=== PATIENT | female | born 1965 | race Caucasian/White ===

== ENCOUNTER → 2018-01-07 10:58 | Outpatient (CLI) | payer OTHER, SELFPAY ==
--- NOTE | 2018-01-17 09:57 | PM.CARDMON.1 ---
Management Instructor Report Referral & Results Date Patient Seen: 01/07/18 Requesting provider: Jeannie Ta Indication: Arrhythmia Duration of monitoring (days): 3 Diary information: There was 1 patient diary entry associated with sinus rhythm, and 1 patient triggered event also associated with sinus rhythm Data: Minimum heart rate identified was 51 beats per minute at 06:10 on 01/09/2018 Maximum heart rate was 156 beats per minute at 21:59 on 01/07/2018. This was during an 8 beat run of SVT. The maximum sinus heart rate was 122 beats per minute at 10:43 on 01/10/2018 Less than 1% of identified depolarizations were premature either from a supraventricular or ventricular origin Impression: Probably normal monitoring engineer. 1 run of an SVT at 156 beats per minute was identified. This run was only 8 beats. Patient identified events were not associated with any dysrhythmia.
== END ==
PROVIDERS: Family Provider Family Medicine; PCP Family Medicine; Visit Provider Family Medicine
DX: I49.9 Cardiac arrhythmia, unspecified (principal)
CPT/HCPCS: 0296T; 0298T

== ENCOUNTER 2018-01-17 08:25 | Emergency (ER) | payer OTHER, SELFPAY ==
[2018-01-17 08:35] VITALS: BP 126/74; PULSE 79; RESP 20; TEMP 36.4; O2SAT 97; BMI 20.9
--- NOTE | 2018-01-17 08:46 | ED.CHESTPAIN ---
HPI - Chest Pain General Chief Complaint: Chest Pain Stated Complaint: TROUBLE BREATHING Time Seen by Provider: 01/17/18 08:46 Source: patient Mode of arrival: ambulatory Limitations: no limitations History of Present Illness HPI narrative: Patient is a 52-year-old female presenting with chest pain and lightheadedness. She says she has had lightheadedness off and on for sometime. She has been having to multi sleeping for while she says she tries to sleep and then she feels like her heart wakes her up. She now feel extremely lightheaded no nausea no vomiting no weakness. She does have a history of anxiety and takes clonazepam before bed however she has run out and not been taking it. They also been decreasing her and present medication she thought previous was due to that. She has been taking her Sinemet every 3 hr. It is questionable that was prescribed this where she has increased herself. She is taking Related Data Home Medications Medication Instructions Recorded Confirmed ropinirole [Requip] 2 tab PO BID #0 09/06/16 01/17/18 sertraline 12.5 mg PO QDAY #0 10/05/17 12/21/17 carbidopa 25 mg-levodopa 100 mg 1.5 tab PO Q3H tab 12/21/17 01/17/18 tablet ropinirole 4 tab PO BEDTIME 01/17/18 01/17/18 Previous Rx's Medication Instructions Recorded mirtazapine 30 mg PO HS #60 tab 08/21/17 levothyroxine 75 mcg tablet 75 mcg PO QDAY #90 tab 11/22/17 clonazepam 1 mg tablet 1.5 mg PO QDAY #45 tab 01/17/18 Allergies Allergy/AdvReac Type Severity Reaction Status Date / Time No Known Drug Allergies Allergy Verified 01/17/18 08:35 Review of Systems Review of Systems All systems reviewed & are unremarkable except as noted in HPI and below Constitutional Reports as per HPI, Reports fatigue, Denies frequent falls and Reports other (insomnia) Cardiovascular Denies chest pain, Denies irregular heart rhythm, Denies lightheadedness, Denies palpitations and Denies orthopnea Gastrointestinal Gastrointestinal: Denies abdominal pain, Denies change in bowel habits, Denies diarrhea, Denies nausea and Denies vomiting Integumentary/Breasts Denies erythema and Denies rash Neurologic Denies frequent falls and Reports other (Parkinson's) Psychiatric Reports abnormal sleep pattern, Reports anxiety and Reports depression Endocrine Reports fatigue and Denies palpitations PFSH Medical History Anxiety (Chronic 02/22/11) Major depressive disorder without psychotic features (Chronic) Chronic insomnia (Chronic 06/12/14) 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) Parkinson's disease (Chronic 06/21/16) Anxiety (Chronic) Carpal tunnel syndrome (Chronic) Depression (Chronic) Eczema (Chronic) Foot pain (Chronic 2014) GERD (gastroesophageal reflux disease) (Chronic) Hayfever (Chronic) Herpes (Chronic) Hyperlipidemia (Chronic) Hypertension (Chronic) Hypothyroidism (Chronic 2014) Parkinson's disease (Chronic 2009) Scoliosis (Chronic) Substance abuse (Chronic) Abnormal Pap smear of cervix (Resolved) Cervical cancer (Resolved 2007) Chicken pox (Resolved 1969) Colitis (Resolved 2003) Gastric ulcer (Resolved 1983) HPV (human papilloma virus) infection (Resolved) Surgical History Anesthesia (Resolved) Status post vaginal hysterectomy (Resolved 04/05/09) Family History Father Heart disease High cholesterol Parkinson's disease Grandmother Cancer Mother Stroke A-fib Pacemaker Social History Smoking Status: Never smoker Exam Initial Vital Signs Initial Vital Signs: Vital Signs Temperature 97.6 F 01/17/18 08:35 Pulse Rate 79 01/17/18 08:35 Respiratory Rate 20 01/17/18 08:35 Blood Pressure 126/74 H 01/17/18 08:35 Pulse Oximetry 97 01/17/18 08:35 Const General: cooperative, well developed, anxious and No diaphoretic Nutritional Appearance: well nourished Orientation: alert, awake, oriented x3 and not confused [facility] Head: normal to inspection and normocephalic Resp Effort & Inspection: normal respiratory effort, able to speak in complete sentences, no respiratory distress and no use of accessory muscles Auscultation: clear to auscultation bilaterally, no rales, no rhonchi and no wheezes Cardio Rate: regular rate Rhythm: regular rhythm Heart Sounds: no click, no gallops, no murmurs and no rubs Pulses: normal peripheral pulses GI Inspection: non-distended Palpation: soft, no hepatosplenomegaly, No guarding, No pulsatile mass and No tender Auscultation: normal bowel sounds Skin General: no rashes or lesions noted, No jaundice and No petechiae Neuro General: alert, oriented x3, gait normal and no focal motor deficits Speech: speech normal Course Orders Ordered: ED Orders 01/17/18 08:40 Complete Blood Count AUTO DIFF Stat Comprehensive Metabolic Panel Stat D Dimer Stat Lipase Stat Troponin with CK Cardiac Panel Stat 01/17/18 09:00 XR chest 1V Stat 01/17/18 09:56 Urine Microscopic Stat Discontinued Medications Sodium Chloride (Normal Saline 0.9%) 1,000 mls @ 1,000 mls/hr IV CONT ENRIQUE Last Infusion: 01/17/18 10:54 Dose: 0 mls/hr Admin: 01/17/18 09:56 Dose: 1,000 mls/hr Vital Signs - 8 hr 01/17/18 08:35 01/17/18 08:53 01/17/18 09:06 Temperature 97.6 F Pulse Rate 79 74 Respiratory Rate 20 18 21 Blood Pressure 126/74 H Blood Pressure [Right Arm] 118/77 Pulse Oximetry 97 100 100 01/17/18 10:00 01/17/18 10:33 Temperature Pulse Rate 75 75 Respiratory Rate 20 19 Blood Pressure Blood Pressure [Right Arm] 128/80 H 126/79 H Pulse Oximetry 100 100 MDM - Chest Pain Medical Records Data Attestation: I reviewed the patient's medical records. Lab Data Attestation: I reviewed the patient's lab results. Result diagrams: 01/17/18 08:40 01/17/18 08:40 Lab Results 01/17/18 01/17/18 01/17/18 Range/Units 08:40 08:40 08:40 WBC 6.9 (4.5-11.0) X10^3/uL RBC 4.65 (4.0-5.2) X10^6/uL Hgb 13.6 (12.0-16.0) g/dL Hct 39.8 (36-46) % MCV 85.5 (80-100) fL MCH 29.1 (26-34) PG MCHC 34.1 (30-36) % RDW 13.0 (11.6-14.8) % Plt Count 331 (150-400) X10^3/uL Neut % (Auto) 62.7 (50-75) % Lymph % (Auto) 30.1 (25-40) % Greer % (Auto) 5.9 (3-14) % Eos % (Auto) 0.7 L (2-4) % Baso % (Auto) 0.6 (0-2) % Neut # (Auto) 4300 (8225-6125) /uL D-Dimer 262 H (<230) ng/mL Sodium 138 (137-145) mmol/L Potassium 3.5 (3.4-5.1) mmol/L Chloride 104 (98-107) mmol/L Carbon Dioxide 26 (22-32) mmol/L BUN 8 (7-17) mg/dL Creatinine 0.60 (0.52-1.04) mg/dL Estimated GFR > 60.0 (>60) mL/min BUN/Creatinine Ratio 13.3 (6-22) Glucose 90 (70-100) mg/dL Calcium 9.2 (8.4-10.2) mg/dL Total Bilirubin 0.7 (0.2-1.3) mg/dL AST 31 (14-36) IU/L ALT 12 (9-52) IU/L Alkaline Phosphatase 96 (38-126) U/L Total Creatine Kinase 61 (30-135) U/L Troponin I < 0.012 (0.01-0.034) ng/mL Total Protein 6.5 (6.3-8.2) g/dL Albumin 3.4 L (3.5-5.0) g/dL Globulin 3.1 (1.7-4.1) g/dL Albumin/Globulin Ratio 1.1 (1.0-2.8) Lipase 70 (23-300) U/L Urine RBC (0-5/HPF) Urine WBC (0-5/HPF) Ur Squamous Epith Cells Ur Transition Epith Cell (0-5/HPF) Urine Bacteria (None) Ur Culture Indicated? Micro UA Comment 01/17/18 Range/Units 09:56 WBC (4.5-11.0) X10^3/uL RBC (4.0-5.2) X10^6/uL Hgb (12.0-16.0) g/dL Hct (36-46) % MCV (80-100) fL MCH (26-34) PG MCHC (30-36) % RDW (11.6-14.8) % Plt Count (150-400) X10^3/uL Neut % (Auto) (50-75) % Lymph % (Auto) (25-40) % Greer % (Auto) (3-14) % Eos % (Auto) (2-4) % Baso % (Auto) (0-2) % Neut # (Auto) (4331-8768) /uL D-Dimer (<230) ng/mL Sodium (137-145) mmol/L Potassium (3.4-5.1) mmol/L Chloride (98-107) mmol/L Carbon Dioxide (22-32) mmol/L BUN (7-17) mg/dL Creatinine (0.52-1.04) mg/dL Estimated GFR (>60) mL/min BUN/Creatinine Ratio (6-22) Glucose (70-100) mg/dL Calcium (8.4-10.2) mg/dL Total Bilirubin (0.2-1.3) mg/dL AST (14-36) IU/L ALT (9-52) IU/L Alkaline Phosphatase (38-126) U/L Total Creatine Kinase (30-135) U/L Troponin I (0.01-0.034) ng/mL Total Protein (6.3-8.2) g/dL Albumin (3.5-5.0) g/dL Globulin (1.7-4.1) g/dL Albumin/Globulin Ratio (1.0-2.8) Lipase (23-300) U/L Urine RBC 0-1/hpf (0-5/HPF) Urine WBC 5-10/hpf H (0-5/HPF) Ur Squamous Epith Cells 10-30 /hpf H Ur Transition Epith Cell 1-5/hpf (0-5/HPF) Urine Bacteria Moderate (10-30) H (None) Ur Culture Indicated? Cult not indicated Micro UA Comment Not Reportable MDM Narrative Medical decision making narrative: Patient is taking her Sinemet every 3 hr she says it wears off. It is unknown if a physician has prescribed this for her. It sounds as though she started taking it more frequently. Side effects include nausea dizziness headache insomnia anxiety hypotension or orthostatic depression his mood changes. A lot of these she is experiencing. I have strongly recommended that she decrease her dose and take as prescribed t.i.d. or q.i.d. think that it will help with her symptoms. Today I believe her symptoms be medication induced. Discharge Plan Departure Patient Disposition: Home, Self-Care Clinical Impression: Medication reaction, [id number] Discharge Date/Time: 01/17/18 10:57 Interventions: ED Discharge Assessment Last Done: 01/17/18 10:56 Instructions: DI for Anxiety -- Adult, Levodopa and Carbidopa Activity Restrictions/Additional Instructions: *You have been diagnosed with his symptoms today may actually be drug related *What to do: Recommend decreasing carbidopa levodopa, a lot of these side effects you are experiencing *Continue to take medications as directed *Follow up with your primary care provider in 2-3 days, follow up with your neurologist *Return to ER if you should have any new, worsening or concerning symptoms Prescriptions: No Action ropinirole [Requip] 0.25 MG tablet 2 tab PO BID Qty: 0 RF: 0 mirtazapine 15 MG tablet 30 mg PO HS Qty: 60 RF: 5 sertraline 25 MG tablet 12.5 mg PO QDAY Qty: 0 RF: 0 levothyroxine [Synthroid] 75 mcg tablet 75 mcg PO QDAY Qty: 90 RF: 0 carbidopa-levodopa 25-100 mg tablet 1.5 tab PO Q3H RF: 0 clonazepam 1 mg tablet 1.5 mg PO QDAY Qty: 45 RF: 3 ropinirole 0.25 mg Tablet 4 tab PO BEDTIME RF: 0 Referrals: Jeannie Ta DO [Primary Care Provider] -
[2018-01-17 08:53] VITALS: RESP 18; O2SAT 100; O2SAT 99
--- NOTE | 2018-01-17 08:54 | PC.NURSE ---
Patient stated she was still having a hard time breathing and it was scaring her. o2 was at 99%. Nurse asked me to put her on 2L of O2.
--- NOTE | 2018-01-17 09:00 | DI.RAD.S_ITS ---
PROCEDURE: XR CHEST 1V INDICATIONS: 52 year-old female with chest pain. TECHNIQUE: One view of the chest was acquired. COMPARISON: [facility], , CHEST 1 VIEW, 08/10/2017, 18:52. FINDINGS: Surgical changes and devices: None. Lungs and pleura: No pleural effusions or pneumothorax. Lungs are clear. Mediastinum: Mediastinal contours appear normal. Heart size is normal. Bones and chest wall: No suspicious bony lesions. There is mid thoracic spine dextroscoliosis as before. Overlying soft tissues appear unremarkable. IMPRESSION: No acute cardiopulmonary disease. Dictated by: Rufus Chun M.D. on 01/17/2018 at 9:29 Approved by: Rufus Chun M.D. on 01/17/2018 at 9:30
[2018-01-17 09:06] VITALS: BP 118/77; PULSE 74; RESP 21; O2SAT 100
[2018-01-17 09:11] LABS: Add Manual Diff / Slide Review NO; Basophils Percent Auto 0.6 % (0-2); Eosinophils Percent Auto 0.7 % (2-4); Hematocrit 39.8 % (36-46); Hemoglobin 13.6 g/dL (12.0-16.0); Lymphocytes Percent Auto 30.1 % (25-40); Mean Corpuscular HGB Conc 34.1 % (30-36); Mean Corpuscular Hemoglobin 29.1 PG (26-34); Mean Corpuscular Volume 85.5 fL (80-100); Monocytes Percent Auto 5.9 % (3-14); Neutrophils Absolute Auto 4300 /uL (3000-5900); Neutrophils Percent Auto 62.7 % (50-75); Platelet Count 331 X10^3/uL (150-400); Red Blood Cell Count 4.65 X10^6/uL (4.0-5.2); White Blood Cell Count 6.9 X10^3/uL (4.5-11.0)
[2018-01-17 09:15] LABS: D Dimer 262 ng/mL (<230)
--- NOTE | 2018-01-17 09:15 | PC.NURSE ---
Patient asked me to contact her spouse and ask him if he could come sit with her as shes feeling anxious. He was on his way to work but sent Joann to come sit with patient. Patient aware.
[2018-01-17 09:17] LABS: Alanine Aminotransferase 12 IU/L (9-52); Albumin 3.4 g/dL (3.5-5.0); Albumin Globulin Ratio 1.1 (1.0-2.8); Alkaline Phosphatase 96 U/L (38-126); Aspartate Aminotransferase 31 IU/L (14-36); BUN Creatinine Ratio 13.3 (6-22); Bilirubin Total 0.7 mg/dL (0.2-1.3); Blood Urea Nitrogen 8 mg/dL (7-17); Calcium 9.2 mg/dL (8.4-10.2); Carbon Dioxide 26 mmol/L (22-32); Chloride 104 mmol/L (98-107); Creatine Kinase 61 U/L (30-135); Estimated Glomerular Filt Rate > 60.0 mL/min (>60); Globulin 3.1 g/dL (1.7-4.1); Glucose 90 mg/dL (70-100); HEMOLYSIS 19 (0-50); Lipase 70 U/L (23-300); Potassium 3.5 mmol/L (3.4-5.1); Sodium 138 mmol/L (137-145); Total Protein 6.5 g/dL (6.3-8.2)
[2018-01-17 09:30] LABS: Troponin I < 0.012 ng/mL (0.01-0.034)
[2018-01-17] MEDS: SODIUM CHLORIDE 0.9% 1,000 ML 1000 ML IV (09:56)
[2018-01-17 10:00] VITALS: BP 128/80; PULSE 75; RESP 20; O2SAT 100
[2018-01-17 10:12] LABS: RBC Urine 0-1/HPF (0-5/HPF)
[2018-01-17 10:13] LABS: Bacteria Urine Moderate (10-30); Squamous Epithelial Cell Urine 10-30 /HPF; Transitional Epi Cells Urine 1-5/HPF (0-5/HPF); WBC Urine 5-10/HPF (0-5/HPF)
[2018-01-17 10:14] LABS: Culture Indicated Urine Cult Not Indicated
[2018-01-17 10:33] VITALS: BP 126/79; PULSE 75; RESP 19; O2SAT 100
--- NOTE | 2018-01-17 10:54 | PC.NURSE ---
Pt and friend verbalized disappointment that we could not offer more pharmaceutical intervention re: insomnia. Encouraged to f/u w/ PCP and Neurology regarding possible treatments. Discussed non pharmacologic interventions.
== END 2018-01-17 10:57 | disposition home or self-care (01) ==
PROVIDERS: Emergency Provider Emergency Medicine; Family Provider Family Medicine; PCP Family Medicine
DX: R11.0 Nausea (principal); T42.8X5A Adverse effect of antiparkinsonism drugs and other central muscle-tone depressants, initial encounter; R42 Dizziness and giddiness; R51 Headache
CPT/HCPCS: 36591; 71045; 80053; 81003; 81015; 82550; 82553; 83690; 84484; 85025; 85379; 93005; 93041; 96360; 99284; 99285

== ENCOUNTER 2018-02-11 09:00 | Outpatient (RCR) | payer OTHER, SELFPAY ==
--- NOTE | 2018-01-09 07:20 | PT.OIE ---
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) Parkinson's disease (Chronic 06/21/16) Anxiety (Chronic) Carpal tunnel syndrome (Chronic) Depression (Chronic) Eczema (Chronic) Foot pain (Chronic 2014) GERD (gastroesophageal reflux disease) (Chronic) Hayfever (Chronic) Herpes (Chronic) Hyperlipidemia (Chronic) Hypertension (Chronic) Hypothyroidism (Chronic 2014) Parkinson's disease (Chronic 2009) Scoliosis (Chronic) Substance abuse (Chronic) Abnormal Pap smear of cervix (Resolved) Cervical cancer (Resolved 2007) Chicken pox (Resolved 1969) Colitis (Resolved 2003) Gastric ulcer (Resolved 1983) HPV (human papilloma virus) infection (Resolved) Past Surgical History (Last Updated 12/20/17 @ 16:57 by Sharron Bergman) Anesthesia (Resolved) Status post vaginal hysterectomy (Resolved 04/05/09) Provider Visit Care Team Role Provider Type Jeannie Ta DO Family Provider Physician Primary Care Provider Specialty: Family Practice Address: [address] [place] [address], [phone] Email: [email or web address] Abena Nelson MD Attending Provider Non-Staff Specialty: Neurology Address: [address] [place] [address], [phone] Email: Physical Therapy Initial Evaluation PT-OP-A Visit Information Start: 01/08/18 07:27 Freq: Status: Active Protocol: Document 01/08/18 11:00 AMB (Rec: 01/08/18 16:27 AMB [email or web address]) Out-Patient Physical Therapy Visit Information Visit Information Visit Type Initial Evaluation Visit Start Time 11:00 Visit Stop Time 12:00 Total Visit Minutes 60 Visit Number 1 Evaluation Information Evaluation Date 01/08/18 PT-OP-B Current Condition Start: 01/08/18 07:27 Freq: Status: Active Protocol: Document 01/08/18 11:00 AMB (Rec: 01/08/18 16:27 AMB [email or web address]) Current Condition History of Current Condition History of Current Condition The patient has had Parkinson' s about 8 years ago. Since then she has noticed greater difficulty with quick movements, balance, strength in her forearms. Prior Functional Status Baseline Function- ADL's Independent Baseline Function- Mobility Independent Current Functional Impairments (Reported) Functional Limitations- ADL's Increased difficulty with yoga , difficulty with hiking over uneven surfaces. Personal Factors Other Personal Factors That May Effect Pt admits anxiety/depression, Therapy/Recovery hypothyroidism PT-OP-C Subjective Start: 01/08/18 07:27 Freq: Status: Active Protocol: Document 01/08/18 11:00 AMB (Rec: 01/08/18 16:27 AMB [email or web address]) OP-PT Subjective Patient Comments Patient Comments The patient reports right great toe pain at times due to a bone spur. Some numbness and tingling in the right hand due to carpal tunnel syndrome . PT-OP-D Balance Start: 01/08/18 07:27 Freq: Status: Active Protocol: Document 01/08/18 11:00 AMB (Rec: 01/09/18 07:14 AMB [email or web address]) Balance Tests Single Limb Standing Single Limb- Right 25 seconds Single Limb- Left 22 seconds Semi-Tandem Standing Semi-Tandem Standing Balance EC 25 seconds with increased ankle sway Tandem Tandem Standing EC unable, EO 30 seconds PT-OP-E Functional Tests Start: 01/08/18 07:27 Freq: Status: Active Protocol: Document 01/08/18 11:00 AMB (Rec: 01/09/18 07:14 AMB [email or web address]) Functional Tests 6 Minute Walk Test Distance 1618 feet Device Used none Five Times Sit to Stand Test Score 7 seconds PT-OP-G Mobility & Gait Start: 01/08/18 07:27 Freq: Status: Active Protocol: Document 01/08/18 11:00 AMB (Rec: 01/09/18 07:14 AMB [email or web address]) OP Gait Assessment Comments Gait Comments Decreased left UE extension, decreased ankle dorsiflexion in swing phase and push off on the left PT-OP-H Neuro Start: 01/08/18 07:27 Freq: Status: Active Protocol: Document 01/08/18 11:00 AMB (Rec: 01/09/18 07:14 AMB [email or web address]) Coordination Evaluation Upper Extremity Tests Left Pronation/Supination Test Normal Performance Muscle Tone Tone Assessment Left Lower Extremity Muscle Tone Comments No clonus or tremors noted, pt does report motor dyskinesia L>R at the LE. PT-OP-J Posture/Palpation/Skin Start: 01/08/18 07:27 Freq: Status: Active Protocol: Document 01/08/18 11:00 AMB (Rec: 01/09/18 07:14 AMB [email or web address]) Posture Evaluation Comments Posture Comments Mild forward head PT-OP-M Strength Start: 01/08/18 07:27 Freq: Status: Active Protocol: Document 01/08/18 11:00 AMB (Rec: 01/09/18 07:14 AMB [email or web address]) Hand Load Builder/Pinch Strength Hand Dominance Hand Dominance Right Hand Strength Right Load Builder (lbs) 50 Left Load Builder (lbs) 45 Hip Strength Hip Manual Muscle Testing Right Flexion (L2) 4+ Good+ Extension (S1) 4+ Good+ Abduction 4+ Good+ Adduction 4+ Good+ Left Flexion (L2) 4 Good Extension (S1) 4 Good Abduction 4+ Good+ Adduction 4+ Good+ Knee Strength Knee Manual Muscle Testing Right Flexion (S2) 5 Normal Extension (L3) 5 Normal Left Flexion (S2) 5 Normal Extension (L3) 5 Normal Ankle/Foot Strength Ankle and Foot Manual Muscle Testing Left Dorsiflexion (L4) 4+ Good+ Plantarflexion (S1) 4+ Good+ Inversion 4+ Good+ Eversion (S1) 4- Good- Right Dorsiflexion (L4) 4+ Good+ Plantarflexion (S1) 4+ Good+ Inversion 4+ Good+ Eversion (S1) 4+ Good+ PT-OP-T Assessment and Plan Start: 01/08/18 07:27 Freq: Status: Active Protocol: Document 01/08/18 11:00 AMB (Rec: 01/08/18 16:44 AMB [email or web address]) Physical Therapy Assessment Rehab Potential Rehabilitation Potential Good Evaluation Complexity Number of Personal Factors/Comorbidities 1-2 Clinical Presentation at Evaluation Evolving Impairments Impairments Activity Tolerance Balance Coordination Functional Activities Gait Strength Goals 3 Impairment Lift/carry Short Term Goal (STG) The patient will increase her L camera storage clerk strength to 50#. STG Duration 3 weeks Guard Entrance Registrar Goal (LTG) The patient will lift a guillen with her left hand to make dinner without fear of dropping it. LTG Duration 6 weeks 2 Impairment Dynamic balance Short Term Goal (STG) The patient will show improved ankle stability by hiking over uneven terrain for 30 minutes without LOB. STG Duration 3 weeks Guard Entrance Registrar Goal (LTG) The patient will show improved balance by maintaining tandem stance with eyes closed for 10 seconds without LOB. LTG Duration 6 weeks 1 Impairment Gait Short Term Goal (STG) The patient will increase her left arm swing with gait. STG Duration 3 weeks Guard Entrance Registrar Goal (LTG) The patient will increase her 6MWT score to 1,800 feet to show improved gait speed. LTG Duration 6 weeks Physical Therapy Plan Frequency and Duration Frequency of Treatment 4x/Week Duration of Treatment 6 weeks Plan of Care Start Date 01/08/18 Plan of Care End Date 02/19/18 Therapeutic Interventions Therapeutic Interventions Balance Training Coordination Training Gait Training Home Exercise Program Neuromuscular Re-education Self-Care/Home Management Therapeutic Activities Therapeutic Exercises Other Therapeutic Interventions LSVT BI visits for 4 weeks , patient may take a 1 week break in the middle Next Visit Focus/Plan Next Note Type Treatment Note
--- NOTE | 2018-01-09 07:21 | PT.OPPOC ---
Current Diagnoses Parkinson's disease (01/08/18) Provider Visit Care Team Role Provider Type Jeannie Ta DO Family Provider Physician Primary Care Provider Specialty: Family Practice Address: [address] [place] [address], [phone] Email: [email or web address] Abena Nelson MD Attending Provider Non-Staff Specialty: Neurology Address: [address] [place] [address], [phone] Email: Plan Of Care PT-OP-T Assessment and Plan Start: 01/08/18 07:27 Freq: Status: Active Protocol: Document 01/08/18 11:00 AMB (Rec: 01/08/18 16:44 AMB [email or web address]) Physical Therapy Assessment Rehab Potential Rehabilitation Potential Good Evaluation Complexity Number of Personal Factors/Comorbidities 1-2 Clinical Presentation at Evaluation Evolving Impairments Impairments Activity Tolerance Balance Coordination Functional Activities Gait Strength Goals 3 Impairment Lift/carry Short Term Goal (STG) The patient will increase her L title insurance agent strength to 50#. STG Duration 3 weeks Dry Dip Worker Goal (LTG) The patient will lift a guillen with her left hand to make dinner without fear of dropping it. LTG Duration 6 weeks 2 Impairment Dynamic balance Short Term Goal (STG) The patient will show improved ankle stability by hiking over uneven terrain for 30 minutes without LOB. STG Duration 3 weeks Dry Dip Worker Goal (LTG) The patient will show improved balance by maintaining tandem stance with eyes closed for 10 seconds without LOB. LTG Duration 6 weeks 1 Impairment Gait Short Term Goal (STG) The patient will increase her left arm swing with gait. STG Duration 3 weeks Dry Dip Worker Goal (LTG) The patient will increase her 6MWT score to 1,800 feet to show improved gait speed. LTG Duration 6 weeks Physical Therapy Plan Frequency and Duration Frequency of Treatment 4x/Week Duration of Treatment 6 weeks Plan of Care Start Date 01/08/18 Plan of Care End Date 02/19/18 Therapeutic Interventions Therapeutic Interventions Balance Training Coordination Training Gait Training Home Exercise Program Neuromuscular Re-education Self-Care/Home Management Therapeutic Activities Therapeutic Exercises Other Therapeutic Interventions LSVT BI visits for 4 weeks , patient may take a 1 week break in the middle Next Visit Focus/Plan Next Note Type Treatment Note Plan of Care Dates Plan of Care Start Date 01/08/18 Plan of Care End Date 02/19/18 Please Sign and Return: I have reviewed this Plan of Care and certify that the skilled therapy services above are required to meet the patient?s needs. Physician Signature Date Printed Name and Credentials Clinical Instructor Signature Printed Name and Credentials
--- NOTE | 2018-01-09 15:40 | PT.OTN ---
Current Diagnoses Parkinson's disease (01/09/18) Physical Therapy Treatment Note PT-OP-A Visit Information Start: 01/08/18 07:27 Freq: Status: Active Protocol: Document 01/09/18 13:35 AMB (Rec: 01/09/18 13:40 AMB [email or web address]) Out-Patient Physical Therapy Visit Information Visit Information Visit Type Treatment Note Visit Start Time 13:00 Visit Stop Time 14:00 Total Visit Minutes 45 Visit Number 2 Evaluation Information Evaluation Date 01/08/18 PT-OP-B Current Condition Start: 01/08/18 07:27 Freq: Status: Active Protocol: Document 01/08/18 11:00 AMB (Rec: 01/08/18 16:27 AMB [email or web address]) Current Condition History of Current Condition History of Current Condition The patient has had Parkinson' s about 8 years ago. Since then she has noticed greater difficulty with quick movements, balance, strength in her forearms. Prior Functional Status Baseline Function- ADL's Independent Baseline Function- Mobility Independent Current Functional Impairments (Reported) Functional Limitations- ADL's Increased difficulty with yoga , difficulty with hiking over uneven surfaces. Personal Factors Other Personal Factors That May Effect Pt admits anxiety/depression, Therapy/Recovery hypothyroidism PT-OP-C Subjective Start: 01/08/18 07:27 Freq: Status: Active Protocol: Document 01/09/18 13:35 AMB (Rec: 01/09/18 13:40 AMB [id number]) OP-PT Subjective Patient Comments Patient Comments Pt reports she is doing well, doing laundry when she gets home. Did have to concentrate to tilt guillen last night with cooking. PT-OP-D Balance Start: 01/08/18 07:27 Freq: Status: Active Protocol: Document 01/08/18 11:00 AMB (Rec: 01/09/18 07:14 AMB [email or web address]) Balance Tests Single Limb Standing Single Limb- Right 25 seconds Single Limb- Left 22 seconds Semi-Tandem Standing Semi-Tandem Standing Balance EC 25 seconds with increased ankle sway Tandem Tandem Standing EC unable, EO 30 seconds PT-OP-E Functional Tests Start: 01/08/18 07:27 Freq: Status: Active Protocol: Document 01/08/18 11:00 AMB (Rec: 01/09/18 07:14 AMB [email or web address]) Functional Tests 6 Minute Walk Test Distance 1618 feet Device Used none Five Times Sit to Stand Test Score 7 seconds PT-OP-G Mobility & Gait Start: 01/08/18 07:27 Freq: Status: Active Protocol: Document 01/08/18 11:00 AMB (Rec: 01/09/18 07:14 AMB [email or web address]) OP Gait Assessment Comments Gait Comments Decreased left UE extension, decreased ankle dorsiflexion in swing phase and push off on the left PT-OP-H Neuro Start: 01/08/18 07:27 Freq: Status: Active Protocol: Document 01/08/18 11:00 AMB (Rec: 01/09/18 07:14 AMB [email or web address]) Coordination Evaluation Upper Extremity Tests Left Pronation/Supination Test Normal Performance Muscle Tone Tone Assessment Left Lower Extremity Muscle Tone Comments No clonus or tremors noted, pt does report motor dyskinesia L>R at the LE. PT-OP-J Posture/Palpation/Skin Start: 01/08/18 07:27 Freq: Status: Active Protocol: Document 01/08/18 11:00 AMB (Rec: 01/09/18 07:14 AMB [email or web address]) Posture Evaluation Comments Posture Comments Mild forward head PT-OP-M Strength Start: 01/08/18 07:27 Freq: Status: Active Protocol: Document 01/08/18 11:00 AMB (Rec: 01/09/18 07:14 AMB [email or web address]) Hand Proofer Prepress/Pinch Strength Hand Dominance Hand Dominance Right Hand Strength Right Proofer Prepress (lbs) 50 Left Proofer Prepress (lbs) 45 Hip Strength Hip Manual Muscle Testing Right Flexion (L2) 4+ Good+ Extension (S1) 4+ Good+ Abduction 4+ Good+ Adduction 4+ Good+ Left Flexion (L2) 4 Good Extension (S1) 4 Good Abduction 4+ Good+ Adduction 4+ Good+ Knee Strength Knee Manual Muscle Testing Right Flexion (S2) 5 Normal Extension (L3) 5 Normal Left Flexion (S2) 5 Normal Extension (L3) 5 Normal Ankle/Foot Strength Ankle and Foot Manual Muscle Testing Left Dorsiflexion (L4) 4+ Good+ Plantarflexion (S1) 4+ Good+ Inversion 4+ Good+ Eversion (S1) 4- Good- Right Dorsiflexion (L4) 4+ Good+ Plantarflexion (S1) 4+ Good+ Inversion 4+ Good+ Eversion (S1) 4+ Good+ PT-OP-Q Treatments Start: 01/08/18 07:27 Freq: Status: Active Protocol: Document 01/09/18 13:00 AMB (Rec: 01/09/18 15:38 AMB [email or web address]) Therapeutic Exercises Sitting Exercises 4 Sitting Exercise Name sit to stand Comments with and without foam 10ea 3 Sitting Exercise Name wrist radial/ulnar deviation Side bilateral Resistance 2# Reps/Minutes 10 2 Sitting Exercise Name forearm sup/pron Side bilateral Resistance 10 1 Sitting Exercise Name wrist ext Side bilateral Resistance 2# Reps/Minutes 10 Neuro Re-Education Treatment Balance Activities 6 Details blue foam balance Comments with HT, EO 5 Details WBOS trunk rotation reach Reps/Duration 12 4 Details modified tandem stance with weightshift a/p and alternating UE mvmt Reps/Duration 12 3 Details posterior stepping Reps/Duration 20 Comments with forward trunk bend 2 Details lateral stepping Reps/Duration 20 Comments alternating with UE horizontal abd and cervical rotation 1 Details forward stepping Reps/Duration 20 Comments alternating with UE horizontal abd PT-OP-T Assessment and Plan Start: 01/08/18 07:27 Freq: Status: Active Protocol: Document 01/09/18 13:00 AMB (Rec: 01/09/18 15:38 AMB [email or web address]) Physical Therapy Assessment Assessment Summary Assessment The patient fatigues quickly, good ROM. Physical Therapy Plan Next Visit Focus/Plan Next Note Type Treatment Note Next Visit Plan Progress gait training with cognitive distraction
--- NOTE | 2018-01-10 15:44 | PT.OTN ---
Current Diagnoses Parkinson's disease (01/10/18) Physical Therapy Treatment Note PT-OP-A Visit Information Start: 01/08/18 07:27 Freq: Status: Active Protocol: Document 01/10/18 10:30 AMB (Rec: 01/10/18 15:42 AMB [email or web address]) Out-Patient Physical Therapy Visit Information Visit Information Visit Type Treatment Note Visit Start Time 10:30 Visit Stop Time 11:30 Total Visit Minutes 60 Visit Number 3 Evaluation Information Evaluation Date 01/08/18 PT-OP-B Current Condition Start: 01/08/18 07:27 Freq: Status: Active Protocol: Document 01/08/18 11:00 AMB (Rec: 01/08/18 16:27 AMB [email or web address]) Current Condition History of Current Condition History of Current Condition The patient has had Parkinson' s about 8 years ago. Since then she has noticed greater difficulty with quick movements, balance, strength in her forearms. Prior Functional Status Baseline Function- ADL's Independent Baseline Function- Mobility Independent Current Functional Impairments (Reported) Functional Limitations- ADL's Increased difficulty with yoga , difficulty with hiking over uneven surfaces. Personal Factors Other Personal Factors That May Effect Pt admits anxiety/depression, Therapy/Recovery hypothyroidism PT-OP-C Subjective Start: 01/08/18 07:27 Freq: Status: Active Protocol: Document 01/10/18 10:30 AMB (Rec: 01/10/18 15:42 AMB [email or web address]) OP-PT Subjective Patient Comments Patient Comments Pt going on a walk with friends later, she chooses to go on paved trails instead of the [place] land because she is worried she would trip on roots when she is having to dual taks while talking. PT-OP-D Balance Start: 01/08/18 07:27 Freq: Status: Active Protocol: Document 01/08/18 11:00 AMB (Rec: 01/09/18 07:14 AMB [email or web address]) Balance Tests Single Limb Standing Single Limb- Right 25 seconds Single Limb- Left 22 seconds Semi-Tandem Standing Semi-Tandem Standing Balance EC 25 seconds with increased ankle sway Tandem Tandem Standing EC unable, EO 30 seconds PT-OP-E Functional Tests Start: 01/08/18 07:27 Freq: Status: Active Protocol: Document 01/08/18 11:00 AMB (Rec: 01/09/18 07:14 AMB [email or web address]) Functional Tests 6 Minute Walk Test Distance 1618 feet Device Used none Five Times Sit to Stand Test Score 7 seconds PT-OP-G Mobility & Gait Start: 01/08/18 07:27 Freq: Status: Active Protocol: Document 01/08/18 11:00 AMB (Rec: 01/09/18 07:14 AMB [email or web address]) OP Gait Assessment Comments Gait Comments Decreased left UE extension, decreased ankle dorsiflexion in swing phase and push off on the left PT-OP-H Neuro Start: 01/08/18 07:27 Freq: Status: Active Protocol: Document 01/08/18 11:00 AMB (Rec: 01/09/18 07:14 AMB [email or web address]) Coordination Evaluation Upper Extremity Tests Left Pronation/Supination Test Normal Performance Muscle Tone Tone Assessment Left Lower Extremity Muscle Tone Comments No clonus or tremors noted, pt does report motor dyskinesia L>R at the LE. PT-OP-J Posture/Palpation/Skin Start: 01/08/18 07:27 Freq: Status: Active Protocol: Document 01/08/18 11:00 AMB (Rec: 01/09/18 07:14 AMB [email or web address]) Posture Evaluation Comments Posture Comments Mild forward head PT-OP-M Strength Start: 01/08/18 07:27 Freq: Status: Active Protocol: Document 01/08/18 11:00 AMB (Rec: 01/09/18 07:14 AMB [email or web address]) Hand Java Web Application Developer/Pinch Strength Hand Dominance Hand Dominance Right Hand Strength Right Java Web Application Developer (lbs) 50 Left Java Web Application Developer (lbs) 45 Hip Strength Hip Manual Muscle Testing Right Flexion (L2) 4+ Good+ Extension (S1) 4+ Good+ Abduction 4+ Good+ Adduction 4+ Good+ Left Flexion (L2) 4 Good Extension (S1) 4 Good Abduction 4+ Good+ Adduction 4+ Good+ Knee Strength Knee Manual Muscle Testing Right Flexion (S2) 5 Normal Extension (L3) 5 Normal Left Flexion (S2) 5 Normal Extension (L3) 5 Normal Ankle/Foot Strength Ankle and Foot Manual Muscle Testing Left Dorsiflexion (L4) 4+ Good+ Plantarflexion (S1) 4+ Good+ Inversion 4+ Good+ Eversion (S1) 4- Good- Right Dorsiflexion (L4) 4+ Good+ Plantarflexion (S1) 4+ Good+ Inversion 4+ Good+ Eversion (S1) 4+ Good+ PT-OP-Q Treatments Start: 01/08/18 07:27 Freq: Status: Active Protocol: Document 01/10/18 10:30 AMB (Rec: 01/10/18 15:42 AMB [email or web address]) Gym Equipment Shuttle Balance 1 Details RED modified tandem Reps/Duration 10 min Comments head turn Therapeutic Exercises Sitting Exercises 3 Sitting Exercise Name wrist radial/ulnar deviation Side bilateral Resistance 2# Reps/Minutes 10 2 Sitting Exercise Name forearm sup/pron Side bilateral 1 Sitting Exercise Name wrist ext Side bilateral Resistance 2# Reps/Minutes 10 Gait Training Gait Activity 3 Description stairs Device Used 1 railing Level of Assistance SBA Distance/Duration 2 flights 2 Description hurdles Comments counting back from 100 by 3s 1 Description smooth surface Comments alphabet backwards, ball toss Neuro Re-Education Treatment Balance Activities 5 Details WBOS trunk rotation reach Reps/Duration 12 4 Details modified tandem stance with weightshift a/p and alternating UE mvmt Reps/Duration 12 3 Details posterior stepping Reps/Duration 20 Comments with forward trunk bend 2 Details lateral stepping Reps/Duration 20 Comments alternating with UE horizontal abd and cervical rotation 1 Details forward stepping Reps/Duration 20 Comments alternating with UE horizontal abd PT-OP-T Assessment and Plan Start: 01/08/18 07:27 Freq: Status: Active Protocol: Document 01/10/18 10:30 AMB (Rec: 01/10/18 15:42 AMB [email or web address]) Physical Therapy Assessment Goals 3 Impairment Lift/carry Short Term Goal (STG) The patient will increase her L shoe salesperson strength to 50#. STG Duration 3 weeks Detention Goal (LTG) The patient will lift a guillen with her left hand to make dinner without fear of dropping it. LTG Duration 6 weeks 2 Impairment Dynamic balance Short Term Goal (STG) The patient will show improved ankle stability by hiking over uneven terrain for 30 minutes without LOB. STG Duration 3 weeks Detention Goal (LTG) The patient will show improved balance by maintaining tandem stance with eyes closed for 10 seconds without LOB. LTG Duration 6 weeks 1 Impairment Gait Short Term Goal (STG) The patient will increase her left arm swing with gait. STG Duration 3 weeks Bag Repairer Goal (LTG) The patient will increase her 6MWT score to 1,800 feet to show improved gait speed. LTG Duration 6 weeks Assessment Summary Assessment Cognitive distraction does increase veering with gait. Physical Therapy Plan Frequency and Duration Frequency of Treatment 4x/Week Duration of Treatment 6 weeks Plan of Care Start Date 01/08/18 Plan of Care End Date 02/19/18 Next Visit Focus/Plan Next Note Type Treatment Note Next Visit Plan Progress dynamic balance training
--- NOTE | 2018-01-11 12:04 | PT.OTN ---
Current Diagnoses Parkinson's disease (01/11/18) Physical Therapy Treatment Note PT-OP-A Visit Information Start: 01/08/18 07:27 Freq: Status: Active Protocol: Document 01/11/18 11:00 AMB (Rec: 01/11/18 11:00 AMB [id number]) Out-Patient Physical Therapy Visit Information Visit Information Visit Type Treatment Note Visit Start Time 11:00 Visit Stop Time 12:00 Total Visit Minutes 60 Visit Number 4 Evaluation Information Evaluation Date 01/08/18 PT-OP-B Current Condition Start: 01/08/18 07:27 Freq: Status: Active Protocol: Document 01/08/18 11:00 AMB (Rec: 01/08/18 16:27 AMB [email or web address]) Current Condition History of Current Condition History of Current Condition The patient has had Parkinson' s about 8 years ago. Since then she has noticed greater difficulty with quick movements, balance, strength in her forearms. Prior Functional Status Baseline Function- ADL's Independent Baseline Function- Mobility Independent Current Functional Impairments (Reported) Functional Limitations- ADL's Increased difficulty with yoga , difficulty with hiking over uneven surfaces. Personal Factors Other Personal Factors That May Effect Pt admits anxiety/depression, Therapy/Recovery hypothyroidism PT-OP-C Subjective Start: 01/08/18 07:27 Freq: Status: Active Protocol: Document 01/11/18 11:00 AMB (Rec: 01/11/18 11:00 AMB [id number]) OP-PT Subjective Patient Comments Patient Reported Progress Improving PT-OP-D Balance Start: 01/08/18 07:27 Freq: Status: Active Protocol: Document 01/08/18 11:00 AMB (Rec: 01/09/18 07:14 AMB [email or web address]) Balance Tests Single Limb Standing Single Limb- Right 25 seconds Single Limb- Left 22 seconds Semi-Tandem Standing Semi-Tandem Standing Balance EC 25 seconds with increased ankle sway Tandem Tandem Standing EC unable, EO 30 seconds PT-OP-E Functional Tests Start: 01/08/18 07:27 Freq: Status: Active Protocol: Document 01/08/18 11:00 AMB (Rec: 01/09/18 07:14 AMB [email or web address]) Functional Tests 6 Minute Walk Test Distance 1618 feet Device Used none Five Times Sit to Stand Test Score 7 seconds PT-OP-G Mobility & Gait Start: 01/08/18 07:27 Freq: Status: Active Protocol: Document 01/08/18 11:00 AMB (Rec: 01/09/18 07:14 AMB [email or web address]) OP Gait Assessment Comments Gait Comments Decreased left UE extension, decreased ankle dorsiflexion in swing phase and push off on the left PT-OP-H Neuro Start: 01/08/18 07:27 Freq: Status: Active Protocol: Document 01/08/18 11:00 AMB (Rec: 01/09/18 07:14 AMB [email or web address]) Coordination Evaluation Upper Extremity Tests Left Pronation/Supination Test Normal Performance Muscle Tone Tone Assessment Left Lower Extremity Muscle Tone Comments No clonus or tremors noted, pt does report motor dyskinesia L>R at the LE. PT-OP-J Posture/Palpation/Skin Start: 01/08/18 07:27 Freq: Status: Active Protocol: Document 01/08/18 11:00 AMB (Rec: 01/09/18 07:14 AMB [email or web address]) Posture Evaluation Comments Posture Comments Mild forward head PT-OP-M Strength Start: 01/08/18 07:27 Freq: Status: Active Protocol: Document 01/08/18 11:00 AMB (Rec: 01/09/18 07:14 AMB [email or web address]) Hand Interactive Account Manager/Pinch Strength Hand Dominance Hand Dominance Right Hand Strength Right Interactive Account Manager (lbs) 50 Left Interactive Account Manager (lbs) 45 Hip Strength Hip Manual Muscle Testing Right Flexion (L2) 4+ Good+ Extension (S1) 4+ Good+ Abduction 4+ Good+ Adduction 4+ Good+ Left Flexion (L2) 4 Good Extension (S1) 4 Good Abduction 4+ Good+ Adduction 4+ Good+ Knee Strength Knee Manual Muscle Testing Right Flexion (S2) 5 Normal Extension (L3) 5 Normal Left Flexion (S2) 5 Normal Extension (L3) 5 Normal Ankle/Foot Strength Ankle and Foot Manual Muscle Testing Left Dorsiflexion (L4) 4+ Good+ Plantarflexion (S1) 4+ Good+ Inversion 4+ Good+ Eversion (S1) 4- Good- Right Dorsiflexion (L4) 4+ Good+ Plantarflexion (S1) 4+ Good+ Inversion 4+ Good+ Eversion (S1) 4+ Good+ PT-OP-Q Treatments Start: 01/08/18 07:27 Freq: Status: Active Protocol: Document 01/11/18 11:00 AMB (Rec: 01/11/18 11:00 AMB [id number]) Gym Equipment Shuttle Balance 1 Details RED modified tandem Reps/Duration 10 min Comments head turn, EO, EC Therapeutic Exercises Sitting Exercises 5 Sitting Exercise Name shoulder scaption Side bilateral Equipment Used 2# Comments 10 4 Sitting Exercise Name sit to stand Comments with and without foam 10ea 3 Sitting Exercise Name wrist radial/ulnar deviation Side bilateral Resistance 2# Reps/Minutes 10 2 Sitting Exercise Name forearm sup/pron Side bilateral 1 Sitting Exercise Name wrist ext Side bilateral Resistance 2# Reps/Minutes 10 Gait Training Gait Activity 2 Description hurdles with foam Comments counting by 6s, 1 Description smooth surface Comments with 2# weights Neuro Re-Education Treatment Balance Activities 5 Details WBOS trunk rotation reach Reps/Duration 12 4 Details modified tandem stance with weightshift a/p and alternating UE mvmt Reps/Duration 12 3 Details posterior stepping Reps/Duration 20 Comments with forward trunk bend 2 Details lateral stepping Reps/Duration 20 Comments alternating with UE horizontal abd and cervical rotation 1 Details forward stepping Reps/Duration 20 Comments alternating with UE horizontal abd PT-OP-T Assessment and Plan Start: 01/08/18 07:27 Freq: Status: Active Protocol: Document 01/11/18 11:00 AMB (Rec: 01/11/18 11:00 AMB [email or web address]) Physical Therapy Assessment Progress Towards Goals Progress Towards Goals Progressing Toward Goals Assessment Summary Assessment Forearms fatigue quickly, improving with dynamic balance . Physical Therapy Plan Frequency and Duration Frequency of Treatment 4x/Week Duration of Treatment 6 weeks Plan of Care Start Date 01/08/18 Plan of Care End Date 02/19/18 Next Visit Focus/Plan Next Note Type Treatment Note Next Visit Plan Can progress forearm/shoulder strengthening
--- NOTE | 2018-01-14 15:58 | PT.OTN ---
Current Diagnoses Parkinson's disease (01/14/18) Physical Therapy Treatment Note PT-OP-A Visit Information Start: 01/08/18 07:27 Freq: Status: Active Protocol: Document 01/14/18 10:15 AMB (Rec: 01/14/18 15:55 AMB [email or web address]) Out-Patient Physical Therapy Visit Information Visit Information Visit Type Treatment Note Visit Start Time 11:00 Visit Stop Time 12:00 Total Visit Minutes 60 Visit Number 4 Evaluation Information Evaluation Date 01/08/18 PT-OP-B Current Condition Start: 01/08/18 07:27 Freq: Status: Active Protocol: Document 01/08/18 11:00 AMB (Rec: 01/08/18 16:27 AMB [email or web address]) Current Condition History of Current Condition History of Current Condition The patient has had Parkinson' s about 8 years ago. Since then she has noticed greater difficulty with quick movements, balance, strength in her forearms. Prior Functional Status Baseline Function- ADL's Independent Baseline Function- Mobility Independent Current Functional Impairments (Reported) Functional Limitations- ADL's Increased difficulty with yoga , difficulty with hiking over uneven surfaces. Personal Factors Other Personal Factors That May Effect Pt admits anxiety/depression, Therapy/Recovery hypothyroidism PT-OP-C Subjective Start: 01/08/18 07:27 Freq: Status: Active Protocol: Document 01/14/18 10:15 AMB (Rec: 01/14/18 15:55 AMB [email or web address]) OP-PT Subjective Patient Comments Patient Comments The pt did well over the weekend with her exercises, although fatigue at the end of the day continues to be an issue. PT-OP-D Balance Start: 01/08/18 07:27 Freq: Status: Active Protocol: Document 01/08/18 11:00 AMB (Rec: 01/09/18 07:14 AMB [email or web address]) Balance Tests Single Limb Standing Single Limb- Right 25 seconds Single Limb- Left 22 seconds Semi-Tandem Standing Semi-Tandem Standing Balance EC 25 seconds with increased ankle sway Tandem Tandem Standing EC unable, EO 30 seconds PT-OP-E Functional Tests Start: 01/08/18 07:27 Freq: Status: Active Protocol: Document 01/08/18 11:00 AMB (Rec: 01/09/18 07:14 AMB [email or web address]) Functional Tests 6 Minute Walk Test Distance 1618 feet Device Used none Five Times Sit to Stand Test Score 7 seconds PT-OP-G Mobility & Gait Start: 01/08/18 07:27 Freq: Status: Active Protocol: Document 01/08/18 11:00 AMB (Rec: 01/09/18 07:14 AMB [email or web address]) OP Gait Assessment Comments Gait Comments Decreased left UE extension, decreased ankle dorsiflexion in swing phase and push off on the left PT-OP-H Neuro Start: 01/08/18 07:27 Freq: Status: Active Protocol: Document 01/08/18 11:00 AMB (Rec: 01/09/18 07:14 AMB [email or web address]) Coordination Evaluation Upper Extremity Tests Left Pronation/Supination Test Normal Performance Muscle Tone Tone Assessment Left Lower Extremity Muscle Tone Comments No clonus or tremors noted, pt does report motor dyskinesia L>R at the LE. PT-OP-J Posture/Palpation/Skin Start: 01/08/18 07:27 Freq: Status: Active Protocol: Document 01/08/18 11:00 AMB (Rec: 01/09/18 07:14 AMB [email or web address]) Posture Evaluation Comments Posture Comments Mild forward head PT-OP-M Strength Start: 01/08/18 07:27 Freq: Status: Active Protocol: Document 01/08/18 11:00 AMB (Rec: 01/09/18 07:14 AMB [email or web address]) Hand Cavalry Scout/Pinch Strength Hand Dominance Hand Dominance Right Hand Strength Right Cavalry Scout (lbs) 50 Left Cavalry Scout (lbs) 45 Hip Strength Hip Manual Muscle Testing Right Flexion (L2) 4+ Good+ Extension (S1) 4+ Good+ Abduction 4+ Good+ Adduction 4+ Good+ Left Flexion (L2) 4 Good Extension (S1) 4 Good Abduction 4+ Good+ Adduction 4+ Good+ Knee Strength Knee Manual Muscle Testing Right Flexion (S2) 5 Normal Extension (L3) 5 Normal Left Flexion (S2) 5 Normal Extension (L3) 5 Normal Ankle/Foot Strength Ankle and Foot Manual Muscle Testing Left Dorsiflexion (L4) 4+ Good+ Plantarflexion (S1) 4+ Good+ Inversion 4+ Good+ Eversion (S1) 4- Good- Right Dorsiflexion (L4) 4+ Good+ Plantarflexion (S1) 4+ Good+ Inversion 4+ Good+ Eversion (S1) 4+ Good+ PT-OP-Q Treatments Start: 01/08/18 07:27 Freq: Status: Active Protocol: Document 01/14/18 10:15 AMB (Rec: 01/14/18 15:55 AMB [email or web address]) Therapeutic Exercises Sitting Exercises 6 Sitting Exercise Name Body blade Comments shoulder flexion 5 Sitting Exercise Name shoulder scaption Side bilateral Equipment Used 2# Comments 10 4 Sitting Exercise Name sit to stand Comments with and without foam 10ea Gait Training Gait Activity 2 Description hurdles with foam Comments alphabet animals 1 Description smooth surface Comments with 2# weights Neuro Re-Education Treatment Balance Activities 5 Details WBOS trunk rotation reach Reps/Duration 12 4 Details modified tandem stance with weightshift a/p and alternating UE mvmt Reps/Duration 12 3 Details posterior stepping Reps/Duration 20 Comments with forward trunk bend 2 Details lateral stepping Reps/Duration 20 Comments alternating with UE horizontal abd and cervical rotation 1 Details forward stepping Reps/Duration 20 Comments alternating with UE horizontal abd PT-OP-T Assessment and Plan Start: 01/08/18 07:27 Freq: Status: Active Protocol: Document 01/14/18 10:15 AMB (Rec: 01/14/18 15:55 AMB [email or web address]) Physical Therapy Assessment Assessment Summary Assessment Pt continues to struggle with dual tasking. Physical Therapy Plan Frequency and Duration Frequency of Treatment 4x/Week Duration of Treatment 6 weeks Plan of Care Start Date 01/08/18 Plan of Care End Date 02/19/18 Next Visit Focus/Plan Next Note Type Treatment Note Next Visit Plan The patient is doing well , but continues to be challenged by dual tasking.
--- NOTE | 2018-01-15 13:02 | PT.OTN ---
Current Diagnoses Parkinson's disease (01/15/18) Physical Therapy Treatment Note PT-OP-A Visit Information Start: 01/08/18 07:27 Freq: Status: Active Protocol: Document 01/15/18 11:00 AMB (Rec: 01/15/18 11:01 AMB [email or web address]) Out-Patient Physical Therapy Visit Information Visit Information Visit Type Treatment Note Visit Start Time 11:00 Visit Stop Time 12:00 Total Visit Minutes 60 Visit Number 6 Evaluation Information Evaluation Date 01/08/18 PT-OP-B Current Condition Start: 01/08/18 07:27 Freq: Status: Active Protocol: Document 01/08/18 11:00 AMB (Rec: 01/08/18 16:27 AMB [email or web address]) Current Condition History of Current Condition History of Current Condition The patient has had Parkinson' s about 8 years ago. Since then she has noticed greater difficulty with quick movements, balance, strength in her forearms. Prior Functional Status Baseline Function- ADL's Independent Baseline Function- Mobility Independent Current Functional Impairments (Reported) Functional Limitations- ADL's Increased difficulty with yoga , difficulty with hiking over uneven surfaces. Personal Factors Other Personal Factors That May Effect Pt admits anxiety/depression, Therapy/Recovery hypothyroidism PT-OP-C Subjective Start: 01/08/18 07:27 Freq: Status: Active Protocol: Document 01/15/18 11:00 AMB (Rec: 01/15/18 11:11 AMB [id number]) OP-PT Subjective Patient Comments Patient Comments Pt reports difficult sleeping last night. PT-OP-D Balance Start: 01/08/18 07:27 Freq: Status: Active Protocol: Document 01/08/18 11:00 AMB (Rec: 01/09/18 07:14 AMB [email or web address]) Balance Tests Single Limb Standing Single Limb- Right 25 seconds Single Limb- Left 22 seconds Semi-Tandem Standing Semi-Tandem Standing Balance EC 25 seconds with increased ankle sway Tandem Tandem Standing EC unable, EO 30 seconds PT-OP-E Functional Tests Start: 01/08/18 07:27 Freq: Status: Active Protocol: Document 01/08/18 11:00 AMB (Rec: 01/09/18 07:14 AMB [email or web address]) Functional Tests 6 Minute Walk Test Distance 1618 feet Device Used none Five Times Sit to Stand Test Score 7 seconds PT-OP-G Mobility & Gait Start: 01/08/18 07:27 Freq: Status: Active Protocol: Document 01/08/18 11:00 AMB (Rec: 01/09/18 07:14 AMB [email or web address]) OP Gait Assessment Comments Gait Comments Decreased left UE extension, decreased ankle dorsiflexion in swing phase and push off on the left PT-OP-H Neuro Start: 01/08/18 07:27 Freq: Status: Active Protocol: Document 01/08/18 11:00 AMB (Rec: 01/09/18 07:14 AMB [email or web address]) Coordination Evaluation Upper Extremity Tests Left Pronation/Supination Test Normal Performance Muscle Tone Tone Assessment Left Lower Extremity Muscle Tone Comments No clonus or tremors noted, pt does report motor dyskinesia L>R at the LE. PT-OP-J Posture/Palpation/Skin Start: 01/08/18 07:27 Freq: Status: Active Protocol: Document 01/08/18 11:00 AMB (Rec: 01/09/18 07:14 AMB [email or web address]) Posture Evaluation Comments Posture Comments Mild forward head PT-OP-M Strength Start: 01/08/18 07:27 Freq: Status: Active Protocol: Document 01/08/18 11:00 AMB (Rec: 01/09/18 07:14 AMB [email or web address]) Hand Homemaking Rehabilitation Consultant/Pinch Strength Hand Dominance Hand Dominance Right Hand Strength Right Homemaking Rehabilitation Consultant (lbs) 50 Left Homemaking Rehabilitation Consultant (lbs) 45 Hip Strength Hip Manual Muscle Testing Right Flexion (L2) 4+ Good+ Extension (S1) 4+ Good+ Abduction 4+ Good+ Adduction 4+ Good+ Left Flexion (L2) 4 Good Extension (S1) 4 Good Abduction 4+ Good+ Adduction 4+ Good+ Knee Strength Knee Manual Muscle Testing Right Flexion (S2) 5 Normal Extension (L3) 5 Normal Left Flexion (S2) 5 Normal Extension (L3) 5 Normal Ankle/Foot Strength Ankle and Foot Manual Muscle Testing Left Dorsiflexion (L4) 4+ Good+ Plantarflexion (S1) 4+ Good+ Inversion 4+ Good+ Eversion (S1) 4- Good- Right Dorsiflexion (L4) 4+ Good+ Plantarflexion (S1) 4+ Good+ Inversion 4+ Good+ Eversion (S1) 4+ Good+ PT-OP-Q Treatments Start: 01/08/18 07:27 Freq: Status: Active Protocol: Document 01/15/18 11:00 AMB (Rec: 01/15/18 13:01 AMB [email or web address]) Gym Equipment Shuttle Balance 1 Details RED modified tandem Reps/Duration 10 min Comments head turn, EO, EC Therapeutic Exercises Sitting Exercises 7 Sitting Exercise Name wrist extensor stretch Reps/Minutes 30x2 4 Sitting Exercise Name sit to stand Comments with and without foam 10ea Gait Training Gait Activity 1 Description smooth surface Comments with 2# weights Neuro Re-Education Treatment Balance Activities 7 Details bosu ball Comments single leg balance with Ue support close 5 Details WBOS trunk rotation reach Reps/Duration 12 4 Details modified tandem stance with weightshift a/p and alternating UE mvmt Reps/Duration 12 3 Details posterior stepping Reps/Duration 20 Comments with forward trunk bend 2 Details lateral stepping Reps/Duration 20 Comments alternating with UE horizontal abd and cervical rotation 1 Details forward stepping Reps/Duration 20 Comments alternating with UE horizontal abd PT-OP-T Assessment and Plan Start: 01/08/18 07:27 Freq: Status: Active Protocol: Document 01/15/18 11:00 AMB (Rec: 01/15/18 13:01 AMB [email or web address]) Physical Therapy Assessment Goals 3 Impairment Lift/carry Short Term Goal (STG) The patient will increase her L technology project manager strength to 50#. STG Duration 3 weeks Jail Goal (LTG) The patient will lift a guillen with her left hand to make dinner without fear of dropping it. LTG Duration 6 weeks 2 Impairment Dynamic balance Short Term Goal (STG) The patient will show improved ankle stability by hiking over uneven terrain for 30 minutes without LOB. STG Duration 3 weeks Job Training Specialist Goal (LTG) The patient will show improved balance by maintaining tandem stance with eyes closed for 10 seconds without LOB. LTG Duration 6 weeks 1 Impairment Gait Short Term Goal (STG) The patient will increase her left arm swing with gait. STG Duration 3 weeks Job Training Specialist Goal (LTG) The patient will increase her 6MWT score to 1,800 feet to show improved gait speed. LTG Duration 6 weeks Assessment Summary Assessment Pt with better dual tasking today, does have sx of lateral epicondylitis in right elbow Physical Therapy Plan Frequency and Duration Frequency of Treatment 4x/Week Duration of Treatment 6 weeks Plan of Care Start Date 01/08/18 Plan of Care End Date 02/19/18 Next Visit Focus/Plan Next Note Type Treatment Note Next Visit Plan Follow up on UE function
--- NOTE | 2018-01-16 16:26 | PT.OTN ---
Current Diagnoses Parkinson's disease (01/16/18) Physical Therapy Treatment Note PT-OP-A Visit Information Start: 01/08/18 07:27 Freq: Status: Active Protocol: Document 01/16/18 13:00 AMB (Rec: 01/16/18 13:02 AMB [id number]) Out-Patient Physical Therapy Visit Information Visit Information Visit Type Treatment Note Visit Start Time 11:00 Visit Stop Time 12:00 Total Visit Minutes 60 Visit Number 7 Evaluation Information Evaluation Date 01/08/18 PT-OP-B Current Condition Start: 01/08/18 07:27 Freq: Status: Active Protocol: Document 01/08/18 11:00 AMB (Rec: 01/08/18 16:27 AMB [email or web address]) Current Condition History of Current Condition History of Current Condition The patient has had Parkinson' s about 8 years ago. Since then she has noticed greater difficulty with quick movements, balance, strength in her forearms. Prior Functional Status Baseline Function- ADL's Independent Baseline Function- Mobility Independent Current Functional Impairments (Reported) Functional Limitations- ADL's Increased difficulty with yoga , difficulty with hiking over uneven surfaces. Personal Factors Other Personal Factors That May Effect Pt admits anxiety/depression, Therapy/Recovery hypothyroidism PT-OP-C Subjective Start: 01/08/18 07:27 Freq: Status: Active Protocol: Document 01/16/18 13:00 AMB (Rec: 01/16/18 13:02 AMB [email or web address]) OP-PT Subjective Patient Comments Patient Reported Progress Same PT-OP-D Balance Start: 01/08/18 07:27 Freq: Status: Active Protocol: Document 01/08/18 11:00 AMB (Rec: 01/09/18 07:14 AMB [email or web address]) Balance Tests Single Limb Standing Single Limb- Right 25 seconds Single Limb- Left 22 seconds Semi-Tandem Standing Semi-Tandem Standing Balance EC 25 seconds with increased ankle sway Tandem Tandem Standing EC unable, EO 30 seconds PT-OP-E Functional Tests Start: 01/08/18 07:27 Freq: Status: Active Protocol: Document 01/08/18 11:00 AMB (Rec: 01/09/18 07:14 AMB [email or web address]) Functional Tests 6 Minute Walk Test Distance 1618 feet Device Used none Five Times Sit to Stand Test Score 7 seconds PT-OP-G Mobility & Gait Start: 01/08/18 07:27 Freq: Status: Active Protocol: Document 01/08/18 11:00 AMB (Rec: 01/09/18 07:14 AMB [email or web address]) OP Gait Assessment Comments Gait Comments Decreased left UE extension, decreased ankle dorsiflexion in swing phase and push off on the left PT-OP-H Neuro Start: 01/08/18 07:27 Freq: Status: Active Protocol: Document 01/08/18 11:00 AMB (Rec: 01/09/18 07:14 AMB [email or web address]) Coordination Evaluation Upper Extremity Tests Left Pronation/Supination Test Normal Performance Muscle Tone Tone Assessment Left Lower Extremity Muscle Tone Comments No clonus or tremors noted, pt does report motor dyskinesia L>R at the LE. PT-OP-J Posture/Palpation/Skin Start: 01/08/18 07:27 Freq: Status: Active Protocol: Document 01/08/18 11:00 AMB (Rec: 01/09/18 07:14 AMB [email or web address]) Posture Evaluation Comments Posture Comments Mild forward head PT-OP-M Strength Start: 01/08/18 07:27 Freq: Status: Active Protocol: Document 01/08/18 11:00 AMB (Rec: 01/09/18 07:14 AMB [email or web address]) Hand Inspector Poising/Pinch Strength Hand Dominance Hand Dominance Right Hand Strength Right Inspector Poising (lbs) 50 Left Inspector Poising (lbs) 45 Hip Strength Hip Manual Muscle Testing Right Flexion (L2) 4+ Good+ Extension (S1) 4+ Good+ Abduction 4+ Good+ Adduction 4+ Good+ Left Flexion (L2) 4 Good Extension (S1) 4 Good Abduction 4+ Good+ Adduction 4+ Good+ Knee Strength Knee Manual Muscle Testing Right Flexion (S2) 5 Normal Extension (L3) 5 Normal Left Flexion (S2) 5 Normal Extension (L3) 5 Normal Ankle/Foot Strength Ankle and Foot Manual Muscle Testing Left Dorsiflexion (L4) 4+ Good+ Plantarflexion (S1) 4+ Good+ Inversion 4+ Good+ Eversion (S1) 4- Good- Right Dorsiflexion (L4) 4+ Good+ Plantarflexion (S1) 4+ Good+ Inversion 4+ Good+ Eversion (S1) 4+ Good+ PT-OP-Q Treatments Start: 01/08/18 07:27 Freq: Status: Active Protocol: Document 01/16/18 13:00 AMB (Rec: 01/16/18 14:00 AMB [id number]) Gym Equipment Shuttle Balance 1 Details RED modified tandem Reps/Duration 10 min Comments head turn, EO, EC Therapeutic Exercises Sitting Exercises 7 Sitting Exercise Name wrist extensor stretch Reps/Minutes 30x2 4 Sitting Exercise Name sit to stand Comments with and without foam 10ea Gait Training Gait Activity 2 Description hurdles with foam Comments with talking Neuro Re-Education Treatment Balance Activities 7 Details bosu ball Comments double leg balance with Ue support close 5 Details WBOS trunk rotation reach Reps/Duration 12 4 Details modified tandem stance with weightshift a/p and alternating UE mvmt Reps/Duration 12 3 Details posterior stepping Reps/Duration 20 Comments with forward trunk bend 2 Details lateral stepping Reps/Duration 20 Comments alternating with UE horizontal abd and cervical rotation 1 Details forward stepping Reps/Duration 20 Comments alternating with UE horizontal abd PT-OP-T Assessment and Plan Start: 01/08/18 07:27 Freq: Status: Active Protocol: Document 01/16/18 13:00 AMB (Rec: 01/16/18 14:00 AMB [id number]) Physical Therapy Assessment Assessment Summary Assessment Pt with less tolerance of balance exercises today. Overhead activities do increase R elbow pain. Physical Therapy Plan Frequency and Duration Frequency of Treatment 4x/Week Duration of Treatment 6 weeks Plan of Care Start Date 01/08/18 Plan of Care End Date 02/19/18 Next Visit Focus/Plan Next Note Type Treatment Note Next Visit Plan Follow up on overhead reaching activities.
--- NOTE | 2018-01-24 12:44 | PT.OTN ---
Current Diagnoses Parkinson's disease (01/24/18) Physical Therapy Treatment Note PT-OP-A Visit Information Start: 01/08/18 07:27 Freq: Status: Active Protocol: Document 01/24/18 11:00 AMB (Rec: 01/24/18 12:01 AMB [email or web address]) Out-Patient Physical Therapy Visit Information Visit Information Visit Type Treatment Note Visit Start Time 11:00 Visit Stop Time 12:00 Total Visit Minutes 60 Visit Number 8 Evaluation Information Evaluation Date 01/08/18 PT-OP-B Current Condition Start: 01/08/18 07:27 Freq: Status: Active Protocol: Document 01/08/18 11:00 AMB (Rec: 01/08/18 16:27 AMB [email or web address]) Current Condition History of Current Condition History of Current Condition The patient has had Parkinson' s about 8 years ago. Since then she has noticed greater difficulty with quick movements, balance, strength in her forearms. Prior Functional Status Baseline Function- ADL's Independent Baseline Function- Mobility Independent Current Functional Impairments (Reported) Functional Limitations- ADL's Increased difficulty with yoga , difficulty with hiking over uneven surfaces. Personal Factors Other Personal Factors That May Effect Pt admits anxiety/depression, Therapy/Recovery hypothyroidism PT-OP-C Subjective Start: 01/08/18 07:27 Freq: Status: Active Protocol: Document 01/24/18 11:00 AMB (Rec: 01/24/18 12:01 AMB [email or web address]) OP-PT Subjective Patient Comments Patient Comments Pt has not been especially consistent with exercises while on vacation, but is going to get back into the schedule. PT-OP-D Balance Start: 01/08/18 07:27 Freq: Status: Active Protocol: Document 01/08/18 11:00 AMB (Rec: 01/09/18 07:14 AMB [email or web address]) Balance Tests Single Limb Standing Single Limb- Right 25 seconds Single Limb- Left 22 seconds Semi-Tandem Standing Semi-Tandem Standing Balance EC 25 seconds with increased ankle sway Tandem Tandem Standing EC unable, EO 30 seconds PT-OP-E Functional Tests Start: 01/08/18 07:27 Freq: Status: Active Protocol: Document 01/08/18 11:00 AMB (Rec: 01/09/18 07:14 AMB [email or web address]) Functional Tests 6 Minute Walk Test Distance 1618 feet Device Used none Five Times Sit to Stand Test Score 7 seconds PT-OP-G Mobility & Gait Start: 01/08/18 07:27 Freq: Status: Active Protocol: Document 01/08/18 11:00 AMB (Rec: 01/09/18 07:14 AMB [email or web address]) OP Gait Assessment Comments Gait Comments Decreased left UE extension, decreased ankle dorsiflexion in swing phase and push off on the left PT-OP-H Neuro Start: 01/08/18 07:27 Freq: Status: Active Protocol: Document 01/08/18 11:00 AMB (Rec: 01/09/18 07:14 AMB [email or web address]) Coordination Evaluation Upper Extremity Tests Left Pronation/Supination Test Normal Performance Muscle Tone Tone Assessment Left Lower Extremity Muscle Tone Comments No clonus or tremors noted, pt does report motor dyskinesia L>R at the LE. PT-OP-J Posture/Palpation/Skin Start: 01/08/18 07:27 Freq: Status: Active Protocol: Document 01/08/18 11:00 AMB (Rec: 01/09/18 07:14 AMB [email or web address]) Posture Evaluation Comments Posture Comments Mild forward head PT-OP-M Strength Start: 01/08/18 07:27 Freq: Status: Active Protocol: Document 01/08/18 11:00 AMB (Rec: 01/09/18 07:14 AMB [email or web address]) Hand Job Order Clerk/Pinch Strength Hand Dominance Hand Dominance Right Hand Strength Right Job Order Clerk (lbs) 50 Left Job Order Clerk (lbs) 45 Hip Strength Hip Manual Muscle Testing Right Flexion (L2) 4+ Good+ Extension (S1) 4+ Good+ Abduction 4+ Good+ Adduction 4+ Good+ Left Flexion (L2) 4 Good Extension (S1) 4 Good Abduction 4+ Good+ Adduction 4+ Good+ Knee Strength Knee Manual Muscle Testing Right Flexion (S2) 5 Normal Extension (L3) 5 Normal Left Flexion (S2) 5 Normal Extension (L3) 5 Normal Ankle/Foot Strength Ankle and Foot Manual Muscle Testing Left Dorsiflexion (L4) 4+ Good+ Plantarflexion (S1) 4+ Good+ Inversion 4+ Good+ Eversion (S1) 4- Good- Right Dorsiflexion (L4) 4+ Good+ Plantarflexion (S1) 4+ Good+ Inversion 4+ Good+ Eversion (S1) 4+ Good+ PT-OP-Q Treatments Start: 01/08/18 07:27 Freq: Status: Active Protocol: Document 01/24/18 11:00 AMB (Rec: 01/24/18 12:40 AMB [email or web address]) Therapeutic Exercises Supine Exercises 1 Supine Exercise Name scap protraction Equipment Used 5# Reps/Minutes 2x10 Sitting Exercises 4 Sitting Exercise Name sit to stand Comments with and without foam 10ea Standing Exercises 2 Standing Exercise Name rows Resistance #3 t band Reps/Minutes 2x10 1 Standing Exercise Name shoulder extension Resistance #3 t band Reps/Minutes 2x10 Gait Training Gait Activity 1 Description smooth surface and 2 flights of stairs Distance/Duration 10 min Comments with 2# weights Neuro Re-Education Treatment Balance Activities 6 Details single leg stance Comments with dynamic movement 5 Details WBOS trunk rotation reach Reps/Duration 12 4 Details modified tandem stance with weightshift a/p and alternating UE mvmt Reps/Duration 12 3 Details posterior stepping Reps/Duration 20 Comments with forward trunk bend 2 Details lateral stepping Reps/Duration 20 Comments alternating with UE horizontal abd and cervical rotation 1 Details forward stepping Reps/Duration 20 Comments alternating with UE horizontal abd PT-OP-T Assessment and Plan Start: 01/08/18 07:27 Freq: Status: Active Protocol: Document 01/24/18 11:00 AMB (Rec: 01/24/18 12:43 AMB [email or web address]) Physical Therapy Assessment Assessment Summary Assessment Pt more fatigued today and noticing SOB with some activities, able to tolerate all exercises with rest breaks between. Physical Therapy Plan Next Visit Focus/Plan Next Note Type Treatment Note Next Visit Plan Follow up on overhead reaching activities.
--- NOTE | 2018-01-25 13:00 | PT.OTN ---
Current Diagnoses Parkinson's disease (01/25/18) Physical Therapy Treatment Note PT-OP-A Visit Information Start: 01/08/18 07:27 Freq: Status: Active Protocol: Document 01/25/18 11:00 AMB (Rec: 01/25/18 12:59 AMB [email or web address]) Out-Patient Physical Therapy Visit Information Visit Information Visit Type Treatment Note Visit Start Time 11:00 Visit Stop Time 12:00 Visit Number 9 Evaluation Information Evaluation Date 01/08/18 PT-OP-B Current Condition Start: 01/08/18 07:27 Freq: Status: Active Protocol: Document 01/08/18 11:00 AMB (Rec: 01/08/18 16:27 AMB [email or web address]) Current Condition History of Current Condition History of Current Condition The patient has had Parkinson' s about 8 years ago. Since then she has noticed greater difficulty with quick movements, balance, strength in her forearms. Prior Functional Status Baseline Function- ADL's Independent Baseline Function- Mobility Independent Current Functional Impairments (Reported) Functional Limitations- ADL's Increased difficulty with yoga , difficulty with hiking over uneven surfaces. Personal Factors Other Personal Factors That May Effect Pt admits anxiety/depression, Therapy/Recovery hypothyroidism PT-OP-C Subjective Start: 01/08/18 07:27 Freq: Status: Active Protocol: Document 01/25/18 11:00 AMB (Rec: 01/25/18 12:59 AMB [email or web address]) OP-PT Subjective Patient Comments Patient Comments Pt is feeling better today, overall, but right elbow is painful today. PT-OP-D Balance Start: 01/08/18 07:27 Freq: Status: Active Protocol: Document 01/08/18 11:00 AMB (Rec: 01/09/18 07:14 AMB [email or web address]) Balance Tests Single Limb Standing Single Limb- Right 25 seconds Single Limb- Left 22 seconds Semi-Tandem Standing Semi-Tandem Standing Balance EC 25 seconds with increased ankle sway Tandem Tandem Standing EC unable, EO 30 seconds PT-OP-E Functional Tests Start: 01/08/18 07:27 Freq: Status: Active Protocol: Document 01/08/18 11:00 AMB (Rec: 01/09/18 07:14 AMB [email or web address]) Functional Tests 6 Minute Walk Test Distance 1618 feet Device Used none Five Times Sit to Stand Test Score 7 seconds PT-OP-G Mobility & Gait Start: 01/08/18 07:27 Freq: Status: Active Protocol: Document 01/08/18 11:00 AMB (Rec: 01/09/18 07:14 AMB [email or web address]) OP Gait Assessment Comments Gait Comments Decreased left UE extension, decreased ankle dorsiflexion in swing phase and push off on the left PT-OP-H Neuro Start: 01/08/18 07:27 Freq: Status: Active Protocol: Document 01/08/18 11:00 AMB (Rec: 01/09/18 07:14 AMB [email or web address]) Coordination Evaluation Upper Extremity Tests Left Pronation/Supination Test Normal Performance Muscle Tone Tone Assessment Left Lower Extremity Muscle Tone Comments No clonus or tremors noted, pt does report motor dyskinesia L>R at the LE. PT-OP-J Posture/Palpation/Skin Start: 01/08/18 07:27 Freq: Status: Active Protocol: Document 01/08/18 11:00 AMB (Rec: 01/09/18 07:14 AMB [email or web address]) Posture Evaluation Comments Posture Comments Mild forward head PT-OP-M Strength Start: 01/08/18 07:27 Freq: Status: Active Protocol: Document 01/08/18 11:00 AMB (Rec: 01/09/18 07:14 AMB [email or web address]) Hand Hotel Sales Manager/Pinch Strength Hand Dominance Hand Dominance Right Hand Strength Right Hotel Sales Manager (lbs) 50 Left Hotel Sales Manager (lbs) 45 Hip Strength Hip Manual Muscle Testing Right Flexion (L2) 4+ Good+ Extension (S1) 4+ Good+ Abduction 4+ Good+ Adduction 4+ Good+ Left Flexion (L2) 4 Good Extension (S1) 4 Good Abduction 4+ Good+ Adduction 4+ Good+ Knee Strength Knee Manual Muscle Testing Right Flexion (S2) 5 Normal Extension (L3) 5 Normal Left Flexion (S2) 5 Normal Extension (L3) 5 Normal Ankle/Foot Strength Ankle and Foot Manual Muscle Testing Left Dorsiflexion (L4) 4+ Good+ Plantarflexion (S1) 4+ Good+ Inversion 4+ Good+ Eversion (S1) 4- Good- Right Dorsiflexion (L4) 4+ Good+ Plantarflexion (S1) 4+ Good+ Inversion 4+ Good+ Eversion (S1) 4+ Good+ PT-OP-Q Treatments Start: 01/08/18 07:27 Freq: Status: Active Protocol: Document 01/25/18 11:00 AMB (Rec: 01/25/18 12:59 AMB [email or web address]) Gym Equipment Shuttle Balance 1 Details RED modified tandem Reps/Duration 10 min Comments WBOS with rebounder throw and catch Therapeutic Exercises Sitting Exercises 7 Sitting Exercise Name wrist extensor stretch Reps/Minutes 30x2 4 Sitting Exercise Name sit to stand Comments with and without foam 10ea Gait Training Gait Activity 1 Description smooth surface and 2 flights of stairs Distance/Duration 10 min Neuro Re-Education Treatment Balance Activities 8 Details walking on balance pods Comments with cognitive distraction 5 Details WBOS trunk rotation reach Reps/Duration 12 4 Details modified tandem stance with weightshift a/p and alternating UE mvmt Reps/Duration 12 3 Details posterior stepping Reps/Duration 20 Comments with forward trunk bend 2 Details lateral stepping Reps/Duration 20 Comments alternating with UE horizontal abd and cervical rotation 1 Details forward stepping Reps/Duration 20 Comments alternating with UE horizontal abd PT-OP-T Assessment and Plan Start: 01/08/18 07:27 Freq: Status: Active Protocol: Document 01/25/18 11:00 AMB (Rec: 01/25/18 12:59 AMB [email or web address]) Physical Therapy Assessment Goals 3 Impairment Lift/carry Short Term Goal (STG) The patient will increase her L lever operator strength to 50#. STG Duration 3 weeks Medical Staffing Coordinator Goal (LTG) The patient will lift a guillen with her left hand to make dinner without fear of dropping it. LTG Duration 6 weeks 2 Impairment Dynamic balance Short Term Goal (STG) The patient will show improved ankle stability by hiking over uneven terrain for 30 minutes without LOB. STG Duration 3 weeks Medical Staffing Coordinator Goal (LTG) The patient will show improved balance by maintaining tandem stance with eyes closed for 10 seconds without LOB. LTG Duration 6 weeks 1 Impairment Gait Short Term Goal (STG) The patient will increase her left arm swing with gait. STG Duration 3 weeks Assisted Goal (LTG) The patient will increase her 6MWT score to 1,800 feet to show improved gait speed. LTG Duration 6 weeks Assessment Summary Assessment pt continues to flex wrist on the left excessively with gait . Encouraged in stretching ice for elbow pain. Pt did catch toe during gait once. Physical Therapy Plan Frequency and Duration Frequency of Treatment 4x/Week Duration of Treatment 6 weeks Plan of Care Start Date 01/08/18 Plan of Care End Date 02/19/18 Next Visit Focus/Plan Next Note Type Treatment Note Next Visit Plan Follow up on dual tasking with balance, gait.
--- NOTE | 2018-01-28 16:25 | PT.OTN ---
Current Diagnoses Parkinson's disease (01/28/18) Physical Therapy Treatment Note PT-OP-A Visit Information Start: 01/08/18 07:27 Freq: Status: Active Protocol: Document 01/28/18 10:15 AMB (Rec: 01/28/18 10:16 AMB [id number]) Out-Patient Physical Therapy Visit Information Visit Information Visit Type Treatment Note Visit Start Time 10:15 Visit Stop Time 11:15 Visit Number 10 Evaluation Information Evaluation Date 01/08/18 PT-OP-B Current Condition Start: 01/08/18 07:27 Freq: Status: Active Protocol: Document 01/08/18 11:00 AMB (Rec: 01/08/18 16:27 AMB [email or web address]) Current Condition History of Current Condition History of Current Condition The patient has had Parkinson' s about 8 years ago. Since then she has noticed greater difficulty with quick movements, balance, strength in her forearms. Prior Functional Status Baseline Function- ADL's Independent Baseline Function- Mobility Independent Current Functional Impairments (Reported) Functional Limitations- ADL's Increased difficulty with yoga , difficulty with hiking over uneven surfaces. Personal Factors Other Personal Factors That May Effect Pt admits anxiety/depression, Therapy/Recovery hypothyroidism PT-OP-C Subjective Start: 01/08/18 07:27 Freq: Status: Active Protocol: Document 01/28/18 10:15 AMB (Rec: 01/28/18 16:16 AMB [email or web address]) OP-PT Subjective Patient Comments Patient Comments Pt notes elbow pain comes on intermittently. PT-OP-D Balance Start: 01/08/18 07:27 Freq: Status: Active Protocol: Document 01/08/18 11:00 AMB (Rec: 01/09/18 07:14 AMB [email or web address]) Balance Tests Single Limb Standing Single Limb- Right 25 seconds Single Limb- Left 22 seconds Semi-Tandem Standing Semi-Tandem Standing Balance EC 25 seconds with increased ankle sway Tandem Tandem Standing EC unable, EO 30 seconds PT-OP-E Functional Tests Start: 01/08/18 07:27 Freq: Status: Active Protocol: Document 01/08/18 11:00 AMB (Rec: 01/09/18 07:14 AMB [email or web address]) Functional Tests 6 Minute Walk Test Distance 1618 feet Device Used none Five Times Sit to Stand Test Score 7 seconds PT-OP-G Mobility & Gait Start: 01/08/18 07:27 Freq: Status: Active Protocol: Document 01/08/18 11:00 AMB (Rec: 01/09/18 07:14 AMB [email or web address]) OP Gait Assessment Comments Gait Comments Decreased left UE extension, decreased ankle dorsiflexion in swing phase and push off on the left PT-OP-H Neuro Start: 01/08/18 07:27 Freq: Status: Active Protocol: Document 01/08/18 11:00 AMB (Rec: 01/09/18 07:14 AMB [email or web address]) Coordination Evaluation Upper Extremity Tests Left Pronation/Supination Test Normal Performance Muscle Tone Tone Assessment Left Lower Extremity Muscle Tone Comments No clonus or tremors noted, pt does report motor dyskinesia L>R at the LE. PT-OP-J Posture/Palpation/Skin Start: 01/08/18 07:27 Freq: Status: Active Protocol: Document 01/08/18 11:00 AMB (Rec: 01/09/18 07:14 AMB [email or web address]) Posture Evaluation Comments Posture Comments Mild forward head PT-OP-M Strength Start: 01/08/18 07:27 Freq: Status: Active Protocol: Document 01/08/18 11:00 AMB (Rec: 01/09/18 07:14 AMB [email or web address]) Hand Insurance Job Titles/Pinch Strength Hand Dominance Hand Dominance Right Hand Strength Right Insurance Job Titles (lbs) 50 Left Insurance Job Titles (lbs) 45 Hip Strength Hip Manual Muscle Testing Right Flexion (L2) 4+ Good+ Extension (S1) 4+ Good+ Abduction 4+ Good+ Adduction 4+ Good+ Left Flexion (L2) 4 Good Extension (S1) 4 Good Abduction 4+ Good+ Adduction 4+ Good+ Knee Strength Knee Manual Muscle Testing Right Flexion (S2) 5 Normal Extension (L3) 5 Normal Left Flexion (S2) 5 Normal Extension (L3) 5 Normal Ankle/Foot Strength Ankle and Foot Manual Muscle Testing Left Dorsiflexion (L4) 4+ Good+ Plantarflexion (S1) 4+ Good+ Inversion 4+ Good+ Eversion (S1) 4- Good- Right Dorsiflexion (L4) 4+ Good+ Plantarflexion (S1) 4+ Good+ Inversion 4+ Good+ Eversion (S1) 4+ Good+ PT-OP-Q Treatments Start: 01/08/18 07:27 Freq: Status: Active Protocol: Document 01/28/18 10:15 AMB (Rec: 01/28/18 10:16 AMB [email or web address]) Therapeutic Exercises Sitting Exercises 4 Sitting Exercise Name sit to stand Comments with and without foam 10ea Standing Exercises 5 Standing Exercise Name ladder drills Comments forward, backward, diagonal, with and without cognitive distraction 4 Standing Exercise Name calf stretch Reps/Minutes 30x2 3 Standing Exercise Name pec stretch Reps/Minutes 30x2 1 Standing Exercise Name shoulder extension Resistance #3 t band Reps/Minutes 2x10 Gait Training Gait Activity 1 Description smooth surface and 2 flights of stairs Distance/Duration 10 min Neuro Re-Education Treatment Balance Activities 5 Details WBOS trunk rotation reach Reps/Duration 12 4 Details modified tandem stance with weightshift a/p and alternating UE mvmt Reps/Duration 12 3 Details posterior stepping Reps/Duration 20 Comments with forward trunk bend 2 Details lateral stepping Reps/Duration 20 Comments alternating with UE horizontal abd and cervical rotation 1 Details forward stepping Reps/Duration 20 Comments alternating with UE horizontal abd PT-OP-T Assessment and Plan Start: 01/08/18 07:27 Freq: Status: Active Protocol: Document 01/28/18 10:15 AMB (Rec: 01/28/18 11:36 AMB [id number]) Physical Therapy Assessment Assessment Summary Assessment Reduction of adduction when extending shoulder with gait today. Physical Therapy Plan Next Visit Focus/Plan Next Note Type Treatment Note Next Visit Plan Follow up on dual tasking with balance, gait.
--- NOTE | 2018-01-29 15:54 | PT.OTN ---
Current Diagnoses Parkinson's disease (01/29/18) Physical Therapy Treatment Note PT-OP-A Visit Information Start: 01/08/18 07:27 Freq: Status: Active Protocol: Document 01/29/18 11:05 AMB (Rec: 01/29/18 11:07 AMB [id number]) Out-Patient Physical Therapy Visit Information Visit Information Visit Type Treatment Note Visit Start Time 10:15 Visit Stop Time 11:00 Visit Number 11 Evaluation Information Evaluation Date 01/08/18 PT-OP-B Current Condition Start: 01/08/18 07:27 Freq: Status: Active Protocol: Document 01/08/18 11:00 AMB (Rec: 01/08/18 16:27 AMB [email or web address]) Current Condition History of Current Condition History of Current Condition The patient has had Parkinson' s about 8 years ago. Since then she has noticed greater difficulty with quick movements, balance, strength in her forearms. Prior Functional Status Baseline Function- ADL's Independent Baseline Function- Mobility Independent Current Functional Impairments (Reported) Functional Limitations- ADL's Increased difficulty with yoga , difficulty with hiking over uneven surfaces. Personal Factors Other Personal Factors That May Effect Pt admits anxiety/depression, Therapy/Recovery hypothyroidism PT-OP-C Subjective Start: 01/08/18 07:27 Freq: Status: Active Protocol: Document 01/29/18 11:05 AMB (Rec: 01/29/18 11:07 AMB [email or web address]) OP-PT Subjective Patient Comments Patient Comments The patient did well with plyometric exercises yesterday . PT-OP-D Balance Start: 01/08/18 07:27 Freq: Status: Active Protocol: Document 01/08/18 11:00 AMB (Rec: 01/09/18 07:14 AMB [email or web address]) Balance Tests Single Limb Standing Single Limb- Right 25 seconds Single Limb- Left 22 seconds Semi-Tandem Standing Semi-Tandem Standing Balance EC 25 seconds with increased ankle sway Tandem Tandem Standing EC unable, EO 30 seconds PT-OP-E Functional Tests Start: 01/08/18 07:27 Freq: Status: Active Protocol: Document 01/08/18 11:00 AMB (Rec: 01/09/18 07:14 AMB [email or web address]) Functional Tests 6 Minute Walk Test Distance 1618 feet Device Used none Five Times Sit to Stand Test Score 7 seconds PT-OP-G Mobility & Gait Start: 01/08/18 07:27 Freq: Status: Active Protocol: Document 01/08/18 11:00 AMB (Rec: 01/09/18 07:14 AMB [email or web address]) OP Gait Assessment Comments Gait Comments Decreased left UE extension, decreased ankle dorsiflexion in swing phase and push off on the left PT-OP-H Neuro Start: 01/08/18 07:27 Freq: Status: Active Protocol: Document 01/08/18 11:00 AMB (Rec: 01/09/18 07:14 AMB [email or web address]) Coordination Evaluation Upper Extremity Tests Left Pronation/Supination Test Normal Performance Muscle Tone Tone Assessment Left Lower Extremity Muscle Tone Comments No clonus or tremors noted, pt does report motor dyskinesia L>R at the LE. PT-OP-J Posture/Palpation/Skin Start: 01/08/18 07:27 Freq: Status: Active Protocol: Document 01/08/18 11:00 AMB (Rec: 01/09/18 07:14 AMB [email or web address]) Posture Evaluation Comments Posture Comments Mild forward head PT-OP-M Strength Start: 01/08/18 07:27 Freq: Status: Active Protocol: Document 01/08/18 11:00 AMB (Rec: 01/09/18 07:14 AMB [email or web address]) Hand Partition Notcher/Pinch Strength Hand Dominance Hand Dominance Right Hand Strength Right Partition Notcher (lbs) 50 Left Partition Notcher (lbs) 45 Hip Strength Hip Manual Muscle Testing Right Flexion (L2) 4+ Good+ Extension (S1) 4+ Good+ Abduction 4+ Good+ Adduction 4+ Good+ Left Flexion (L2) 4 Good Extension (S1) 4 Good Abduction 4+ Good+ Adduction 4+ Good+ Knee Strength Knee Manual Muscle Testing Right Flexion (S2) 5 Normal Extension (L3) 5 Normal Left Flexion (S2) 5 Normal Extension (L3) 5 Normal Ankle/Foot Strength Ankle and Foot Manual Muscle Testing Left Dorsiflexion (L4) 4+ Good+ Plantarflexion (S1) 4+ Good+ Inversion 4+ Good+ Eversion (S1) 4- Good- Right Dorsiflexion (L4) 4+ Good+ Plantarflexion (S1) 4+ Good+ Inversion 4+ Good+ Eversion (S1) 4+ Good+ PT-OP-Q Treatments Start: 01/08/18 07:27 Freq: Status: Active Protocol: Document 01/29/18 10:15 AMB (Rec: 01/29/18 11:16 AMB [email or web address]) Gym Equipment Shuttle Balance 1 Details RED modified tandem Reps/Duration 10 min Comments WBOS with rebounder throw and catch Therapeutic Exercises Standing Exercises 4 Standing Exercise Name calf stretch Reps/Minutes 30x2 3 Standing Exercise Name pec stretch Reps/Minutes 30x2 1 Standing Exercise Name shoulder extension Resistance #3 t band Reps/Minutes 2x10 Gait Training Gait Activity 2 Description hurdles with balance pods Comments with talking 1 Description uneven terrain, grass, gravel, hills and 2 flights of stairs Distance/Duration 10 min Neuro Re-Education Treatment Balance Activities 7 Details bosu ball Comments double leg balance with Ue support close 5 Details WBOS trunk rotation reach Reps/Duration 12 4 Details modified tandem stance with weightshift a/p and alternating UE mvmt Reps/Duration 12 3 Details posterior stepping Reps/Duration 20 Comments with forward trunk bend 2 Details lateral stepping Reps/Duration 20 Comments alternating with UE horizontal abd and cervical rotation 1 Details forward stepping Reps/Duration 20 Comments alternating with UE horizontal abd PT-OP-T Assessment and Plan Start: 01/08/18 07:27 Freq: Status: Active Protocol: Document 01/29/18 10:15 AMB (Rec: 01/29/18 11:16 AMB [email or web address]) Physical Therapy Assessment Goals 3 Impairment Lift/carry Short Term Goal (STG) The patient will increase her L boat tester strength to 50#. STG Duration 3 weeks Peritoneal Dialysis Registered Nurse Goal (LTG) The patient will lift a guillen with her left hand to make dinner without fear of dropping it. LTG Duration 6 weeks 2 Impairment Dynamic balance Short Term Goal (STG) The patient will show improved ankle stability by hiking over uneven terrain for 30 minutes without LOB. STG Duration 3 weeks Usp Goal (LTG) The patient will show improved balance by maintaining tandem stance with eyes closed for 10 seconds without LOB. LTG Duration 6 weeks 1 Impairment Gait Short Term Goal (STG) The patient will increase her left arm swing with gait. STG Duration 3 weeks Usp Goal (LTG) The patient will increase her 6MWT score to 1,800 feet to show improved gait speed. LTG Duration 6 weeks Assessment Summary Assessment Improved dynamic balance with throwing on uneven surface today. Physical Therapy Plan Frequency and Duration Frequency of Treatment 4x/Week Duration of Treatment 6 weeks Plan of Care Start Date 01/08/18 Plan of Care End Date 02/19/18 Next Visit Focus/Plan Next Note Type Treatment Note Next Visit Plan Follow up on dual tasking with balance, gait.
--- NOTE | 2018-01-30 16:26 | PT.OTN ---
Current Diagnoses Parkinson's disease (01/30/18) Physical Therapy Treatment Note PT-OP-A Visit Information Start: 01/08/18 07:27 Freq: Status: Active Protocol: Document 01/30/18 10:15 AMB (Rec: 01/30/18 16:26 AMB [email or web address]) Out-Patient Physical Therapy Visit Information Visit Information Visit Type Treatment Note Visit Start Time 10:15 Visit Stop Time 11:00 Visit Number 12 Evaluation Information Evaluation Date 01/08/18 PT-OP-B Current Condition Start: 01/08/18 07:27 Freq: Status: Active Protocol: Document 01/08/18 11:00 AMB (Rec: 01/08/18 16:27 AMB [email or web address]) Current Condition History of Current Condition History of Current Condition The patient has had Parkinson' s about 8 years ago. Since then she has noticed greater difficulty with quick movements, balance, strength in her forearms. Prior Functional Status Baseline Function- ADL's Independent Baseline Function- Mobility Independent Current Functional Impairments (Reported) Functional Limitations- ADL's Increased difficulty with yoga , difficulty with hiking over uneven surfaces. Personal Factors Other Personal Factors That May Effect Pt admits anxiety/depression, Therapy/Recovery hypothyroidism PT-OP-C Subjective Start: 01/08/18 07:27 Freq: Status: Active Protocol: Document 01/30/18 10:15 AMB (Rec: 01/30/18 16:26 AMB [email or web address]) OP-PT Subjective Patient Comments Patient Comments Pt reports difficulty sleeping , but otherwise doing well. PT-OP-D Balance Start: 01/08/18 07:27 Freq: Status: Active Protocol: Document 01/08/18 11:00 AMB (Rec: 01/09/18 07:14 AMB [email or web address]) Balance Tests Single Limb Standing Single Limb- Right 25 seconds Single Limb- Left 22 seconds Semi-Tandem Standing Semi-Tandem Standing Balance EC 25 seconds with increased ankle sway Tandem Tandem Standing EC unable, EO 30 seconds PT-OP-E Functional Tests Start: 01/08/18 07:27 Freq: Status: Active Protocol: Document 01/08/18 11:00 AMB (Rec: 01/09/18 07:14 AMB [email or web address]) Functional Tests 6 Minute Walk Test Distance 1618 feet Device Used none Five Times Sit to Stand Test Score 7 seconds PT-OP-G Mobility & Gait Start: 01/08/18 07:27 Freq: Status: Active Protocol: Document 01/08/18 11:00 AMB (Rec: 01/09/18 07:14 AMB [email or web address]) OP Gait Assessment Comments Gait Comments Decreased left UE extension, decreased ankle dorsiflexion in swing phase and push off on the left PT-OP-H Neuro Start: 01/08/18 07:27 Freq: Status: Active Protocol: Document 01/08/18 11:00 AMB (Rec: 01/09/18 07:14 AMB [email or web address]) Coordination Evaluation Upper Extremity Tests Left Pronation/Supination Test Normal Performance Muscle Tone Tone Assessment Left Lower Extremity Muscle Tone Comments No clonus or tremors noted, pt does report motor dyskinesia L>R at the LE. PT-OP-J Posture/Palpation/Skin Start: 01/08/18 07:27 Freq: Status: Active Protocol: Document 01/08/18 11:00 AMB (Rec: 01/09/18 07:14 AMB [email or web address]) Posture Evaluation Comments Posture Comments Mild forward head PT-OP-M Strength Start: 01/08/18 07:27 Freq: Status: Active Protocol: Document 01/08/18 11:00 AMB (Rec: 01/09/18 07:14 AMB [email or web address]) Hand Felt Washing Machine Tender/Pinch Strength Hand Dominance Hand Dominance Right Hand Strength Right Felt Washing Machine Tender (lbs) 50 Left Felt Washing Machine Tender (lbs) 45 Hip Strength Hip Manual Muscle Testing Right Flexion (L2) 4+ Good+ Extension (S1) 4+ Good+ Abduction 4+ Good+ Adduction 4+ Good+ Left Flexion (L2) 4 Good Extension (S1) 4 Good Abduction 4+ Good+ Adduction 4+ Good+ Knee Strength Knee Manual Muscle Testing Right Flexion (S2) 5 Normal Extension (L3) 5 Normal Left Flexion (S2) 5 Normal Extension (L3) 5 Normal Ankle/Foot Strength Ankle and Foot Manual Muscle Testing Left Dorsiflexion (L4) 4+ Good+ Plantarflexion (S1) 4+ Good+ Inversion 4+ Good+ Eversion (S1) 4- Good- Right Dorsiflexion (L4) 4+ Good+ Plantarflexion (S1) 4+ Good+ Inversion 4+ Good+ Eversion (S1) 4+ Good+ PT-OP-Q Treatments Start: 01/08/18 07:27 Freq: Status: Active Protocol: Document 01/30/18 10:15 AMB (Rec: 01/30/18 16:26 AMB [email or web address]) Gym Equipment Shuttle Balance 1 Details RED modified tandem Reps/Duration 10 min Comments head turns Eyes open, eyes closed Therapeutic Exercises Standing Exercises 6 Standing Exercise Name overhead press Resistance #1 Reps/Minutes 10 4 Standing Exercise Name calf stretch Reps/Minutes 30x2 3 Standing Exercise Name pec stretch Reps/Minutes 30x2 1 Standing Exercise Name shoulder extension Resistance #3 t band Reps/Minutes 2x10 Gait Training Gait Activity 2 Description hurdles with balance pods Comments with talking, forward, sideways, backwards difficult Neuro Re-Education Treatment Balance Activities 5 Details WBOS trunk rotation reach Reps/Duration 12 4 Details modified tandem stance with weightshift a/p and alternating UE mvmt Reps/Duration 12 3 Details posterior stepping Reps/Duration 20 Comments with forward trunk bend 2 Details lateral stepping Reps/Duration 20 Comments alternating with UE horizontal abd and cervical rotation 1 Details forward stepping Reps/Duration 20 Comments alternating with UE horizontal abd PT-OP-T Assessment and Plan Start: 01/08/18 07:27 Freq: Status: Active Protocol: Document 01/30/18 10:15 AMB (Rec: 01/30/18 16:26 AMB [email or web address]) Physical Therapy Assessment Assessment Summary Assessment Pt continues to have elbow pain with overhead activities, but was able to tolerate 1# exercise well. Physical Therapy Plan Next Visit Focus/Plan Next Note Type Treatment Note Next Visit Plan Follow up on elbow pain, overhead activities
--- NOTE | 2018-01-31 11:14 | PT.OTN ---
Current Diagnoses Parkinson's disease (01/31/18) Physical Therapy Treatment Note PT-OP-A Visit Information Start: 01/08/18 07:27 Freq: Status: Active Protocol: Document 01/31/18 10:15 AMB (Rec: 01/31/18 10:45 AMB [id number]) Out-Patient Physical Therapy Visit Information Visit Information Visit Type Treatment Note Visit Start Time 10:15 Visit Stop Time 11:15 Total Visit Minutes 60 Visit Number 13 Evaluation Information Evaluation Date 01/08/18 PT-OP-B Current Condition Start: 01/08/18 07:27 Freq: Status: Active Protocol: Document 01/08/18 11:00 AMB (Rec: 01/08/18 16:27 AMB [email or web address]) Current Condition History of Current Condition History of Current Condition The patient has had Parkinson' s about 8 years ago. Since then she has noticed greater difficulty with quick movements, balance, strength in her forearms. Prior Functional Status Baseline Function- ADL's Independent Baseline Function- Mobility Independent Current Functional Impairments (Reported) Functional Limitations- ADL's Increased difficulty with yoga , difficulty with hiking over uneven surfaces. Personal Factors Other Personal Factors That May Effect Pt admits anxiety/depression, Therapy/Recovery hypothyroidism PT-OP-C Subjective Start: 01/08/18 07:27 Freq: Status: Active Protocol: Document 01/31/18 10:15 AMB (Rec: 01/31/18 10:45 AMB [id number]) OP-PT Subjective Patient Comments Patient Comments Reduced sinemet after seeing neurologist, feeling different today. PT-OP-D Balance Start: 01/08/18 07:27 Freq: Status: Active Protocol: Document 01/08/18 11:00 AMB (Rec: 01/09/18 07:14 AMB [email or web address]) Balance Tests Single Limb Standing Single Limb- Right 25 seconds Single Limb- Left 22 seconds Semi-Tandem Standing Semi-Tandem Standing Balance EC 25 seconds with increased ankle sway Tandem Tandem Standing EC unable, EO 30 seconds PT-OP-E Functional Tests Start: 01/08/18 07:27 Freq: Status: Active Protocol: Document 01/08/18 11:00 AMB (Rec: 01/09/18 07:14 AMB [email or web address]) Functional Tests 6 Minute Walk Test Distance 1618 feet Device Used none Five Times Sit to Stand Test Score 7 seconds PT-OP-G Mobility & Gait Start: 01/08/18 07:27 Freq: Status: Active Protocol: Document 01/08/18 11:00 AMB (Rec: 01/09/18 07:14 AMB [email or web address]) OP Gait Assessment Comments Gait Comments Decreased left UE extension, decreased ankle dorsiflexion in swing phase and push off on the left PT-OP-H Neuro Start: 01/08/18 07:27 Freq: Status: Active Protocol: Document 01/08/18 11:00 AMB (Rec: 01/09/18 07:14 AMB [email or web address]) Coordination Evaluation Upper Extremity Tests Left Pronation/Supination Test Normal Performance Muscle Tone Tone Assessment Left Lower Extremity Muscle Tone Comments No clonus or tremors noted, pt does report motor dyskinesia L>R at the LE. PT-OP-J Posture/Palpation/Skin Start: 01/08/18 07:27 Freq: Status: Active Protocol: Document 01/08/18 11:00 AMB (Rec: 01/09/18 07:14 AMB [email or web address]) Posture Evaluation Comments Posture Comments Mild forward head PT-OP-M Strength Start: 01/08/18 07:27 Freq: Status: Active Protocol: Document 01/08/18 11:00 AMB (Rec: 01/09/18 07:14 AMB [email or web address]) Hand Bowling Ball Weigher And Packer/Pinch Strength Hand Dominance Hand Dominance Right Hand Strength Right Bowling Ball Weigher And Packer (lbs) 50 Left Bowling Ball Weigher And Packer (lbs) 45 Hip Strength Hip Manual Muscle Testing Right Flexion (L2) 4+ Good+ Extension (S1) 4+ Good+ Abduction 4+ Good+ Adduction 4+ Good+ Left Flexion (L2) 4 Good Extension (S1) 4 Good Abduction 4+ Good+ Adduction 4+ Good+ Knee Strength Knee Manual Muscle Testing Right Flexion (S2) 5 Normal Extension (L3) 5 Normal Left Flexion (S2) 5 Normal Extension (L3) 5 Normal Ankle/Foot Strength Ankle and Foot Manual Muscle Testing Left Dorsiflexion (L4) 4+ Good+ Plantarflexion (S1) 4+ Good+ Inversion 4+ Good+ Eversion (S1) 4- Good- Right Dorsiflexion (L4) 4+ Good+ Plantarflexion (S1) 4+ Good+ Inversion 4+ Good+ Eversion (S1) 4+ Good+ PT-OP-Q Treatments Start: 01/08/18 07:27 Freq: Status: Active Protocol: Document 01/31/18 10:57 AMB (Rec: 01/31/18 11:07 AMB [id number]) Therapeutic Exercises Prone Exercises 2 Prone Exercise Name kortney pose Reps/Minutes 30x2 1 Prone Exercise Name quad stretch Reps/Minutes 30x2 Sitting Exercises 4 Sitting Exercise Name sit to stand Comments with and without foam 10ea Standing Exercises 7 Standing Exercise Name rows Equipment Used #3 tband Reps/Minutes 2x10 6 Standing Exercise Name overhead press Resistance #1 Reps/Minutes 10 4 Standing Exercise Name calf stretch Reps/Minutes 30x2 1 Standing Exercise Name shoulder extension Resistance #3 t band Reps/Minutes 2x10 Neuro Re-Education Treatment Balance Activities 9 Details modified tandem on blue foam Comments EC/ HT EO 5 Details WBOS trunk rotation reach Reps/Duration 12 4 Details modified tandem stance with weightshift a/p and alternating UE mvmt Reps/Duration 12 3 Details posterior stepping Reps/Duration 20 Comments with forward trunk bend 2 Details lateral stepping Reps/Duration 20 Comments alternating with UE horizontal abd and cervical rotation 1 Details forward stepping Reps/Duration 20 Comments alternating with UE horizontal abd PT-OP-T Assessment and Plan Start: 01/08/18 07:27 Freq: Status: Active Protocol: Document 01/31/18 10:15 AMB (Rec: 01/31/18 11:14 AMB [id number]) Physical Therapy Assessment Assessment Summary Assessment Pt with overall lower tolerance to exercise today. [place] a little lightheaded with balance activities. Physical Therapy Plan Next Visit Focus/Plan Next Note Type Treatment Note Next Visit Plan Reassess tolerance to higher level activities
--- NOTE | 2018-02-06 12:04 | PT.OTN ---
Current Diagnoses Parkinson's disease (02/06/18) Physical Therapy Treatment Note PT-OP-A Visit Information Start: 01/08/18 07:27 Freq: Status: Active Protocol: Document 02/06/18 09:45 AMB (Rec: 02/06/18 12:02 AMB [email or web address]) Out-Patient Physical Therapy Visit Information Visit Information Visit Type Treatment Note Visit Start Time 09:45 Visit Stop Time 10:30 Total Visit Minutes 60 Visit Number 14 Evaluation Information Evaluation Date 01/08/18 PT-OP-B Current Condition Start: 01/08/18 07:27 Freq: Status: Active Protocol: Document 01/08/18 11:00 AMB (Rec: 01/08/18 16:27 AMB [email or web address]) Current Condition History of Current Condition History of Current Condition The patient has had Parkinson' s about 8 years ago. Since then she has noticed greater difficulty with quick movements, balance, strength in her forearms. Prior Functional Status Baseline Function- ADL's Independent Baseline Function- Mobility Independent Current Functional Impairments (Reported) Functional Limitations- ADL's Increased difficulty with yoga , difficulty with hiking over uneven surfaces. Personal Factors Other Personal Factors That May Effect Pt admits anxiety/depression, Therapy/Recovery hypothyroidism PT-OP-C Subjective Start: 01/08/18 07:27 Freq: Status: Active Protocol: Document 02/06/18 09:45 AMB (Rec: 02/06/18 12:02 AMB [email or web address]) OP-PT Subjective Patient Comments Patient Comments Pt continuing to feel sx of reducing sinemet. She has been doing her exercises. PT-OP-D Balance Start: 01/08/18 07:27 Freq: Status: Active Protocol: Document 01/08/18 11:00 AMB (Rec: 01/09/18 07:14 AMB [email or web address]) Balance Tests Single Limb Standing Single Limb- Right 25 seconds Single Limb- Left 22 seconds Semi-Tandem Standing Semi-Tandem Standing Balance EC 25 seconds with increased ankle sway Tandem Tandem Standing EC unable, EO 30 seconds PT-OP-E Functional Tests Start: 01/08/18 07:27 Freq: Status: Active Protocol: Document 01/08/18 11:00 AMB (Rec: 01/09/18 07:14 AMB [email or web address]) Functional Tests 6 Minute Walk Test Distance 1618 feet Device Used none Five Times Sit to Stand Test Score 7 seconds PT-OP-G Mobility & Gait Start: 01/08/18 07:27 Freq: Status: Active Protocol: Document 01/08/18 11:00 AMB (Rec: 01/09/18 07:14 AMB [email or web address]) OP Gait Assessment Comments Gait Comments Decreased left UE extension, decreased ankle dorsiflexion in swing phase and push off on the left PT-OP-H Neuro Start: 01/08/18 07:27 Freq: Status: Active Protocol: Document 01/08/18 11:00 AMB (Rec: 01/09/18 07:14 AMB [email or web address]) Coordination Evaluation Upper Extremity Tests Left Pronation/Supination Test Normal Performance Muscle Tone Tone Assessment Left Lower Extremity Muscle Tone Comments No clonus or tremors noted, pt does report motor dyskinesia L>R at the LE. PT-OP-J Posture/Palpation/Skin Start: 01/08/18 07:27 Freq: Status: Active Protocol: Document 01/08/18 11:00 AMB (Rec: 01/09/18 07:14 AMB [email or web address]) Posture Evaluation Comments Posture Comments Mild forward head PT-OP-M Strength Start: 01/08/18 07:27 Freq: Status: Active Protocol: Document 01/08/18 11:00 AMB (Rec: 01/09/18 07:14 AMB [email or web address]) Hand Finishing Range Feeder/Pinch Strength Hand Dominance Hand Dominance Right Hand Strength Right Finishing Range Feeder (lbs) 50 Left Finishing Range Feeder (lbs) 45 Hip Strength Hip Manual Muscle Testing Right Flexion (L2) 4+ Good+ Extension (S1) 4+ Good+ Abduction 4+ Good+ Adduction 4+ Good+ Left Flexion (L2) 4 Good Extension (S1) 4 Good Abduction 4+ Good+ Adduction 4+ Good+ Knee Strength Knee Manual Muscle Testing Right Flexion (S2) 5 Normal Extension (L3) 5 Normal Left Flexion (S2) 5 Normal Extension (L3) 5 Normal Ankle/Foot Strength Ankle and Foot Manual Muscle Testing Left Dorsiflexion (L4) 4+ Good+ Plantarflexion (S1) 4+ Good+ Inversion 4+ Good+ Eversion (S1) 4- Good- Right Dorsiflexion (L4) 4+ Good+ Plantarflexion (S1) 4+ Good+ Inversion 4+ Good+ Eversion (S1) 4+ Good+ PT-OP-Q Treatments Start: 01/08/18 07:27 Freq: Status: Active Protocol: Document 02/06/18 09:45 AMB (Rec: 02/06/18 12:02 AMB [email or web address]) Gym Equipment Shuttle Balance 1 Details RED Comments modified tandem with alternating arms Therapeutic Exercises Sitting Exercises 4 Sitting Exercise Name sit to stand Comments with and without foam 10ea Standing Exercises 4 Standing Exercise Name calf stretch Reps/Minutes 30x2 3 Standing Exercise Name doorway shoulder stretch Reps/Minutes 30x2 1 Standing Exercise Name shoulder extension Resistance #3 t band Reps/Minutes 2x10 Gait Training Gait Activity 1 Description Smooth surface Comments Focus on step length, trunk rotation Neuro Re-Education Treatment Balance Activities 5 Details WBOS trunk rotation reach Reps/Duration 12 4 Details modified tandem stance with weightshift a/p and alternating UE mvmt Reps/Duration 12 3 Details posterior stepping Reps/Duration 20 Comments with forward trunk bend 2 Details lateral stepping Reps/Duration 20 Comments alternating with UE horizontal abd and cervical rotation 1 Details forward stepping Reps/Duration 20 Comments alternating with UE horizontal abd PT-OP-T Assessment and Plan Start: 01/08/18 07:27 Freq: Status: Active Protocol: Document 02/06/18 09:45 AMB (Rec: 02/06/18 12:02 AMB [email or web address]) Physical Therapy Assessment Assessment Summary Assessment Pt with better wrist proprioception with shoulder extension. Physical Therapy Plan Next Visit Focus/Plan Next Note Type Discharge Summary Next Visit Plan Reassess objective measures
--- NOTE | 2018-02-11 12:56 | PT.OTN ---
Current Diagnoses Parkinson's disease (02/11/18) Physical Therapy Treatment Note PT-OP-A Visit Information Start: 01/08/18 07:27 Freq: Status: Active Protocol: Document 02/11/18 09:00 AMB (Rec: 02/11/18 09:01 AMB [id number]) Out-Patient Physical Therapy Visit Information Visit Information Visit Type Discharge Summary Visit Start Time 09:00 Visit Stop Time 10:00 Total Visit Minutes 60 Visit Number 15 Evaluation Information Evaluation Date 01/08/18 PT-OP-B Current Condition Start: 01/08/18 07:27 Freq: Status: Active Protocol: Document 01/08/18 11:00 AMB (Rec: 01/08/18 16:27 AMB [email or web address]) Current Condition History of Current Condition History of Current Condition The patient has had Parkinson' s about 8 years ago. Since then she has noticed greater difficulty with quick movements, balance, strength in her forearms. Prior Functional Status Baseline Function- ADL's Independent Baseline Function- Mobility Independent Current Functional Impairments (Reported) Functional Limitations- ADL's Increased difficulty with yoga , difficulty with hiking over uneven surfaces. Personal Factors Other Personal Factors That May Effect Pt admits anxiety/depression, Therapy/Recovery hypothyroidism PT-OP-C Subjective Start: 01/08/18 07:27 Freq: Status: Active Protocol: Document 02/11/18 09:00 AMB (Rec: 02/11/18 12:50 AMB [email or web address]) OP-PT Subjective Patient Comments Patient Comments Pt feels that her dynamic balance and strength have improved. She is currently not especially bothered by her elbow or her wrist pain, but it can come on with lifting pots during cooking. PT-OP-D Balance Start: 01/08/18 07:27 Freq: Status: Active Protocol: Document 01/08/18 11:00 AMB (Rec: 01/09/18 07:14 AMB [email or web address]) Balance Tests Single Limb Standing Single Limb- Right 25 seconds Single Limb- Left 22 seconds Semi-Tandem Standing Semi-Tandem Standing Balance EC 25 seconds with increased ankle sway Tandem Tandem Standing EC unable, EO 30 seconds PT-OP-E Functional Tests Start: 01/08/18 07:27 Freq: Status: Active Protocol: Document 02/11/18 09:31 AMB (Rec: 02/11/18 09:33 AMB [id number]) Functional Tests 6 Minute Walk Test Distance 1877 feet Device Used none Five Times Sit to Stand Test Score 5 seconds PT-OP-G Mobility & Gait Start: 01/08/18 07:27 Freq: Status: Active Protocol: Document 01/08/18 11:00 AMB (Rec: 01/09/18 07:14 AMB [email or web address]) OP Gait Assessment Comments Gait Comments Decreased left UE extension, decreased ankle dorsiflexion in swing phase and push off on the left PT-OP-H Neuro Start: 01/08/18 07:27 Freq: Status: Active Protocol: Document 01/08/18 11:00 AMB (Rec: 01/09/18 07:14 AMB [email or web address]) Coordination Evaluation Upper Extremity Tests Left Pronation/Supination Test Normal Performance Muscle Tone Tone Assessment Left Lower Extremity Muscle Tone Comments No clonus or tremors noted, pt does report motor dyskinesia L>R at the LE. PT-OP-J Posture/Palpation/Skin Start: 01/08/18 07:27 Freq: Status: Active Protocol: Document 01/08/18 11:00 AMB (Rec: 01/09/18 07:14 AMB [email or web address]) Posture Evaluation Comments Posture Comments Mild forward head PT-OP-M Strength Start: 01/08/18 07:27 Freq: Status: Active Protocol: Document 02/11/18 09:34 AMB (Rec: 02/11/18 09:37 AMB [id number]) Hand Newspaper Correspondent/Pinch Strength Hand Strength Right Newspaper Correspondent (lbs) 55 Left Newspaper Correspondent (lbs) 50 PT-OP-Q Treatments Start: 01/08/18 07:27 Freq: Status: Active Protocol: Document 02/11/18 09:00 AMB (Rec: 02/11/18 12:50 AMB [email or web address]) Therapeutic Exercises Sitting Exercises 4 Sitting Exercise Name sit to stand Comments with and without foam 10ea Standing Exercises 7 Standing Exercise Name rows Equipment Used #3 tband Reps/Minutes 2x10 4 Standing Exercise Name calf stretch Reps/Minutes 30x2 3 Standing Exercise Name doorway shoulder stretch Reps/Minutes 30x2 Neuro Re-Education Treatment Balance Activities 9 Details modified tandem on blue foam Comments EC/ HT EO 5 Details WBOS trunk rotation reach Reps/Duration 12 4 Details modified tandem stance with weightshift a/p and alternating UE mvmt Reps/Duration 12 3 Details posterior stepping Reps/Duration 20 Comments with forward trunk bend 2 Details lateral stepping Reps/Duration 20 Comments alternating with UE horizontal abd and cervical rotation 1 Details forward stepping Reps/Duration 20 Comments alternating with UE horizontal abd PT-OP-T Assessment and Plan Start: 01/08/18 07:27 Freq: Status: Active Protocol: Document 02/11/18 09:00 AMB (Rec: 02/11/18 09:09 AMB [id number]) Physical Therapy Assessment Goals 3 Impairment Lift/carry Short Term Goal (STG) The patient will increase her L lumber inspector strength to 50#. MET STG Duration 3 weeks Die Presser Goal (LTG) The patient will lift a guillen with her left hand to make dinner without fear of dropping it. PARTIALLY MET LTG Duration 6 weeks 2 Impairment Dynamic balance Short Term Goal (STG) The patient will show improved ankle stability by hiking over uneven terrain for 30 minutes without LOB. NOT MET STG Duration 3 weeks Longterm Goal (LTG) The patient will show improved balance by maintaining tandem stance with eyes closed for 10 seconds without LOB. NOT MET LTG Duration 6 weeks 1 Impairment Gait Short Term Goal (STG) The patient will increase her left arm swing with gait. MET STG Duration 3 weeks Die Presser Goal (LTG) The patient will increase her 6MWT score to 1,800 feet to show improved gait speed. MET LTG Duration 6 weeks Assessment Summary Assessment Excessive ankle supination early in the day can lead to a feeling of being off balance, but otherwise balance is feeling good. Pt notices more slowness with being on a lower dose of Sinemet. Her 6 minute walk test and 5x sit to stand test both improved, as well as her lumber inspector strength, which considering her change in medication is significant. She displays improved gait. She was encouraged to continue with her exercises, yoga, and walking and is ready to be discharged at this time . Physical Therapy Plan Discharge Physical Therapy Discharge Reasons Goals Met
== END 2018-06-21 14:30 ==
LOC: PHYS 09:00
PROVIDERS: Family Provider Family Medicine; PCP Family Medicine; Visit Provider Psychiatry & Neurology Neurology
DX: G20 Parkinson's disease (principal)
CPT/HCPCS: 97110; 97112; 97116; 97162

== ENCOUNTER → 2018-03-04 13:42 | Outpatient (CLI) | payer OTHER, SELFPAY | PROVIDERS: Family Provider Family Medicine; PCP Family Medicine; Visit Provider Family Medicine | DX: E03.9 Hypothyroidism, unspecified (principal) | CPT/HCPCS: 84443 ==

== ENCOUNTER 2018-07-26 13:51 | Emergency (ER) | payer OTHER, SELFPAY ==
[2018-07-26 13:56] VITALS: BP 128/85; PULSE 84; RESP 16; TEMP 36.9; O2SAT 100; BMI 22.6
--- NOTE | 2018-07-26 14:13 | DI.RAD.S_ITS ---
PROCEDURE: XR CHEST 1V INDICATIONS: chest pain TECHNIQUE: One view of the chest was acquired. COMPARISON: [facility], CR, XR CHEST 1V, 01/17/2018, 9:11. FINDINGS: Surgical changes and devices: None. Lungs and pleura: No pleural effusions or pneumothorax. Lungs are clear. Mediastinum: Mediastinal contours appear normal. Heart size is normal. Bones and chest wall: N moderate rightward curvature of the mid/upper thoracic spine. o suspicious bony lesions. Overlying soft tissues appear unremarkable. IMPRESSION: No acute process. Dictated by: Levon Cartagena M.D. on 07/26/2018 at 14:32 Approved by: Levon Cartagena M.D. on 07/26/2018 at 14:33
[2018-07-26 14:49] LABS: Add Manual Diff / Slide Review NO; Basophils Percent Auto 0.4 % (0-2); Eosinophils Percent Auto 0.6 % (2-4); Hematocrit 40.9 % (36-46); Hemoglobin 13.6 g/dL (12.0-16.0); Lymphocytes Percent Auto 18.8 % (25-40); Mean Corpuscular HGB Conc 33.2 % (30-36); Mean Corpuscular Volume 87.5 fL (80-100); Neutrophils Absolute Auto 6800 /uL (1500-7000); Neutrophils Percent Auto 75.2 % (50-75); Platelet Count 345 X10^3/uL (150-400); Red Blood Cell Count 4.67 X10^6/uL (4.0-5.2); Red Cell Distribution Width 12.9 % (11.6-14.8); White Blood Cell Count 9.1 X10^3/uL (4.5-11.0)
[2018-07-26 14:55] LABS: INR 0.9 (0.9-1.3); Prothrombin Time 10.3 SECONDS (10.1-12.7)
[2018-07-26 14:58] LABS: PTT Partial Thromboplastin Tim 30 SECONDS (26.4-36.2)
[2018-07-26 14:59] LABS: Alanine Aminotransferase 14 IU/L (9-52); Albumin 3.8 g/dL (3.5-5.0); Albumin Globulin Ratio 1.3 (1.0-2.8); Alkaline Phosphatase 108 U/L (38-126); Aspartate Aminotransferase 30 IU/L (14-36); BUN Creatinine Ratio 12.9 (6-22); Bilirubin Total 0.4 mg/dL (0.2-1.3); Blood Urea Nitrogen 9 mg/dL (7-17); Carbon Dioxide 29 mmol/L (22-32); Chloride 103 mmol/L (98-107); Creatine Kinase 35 U/L (30-135); Estimated Glomerular Filt Rate > 60.0 mL/min (>60); Glucose 117 mg/dL (70-100); HEMOLYSIS < 15 (0-50); Lipase 155 U/L (23-300); Potassium 4.4 mmol/L (3.4-5.1); Sodium 137 mmol/L (137-145); Total Protein 6.8 g/dL (6.3-8.2)
--- NOTE | 2018-07-26 15:07 | ED.CHESTPAIN ---
HPI - Chest Pain <Valentina Johnson PA-C - Last Filed: 07/26/18 21:44> General Chief Complaint: Chest Pain Stated Complaint: CHEST PAIN, ? PANIC ATTACK ? Time Seen by Provider: 07/26/18 15:07 Source: patient Mode of arrival: ambulatory Limitations: no limitations History of Present Illness HPI narrative: This 52-year-old female comes to ED due to recurrent chest discomfort and air hunger sensation that started about 2 and 0.5 hr ago. She notes that this was about an hour after she ate some refer I would seems. She states that symptoms are ?the same as in the past?. She states that she will have fairly abrupt onset of pressure sensation and air hunger. She feels the pressure and tightness throughout her chest, but then intermittently can have brief shooting or electric pains in various areas of her chest. She states there are not any exacerbating or alleviating features. She states that she will also have a warm sensation from her chest up to her head and starts to feel panicky when this occurs. She states that she has not had any new nausea or vomiting with this. She does not have any new pain or swelling in her legs or calves. She has not had any recent cough, fever, or illness. She does think it might relate to her Parkinson's medications, states that she thinks after eating certain foods, i.e. proteins or like the beings that she had today, it might make them less effective and she becomes shaky. She states that she does have a history of acid reflux and use to be on Tagamet for this. She does not feel any bing reflux now. She states that she has not been sleeping well at all recently and she feels anxious, thinks that adds to symptoms. She states that she has been falling asleep with her ropinirole, and when she wakes up she does take a clonazepam, has been working on adjusting these. She states that she continues to have palpitations intermittently, and sometimes will feel her heart ?thunk at night and jolt her awake. She is not having new palpitations today. She states cardiac monitoring was done for the palpitations recently and no acute problem found Related Data Home Medications Medication Instructions Recorded Confirmed carbidopa 25 mg-levodopa 100 mg 1 tab PO Q3H tab 12/21/17 07/26/18 tablet Vitamin B-12 1 tab PO DAILY 07/26/18 07/26/18 Vitamin D3 1 tab PO DAILY 07/26/18 07/26/18 clonazepam 0.5 - 1 mg PO QDAY 07/26/18 07/26/18 multivitamin 1 tab PO DAILY 07/26/18 07/26/18 ropinirole 6 mg PO BEDTIME 07/26/18 07/26/18 sertraline 50 mg PO DAILY 07/26/18 07/26/18 vitamin B complex 1 tab PO DAILY 07/26/18 07/26/18 Previous Rx's Medication Instructions Recorded mirtazapine 30 mg PO HS #60 tab 02/18/18 levothyroxine 75 mcg tablet 75 mcg PO QDAY #90 tab 03/04/18 Allergies Allergy/AdvReac Type Severity Reaction Status Date / Time No Known Drug Allergies Allergy Verified 01/17/18 08:35 Review of Systems <Valentina Johnson PA-C - Last Filed: 07/26/18 21:44> Review of Systems All systems reviewed & are unremarkable except as noted in HPI and below Exam <Valentina Johnson PA-C - Last Filed: 07/26/18 21:44> Narrative Exam Narrative: GENERAL APPEARANCE: Patient sitting comfortably, in no distress. HEENT: PERRL, EOMI, normal oropharynx NECK: Supple, no masses LUNGS: Clear to auscultation bilaterally. CHEST: No tenderness patient HEART: Rate and rhythm regular, normal S1 and S2, no S3 or S4. ABDOMEN: Soft, nontender, nondistended, bowel sounds present x 4 quadrants, no masses palpable EXTREMITIES: No edema, no calf tenderness DERMATOLOGIC: No jaundice or exanthem NEUROLOGIC: Alert and oriented with normal speech and coordination, tremulous Initial Vital Signs Initial Vital Signs: Vital Signs Temperature 98.4 F 07/26/18 13:56 Pulse Rate 84 07/26/18 13:56 Respiratory Rate 16 07/26/18 13:56 Blood Pressure 128/85 07/26/18 13:56 Pulse Oximetry 100 07/26/18 13:56 <Estella Seo DO - Last Filed: 07/27/18 19:04> Initial Vital Signs Initial Vital Signs: Vital Signs Temperature 98.4 F 07/26/18 13:56 Pulse Rate 84 07/26/18 13:56 Respiratory Rate 16 07/26/18 13:56 Blood Pressure 128/85 07/26/18 13:56 Pulse Oximetry 100 07/26/18 13:56 Course <Valentina Johnson PA-C - Last Filed: 07/26/18 21:44> Additional Information: Patient was feeling better at the time of discharge. These symptoms today were the same as what she has had in the past she states. She thinks related to anxiety, and perhaps timing of medications and certain foods. Workup is reassuring. We talked about repeating cardiac enzymes but she did not wish to repeat this and her symptoms are not typical for cardiac pain. Advised follow-up with PCP to talk about whether additional workup is necessary such as stress testing, as well as with her neurologist to determine whether to adjust medications further as she does feel that symptoms tend to occur more when she is sleep deprived Orders Ordered: Discontinued Medications Al Hydrox/Mg Hydrox/Simethicone 20 ml/ Lidocaine HCl 15 ml 0 ml PO NOW ONE Stop: 07/26/18 15:25 Last Admin: 07/26/18 16:08 Dose: 45 ml Vital Signs - 8 hr 07/26/18 13:56 07/26/18 15:10 07/26/18 16:25 Temperature 98.4 F Pulse Rate 84 79 78 Respiratory Rate 16 16 16 Blood Pressure 128/85 Blood Pressure [Left Arm] 120/69 117/75 Pulse Oximetry 100 100 96 07/26/18 16:35 Temperature Pulse Rate 76 Respiratory Rate 18 Blood Pressure 103/53 L Blood Pressure [Left Arm] Pulse Oximetry 99 <Estella Seo DO - Last Filed: 07/27/18 19:04> Orders Ordered: Discontinued Medications Al Hydrox/Mg Hydrox/Simethicone 20 ml/ Lidocaine HCl 15 ml 0 ml PO NOW ONE Stop: 07/26/18 15:25 Last Admin: 07/26/18 16:08 Dose: 45 ml Vital Signs - 8 hr 07/26/18 13:56 07/26/18 15:10 07/26/18 16:25 Temperature 98.4 F Pulse Rate 84 79 78 Respiratory Rate 16 16 16 Blood Pressure 128/85 Blood Pressure [Left Arm] 120/69 117/75 Pulse Oximetry 100 100 96 07/26/18 16:35 Temperature Pulse Rate 76 Respiratory Rate 18 Blood Pressure 103/53 L Blood Pressure [Left Arm] Pulse Oximetry 99 MDM - Chest Pain <Valentina Johnson PA-C - Last Filed: 07/26/18 21:44> Lab Data Attestation: I reviewed the patient's lab results. Result diagrams: 07/26/18 14:40 07/26/18 14:40 Lab Results 07/26/18 07/26/18 07/26/18 Range/Units 14:40 14:40 14:40 WBC 9.1 (4.5-11.0) X10^3/uL RBC 4.67 (4.0-5.2) X10^6/uL Hgb 13.6 (12.0-16.0) g/dL Hct 40.9 (36-46) % MCV 87.5 (80-100) fL MCH 29.0 (26-34) PG MCHC 33.2 (30-36) % RDW 12.9 (11.6-14.8) % Plt Count 345 (150-400) X10^3/uL Neut % (Auto) 75.2 H (50-75) % Lymph % (Auto) 18.8 L (25-40) % [place] % (Auto) 5.0 (3-14) % Eos % (Auto) 0.6 L (2-4) % Baso % (Auto) 0.4 (0-2) % Neut # (Auto) 6800 (1895-8257) /uL PT 10.3 (10.1-12.7) SECONDS INR 0.9 (0.9-1.3) APTT 30 (26.4-36.2) SECONDS Sodium 137 (137-145) mmol/L Potassium 4.4 (3.4-5.1) mmol/L Chloride 103 (98-107) mmol/L Carbon Dioxide 29 (22-32) mmol/L BUN 9 (7-17) mg/dL Creatinine 0.70 (0.52-1.04) mg/dL Estimated GFR > 60.0 (>60) mL/min BUN/Creatinine Ratio 12.9 (6-22) Glucose 117 H (70-100) mg/dL Calcium 9.0 (8.4-10.2) mg/dL Total Bilirubin 0.4 (0.2-1.3) mg/dL AST 30 (14-36) IU/L ALT 14 (9-52) IU/L Alkaline Phosphatase 108 (38-126) U/L Total Creatine Kinase 35 (30-135) U/L CK-MB (CK-2) TNP CK-MB (CK-2) Rel Index TNP Troponin I < 0.012 (0.01-0.034) ng/mL Total Protein 6.8 (6.3-8.2) g/dL Albumin 3.8 (3.5-5.0) g/dL Globulin 3.0 (1.7-4.1) g/dL Albumin/Globulin Ratio 1.3 (1.0-2.8) Lipase 155 (23-300) U/L Imaging Data Chest x-ray: Radiologist's impression: View Report History Print [address] [address] XRay Report Signed Patient: Katie Ariza MR#: [id number] : 1965 Acct:[id number] Age/Sex: 52 / F Date of Service: 07/26/18 Loc: ED Accession Number: [id number] Procedure: XR chest 1V Ordering Provider: Estella Seo D.O. PROCEDURE: XR CHEST 1V INDICATIONS: chest pain TECHNIQUE: One view of the chest was acquired. COMPARISON: [facility], , XR CHEST 1V, 01/17/2018, 9:11. FINDINGS: Surgical changes and devices: None. Lungs and pleura: No pleural effusions or pneumothorax. Lungs are clear. Mediastinum: Mediastinal contours appear normal. Heart size is normal. Bones and chest wall: N moderate rightward curvature of the mid/upper thoracic spine. o suspicious bony lesions. Overlying soft tissues appear unremarkable. IMPRESSION: No acute process. Dictated by: Levon Cartagena M.D. on 07/26/2018 at 14:32 Approved by: Levon Cartagena M.D. on 07/26/2018 at 14:33 ECG Data Attestation: I personally reviewed and interpreted this ECG as follows: (Normal sinus rhythm with rate 82, normal axis, significant artifact) <Estella Seo DO - Last Filed: 07/27/18 19:04> Lab Data Lab Results 07/26/18 07/26/18 07/26/18 Range/Units 14:40 14:40 14:40 WBC 9.1 (4.5-11.0) X10^3/uL RBC 4.67 (4.0-5.2) X10^6/uL Hgb 13.6 (12.0-16.0) g/dL Hct 40.9 (36-46) % MCV 87.5 (80-100) fL MCH 29.0 (26-34) PG MCHC 33.2 (30-36) % RDW 12.9 (11.6-14.8) % Plt Count 345 (150-400) X10^3/uL Neut % (Auto) 75.2 H (50-75) % Lymph % (Auto) 18.8 L (25-40) % [place] % (Auto) 5.0 (3-14) % Eos % (Auto) 0.6 L (2-4) % Baso % (Auto) 0.4 (0-2) % Neut # (Auto) 6800 (4484-6453) /uL PT 10.3 (10.1-12.7) SECONDS INR 0.9 (0.9-1.3) APTT 30 (26.4-36.2) SECONDS Sodium 137 (137-145) mmol/L Potassium 4.4 (3.4-5.1) mmol/L Chloride 103 (98-107) mmol/L Carbon Dioxide 29 (22-32) mmol/L BUN 9 (7-17) mg/dL Creatinine 0.70 (0.52-1.04) mg/dL Estimated GFR > 60.0 (>60) mL/min BUN/Creatinine Ratio 12.9 (6-22) Glucose 117 H (70-100) mg/dL Calcium 9.0 (8.4-10.2) mg/dL Total Bilirubin 0.4 (0.2-1.3) mg/dL AST 30 (14-36) IU/L ALT 14 (9-52) IU/L Alkaline Phosphatase 108 (38-126) U/L Total Creatine Kinase 35 (30-135) U/L CK-MB (CK-2) TNP CK-MB (CK-2) Rel Index TNP Troponin I < 0.012 (0.01-0.034) ng/mL Total Protein 6.8 (6.3-8.2) g/dL Albumin 3.8 (3.5-5.0) g/dL Globulin 3.0 (1.7-4.1) g/dL Albumin/Globulin Ratio 1.3 (1.0-2.8) Lipase 155 (23-300) U/L Discharge Plan Departure Patient Disposition: Home Clinical Impression: Chest pain, atypical Discharge Date/Time: 07/26/18 16:35 Interventions: ED Discharge Assessment Last Done: 07/26/18 16:35 Instructions: DI for Atypical Chest Pain Activity Restrictions/Additional Instructions: Please return as we talked about if you have acute changes or worsening symptoms again, otherwise it is reasonable to monitor at home today since you are feeling better. There are no acute changes or problems found on your testing today, and it is possible that this was a reaction between something you ate earlier and medications. Please keep some liquid antacid on hand such as Maalox or Mylanta to try if you have recurrent symptoms as this can help if there is a reflux or esophageal component. Since you do have some history of reflux, also please try starting an uhka-qgv-[id number] medicine such as Pepcid (famotidine) 20 mg once daily until you follow up so we can see if this is helpful. Please also follow up with your neurologist since you seem to be having some wearing off effect of your Sinemet, and also continued sleep difficulties as it sounds like you may need to continue making adjustments with your ropinirole Prescriptions: No Action carbidopa-levodopa 25-100 mg tablet 1 tab PO Q3H RF: 0 mirtazapine 15 mg tablet 30 mg PO HS Qty: 60 RF: 5 levothyroxine [Synthroid] 75 mcg tablet 75 mcg PO QDAY Qty: 90 RF: 3 sertraline 25 mg Tablet 50 mg PO DAILY RF: 0 ropinirole 2 mg Tablet Extended Release 24 Hr 6 mg PO BEDTIME RF: 0 clonazepam 1 mg tablet 0.5 - 1 mg PO QDAY RF: 0 multivitamin Tablet 1 tab PO DAILY RF: 0 vitamin B complex Tablet 1 tab PO DAILY RF: 0 Vitamin B-12 1 tab PO DAILY RF: 0 Vitamin D3 1 tab PO DAILY RF: 0 Referrals: Abena Nelson MD [Non-Staff] - Jeannie Ta DO [Primary Care Provider] - <Estella Seo DO - Last Filed: 07/27/18 19:04> Cosign ED Attending Cosignature Attestation: I was immediately available in the department for consultation. This documentation has been reviewed and I agree with assessment and plan. Supervised by Estella Seo, DO
[2018-07-26 15:10] VITALS: BP 120/69; PULSE 79; RESP 16; O2SAT 100
[2018-07-26 15:15] LABS: Troponin I < 0.012 ng/mL (0.01-0.034)
--- NOTE | 2018-07-26 15:31 | ED_ITS ---
HPI - Chest Pain <Valentina Johnson PA-C - Last Filed: 07/26/18 21:44> General Chief Complaint: Chest Pain Stated Complaint: CHEST PAIN, ? PANIC ATTACK ? Time Seen by Provider: 07/26/18 15:07 Source: patient Mode of arrival: ambulatory Limitations: no limitations History of Present Illness HPI narrative: This 52-year-old female comes to ED due to recurrent chest discomfort and air hunger sensation that started about 2 and 0.5 hr ago. She notes that this was about an hour after she ate some refer I would seems. She states that symptoms are ?the same as in the past?. She states that she will have fairly abrupt onset of pressure sensation and air hunger. She feels the pressure and tightness throughout her chest, but then intermittently can have brief shooting or electric pains in various areas of her chest. She states there are not any exacerbating or alleviating features. She states that she will also have a warm sensation from her chest up to her head and starts to feel panicky when this occurs. She states that she has not had any new nausea or vomiting with this. She does not have any new pain or swelling in her legs or calves. She has not had any recent cough, fever, or illness. She does think it might relate to her Parkinson's medications, states that she thinks after eating certain foods, i.e. proteins or like the beings that she had today , it might make them less effective and she becomes shaky. She states that she does have a history of acid reflux and use to be on Tagamet for this. She does not feel any bing reflux now. She states that she has not been sleeping well at all recently and she feels anxious, thinks that adds to symptoms. She states that she has been falling asleep with her ropinirole, and when she wakes up she does take a clonazepam, has been working on adjusting these. She states that she continues to have palpitations intermittently, and sometimes will feel her heart ?thunk at night and jolt her awake. She is not having new palpitations today. She states cardiac monitoring was done for the palpitations recently and no acute problem found Related Data Home Medications Medication Instructions Recorded Confirmed carbidopa 25 mg-levodopa 100 mg 1 tab PO Q3H tab 12/21/17 07/26/18 tablet Vitamin B-12 1 tab PO DAILY 07/26/18 07/26/18 Vitamin D3 1 tab PO DAILY 07/26/18 07/26/18 clonazepam 0.5 - 1 mg PO QDAY 07/26/18 07/26/18 multivitamin 1 tab PO DAILY 07/26/18 07/26/18 ropinirole 6 mg PO BEDTIME 07/26/18 07/26/18 sertraline 50 mg PO DAILY 07/26/18 07/26/18 vitamin B complex 1 tab PO DAILY 07/26/18 07/26/18 Previous Rx's Medication Instructions Recorded mirtazapine 30 mg PO HS #60 tab 02/18/18 levothyroxine 75 mcg tablet 75 mcg PO QDAY #90 tab 03/04/18 Allergies Allergy/AdvReac Type Severity Reaction Status Date / Time No Known Drug Allergies Allergy Verified 01/17/18 08:35 Review of Systems <Valentina Johnson PA-C - Last Filed: 07/26/18 21:44> Review of Systems All systems reviewed & are unremarkable except as noted in HPI and below Exam <Valentina Johnson PA-C - Last Filed: 07/26/18 21:44> Narrative Exam Narrative: GENERAL APPEARANCE: Patient sitting comfortably, in no distress. HEENT: PERRL, EOMI, normal oropharynx NECK: Supple, no masses LUNGS: Clear to auscultation bilaterally. CHEST: No tenderness patient HEART: Rate and rhythm regular, normal S1 and S2, no S3 or S4. ABDOMEN: Soft, nontender, nondistended, bowel sounds present x 4 quadrants, no masses palpable EXTREMITIES: No edema, no calf tenderness DERMATOLOGIC: No jaundice or exanthem NEUROLOGIC: Alert and oriented with normal speech and coordination, tremulous Initial Vital Signs Initial Vital Signs: Vital Signs Temperature 98.4 F 07/26/18 13:56 Pulse Rate 84 07/26/18 13:56 Respiratory Rate 16 07/26/18 13:56 Blood Pressure 128/85 07/26/18 13:56 Pulse Oximetry 100 07/26/18 13:56 <Estella Seo DO - Last Filed: 07/27/18 19:04> Initial Vital Signs Initial Vital Signs: Vital Signs Temperature 98.4 F 07/26/18 13:56 Pulse Rate 84 07/26/18 13:56 Respiratory Rate 16 07/26/18 13:56 Blood Pressure 128/85 07/26/18 13:56 Pulse Oximetry 100 07/26/18 13:56 Course <Valentina Johnson PA-C - Last Filed: 07/26/18 21:44> Additional Information: Patient was feeling better at the time of discharge. These symptoms today were the same as what she has had in the past she states. She thinks related to anxiety, and perhaps timing of medications and certain foods. Workup is reassuring. We talked about repeating cardiac enzymes but she did not wish to repeat this and her symptoms are not typical for cardiac pain. Advised follow-up with PCP to talk about whether additional workup is necessary such as stress testing, as well as with her neurologist to determine whether to adjust medications further as she does feel that symptoms tend to occur more when she is sleep deprived Orders Ordered: Discontinued Medications Al Hydrox/Mg Hydrox/Simethicone 20 ml/ Lidocaine HCl 15 ml 0 ml PO NOW ONE Stop: 07/26/18 15:25 Last Admin: 07/26/18 16:08 Dose: 45 ml Vital Signs - 8 hr 07/26/18 13:56 07/26/18 15:10 07/26/18 16:25 Temperature 98.4 F Pulse Rate 84 79 78 Respiratory Rate 16 16 16 Blood Pressure 128/85 Blood Pressure [Left Arm] 120/69 117/75 Pulse Oximetry 100 100 96 07/26/18 16:35 Temperature Pulse Rate 76 Respiratory Rate 18 Blood Pressure 103/53 L Blood Pressure [Left Arm] Pulse Oximetry 99 <Estella Seo DO - Last Filed: 07/27/18 19:04> Orders Ordered: Discontinued Medications Al Hydrox/Mg Hydrox/Simethicone 20 ml/ Lidocaine HCl 15 ml 0 ml PO NOW ONE Stop: 07/26/18 15:25 Last Admin: 07/26/18 16:08 Dose: 45 ml Vital Signs - 8 hr 07/26/18 13:56 07/26/18 15:10 07/26/18 16:25 Temperature 98.4 F Pulse Rate 84 79 78 Respiratory Rate 16 16 16 Blood Pressure 128/85 Blood Pressure [Left Arm] 120/69 117/75 Pulse Oximetry 100 100 96 07/26/18 16:35 Temperature Pulse Rate 76 Respiratory Rate 18 Blood Pressure 103/53 L Blood Pressure [Left Arm] Pulse Oximetry 99 MDM - Chest Pain <Valentina Johnson PA-C - Last Filed: 07/26/18 21:44> Lab Data Attestation: I reviewed the patient's lab results. Result diagrams: 07/26/18 14:40 07/26/18 14:40 Lab Results 07/26/18 07/26/18 07/26/18 Range/Units 14:40 14:40 14:40 WBC 9.1 (4.5-11.0) X10^3/uL RBC 4.67 (4.0-5.2) X10^6/uL Hgb 13.6 (12.0-16.0) g/dL Hct 40.9 (36-46) % MCV 87.5 (80-100) fL MCH 29.0 (26-34) PG MCHC 33.2 (30-36) % RDW 12.9 (11.6-14.8) % Plt Count 345 (150-400) X10^3/uL Neut % (Auto) 75.2 H (50-75) % Lymph % (Auto) 18.8 L (25-40) % [place] % (Auto) 5.0 (3-14) % Eos % (Auto) 0.6 L (2-4) % Baso % (Auto) 0.4 (0-2) % Neut # (Auto) 6800 (2946-7071) /uL PT 10.3 (10.1-12.7) SECONDS INR 0.9 (0.9-1.3) APTT 30 (26.4-36.2) SECONDS Sodium 137 (137-145) mmol/L Potassium 4.4 (3.4-5.1) mmol/L Chloride 103 (98-107) mmol/L Carbon Dioxide 29 (22-32) mmol/L BUN 9 (7-17) mg/dL Creatinine 0.70 (0.52-1.04) mg/dL Estimated GFR > 60.0 (>60) mL/min BUN/Creatinine Ratio 12.9 (6-22) Glucose 117 H (70-100) mg/dL Calcium 9.0 (8.4-10.2) mg/dL Total Bilirubin 0.4 (0.2-1.3) mg/dL AST 30 (14-36) IU/L ALT 14 (9-52) IU/L Alkaline Phosphatase 108 (38-126) U/L Total Creatine Kinase 35 (30-135) U/L CK-MB (CK-2) TNP CK-MB (CK-2) Rel Index TNP Troponin I < 0.012 (0.01-0.034) ng/mL Total Protein 6.8 (6.3-8.2) g/dL Albumin 3.8 (3.5-5.0) g/dL Globulin 3.0 (1.7-4.1) g/dL Albumin/Globulin Ratio 1.3 (1.0-2.8) Lipase 155 (23-300) U/L Imaging Data Chest x-ray: Radiologist's impression: View Report History Print [address] [address] XRay Report Signed Patient: Katie Ariza MR#: [id number] : 1965 Acct:[id number] Age/Sex: 52 / F Date of Service: 07/26/18 Loc: ED Accession Number: [id number] Procedure: XR chest 1V Ordering Provider: Estella Seo D.O. PROCEDURE: XR CHEST 1V INDICATIONS: chest pain TECHNIQUE: One view of the chest was acquired. COMPARISON: [facility], , XR CHEST 1V, 01/17/2018, 9:11. FINDINGS: Surgical changes and devices: None. Lungs and pleura: No pleural effusions or pneumothorax. Lungs are clear. Mediastinum: Mediastinal contours appear normal. Heart size is normal. Bones and chest wall: N moderate rightward curvature of the mid/upper thoracic spine. o suspicious bony lesions. Overlying soft tissues appear unremarkable. IMPRESSION: No acute process. Dictated by: Levon Cartagena M.D. on 07/26/2018 at 14:32 Approved by: Levon Cartagena M.D. on 07/26/2018 at 14:33 ECG Data Attestation: I personally reviewed and interpreted this ECG as follows: (Normal sinus rhythm with rate 82, normal axis, significant artifact) <Estella Seo DO - Last Filed: 07/27/18 19:04> Lab Data Lab Results 07/26/18 07/26/18 07/26/18 Range/Units 14:40 14:40 14:40 WBC 9.1 (4.5-11.0) X10^3/uL RBC 4.67 (4.0-5.2) X10^6/uL Hgb 13.6 (12.0-16.0) g/dL Hct 40.9 (36-46) % MCV 87.5 (80-100) fL MCH 29.0 (26-34) PG MCHC 33.2 (30-36) % RDW 12.9 (11.6-14.8) % Plt Count 345 (150-400) X10^3/uL Neut % (Auto) 75.2 H (50-75) % Lymph % (Auto) 18.8 L (25-40) % [place] % (Auto) 5.0 (3-14) % Eos % (Auto) 0.6 L (2-4) % Baso % (Auto) 0.4 (0-2) % Neut # (Auto) 6800 (5911-3835) /uL PT 10.3 (10.1-12.7) SECONDS INR 0.9 (0.9-1.3) APTT 30 (26.4-36.2) SECONDS Sodium 137 (137-145) mmol/L Potassium 4.4 (3.4-5.1) mmol/L Chloride 103 (98-107) mmol/L Carbon Dioxide 29 (22-32) mmol/L BUN 9 (7-17) mg/dL Creatinine 0.70 (0.52-1.04) mg/dL Estimated GFR > 60.0 (>60) mL/min BUN/Creatinine Ratio 12.9 (6-22) Glucose 117 H (70-100) mg/dL Calcium 9.0 (8.4-10.2) mg/dL Total Bilirubin 0.4 (0.2-1.3) mg/dL AST 30 (14-36) IU/L ALT 14 (9-52) IU/L Alkaline Phosphatase 108 (38-126) U/L Total Creatine Kinase 35 (30-135) U/L CK-MB (CK-2) TNP CK-MB (CK-2) Rel Index TNP Troponin I < 0.012 (0.01-0.034) ng/mL Total Protein 6.8 (6.3-8.2) g/dL Albumin 3.8 (3.5-5.0) g/dL Globulin 3.0 (1.7-4.1) g/dL Albumin/Globulin Ratio 1.3 (1.0-2.8) Lipase 155 (23-300) U/L Discharge Plan Departure Patient Disposition: Home Clinical Impression: Chest pain, atypical Discharge Date/Time: 07/26/18 16:35 Interventions: ED Discharge Assessment Last Done: 07/26/18 16:35 Instructions: DI for Atypical Chest Pain Activity Restrictions/Additional Instructions: Please return as we talked about if you have acute changes or worsening symptoms again, otherwise it is reasonable to monitor at home today since you are feeling better. There are no acute changes or problems found on your testing today, and it is possible that this was a reaction between something you ate earlier and medications. Please keep some liquid antacid on hand such as Maalox or Mylanta to try if you have recurrent symptoms as this can help if there is a reflux or esophageal component. Since you do have some history of reflux, also please try starting an zjvx-[id number] medicine such as Pepcid ( famotidine) 20 mg once daily until you follow up so we can see if this is helpful. Please also follow up with your neurologist since you seem to be having some wearing off effect of your Sinemet, and also continued sleep difficulties as it sounds like you may need to continue making adjustments with your ropinirole Prescriptions: No Action carbidopa-levodopa 25-100 mg tablet 1 tab PO Q3H RF: 0 mirtazapine 15 mg tablet 30 mg PO HS Qty: 60 RF: 5 levothyroxine [Synthroid] 75 mcg tablet 75 mcg PO QDAY Qty: 90 RF: 3 sertraline 25 mg Tablet 50 mg PO DAILY RF: 0 ropinirole 2 mg Tablet Extended Release 24 Hr 6 mg PO BEDTIME RF: 0 clonazepam 1 mg tablet 0.5 - 1 mg PO QDAY RF: 0 multivitamin Tablet 1 tab PO DAILY RF: 0 vitamin B complex Tablet 1 tab PO DAILY RF: 0 Vitamin B-12 1 tab PO DAILY RF: 0 Vitamin D3 1 tab PO DAILY RF: 0 Referrals: Abena Nelson MD [Non-Staff] - Jeannie Ta DO [Primary Care Provider] - <Estella Seo DO - Last Filed: 07/27/18 19:04> Cosign ED Attending Cosignature Attestation: I was immediately available in the department for consultation. This documentation has been reviewed and I agree with assessment and plan. Supervised by Estella Seo, DO
[2018-07-26] MEDS: MAG HYDROX/ALUMINUM/SIMETH SUS 20 ML, LIDOCAINE VISCOUS 2% 15 ML PO (16:08)
[2018-07-26 16:25] VITALS: BP 117/75; PULSE 78; RESP 16; O2SAT 96
[2018-07-26 16:35] VITALS: BP 103/53; PULSE 76; RESP 18; O2SAT 99
== END 2018-07-26 16:35 | disposition home or self-care (01) ==
PROVIDERS: Emergency Medicine; Emergency Provider Internal Medicine; PCP Family Medicine
DX: R07.89 Other chest pain (principal)
CPT/HCPCS: 36415; 71045; 80053; 82550; 83690; 84484; 85025; 85610; 85730; 93005; 93041; 99283; 99285

== ENCOUNTER 2018-12-20 13:27 | Emergency (ER) | payer OTHER, SELFPAY ==
[2018-12-20 13:30] VITALS: BP 144/85; PULSE 85; RESP 20; TEMP 36.4; O2SAT 98
--- NOTE | 2018-12-20 13:34 | DI.RAD.S_ITS ---
PROCEDURE: XR CHEST 1V INDICATIONS: chest pain TECHNIQUE: One view of the chest was acquired. COMPARISON: [facility], CR, XR CHEST 1V, 07/26/2018, 14:38. [facility], CR, XR CHEST 1V, 01/17/2018, 9:11. FINDINGS: Surgical changes and devices: None. Lungs and pleura: Lungs are clear. No pleural effusions or pneumothorax. Mediastinum: Mediastinal contours appear normal. Heart size is normal. Bones and chest wall: No suspicious bony lesions. There is convex right scoliosis centered at the junction of the middle and upper thirds of the thoracic spine, previously present Overlying soft tissues appear unremarkable. IMPRESSION: Stable appearance of convex rightward scoliosis centered at the junction of the middle and upper thirds of the thoracic spine. No source of chest pain found. Dictated by: Umang Singh M.D. on 12/20/2018 at 14:26 Approved by: Umang Singh M.D. on 12/20/2018 at 14:26
[2018-12-20 14:20] LABS: Add Manual Diff / Slide Review NO; Basophils Absolute Auto 100 /uL (0-100); Basophils Percent Auto 1.1 % (0-2); Eosinophils Absolute Auto 0 /uL (0-450); Eosinophils Percent Auto 0.5 % (2-4); Hematocrit 38.2 % (36-46); Hemoglobin 13.3 g/dL (12.0-16.0); Lymphocytes Absolute Auto 2200 /uL (1100-4500); Lymphocytes Percent Auto 30.5 % (25-40); Mean Corpuscular HGB Conc 34.7 % (30-36); Mean Corpuscular Hemoglobin 29.4 PG (26-34); Mean Corpuscular Volume 84.7 fL (80-100); Monocytes Absolute Auto 500 /uL (0-900); Monocytes Percent Auto 7.3 % (3-14); Neutrophils Absolute Auto 4300 /uL (1500-7000); Neutrophils Percent Auto 60.6 % (50-75); Platelet Count 388 X10^3/uL (150-400); Red Blood Cell Count 4.51 X10^6/uL (4.0-5.2); Red Cell Distribution Width 13.6 % (11.6-14.8); White Blood Cell Count 7.1 X10^3/uL (4.5-11.0)
--- NOTE | 2018-12-20 14:20 | ED.CHESTPAIN ---
HPI - Chest Pain General Chief Complaint: Chest Pain Stated Complaint: FRONT IS TINGLY AND TIGHT,PARKINSONS DISEASE Time Seen by Provider: 12/20/18 14:20 Source: patient and family Mode of arrival: ambulatory Limitations: no limitations History of Present Illness HPI narrative: This is a 53-year-old female comes to the emergency department with complaint of squeezing in her chest and feeling shaky all over and weak patient has Parkinson's which was diagnosed in 2010. She states typically when her Sinemet starts to wear off which it does around 1:00 a.m. she will start to feel the sort of weak sort of squeezing feeling. Today was much more intense. She states felt like her chest and throat all the muscles were squeezing, she was feeling very short of breath. She also felt a squeezing in her abdomen. She felt sort of weak in her thighs and shaky like she might pass out. She did not pass out. She felt sort of spacey. States that it is starting to feel better now she took her normal 1:00 a.m. Sinemet dose. She also states sometimes she gets palpitations that wakes her from sleep or feel very strong when she is awake. Right now she states that her symptoms have pretty much resolved. She used to take a statin for dyslipidemia but does no longer. She does not take any blood thinners. She sees Dr. golden gonzalez and Dr. Nelson for her Neurology. She denies tobacco, alcohol or illicit. She said hysterectomy but no other surgeries. She denies any allergies to medications. Related Data Home Medications Medication Instructions Recorded Confirmed carbidopa 25 mg-levodopa 100 mg 1 tab PO Q3H tab 12/21/17 12/20/18 tablet Vitamin B-12 1 tab PO DAILY 07/26/18 12/20/18 Vitamin D3 1 tab PO DAILY 07/26/18 12/20/18 multivitamin 1 tab PO DAILY 07/26/18 12/20/18 ropinirole 6 mg PO BEDTIME 07/26/18 12/20/18 vitamin B complex 1 tab PO DAILY 07/26/18 12/20/18 clonazepam 0.5 - 1 mg PO BEDTIME 12/20/18 12/20/18 levothyroxine [Synthroid] 75 mcg PO DAILY 12/20/18 12/20/18 mirtazapine 22.5 mg PO BEDTIME 12/20/18 12/20/18 sertraline 75 mg PO DAILY 12/20/18 12/20/18 Allergies Allergy/AdvReac Type Severity Reaction Status Date / Time No Known Drug Allergies Allergy Verified 12/20/18 13:30 Review of Systems Review of Systems ROS Unobtainable: All systems reviewed & are unremarkable except as noted in HPI and below Constitutional Denies chills, Denies fever(s), Denies lethargy and Denies weakness Cardiovascular Reports chest pain (Squeezing all over chest, resolved now), Denies diaphoresis, Denies syncope, Denies pedal edema, Denies irregular heart rhythm, Reports lightheadedness, Reports palpitations, Reports dyspnea (Resolved now) and Denies orthopnea Respiratory Reports dyspnea (Resolved now) Gastrointestinal Gastrointestinal: Denies abdominal pain, Denies change in bowel habits, Denies diarrhea, Denies nausea and Denies vomiting Genitourinary Denies hematuria, Denies dysuria, Denies flank pain, Denies urinary incontinence and Denies urinary urgency Musculoskeletal Reports muscle weakness ([place] weak in legs.) Neurologic Denies syncope, Reports tremor(s) (Tremor from Parkinson's. 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) Parkinson's disease (Chronic 06/21/16) Anxiety (Chronic) Carpal tunnel syndrome (Chronic) Depression (Chronic) Eczema (Chronic) Foot pain (Chronic 2014) GERD (gastroesophageal reflux disease) (Chronic) Hayfever (Chronic) Herpes (Chronic) Hyperlipidemia (Chronic) Hypertension (Chronic) Hypothyroidism (Chronic 2014) Parkinson's disease (Chronic 2009) Scoliosis (Chronic) Substance abuse (Chronic) Abnormal Pap smear of cervix (Resolved) Cervical cancer (Resolved 2007) Chicken pox (Resolved 1969) Colitis (Resolved 2003) Gastric ulcer (Resolved 1983) HPV (human papilloma virus) infection (Resolved) Surgical History Anesthesia (Resolved) Status post vaginal hysterectomy (Resolved 04/05/09) Family History Father Heart disease High cholesterol Parkinson's disease Grandmother Cancer Congestive heart failure Mother Stroke A-fib Pacemaker Congestive heart failure Daughter No problems noted. Grandfather No problems noted. Grandmother No problems noted. Sister No problems noted. Sister No problems noted. Social History Smoking Status: Never smoker Family History Father Heart disease High cholesterol Parkinson's disease Grandmother Cancer Congestive heart failure Mother Stroke A-fib Pacemaker Congestive heart failure Daughter No problems noted. Grandfather No problems noted. Grandmother No problems noted. Sister No problems noted. Sister No problems noted. Social History Smoking Status: Never smoker Exam Narrative Exam Narrative: GENERAL: Alert and oriented x three, well-nourished, well-appearing female in mild distress. HEENT: Head normocephalic, atraumatic, EOMI, pupils reactive, face symmetric, moist mucous membranes NECK: Supple, full range of motion CARDIOVASCULAR: Regular rate and rhythm without murmurs, rubs or gallops. RESPIRATORY: Breath sounds equal bilaterally, no wheezes rales or rhonchi. ABDOMEN: Soft, nontender. Normoactive bowel sounds all 4 quadrants. No guarding or rebound, rigidity, no mass : No CVA tenderness EXTREMITIES: Normal range of motion, no clubbing or edema. Neurovascularly intact NEUROLOGICAL: Cranial nerves II through XII grossly intact. Moving all extremities. Patient has generalized tremor consistent with Parkinson disease in extremities. No fasciculations. SKIN: Warm, dry, no petechiae, no rashes or lesions. Initial Vital Signs Initial Vital Signs: Vital Signs Temperature 97.5 F L 12/20/18 13:30 Pulse Rate 85 12/20/18 13:30 Respiratory Rate 20 12/20/18 13:30 Blood Pressure 144/85 H 12/20/18 13:30 Pulse Oximetry 98 12/20/18 13:30 Course Orders Ordered: ED Orders 12/20/18 13:34 XR chest 1V Stat EKG-12 Lead Stat 12/20/18 14:11 Complete Blood Count AUTO DIFF Stat Comprehensive Metabolic Panel Stat Lipase Stat Partial Thromboplastin Time Stat Prothrombin Time INR Stat Thyroid Stimulating Hormone Stat Troponin & CK Cardiac Panel Stat 12/20/18 16:54 EKG-12 Lead Stat 12/20/18 16:55 Troponin & CK Cardiac Panel Stat Discontinued Medications Aspirin (Aspirin Chew) 324 mg PO NOW ONE Stop: 12/20/18 14:28 Last Admin: 12/20/18 14:45 Dose: 324 mg Clonazepam (Klonopin) 0.5 mg PO NOW ONE Stop: 12/20/18 14:57 Last Admin: 12/20/18 15:13 Dose: 0.5 mg Vital Signs - 8 hr 12/20/18 13:30 12/20/18 15:17 12/20/18 16:38 Temperature 97.5 F L Pulse Rate 85 76 69 Respiratory Rate 20 17 14 Blood Pressure 144/85 H Blood Pressure [Right Arm] 124/106 H 110/70 Pulse Oximetry 98 100 100 12/20/18 17:10 12/20/18 18:22 Temperature Pulse Rate 74 75 Respiratory Rate 20 20 Blood Pressure Blood Pressure [Right Arm] 106/71 111/66 Pulse Oximetry 100 97 MDM - Chest Pain Lab Data Attestation: I reviewed the patient's lab results. Result diagrams: 12/20/18 14:11 12/20/18 14:11 Lab Results 12/20/18 12/20/18 12/20/18 Range/Units 14:11 14:11 14:11 WBC 7.1 (4.5-11.0) X10^3/uL RBC 4.51 (4.0-5.2) X10^6/uL Hgb 13.3 (12.0-16.0) g/dL Hct 38.2 (36-46) % MCV 84.7 (80-100) fL MCH 29.4 (26-34) PG MCHC 34.7 (30-36) % RDW 13.6 (11.6-14.8) % Plt Count 388 (150-400) X10^3/uL Neut % (Auto) 60.6 (50-75) % Lymph % (Auto) 30.5 (25-40) % [place] % (Auto) 7.3 (3-14) % Eos % (Auto) 0.5 L (2-4) % Baso % (Auto) 1.1 (0-2) % Neut # (Auto) 4300 (3683-0427) /uL Lymph # (Auto) 2200 (1635-4071) /uL [place] # (Auto) 500 (0-900) /uL Eos # (Auto) 0 (0-450) /uL Baso # (Auto) 100 (0-100) /uL PT 10.9 (10.1-12.7) SECONDS INR 1.0 (0.9-1.3) APTT 34 D (26.4-36.2) SECONDS Sodium 134 L (137-145) mmol/L Potassium 3.8 (3.4-5.1) mmol/L Chloride 101 (98-107) mmol/L Carbon Dioxide 29 (22-32) mmol/L BUN 8 (7-17) mg/dL Creatinine 0.60 (0.52-1.04) mg/dL Estimated GFR > 60.0 (>60) mL/min BUN/Creatinine Ratio 13.3 (6-22) Glucose 107 H (70-100) mg/dL Calcium 9.4 (8.4-10.2) mg/dL Total Bilirubin 0.6 (0.2-1.3) mg/dL AST 25 (14-36) IU/L ALT < 6 L (9-52) IU/L Alkaline Phosphatase 115 (38-126) U/L Total Creatine Kinase 34 (30-135) U/L CK-MB (CK-2) TNP CK-MB (CK-2) Rel Index TNP Troponin I < 0.012 (0.01-0.034) ng/mL Total Protein 6.7 (6.3-8.2) g/dL Albumin 3.7 (3.5-5.0) g/dL Globulin 3.0 (1.7-4.1) g/dL Albumin/Globulin Ratio 1.2 (1.0-2.8) Lipase 128 (23-300) U/L TSH (0.47-4.68) uIU/mL 12/20/18 12/20/18 Range/Units 14:11 16:55 WBC (4.5-11.0) X10^3/uL RBC (4.0-5.2) X10^6/uL Hgb (12.0-16.0) g/dL Hct (36-46) % MCV (80-100) fL MCH (26-34) PG MCHC (30-36) % RDW (11.6-14.8) % Plt Count (150-400) X10^3/uL Neut % (Auto) (50-75) % Lymph % (Auto) (25-40) % [place] % (Auto) (3-14) % Eos % (Auto) (2-4) % Baso % (Auto) (0-2) % Neut # (Auto) (5764-6313) /uL Lymph # (Auto) (8156-1567) /uL [place] # (Auto) (0-900) /uL Eos # (Auto) (0-450) /uL Baso # (Auto) (0-100) /uL PT (10.1-12.7) SECONDS INR (0.9-1.3) APTT (26.4-36.2) SECONDS Sodium (137-145) mmol/L Potassium (3.4-5.1) mmol/L Chloride (98-107) mmol/L Carbon Dioxide (22-32) mmol/L BUN (7-17) mg/dL Creatinine (0.52-1.04) mg/dL Estimated GFR (>60) mL/min BUN/Creatinine Ratio (6-22) Glucose (70-100) mg/dL Calcium (8.4-10.2) mg/dL Total Bilirubin (0.2-1.3) mg/dL AST (14-36) IU/L ALT (9-52) IU/L Alkaline Phosphatase (38-126) U/L Total Creatine Kinase 33 (30-135) U/L CK-MB (CK-2) TNP CK-MB (CK-2) Rel Index TNP Troponin I < 0.012 (0.01-0.034) ng/mL Total Protein (6.3-8.2) g/dL Albumin (3.5-5.0) g/dL Globulin (1.7-4.1) g/dL Albumin/Globulin Ratio (1.0-2.8) Lipase (23-300) U/L TSH 0.91 (0.47-4.68) uIU/mL Imaging Data Chest x-ray: Radiologist's impression: [facility] [address] [place] [id number] XRay Report Signed Patient: Katie Ariza GMR#: [id number] : 1965Acct:[id number] Age/Sex: 53 / FDate of Service: 12/20/18 Loc: ED Accession Number: [id number] Procedure: XR chest 1V Ordering Provider: Estella Seo D.O. PROCEDURE: XR CHEST 1V INDICATIONS: chest pain TECHNIQUE: One view of the chest was acquired. COMPARISON: [facility], CR, XR CHEST 1V, 07/26/2018, 14:38. [facility], CR, XR CHEST 1V, 01/17/2018, 9:11. FINDINGS: Surgical changes and devices: None. Lungs and pleura: Lungs are clear. No pleural effusions or pneumothorax. Mediastinum: Mediastinal contours appear normal. Heart size is normal. Bones and chest wall: No suspicious bony lesions. There is convex right scoliosis centered at the junction of the middle and upper thirds of the thoracic spine, previously present Overlying soft tissues appear unremarkable. IMPRESSION: Stable appearance of convex rightward scoliosis centered at the junction of the middle and upper thirds of the thoracic spine. No source of chest pain found. Dictated by: Umang Singh M.D. on 12/20/2018 at 14:26 Approved by: Umang Singh M.D. on 12/20/2018 at 14:26 ECG Data Attestation: I personally reviewed and interpreted this ECG as follows: Prior ECG tracings: available for review Interpretation: Sinus rhythm rate of 74 P are 157 QRS of 103 QTC of 403. No ST elevation or depression appreciated. Patient does have some motion artifact particularly inferior leads secondary to her Parkinson's. Patient is a prior EKG from 07/26/2018 that appears similar. EKG 2. Sinus rhythm, rate of 72 P are 156 QRS of 97 QTC of 368. No ST elevation or depression. Patient does not have motion artifact on this 1 MDM Narrative Medical decision making narrative: Based on patient's description I suspect this is more her medication and Parkinson's in combination. Plan for cardiac enzymes, chest x-ray and basic labs. If these are normal I would do a repeat 2 hour troponin. Repeat enzymes are negative. Repeat EKG is normal. Patient is feeling much better after clonazepam. She was taking it every day for many months and stopped taking it on the last 2 days. This may have also contributed to her symptoms. Discharge Plan Departure Patient Disposition: Home Clinical Impression: Atypical chest pain Instructions: DI for Atypical Chest Pain Activity Restrictions/Additional Instructions: Follow-up with your physician in the next 3-5 days for recheck. Call for an appointment. Continue home medications as prescribed. Return to the emergency department for new or worsening symptoms, passing out, new chest pain, pressure, shortness of breath, persistent vomiting, black or bloody stools or other new or concerning symptoms. Prescriptions: No Action carbidopa-levodopa 25-100 mg tablet 1 tab PO Q3H RF: 0 ropinirole 2 mg Tablet Extended Release 24 Hr 6 mg PO BEDTIME RF: 0 multivitamin Tablet 1 tab PO DAILY RF: 0 vitamin B complex Tablet 1 tab PO DAILY RF: 0 Vitamin B-12 1 tab PO DAILY RF: 0 Vitamin D3 1 tab PO DAILY RF: 0 clonazepam 1 mg tablet 0.5 - 1 mg PO BEDTIME RF: 0 levothyroxine [Synthroid] 75 mcg tablet 75 mcg PO DAILY RF: 0 sertraline 25 mg tablet 75 mg PO DAILY RF: 0 mirtazapine 15 mg tablet 22.5 mg PO BEDTIME RF: 0 Referrals: Jeannie Ta DO [Primary Care Provider] -
[2018-12-20 14:27] LABS: Prothrombin Time 10.9 SECONDS (10.1-12.7)
--- NOTE | 2018-12-20 14:27 | ED_ITS ---
HPI - Chest Pain General Chief Complaint: Chest Pain Stated Complaint: FRONT IS TINGLY AND TIGHT,PARKINSONS DISEASE Time Seen by Provider: 12/20/18 14:20 Source: patient and family Mode of arrival: ambulatory Limitations: no limitations History of Present Illness HPI narrative: This is a 53-year-old female comes to the emergency department with complaint of squeezing in her chest and feeling shaky all over and weak patient has Parkinson's which was diagnosed in 2010. She states typically when her Sinemet starts to wear off which it does around 1:00 a.m. she will start to feel the sort of weak sort of squeezing feeling. Today was much more intense. She states felt like her chest and throat all the muscles were squeezing, she was feeling very short of breath. She also felt a squeezing in her abdomen. She felt sort of weak in her thighs and shaky like she might pass out. She did not pass out. She felt sort of spacey. States that it is starting to feel better now she took her normal 1:00 a.m. Sinemet dose. She also states sometimes she gets palpitations that wakes her from sleep or feel very strong when she is awake. Right now she states that her symptoms have pretty much resolved. She used to take a statin for dyslipidemia but does no longer. She does not take any blood thinners. She sees Dr. golden gonzalez and Dr. Nelson for her Neurology. She denies tobacco, alcohol or illicit. She said hysterectomy but no other surgeries. She denies any allergies to medications. Related Data Home Medications Medication Instructions Recorded Confirmed carbidopa 25 mg-levodopa 100 mg 1 tab PO Q3H tab 12/21/17 12/20/18 tablet Vitamin B-12 1 tab PO DAILY 07/26/18 12/20/18 Vitamin D3 1 tab PO DAILY 07/26/18 12/20/18 multivitamin 1 tab PO DAILY 07/26/18 12/20/18 ropinirole 6 mg PO BEDTIME 07/26/18 12/20/18 vitamin B complex 1 tab PO DAILY 07/26/18 12/20/18 clonazepam 0.5 - 1 mg PO BEDTIME 12/20/18 12/20/18 levothyroxine [Synthroid] 75 mcg PO DAILY 12/20/18 12/20/18 mirtazapine 22.5 mg PO BEDTIME 12/20/18 12/20/18 sertraline 75 mg PO DAILY 12/20/18 12/20/18 Allergies Allergy/AdvReac Type Severity Reaction Status Date / Time No Known Drug Allergies Allergy Verified 12/20/18 13:30 Review of Systems Review of Systems ROS Unobtainable: All systems reviewed & are unremarkable except as noted in HPI and below Constitutional Denies chills, Denies fever(s), Denies lethargy and Denies weakness Cardiovascular Reports chest pain (Squeezing all over chest, resolved now), Denies diaphoresis, Denies syncope, Denies pedal edema, Denies irregular heart rhythm, Reports lightheadedness, Reports palpitations, Reports dyspnea (Resolved now) and Denies orthopnea Respiratory Reports dyspnea (Resolved now) Gastrointestinal Gastrointestinal: Denies abdominal pain, Denies change in bowel habits, Denies diarrhea, Denies nausea and Denies vomiting Genitourinary Denies hematuria, Denies dysuria, Denies flank pain, Denies urinary incontinence and Denies urinary urgency Musculoskeletal Reports muscle weakness ([place] weak in legs.) Neurologic Denies syncope, Reports tremor(s) (Tremor from Parkinson's. 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) Parkinson's disease (Chronic 06/21/16) Anxiety (Chronic) Carpal tunnel syndrome (Chronic) Depression (Chronic) Eczema (Chronic) Foot pain (Chronic 2014) GERD (gastroesophageal reflux disease) (Chronic) Hayfever (Chronic) Herpes (Chronic) Hyperlipidemia (Chronic) Hypertension (Chronic) Hypothyroidism (Chronic 2014) Parkinson's disease (Chronic 2009) Scoliosis (Chronic) Substance abuse (Chronic) Abnormal Pap smear of cervix (Resolved) Cervical cancer (Resolved 2007) Chicken pox (Resolved 1969) Colitis (Resolved 2003) Gastric ulcer (Resolved 1983) HPV (human papilloma virus) infection (Resolved) Surgical History Anesthesia (Resolved) Status post vaginal hysterectomy (Resolved 04/05/09) Family History Father Heart disease High cholesterol Parkinson's disease Grandmother Cancer Congestive heart failure Mother Stroke A-fib Pacemaker Congestive heart failure Daughter No problems noted. Grandfather No problems noted. Grandmother No problems noted. Sister No problems noted. Sister No problems noted. Social History Smoking Status: Never smoker Family History Father Heart disease High cholesterol Parkinson's disease Grandmother Cancer Congestive heart failure Mother Stroke A-fib Pacemaker Congestive heart failure Daughter No problems noted. Grandfather No problems noted. Grandmother No problems noted. Sister No problems noted. Sister No problems noted. Social History Smoking Status: Never smoker Exam Narrative Exam Narrative: GENERAL: Alert and oriented x three, well-nourished, well- appearing female in mild distress. HEENT: Head normocephalic, atraumatic, EOMI, pupils reactive, face symmetric, moist mucous membranes NECK: Supple, full range of motion CARDIOVASCULAR: Regular rate and rhythm without murmurs, rubs or gallops. RESPIRATORY: Breath sounds equal bilaterally, no wheezes rales or rhonchi. ABDOMEN: Soft, nontender. Normoactive bowel sounds all 4 quadrants. No guarding or rebound, rigidity, no mass : No CVA tenderness EXTREMITIES: Normal range of motion, no clubbing or edema. Neurovascularly intact NEUROLOGICAL: Cranial nerves II through XII grossly intact. Moving all extremities. Patient has generalized tremor consistent with Parkinson disease in extremities. No fasciculations. SKIN: Warm, dry, no petechiae, no rashes or lesions. Initial Vital Signs Initial Vital Signs: Vital Signs Temperature 97.5 F L 12/20/18 13:30 Pulse Rate 85 12/20/18 13:30 Respiratory Rate 20 12/20/18 13:30 Blood Pressure 144/85 H 12/20/18 13:30 Pulse Oximetry 98 12/20/18 13:30 Course Orders Ordered: ED Orders 12/20/18 13:34 XR chest 1V Stat EKG-12 Lead Stat 12/20/18 14:11 Complete Blood Count AUTO DIFF Stat Comprehensive Metabolic Panel Stat Lipase Stat Partial Thromboplastin Time Stat Prothrombin Time INR Stat Thyroid Stimulating Hormone Stat Troponin & CK Cardiac Panel Stat 12/20/18 16:54 EKG-12 Lead Stat 12/20/18 16:55 Troponin & CK Cardiac Panel Stat Discontinued Medications Aspirin (Aspirin Chew) 324 mg PO NOW ONE Stop: 12/20/18 14:28 Last Admin: 12/20/18 14:45 Dose: 324 mg Clonazepam (Klonopin) 0.5 mg PO NOW ONE Stop: 12/20/18 14:57 Last Admin: 12/20/18 15:13 Dose: 0.5 mg Vital Signs - 8 hr 12/20/18 13:30 12/20/18 15:17 12/20/18 16:38 Temperature 97.5 F L Pulse Rate 85 76 69 Respiratory Rate 20 17 14 Blood Pressure 144/85 H Blood Pressure [Right Arm] 124/106 H 110/70 Pulse Oximetry 98 100 100 12/20/18 17:10 12/20/18 18:22 Temperature Pulse Rate 74 75 Respiratory Rate 20 20 Blood Pressure Blood Pressure [Right Arm] 106/71 111/66 Pulse Oximetry 100 97 MDM - Chest Pain Lab Data Attestation: I reviewed the patient's lab results. Result diagrams: 12/20/18 14:11 12/20/18 14:11 Lab Results 12/20/18 12/20/18 12/20/18 Range/Units 14:11 14:11 14:11 WBC 7.1 (4.5-11.0) X10^3/uL RBC 4.51 (4.0-5.2) X10^6/uL Hgb 13.3 (12.0-16.0) g/dL Hct 38.2 (36-46) % MCV 84.7 (80-100) fL MCH 29.4 (26-34) PG MCHC 34.7 (30-36) % RDW 13.6 (11.6-14.8) % Plt Count 388 (150-400) X10^3/uL Neut % (Auto) 60.6 (50-75) % Lymph % (Auto) 30.5 (25-40) % [place] % (Auto) 7.3 (3-14) % Eos % (Auto) 0.5 L (2-4) % Baso % (Auto) 1.1 (0-2) % Neut # (Auto) 4300 (0784-2848) /uL Lymph # (Auto) 2200 (6155-4529) /uL [place] # (Auto) 500 (0-900) /uL Eos # (Auto) 0 (0-450) /uL Baso # (Auto) 100 (0-100) /uL PT 10.9 (10.1-12.7) SECONDS INR 1.0 (0.9-1.3) APTT 34 D (26.4-36.2) SECONDS Sodium 134 L (137-145) mmol/L Potassium 3.8 (3.4-5.1) mmol/L Chloride 101 (98-107) mmol/L Carbon Dioxide 29 (22-32) mmol/L BUN 8 (7-17) mg/dL Creatinine 0.60 (0.52-1.04) mg/dL Estimated GFR > 60.0 (>60) mL/min BUN/Creatinine Ratio 13.3 (6-22) Glucose 107 H (70-100) mg/dL Calcium 9.4 (8.4-10.2) mg/dL Total Bilirubin 0.6 (0.2-1.3) mg/dL AST 25 (14-36) IU/L ALT < 6 L (9-52) IU/L Alkaline Phosphatase 115 (38-126) U/L Total Creatine Kinase 34 (30-135) U/L CK-MB (CK-2) TNP CK-MB (CK-2) Rel Index TNP Troponin I < 0.012 (0.01-0.034) ng/mL Total Protein 6.7 (6.3-8.2) g/dL Albumin 3.7 (3.5-5.0) g/dL Globulin 3.0 (1.7-4.1) g/dL Albumin/Globulin Ratio 1.2 (1.0-2.8) Lipase 128 (23-300) U/L TSH (0.47-4.68) uIU/mL 12/20/18 12/20/18 Range/Units 14:11 16:55 WBC (4.5-11.0) X10^3/uL RBC (4.0-5.2) X10^6/uL Hgb (12.0-16.0) g/dL Hct (36-46) % MCV (80-100) fL MCH (26-34) PG MCHC (30-36) % RDW (11.6-14.8) % Plt Count (150-400) X10^3/uL Neut % (Auto) (50-75) % Lymph % (Auto) (25-40) % [place] % (Auto) (3-14) % Eos % (Auto) (2-4) % Baso % (Auto) (0-2) % Neut # (Auto) (6138-5338) /uL Lymph # (Auto) (4836-6640) /uL [place] # (Auto) (0-900) /uL Eos # (Auto) (0-450) /uL Baso # (Auto) (0-100) /uL PT (10.1-12.7) SECONDS INR (0.9-1.3) APTT (26.4-36.2) SECONDS Sodium (137-145) mmol/L Potassium (3.4-5.1) mmol/L Chloride (98-107) mmol/L Carbon Dioxide (22-32) mmol/L BUN (7-17) mg/dL Creatinine (0.52-1.04) mg/dL Estimated GFR (>60) mL/min BUN/Creatinine Ratio (6-22) Glucose (70-100) mg/dL Calcium (8.4-10.2) mg/dL Total Bilirubin (0.2-1.3) mg/dL AST (14-36) IU/L ALT (9-52) IU/L Alkaline Phosphatase (38-126) U/L Total Creatine Kinase 33 (30-135) U/L CK-MB (CK-2) TNP CK-MB (CK-2) Rel Index TNP Troponin I < 0.012 (0.01-0.034) ng/mL Total Protein (6.3-8.2) g/dL Albumin (3.5-5.0) g/dL Globulin (1.7-4.1) g/dL Albumin/Globulin Ratio (1.0-2.8) Lipase (23-300) U/L TSH 0.91 (0.47-4.68) uIU/mL Imaging Data Chest x-ray: Radiologist's impression: [facility] [address] [place] [id number] XRay Report Signed Patient: Katie Ariza GMR#: [id number] : 1965Acct:[id number] Age/Sex: 53 / FDate of Service: 12/20/18 Loc: ED Accession Number: [id number] Procedure: XR chest 1V Ordering Provider: Estella Seo D.O. PROCEDURE: XR CHEST 1V INDICATIONS: chest pain TECHNIQUE: One view of the chest was acquired. COMPARISON: [facility], CR, XR CHEST 1V, 07/26/2018, 14:38. [facility], CR, XR CHEST 1V, 01/17/2018, 9:11. FINDINGS: Surgical changes and devices: None. Lungs and pleura: Lungs are clear. No pleural effusions or pneumothorax. Mediastinum: Mediastinal contours appear normal. Heart size is normal. Bones and chest wall: No suspicious bony lesions. There is convex right scoliosis centered at the junction of the middle and upper thirds of the thoracic spine, previously present Overlying soft tissues appear unremarkable. IMPRESSION: Stable appearance of convex rightward scoliosis centered at the junction of the middle and upper thirds of the thoracic spine. No source of chest pain found. Dictated by: Umang Singh M.D. on 12/20/2018 at 14:26 Approved by: Umang Singh M.D. on 12/20/2018 at 14:26 ECG Data Attestation: I personally reviewed and interpreted this ECG as follows: Prior ECG tracings: available for review Interpretation: Sinus rhythm rate of 74 P are 157 QRS of 103 QTC of 403. No ST elevation or depression appreciated. Patient does have some motion artifact particularly inferior leads secondary to her Parkinson's. Patient is a prior EKG from 07/26/2018 that appears similar. EKG 2. Sinus rhythm, rate of 72 P are 156 QRS of 97 QTC of 368. No ST elevation or depression. Patient does not have motion artifact on this 1 MDM Narrative Medical decision making narrative: Based on patient's description I suspect this is more her medication and Parkinson's in combination. Plan for cardiac enzymes, chest x-ray and basic labs. If these are normal I would do a repeat 2 hour troponin. Repeat enzymes are negative. Repeat EKG is normal. Patient is feeling much better after clonazepam. She was taking it every day for many months and stopped taking it on the last 2 days. This may have also contributed to her symptoms. Discharge Plan Departure Patient Disposition: Home Clinical Impression: Atypical chest pain Instructions: DI for Atypical Chest Pain Activity Restrictions/Additional Instructions: Follow-up with your physician in the next 3-5 days for recheck. Call for an appointment. Continue home medications as prescribed. Return to the emergency department for new or worsening symptoms, passing out, new chest pain, pressure, shortness of breath, persistent vomiting, black or bloody stools or other new or concerning symptoms. Prescriptions: No Action carbidopa-levodopa 25-100 mg tablet 1 tab PO Q3H RF: 0 ropinirole 2 mg Tablet Extended Release 24 Hr 6 mg PO BEDTIME RF: 0 multivitamin Tablet 1 tab PO DAILY RF: 0 vitamin B complex Tablet 1 tab PO DAILY RF: 0 Vitamin B-12 1 tab PO DAILY RF: 0 Vitamin D3 1 tab PO DAILY RF: 0 clonazepam 1 mg tablet 0.5 - 1 mg PO BEDTIME RF: 0 levothyroxine [Synthroid] 75 mcg tablet 75 mcg PO DAILY RF: 0 sertraline 25 mg tablet 75 mg PO DAILY RF: 0 mirtazapine 15 mg tablet 22.5 mg PO BEDTIME RF: 0 Referrals: Jeannie Ta DO [Primary Care Provider] -
[2018-12-20 14:30] LABS: PTT Partial Thromboplastin Tim 34 SECONDS (26.4-36.2)
[2018-12-20 14:31] LABS: Albumin 3.7 g/dL (3.5-5.0); Albumin Globulin Ratio 1.2 (1.0-2.8); Alkaline Phosphatase 115 U/L (38-126); Aspartate Aminotransferase 25 IU/L (14-36); BUN Creatinine Ratio 13.3 (6-22); Bilirubin Total 0.6 mg/dL (0.2-1.3); Blood Urea Nitrogen 8 mg/dL (7-17); Calcium 9.4 mg/dL (8.4-10.2); Carbon Dioxide 29 mmol/L (22-32); Chloride 101 mmol/L (98-107); Creatine Kinase 34 U/L (30-135); Estimated Glomerular Filt Rate > 60.0 mL/min (>60); Glucose 107 mg/dL (70-100); HEMOLYSIS < 15 (0-50); Lipase 128 U/L (23-300); Potassium 3.8 mmol/L (3.4-5.1); Sodium 134 mmol/L (137-145); Total Protein 6.7 g/dL (6.3-8.2)
[2018-12-20 14:33] LABS: Alanine Aminotransferase < 6 IU/L (9-52)
[2018-12-20 14:43] LABS: Troponin I < 0.012 ng/mL (0.01-0.034)
[2018-12-20] MEDS: ASPIRIN 81 MG TAB 324 MG PO (14:45)
[2018-12-20] MEDS: clonazePAM 0.5 MG TABLET PO (15:13)
[2018-12-20 15:17] VITALS: BP 124/106; PULSE 76; RESP 17; O2SAT 100
[2018-12-20 15:22] LABS: Thyroid Stimulating Hormone 0.91 uIU/mL (0.47-4.68)
[2018-12-20 16:38] VITALS: BP 110/70; PULSE 69; RESP 14; O2SAT 100
[2018-12-20 17:10] VITALS: BP 106/71; PULSE 74; RESP 20; O2SAT 100
[2018-12-20 17:14] LABS: Creatine Kinase 33 U/L (30-135)
[2018-12-20 17:27] LABS: Troponin I < 0.012 ng/mL (0.01-0.034)
[2018-12-20 18:22] VITALS: BP 111/66; PULSE 75; RESP 20; O2SAT 97
== END 2018-12-20 18:35 | disposition home or self-care (01) ==
PROVIDERS: Emergency Provider Emergency Medicine; PCP Family Medicine
DX: R07.89 Other chest pain (principal)
CPT/HCPCS: 36415; 36591; 71045; 80053; 82550; 83690; 84443; 84484; 85025; 85610; 85730; 93005; 99283; 99285

== ENCOUNTER 2019-04-04 18:13 | Emergency (ER) | payer OTHER, SELFPAY ==
[2019-04-04 18:26] VITALS: BP 125/78; PULSE 66; RESP 16; TEMP 36.6; O2SAT 100; BMI 21.7
[2019-04-04 18:39] VITALS: BP 125/78; PULSE 66; RESP 16; TEMP 36.6; O2SAT 100; BMI 21.7
--- NOTE | 2019-04-04 18:42 | ED_ITS ---
HPI - Chest Pain General Chief Complaint: Chest Pain Stated Complaint: HEART PALPITATIONS PAIN WANTS TO PASS OUT Time Seen by Provider: 04/04/19 18:41 Source: patient Mode of arrival: ambulatory Limitations: no limitations History of Present Illness HPI narrative: 53-year-old female here for evaluation of palpitations. She also expressed that she gets shortness of breath and lightheaded when the symptoms come on. She has had symptoms like this in the past was seen multiple times in the emergency department. She states she has talk with her primary provider and has had a Holter monitor however she did not have any symptoms during the time that she was wearing this. No fevers. States that today the symptoms came on again. She does have a history of Parkinson's disease and she feels like that when her Parkinson's medicine is wearing off she becomes more shaky and this seems to make the symptoms worse as well. She also describes anxiety regarding the symptoms. Related Data Home Medications Medication Instructions Recorded Confirmed Vitamin B-12 1 tab PO DAILY 07/26/18 03/28/19 Vitamin D3 1 tab PO DAILY 07/26/18 03/28/19 multivitamin 1 tab PO DAILY 07/26/18 04/04/19 ropinirole 6 mg PO BEDTIME 07/26/18 04/04/19 vitamin B complex 1 tab PO DAILY 07/26/18 04/04/19 sertraline 75 mg PO DAILY 12/20/18 04/04/19 carbidopa 25 mg-levodopa 100 mg 1 - 1.5 tab PO Q3H tab 02/06/19 04/04/19 tablet ibuprofen 200 mg tablet 400 - 600 mg PO Q6H PRN tab 02/06/19 04/04/19 amantadine HCl 100 mg capsule 100 mg PO BID 03/28/19 04/04/19 buspirone 5 mg PO BID 04/04/19 04/04/19 Previous Rx's Medication Instructions Recorded levothyroxine 75 mcg tablet 75 mcg PO DAILY #90 tab 03/12/19 clonazepam 1 mg tablet 0.5 - 1 mg PO BEDTIME #30 tab 04/04/19 Allergies Allergy/AdvReac Type Severity Reaction Status Date / Time No Known Drug Allergies Allergy Verified 03/28/19 13:33 Review of Systems Constitutional Constitutional: Denies fever(s) ENT Ears, Nose, Mouth, and Throat: Reports dizziness Cardiovascular Cardiovascular: Denies chest pain, Reports lightheadedness, Reports palpitations and Reports dyspnea Respiratory Respiratory: Denies cough and Reports dyspnea Gastrointestinal Gastrointestinal: Denies abdominal pain, Denies nausea and Denies vomiting Genitourinary Genitourinary: Denies dysuria Musculoskeletal Musculoskeletal: Denies myalgias and Denies arthralgias Integumentary/Breasts Skin/Breast: Denies rash Neurologic Neurologic: Denies behavioral changes, Reports dizziness and Denies paresthesias Psychiatric Psychiatric: Reports anxiety and Denies behavioral changes Endocrine Endocrine: Reports palpitations Hematologic/Lymphatic Hematologic/Lymphatic: Denies easy bleeding and Denies easy bruising [facility] Medical History Abnormal Pap smear of cervix (Resolved) Anxiety (Chronic 02/22/11) Anxiety (Chronic) Carpal tunnel syndrome (Chronic) Cervical cancer (Resolved 2007) Chicken pox (Resolved 1969) Chronic insomnia (Chronic 06/12/14) Colitis (Resolved 2003) Depression (Chronic) Eczema (Chronic) Foot pain (Chronic 2014) Gastric ulcer (Resolved 1983) GERD (gastroesophageal reflux disease) (Chronic) Hayfever (Chronic) Herpes (Chronic) HPV (human papilloma virus) infection (Resolved) Hyperlipidemia (Chronic) Hypertension (Chronic) Hypothyroidism (Chronic 2014) 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) Parkinson's disease (Chronic 06/21/16) Parkinson's disease (Chronic 2009) Scoliosis (Chronic) Substance abuse (Chronic) Social History Smoking Status: Never smoker Exam Initial Vital Signs Initial Vital Signs: Vital Signs Temperature 97.9 F 04/04/19 18:26 Pulse Rate 66 04/04/19 18:26 Respiratory Rate 16 04/04/19 18:26 Blood Pressure 125/78 04/04/19 18:26 Pulse Oximetry 100 04/04/19 18:26 Const General: cooperative, comfortable and well developed Orientation: alert, awake and oriented x3 HENMT Head: normal to inspection and normocephalic Resp Effort & Inspection: normal respiratory effort Auscultation: clear to auscultation bilaterally Cardio Rate: regular rate Rhythm: regular rhythm Pulses: radial pulses present GI Inspection: non-distended Palpation: soft and No firm Skin Lesions: no lesions Rashes: no rashes Neuro General: alert and awake Cognition: normal cognition Speech: speech normal Extrem General: normal to inspection and capillary refill normal Psych Appearance: grossly normal and well kempt Course Orders Ordered: ED Orders 04/04/19 18:46 XR chest 1V Stat 04/04/19 18:47 Complete Blood Count AUTO DIFF Stat Comprehensive Metabolic Panel Stat Lipase Stat Magnesium Stat Partial Thromboplastin Time Stat Prothrombin Time INR Stat TSH w/ Reflex to FT4 Stat Troponin & CK Cardiac Panel Stat Discontinued Medications Lorazepam (Ativan) 1 mg PO NOW ONE Stop: 04/04/19 19:46 Last Admin: 04/04/19 19:50 Dose: 1 mg Documented by: ARMANDO Vital Signs Vital signs: Vital Signs - 8 hr 04/04/19 18:26 04/04/19 18:39 04/04/19 18:46 Temperature 97.9 F 97.9 F Pulse Rate 66 66 63 Respiratory Rate 16 16 18 Blood Pressure 125/78 125/78 Blood Pressure [Right Arm] Pulse Oximetry 100 100 100 04/04/19 19:20 04/04/19 20:27 Temperature Pulse Rate 65 53 L Respiratory Rate 15 15 Blood Pressure Blood Pressure [Right Arm] 130/88 113/57 L Pulse Oximetry 100 100 MDM - Chest Pain Lab Data Attestation: I reviewed the patient's lab results. Result diagrams: 04/04/19 18:47 04/04/19 18:47 Labs: Lab Results 04/04/19 04/04/19 04/04/19 Range/Units 18:47 18:47 18:47 WBC 8.0 (4.5-11.0) X10^3/uL RBC 4.72 (4.0-5.2) X10^6/uL Hgb 13.3 (12.0-16.0) g/dL Hct 39.8 (36-46) % MCV 84.4 (80-100) fL MCH 28.1 (26-34) PG MCHC 33.3 (30-36) % RDW 13.3 (11.6-14.8) % Plt Count 334 (150-400) X10^3/uL Neut % (Auto) 54.0 (50-75) % Lymph % (Auto) 35.6 (25-40) % [place] % (Auto) 7.4 (3-14) % Eos % (Auto) 1.9 L (2-4) % Baso % (Auto) 1.1 (0-2) % Neut # (Auto) 4300 (1634-2945) /uL Lymph # (Auto) 2800 (1954-0783) /uL [place] # (Auto) 600 (0-900) /uL Eos # (Auto) 200 (0-450) /uL Baso # (Auto) 100 (0-100) /uL PT 11.4 (10.1-12.7) SECONDS INR 1.0 (0.9-1.3) APTT 35 (26.4-36.2) SECONDS Sodium 132 L (137-145) mmol/L Potassium 3.4 (3.4-5.1) mmol/L Chloride 100 (98-107) mmol/L Carbon Dioxide 27 (22-32) mmol/L BUN 8 (7-17) mg/dL Creatinine 0.70 (0.52-1.04) mg/dL Estimated GFR > 60.0 (>60) mL/min BUN/Creatinine Ratio 11.4 (6-22) Glucose 88 (70-100) mg/dL Calcium 9.1 (8.4-10.2) mg/dL Magnesium 2.0 (1.6-2.3) mg/dL Total Bilirubin 0.5 (0.2-1.3) mg/dL AST 23 (14-36) IU/L ALT < 6 L (9-52) IU/L Alkaline Phosphatase 125 (38-126) U/L Total Creatine Kinase 35 (30-135) U/L CK-MB (CK-2) TNP CK-MB (CK-2) Rel Index TNP Troponin I < 0.012 (0.01-0.034) ng/mL Total Protein 6.6 (6.3-8.2) g/dL Albumin 3.6 (3.5-5.0) g/dL Globulin 3.0 (1.7-4.1) g/dL Albumin/Globulin Ratio 1.2 (1.0-2.8) Lipase 52 (23-300) U/L TSH (0.47-4.68) uIU/mL 04/04/19 Range/Units 18:47 WBC (4.5-11.0) X10^3/uL RBC (4.0-5.2) X10^6/uL Hgb (12.0-16.0) g/dL Hct (36-46) % MCV (80-100) fL MCH (26-34) PG MCHC (30-36) % RDW (11.6-14.8) % Plt Count (150-400) X10^3/uL Neut % (Auto) (50-75) % Lymph % (Auto) (25-40) % [place] % (Auto) (3-14) % Eos % (Auto) (2-4) % Baso % (Auto) (0-2) % Neut # (Auto) (1433-0149) /uL Lymph # (Auto) (0868-9002) /uL [place] # (Auto) (0-900) /uL Eos # (Auto) (0-450) /uL Baso # (Auto) (0-100) /uL PT (10.1-12.7) SECONDS INR (0.9-1.3) APTT (26.4-36.2) SECONDS Sodium (137-145) mmol/L Potassium (3.4-5.1) mmol/L Chloride (98-107) mmol/L Carbon Dioxide (22-32) mmol/L BUN (7-17) mg/dL Creatinine (0.52-1.04) mg/dL Estimated GFR (>60) mL/min BUN/Creatinine Ratio (6-22) Glucose (70-100) mg/dL Calcium (8.4-10.2) mg/dL Magnesium (1.6-2.3) mg/dL Total Bilirubin (0.2-1.3) mg/dL AST (14-36) IU/L ALT (9-52) IU/L Alkaline Phosphatase (38-126) U/L Total Creatine Kinase (30-135) U/L CK-MB (CK-2) CK-MB (CK-2) Rel Index Troponin I (0.01-0.034) ng/mL Total Protein (6.3-8.2) g/dL Albumin (3.5-5.0) g/dL Globulin (1.7-4.1) g/dL Albumin/Globulin Ratio (1.0-2.8) Lipase (23-300) U/L TSH 3.41 (0.47-4.68) uIU/mL Imaging Data Chest x-ray: Radiologist's impression: [address] [address] XRay Report Signed Patient: Katie Ariza GMR#: [id number] : 1965Acct:[id number] Age/Sex: 53 / FDate of Service: 04/04/19 Loc: ED Accession Number: [id number] Procedure: XR chest 1V Ordering Provider: Efraín Ashley D.O. PROCEDURE: XR CHEST 1V INDICATIONS: chest pain TECHNIQUE: One view of the chest was acquired. COMPARISON: [facility], [facility], XR CHEST 1V, 12/20/2018, 13:58. FINDINGS: Surgical changes and devices: None. Lungs and pleura: Lungs are clear. No pleural effusions or pneumothorax. Mediastinum: Mediastinal contours appear normal. Heart size is normal. Bones and chest wall: No suspicious bony lesions. Overlying soft tissues appear unremarkable. Moderate texture scoliosis of thoracic spine is again seen, unchanged from prior study. IMPRESSION: No acute cardiopulmonary pathology. Scoliosis. Dictated by: Amadeo Glover M.D. on 04/04/2019 at 19:10 Approved by: Amadeo Glover M.D. on 04/04/2019 at 19:10 ECG Data Prior ECG tracings: not available for review Interpretation: Sinus rhythm Ventricular rate is 66 Normal axis Normal QRS Normal QTC No ST T wave changes MDM Narrative Medical decision making narrative: Patient is very anxious about her symptoms upon arrival. She was given Ativan for this. She also took her home dose of carbidopa/levodopa. EKG is unremarkable. Labs unremarkable. Chest x-ray is unremarkable. For the patient that she did need to talk with her primary doctor about a Holter monitor. No further workup dated here in the emergency department. Patient expressed understanding and agreement plan. Discharge Plan Departure Patient Disposition: Home Clinical Impression: Palpitations Discharge Date/Time: 04/04/19 20:29 Instructions: DI for Palpitations Activity Restrictions/Additional Instructions: I recommend that you continue all of your medications as directed. You do need to contact your primary provider on Sunday to discuss the indications for a Holter monitor. Return to the emergency department for any new or worsening symptoms like we discussed Prescriptions: No Action carbidopa-levodopa 25-100 mg tablet 1 - 1.5 tab PO Q3H RF: 0 levothyroxine [Synthroid] 75 mcg tablet 75 mcg PO DAILY Qty: 90 RF: 3 clonazepam 1 mg tablet 0.5 - 1 mg PO BEDTIME Qty: 30 RF: 0 amantadine HCl 100 mg capsule 100 mg PO BID RF: 0 ropinirole 2 mg Tablet Extended Release 24 Hr 6 mg PO BEDTIME RF: 0 multivitamin Tablet 1 tab PO DAILY RF: 0 vitamin B complex Tablet 1 tab PO DAILY RF: 0 Vitamin B-12 1 tab PO DAILY RF: 0 Vitamin D3 1 tab PO DAILY RF: 0 buspirone 5 mg tablet 5 mg PO BID RF: 0 sertraline 25 mg tablet 75 mg PO DAILY RF: 0 ibuprofen 200 mg tablet 400 - 600 mg PO Q6H PRN (Reason: Pain (Scale Score 1-3)) RF: 0 Referrals: Jeannie Ta DO [Primary Care Provider] -
[2019-04-04 18:46] VITALS: PULSE 63; RESP 18; O2SAT 100
--- NOTE | 2019-04-04 18:46 | DI.RAD.S_ITS ---
PROCEDURE: XR CHEST 1V INDICATIONS: chest pain TECHNIQUE: One view of the chest was acquired. COMPARISON: [facility], CR, XR CHEST 1V, 12/20/2018, 13:58. FINDINGS: Surgical changes and devices: None. Lungs and pleura: Lungs are clear. No pleural effusions or pneumothorax. Mediastinum: Mediastinal contours appear normal. Heart size is normal. Bones and chest wall: No suspicious bony lesions. Overlying soft tissues appear unremarkable. Moderate texture scoliosis of thoracic spine is again seen, unchanged from prior study. IMPRESSION: No acute cardiopulmonary pathology. Scoliosis. Dictated by: Amadeo Glover M.D. on 04/04/2019 at 19:10 Approved by: Amadeo Glover M.D. on 04/04/2019 at 19:10
[2019-04-04 18:55] LABS: Add Manual Diff / Slide Review NO; Basophils Absolute Auto 100 /uL (0-100); Basophils Percent Auto 1.1 % (0-2); Eosinophils Absolute Auto 200 /uL (0-450); Eosinophils Percent Auto 1.9 % (2-4); Hematocrit 39.8 % (36-46); Hemoglobin 13.3 g/dL (12.0-16.0); Lymphocytes Absolute Auto 2800 /uL (1100-4500); Lymphocytes Percent Auto 35.6 % (25-40); Mean Corpuscular HGB Conc 33.3 % (30-36); Mean Corpuscular Hemoglobin 28.1 PG (26-34); Mean Corpuscular Volume 84.4 fL (80-100); Monocytes Absolute Auto 600 /uL (0-900); Monocytes Percent Auto 7.4 % (3-14); Neutrophils Absolute Auto 4300 /uL (1500-7000); Platelet Count 334 X10^3/uL (150-400); Red Blood Cell Count 4.72 X10^6/uL (4.0-5.2); Red Cell Distribution Width 13.3 % (11.6-14.8)
[2019-04-04 19:02] LABS: Prothrombin Time 11.4 SECONDS (10.1-12.7)
[2019-04-04 19:04] LABS: PTT Partial Thromboplastin Tim 35 SECONDS (26.4-36.2)
[2019-04-04 19:07] LABS: Albumin 3.6 g/dL (3.5-5.0); Albumin Globulin Ratio 1.2 (1.0-2.8); Alkaline Phosphatase 125 U/L (38-126); Aspartate Aminotransferase 23 IU/L (14-36); BUN Creatinine Ratio 11.4 (6-22); Bilirubin Total 0.5 mg/dL (0.2-1.3); Blood Urea Nitrogen 8 mg/dL (7-17); Calcium 9.1 mg/dL (8.4-10.2); Carbon Dioxide 27 mmol/L (22-32); Chloride 100 mmol/L (98-107); Creatine Kinase 35 U/L (30-135); Estimated Glomerular Filt Rate > 60.0 mL/min (>60); Glucose 88 mg/dL (70-100); HEMOLYSIS < 15 (0-50); Lipase 52 U/L (23-300); Potassium 3.4 mmol/L (3.4-5.1); Sodium 132 mmol/L (137-145); Total Protein 6.6 g/dL (6.3-8.2)
[2019-04-04 19:09] LABS: Alanine Aminotransferase < 6 IU/L (9-52)
[2019-04-04 19:19] LABS: Troponin I < 0.012 ng/mL (0.01-0.034)
[2019-04-04 19:20] VITALS: BP 130/88; PULSE 65; RESP 15; O2SAT 100
[2019-04-04] MEDS: LORazepam 0.5 MG TABLET 1 MG PO (19:50)
[2019-04-04 19:57] LABS: TSH w/ Reflex to FT4 3.41 uIU/mL (0.47-4.68)
[2019-04-04 20:27] VITALS: BP 113/57; PULSE 53; RESP 15; O2SAT 100
== END 2019-04-04 20:29 | disposition home or self-care (01) ==
PROVIDERS: Emergency Provider Emergency Medicine; PCP Family Medicine
DX: R00.2 Palpitations (principal)
CPT/HCPCS: 36415; 36591; 71045; 80053; 82550; 83690; 83735; 84443; 84484; 85025; 85610; 85730; 93005; 99283; 99285

== ENCOUNTER 2019-04-26 18:09 | Emergency (ER) | payer OTHER, SELFPAY ==
--- NOTE | 2019-04-26 18:14 | ED.GENADULT ---
HPI - General Adult General Chief complaint: Shortness of Breath/Dyspnea Stated complaint: states cant breath, has parkinsons Time Seen by Provider: 04/26/19 18:12 Source: patient Mode of arrival: Ambulatory Limitations: no limitations History of Present Illness HPI narrative: 53-year-old female who I evaluated in the department of the past year for evaluation of left-sided chest discomfort and shortness of breath. Patient does have a history of Parkinson's disease. Last time I evaluated her was for palpitations. She states that the left-sided chest discomfort is not new. She states that it has been off and on for the past several weeks. Today she thought maybe was a little bit worse than normal. The shortness of breath is also not new. She states that it is happening at night when she wakes up from sleep. She feels like her Parkinson's medications are not lasting as long as they normally do. She also feels like she is not getting sleep at night. She does take 1/2 of the clonazepam until at the beginning of the night which seems to help some of her symptoms within she wakes up in the night. She takes another half which then opt to go back to sleep but then again wakes. She does describe quite a bit of problems staying asleep. She also feels like she is getting very anxious during the day. She has been taken half of a clonazepam during the day which seems to help her anxiety somewhat as well. she is here in the department with her daughter. Related Data Home Medications Medication Instructions Recorded Confirmed Vitamin B-12 1 tab PO DAILY 07/26/18 04/11/19 Vitamin D3 1 tab PO DAILY 07/26/18 04/11/19 multivitamin 1 tab PO DAILY 07/26/18 04/11/19 ropinirole 6 mg PO BEDTIME 07/26/18 04/11/19 vitamin B complex 1 tab PO DAILY 07/26/18 04/11/19 sertraline 75 mg PO DAILY 12/20/18 04/11/19 carbidopa 25 mg-levodopa 100 mg 1 - 1.5 tab PO Q3H tab 02/06/19 04/11/19 tablet ibuprofen 200 mg tablet 400 - 600 mg PO Q6H PRN tab 02/06/19 04/11/19 amantadine HCl 100 mg capsule 100 mg PO BID 03/28/19 04/11/19 buspirone 5 mg PO BID 04/04/19 04/11/19 Previous Rx's Medication Instructions Recorded levothyroxine 75 mcg tablet 75 mcg PO DAILY #90 tab 03/12/19 estradiol 10 mcg vaginal tablet 10 mcg VAG DAILY 14 Days #30 tab 04/11/19 clonazepam 1 mg tablet 0.5 - 1 mg PO BEDTIME #30 tab 04/26/19 Allergies Allergy/AdvReac Type Severity Reaction Status Date / Time No Known Drug Allergies Allergy Verified 04/26/19 18:23 Review of Systems Constitutional Constitutional: Denies fever(s) ENT Ears, Nose, Mouth, and Throat: Denies vertigo and Denies dizziness Cardiovascular Cardiovascular: Reports chest pain, Denies palpitations and Reports dyspnea Respiratory Respiratory: Reports dyspnea Gastrointestinal Gastrointestinal: Denies abdominal pain, Denies nausea and Denies vomiting Musculoskeletal Musculoskeletal: Denies myalgias and Denies arthralgias Integumentary/Breasts Skin/Breast: Denies lesions and Denies rash Neurologic Neurologic: Reports behavioral changes, Denies vertigo and Denies dizziness Psychiatric Psychiatric: Reports anxiety, Reports behavioral changes and Reports depression Comments: Sleep problems Endocrine Endocrine: Denies palpitations Hematologic/Lymphatic Hematologic/Lymphatic: Denies easy bleeding and Denies easy bruising [facility] Medical History Abnormal Pap smear of cervix (Resolved) Anxiety (Chronic 02/22/11) Anxiety (Chronic) Carpal tunnel syndrome (Chronic) Cervical cancer (Resolved 2007) Chicken pox (Resolved 1969) Chronic insomnia (Chronic 06/12/14) Colitis (Resolved 2003) Depression (Chronic) Eczema (Chronic) Foot pain (Chronic 2014) Gastric ulcer (Resolved 1983) GERD (gastroesophageal reflux disease) (Chronic) Hayfever (Chronic) Herpes (Chronic) HPV (human papilloma virus) infection (Resolved) Hyperlipidemia (Chronic) Hypertension (Chronic) Hypothyroidism (Chronic 2014) 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 Grandfather No problems noted. Grandmother No problems noted. Sister No problems noted. Sister No problems noted. Social History Smoking Status: Never smoker Family History Father Heart disease High cholesterol Parkinson's disease Grandmother Cancer Congestive heart failure Mother Stroke A-fib Pacemaker Congestive heart failure Daughter No problems noted. Grandfather No problems noted. Grandmother No problems noted. Sister No problems noted. Sister No problems noted. Social History Smoking Status: Never smoker Exam Initial Vital Signs Initial Vital Signs: Vital Signs Temperature 98.3 F 04/26/19 18:20 Pulse Rate 86 04/26/19 18:20 Respiratory Rate 18 04/26/19 18:20 Blood Pressure 136/83 04/26/19 18:20 Pulse Oximetry 96 04/26/19 18:20 Const General: cooperative, well developed and well groomed Orientation: alert, awake and oriented x3 HENMT Head: normal to inspection Resp Effort & Inspection: normal respiratory effort Auscultation: clear to auscultation bilaterally Cardio Rate: regular rate Rhythm: regular rhythm Pulses: radial pulses present Skin Lesions: no lesions Rashes: no rashes Neuro General: alert, awake and oriented x3 Cognition: normal cognition Speech: speech normal Sensory Exam: no sensory deficits noted Extrem General: normal to inspection and capillary refill normal Psych Appearance: grossly normal and well kempt Mood: anxious mood Course Orders Ordered: ED Orders 04/26/19 18:15 XR chest 1V Stat B Type Natriuretic Peptide Stat Complete Blood Count AUTO DIFF Stat Comprehensive Metabolic Panel Stat Lipase Stat Troponin I Stat EKG-12 Lead Stat 04/26/19 19:52 EKG-12 Lead Stat Discontinued Medications Lorazepam (Ativan) 1 mg PO NOW ONE Stop: 04/26/19 19:48 Last Admin: 04/26/19 19:54 Dose: 1 mg Documented by: TIN Lorazepam (Ativan) 1 mg PO NOW ONE Stop: 04/26/19 21:12 Last Admin: 04/26/19 21:37 Dose: 1 mg Documented by: TIN Vital Signs Vital signs: Vital Signs - 8 hr 04/26/19 18:20 04/26/19 18:47 04/26/19 19:52 Temperature 98.3 F Pulse Rate 86 71 72 Respiratory Rate 18 12 17 Blood Pressure 136/83 Blood Pressure [Left Arm] 139/68 131/75 Pulse Oximetry 96 100 100 Medical Decision Making Lab Data Lab results reviewed: Yes I reviewed the patient's lab results. Result diagrams: 04/26/19 18:15 04/26/19 18:15 Labs: Lab Results 04/26/19 04/26/19 Range/Units 18:15 18:15 WBC 9.7 (4.5-11.0) X10^3/uL RBC 4.94 (4.0-5.2) X10^6/uL Hgb 14.2 (12.0-16.0) g/dL Hct 41.6 (36-46) % MCV 84.3 (80-100) fL MCH 28.7 (26-34) PG MCHC 34.1 (30-36) % RDW 13.9 (11.6-14.8) % Plt Count 362 (150-400) X10^3/uL Neut % (Auto) 61.6 (50-75) % Lymph % (Auto) 31.5 (25-40) % Laurel % (Auto) 5.6 (3-14) % Eos % (Auto) 0.9 L (2-4) % Baso % (Auto) 0.4 (0-2) % Neut # (Auto) 6000 (3732-7993) /uL Lymph # (Auto) 3100 (5837-9153) /uL Laurel # (Auto) 500 (0-900) /uL Eos # (Auto) 100 (0-450) /uL Baso # (Auto) 0 (0-100) /uL Sodium 132 L (137-145) mmol/L Potassium 3.8 (3.4-5.1) mmol/L Chloride 96 L (98-107) mmol/L Carbon Dioxide 25 (22-32) mmol/L BUN 8 (7-17) mg/dL Creatinine 0.60 (0.52-1.04) mg/dL Estimated GFR > 60.0 (>60) mL/min BUN/Creatinine Ratio 13.3 (6-22) Glucose 99 (70-100) mg/dL Calcium 9.6 (8.4-10.2) mg/dL Total Bilirubin 0.7 (0.2-1.3) mg/dL AST 22 (14-36) IU/L ALT 9 (9-52) IU/L Alkaline Phosphatase 142 H (38-126) U/L Troponin I < 0.012 (0.01-0.034) ng/mL B-Natriuretic Peptide 100 (<100) Total Protein 6.9 (6.3-8.2) g/dL Albumin 3.9 (3.5-5.0) g/dL Globulin 3.0 (1.7-4.1) g/dL Albumin/Globulin Ratio 1.3 (1.0-2.8) Lipase 51 (23-300) U/L Imaging Data Chest x-ray: Radiologist's impression: [place] [address] XRay Report Signed Patient: Katie Ariza GMR#: [id number] : 1965Acct:[id number] Age/Sex: 53 / FDate of Service: 04/26/19 Loc: ED Accession Number: [id number] Procedure: XR chest 1V Ordering Provider: Efraín Ashley D.O. PROCEDURE: XR CHEST 1V INDICATIONS: SOB TECHNIQUE: One view of the chest was acquired. COMPARISON: None. FINDINGS: Surgical changes and devices: None. Lungs and pleura: Lungs are clear. No pleural effusions or pneumothorax. Mediastinum: Mediastinal contours appear normal. Heart size is normal. Bones and chest wall: No suspicious bony lesions. Overlying soft tissues appear unremarkable. IMPRESSION: No acute cardiopulmonary findings. Dictated by: Andie Cox M.D. on 04/26/2019 at 19:23 Approved by: Andie Cox M.D. on 04/26/2019 at 19:23 ECG Data Attestation: I personally reviewed and interpreted this ECG as follows: Prior ECG tracings: not available for review Interpretation: Initial EKG Sinus rhythm Ventricular rate is 73 Normal QRS Normal QTC No ST T wave changes Repeat EKG Sinus rhythm Ventricular rate is 72 Unchanged from prior EKG MDM Narrative Medical decision making narrative: Patient's EKG and chest x-ray unremarkable. I have low suspicion that her symptoms today are ACS. I have a very high suspicion that she is becoming depressed and anxious about the worsening Parkinson's symptoms over the past year. She has an appoint with her primary doctor on Sunday. I feel that she is having problems sleeping at night which is making her depression and anxiety worsen. I feel that this is also making her Parkinson's symptoms worse. She then feels like she needs to take extra of the carbidopa/levodopa which then causes her to have issues with the dystonia which then causes her more anxiety more problems sleeping. I spent an extensive amount of time talking with the patient regarding her symptoms. She agrees that over the past year her symptoms have been worsening in this is becoming very depressing to her. She states that she is concerned about taking more than 1/2 of a clonazepam pill at night because she is concerned that it may sedate her so much that she will quit breathing and not wake up. She states that when she takes the half a tablet she is not falling asleep. I did inform her that taking a full tablet is not unreasonable plan of action to try to help her get better sleep at night. I did talk with her about talking with her primary doctor and her neurologist about her sleep issues we will hold on further workup today. Patient was informed she can return to the emergency department for new or worsening symptoms. She felt much better after the Ativan that we gave her here in the ER. Her shaking/Parkinson's symptoms seemed to improve as well. tried to provide reassurance that her heart rate and heart rhythm were normal. she did seem okay with this discussion. She expressed understanding and agreement with this plan. Discharge Plan Departure Patient Disposition: Home Clinical Impression: Chest pain Qualifiers: Chest pain type: unspecified Qualified Code(s): R07.9 - Chest pain, unspecified Discharge Date/Time: 04/26/19 21:42 Instructions: DI for Atypical Chest Pain Activity Restrictions/Additional Instructions: Continue to take all of your medications as directed. I do recommend on Sunday you talk with your primary provider about your sleeping issues. I also recommend that you bring this up with your neurologist. I suspect that all of your symptoms are related to the Parkinson's disease and also the lack of sleep. Please return to the emergency department at any point for new or worsening symptoms Prescriptions: No Action carbidopa-levodopa 25-100 mg tablet 1 - 1.5 tab PO Q3H RF: 0 levothyroxine [Synthroid] 75 mcg tablet 75 mcg PO DAILY Qty: 90 RF: 3 clonazepam 1 mg tablet 0.5 - 1 mg PO BEDTIME Qty: 30 RF: 0 estradiol [Vagifem] 10 mcg tablet 10 mcg VAG DAILY 14 Days Qty: 30 RF: 6 amantadine HCl 100 mg capsule 100 mg PO BID RF: 0 ropinirole 2 mg Tablet Extended Release 24 Hr 6 mg PO BEDTIME RF: 0 multivitamin Tablet 1 tab PO DAILY RF: 0 vitamin B complex Tablet 1 tab PO DAILY RF: 0 Vitamin B-12 1 tab PO DAILY RF: 0 Vitamin D3 1 tab PO DAILY RF: 0 buspirone 5 mg tablet 5 mg PO BID RF: 0 sertraline 25 mg tablet 75 mg PO DAILY RF: 0 ibuprofen 200 mg tablet 400 - 600 mg PO Q6H PRN (Reason: Pain (Scale Score 1-3)) RF: 0 Referrals: Jeannie Ta DO [Primary Care Provider] -
[2019-04-26 18:20] VITALS: BP 136/83; PULSE 86; RESP 18; TEMP 36.8; O2SAT 96; BMI 20.9
[2019-04-26 18:47] VITALS: BP 139/68; PULSE 71; RESP 12; O2SAT 100
--- NOTE | 2019-04-26 18:50 | PC.NURSE ---
[employer] [facility] called back they should be able to be here approx 2130 to ick pt up
[2019-04-26 18:56] LABS: Add Manual Diff / Slide Review NO; Basophils Absolute Auto 0 /uL (0-100); Basophils Percent Auto 0.4 % (0-2); Eosinophils Absolute Auto 100 /uL (0-450); Eosinophils Percent Auto 0.9 % (2-4); Hematocrit 41.6 % (36-46); Hemoglobin 14.2 g/dL (12.0-16.0); Lymphocytes Absolute Auto 3100 /uL (1100-4500); Lymphocytes Percent Auto 31.5 % (25-40); Mean Corpuscular HGB Conc 34.1 % (30-36); Mean Corpuscular Hemoglobin 28.7 PG (26-34); Mean Corpuscular Volume 84.3 fL (80-100); Monocytes Absolute Auto 500 /uL (0-900); Monocytes Percent Auto 5.6 % (3-14); Neutrophils Absolute Auto 6000 /uL (1500-7000); Neutrophils Percent Auto 61.6 % (50-75); Platelet Count 362 X10^3/uL (150-400); Red Blood Cell Count 4.94 X10^6/uL (4.0-5.2); Red Cell Distribution Width 13.9 % (11.6-14.8); White Blood Cell Count 9.7 X10^3/uL (4.5-11.0)
[2019-04-26 19:02] LABS: Alanine Aminotransferase 9 IU/L (9-52); Albumin 3.9 g/dL (3.5-5.0); Albumin Globulin Ratio 1.3 (1.0-2.8); Alkaline Phosphatase 142 U/L (38-126); Aspartate Aminotransferase 22 IU/L (14-36); BUN Creatinine Ratio 13.3 (6-22); Bilirubin Total 0.7 mg/dL (0.2-1.3); Blood Urea Nitrogen 8 mg/dL (7-17); Calcium 9.6 mg/dL (8.4-10.2); Carbon Dioxide 25 mmol/L (22-32); Chloride 96 mmol/L (98-107); Estimated Glomerular Filt Rate > 60.0 mL/min (>60); Glucose 99 mg/dL (70-100); HEMOLYSIS < 15 (0-50); Lipase 51 U/L (23-300); Potassium 3.8 mmol/L (3.4-5.1); Sodium 132 mmol/L (137-145); Total Protein 6.9 g/dL (6.3-8.2)
[2019-04-26 19:14] LABS: Troponin I < 0.012 ng/mL (0.01-0.034)
[2019-04-26 19:25] LABS: B Type Natriuretic Peptide 100 (<100)
[2019-04-26 19:52] VITALS: BP 131/75; PULSE 72; RESP 17; O2SAT 100
[2019-04-26] MEDS: LORazepam 0.5 MG TABLET 1 MG PO ×2 (19:54→21:37)
== END 2019-04-26 21:42 | disposition home or self-care (01) ==
PROVIDERS: Emergency Provider Emergency Medicine; PCP Family Medicine
DX: R07.9 Chest pain, unspecified (principal); R06.02 Shortness of breath; G20 Parkinson's disease
CPT/HCPCS: 36415; 71045; 80053; 83690; 83880; 84484; 85025; 93005; 99283; 99285

== ENCOUNTER 2019-06-12 14:22 | Emergency (ER) | payer OTHER, SELFPAY ==
[2019-06-12 14:19] VITALS: BP 134/86; PULSE 74; RESP 16; TEMP 36.6; O2SAT 99; BMI 21.7
--- NOTE | 2019-06-12 14:30 | DI.RAD.S_ITS ---
PROCEDURE: XR CHEST 1V INDICATIONS: SHORTNESS OF BREATH TECHNIQUE: One view of the chest was acquired. COMPARISON: [facility], CR, XR CHEST 1V, 04/26/2019, 19:04. FINDINGS: Surgical changes and devices: None. Lungs and pleura: Lungs are clear. No pleural effusions or pneumothorax. Mediastinum: Mediastinal contours appear normal. Heart size is normal. Bones and chest wall: No suspicious bony lesions. Moderate dextroconvex curvature of the thoracic spine is present. Overlying soft tissues appear unremarkable. IMPRESSION: Stable chest. No acute cardiopulmonary process is evident. Dictated by: Rip Ortiz M.D. on 06/12/2019 at 14:19 Approved by: Rip Ortiz M.D. on 06/12/2019 at 14:19
[2019-06-12] MEDS: LORazepam 0.5 MG TABLET 1 MG PO (14:42)
--- NOTE | 2019-06-12 14:45 | ED_ITS ---
HPI - Dizziness General Chief Complaint: Dizziness Stated Complaint: Feels like she is going to pass out Time Seen by Provider: 06/12/19 14:25 Source: patient and EMS Mode of arrival: EMS Limitations: no limitations History of Present Illness HPI Narrative: Patient is a 53-year-old female with history of Parkinson's and anxiety presenting with difficulty breathing and anxiety. She starting to feel better. She actually has a marriage counseling appointment at 3:00 p.m. which is a 30 minutes today. She says that she has not nervous about that. This came on all started. She says that her Parkinson's medication wears off and she gets extremely anxious for which she usually takes clonazepam however she ran out of clonazepam and took her last dose last evening. She actually has a prescription that is ready to be picked up. Related Data Home Medications Medication Instructions Recorded Confirmed Vitamin B-12 1 tab PO DAILY 07/26/18 06/12/19 Vitamin D3 1 tab PO DAILY 07/26/18 06/12/19 multivitamin 1 tab PO DAILY 07/26/18 06/12/19 ropinirole 6 mg PO BEDTIME 07/26/18 06/12/19 vitamin B complex 1 tab PO DAILY 07/26/18 06/12/19 carbidopa 25 mg-levodopa 100 mg 1 - 1.5 tab PO Q3H tab 02/06/19 06/12/19 tablet ibuprofen 200 mg tablet 400 - 600 mg PO Q6H PRN tab 02/06/19 06/12/19 amantadine HCl 100 mg capsule 100 mg PO BID 03/28/19 06/12/19 buspirone 5 mg PO BID 04/04/19 06/12/19 Previous Rx's Medication Instructions Recorded levothyroxine 75 mcg tablet 75 mcg PO DAILY #90 tab 03/12/19 estradiol 10 mcg vaginal tablet 10 mcg VAG DAILY 14 Days #30 tab 04/11/19 sertraline 50 mg tablet 100 mg PO DAILY #60 tab 04/30/19 clonazepam 1 mg tablet 0.5 - 1 mg PO BEDTIME #30 tab 06/09/19 Allergies Allergy/AdvReac Type Severity Reaction Status Date / Time No Known Drug Allergies Allergy Verified 06/12/19 14:34 Review of Systems Review of Systems Narrative: GENERAL: Denies chills, fatigue, malaise, fever, sweats, travel HEENT: Denies sinus pain, ear pain, sore throat, difficulty swallowing, neck pain RESPIRATORY: Denies dyspnea, cough, wheezing, hemoptysis, sputum. CARDIOVASCULAR: Denies chest pain, palpitations, orthopnea, edema GASTROINTESTINAL: Denies nausea, vomiting, abdominal pain, diarrhea, constipation, melena. : Denies dysuria, frequency, incontinence, hematuria, urinary retention, flank pain. MUSCULOSKELETAL: Denies weakness, joint pain, or bony pain SKIN: No rash, no erythema, no pruritus NEUROLOGIC: Denies weakness, dizziness, headache, numbness, change in speech, confusion PSYCHIATRIC: Anxiety 12 point review of systems is negative except for those stated above and HPI Patient History Medical History Abnormal Pap smear of cervix (Resolved) Anxiety (Chronic 02/22/11) Anxiety (Chronic) Carpal tunnel syndrome (Chronic) Cervical cancer (Resolved 2007) Chicken pox (Resolved 1969) Chronic insomnia (Chronic 06/12/14) Colitis (Resolved 2003) Depression (Chronic) Eczema (Chronic) Foot pain (Chronic 2014) Gastric ulcer (Resolved 1983) GERD (gastroesophageal reflux disease) (Chronic) Hayfever (Chronic) Herpes (Chronic) HPV (human papilloma virus) infection (Resolved) Hyperlipidemia (Chronic) Hypertension (Chronic) Hypothyroidism (Chronic 2014) 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 Grandfather No problems noted. Grandmother No problems noted. Sister No problems noted. Sister No problems noted. Social History Smoking Status: Never smoker alcohol intake frequency: other Substance Use Type: does not use Exam Initial Vital Signs Initial Vital Signs: Vital Signs Temperature 97.8 F 06/12/19 14:19 Pulse Rate 74 06/12/19 14:19 Respiratory Rate 16 06/12/19 14:19 Blood Pressure 134/86 06/12/19 14:19 Pulse Oximetry 99 06/12/19 14:19 GENERAL: Anxious well-appearing and in no acute distress. HEENT: Head atraumatic,EOMI, pupils reactive, face symmetric, moist mucous membranes CARDIOVASCULAR: Regular rate and rhythm without murmurs, rubs or gallops. RESPIRATORY: Breath sounds equal bilaterally, no wheezes rales or rhonchi. ABDOMEN: Soft, nontender. Normoactive bowel sounds all 4 quadrants. No guarding or rebound. : No CVA tenderness EXTREMITIES: Normal range of motion, no clubbing or edema. Neurovascularly intact NEUROLOGICAL: Alert and oriented x4.Normal gait and speech. Cranial nerves II through XII grossly intact. SKIN: Warm, dry, no laceration, no petechiae, no rashes or lesions. Course Orders Ordered: ED Orders 06/12/19 14:30 XR chest 1V Stat EKG-12 Lead Stat Discontinued Medications Lorazepam (Ativan) 1 mg PO NOW ONE Stop: 06/12/19 14:31 Last Admin: 06/12/19 14:42 Dose: 1 mg Documented by: ROSEMARY Vital Signs Vital signs: Vital Signs - 8 hr 06/12/19 14:19 06/12/19 15:08 06/12/19 15:29 Temperature 97.8 F Pulse Rate 74 66 63 Respiratory Rate 16 19 19 Blood Pressure 134/86 Blood Pressure [Right Arm] 151/83 H 140/73 Pulse Oximetry 99 96 06/12/19 16:16 Temperature Pulse Rate 62 Respiratory Rate 20 Blood Pressure Blood Pressure [Right Arm] 133/80 Pulse Oximetry MDM - Dizziness Lab Data Labs: Urine Dip Bedside Urine Glucose Negative Bedside Urine Bilirubin - Negative Bedside Urine Ketone +/- 5 Urine Specific Beecher 1.010 Bedside Urine Occult Blood - Negative Bedside Urine pH 7.5 Bedside Urine Protein - Negative Bedside Urine Urobilinogen - Negative Bedside Urine Nitrite - Negative Bedside Urine Leukocytes - Negative Esterase Imaging Data Chest x-ray: Radiologist's impression: PROCEDURE: XR CHEST 1V INDICATIONS: SHORTNESS OF BREATH TECHNIQUE: One view of the chest was acquired. COMPARISON: [facility], [facility], XR CHEST 1V, 04/26/2019, 19:04. FINDINGS: Surgical changes and devices: None. Lungs and pleura: Lungs are clear. No pleural effusions or pneumothorax. Mediastinum: Mediastinal contours appear normal. Heart size is normal. Bones and chest wall: No suspicious bony lesions. Moderate dextroconvex curvature of the thoracic spine is present. Overlying soft tissues appear unremarkable. IMPRESSION: Stable chest. No acute cardiopulmonary process is evident. Dictated by: Rip Ortiz M.D. on 06/12/2019 at 14:19 ECG Data Attestation: I personally reviewed and interpreted this ECG as follows: Prior ECG tracings: available for review Interpretation: Normal sinus rhythm rate [address] changes no T-wave inversions similar to previous EKG MDM Narrative Medical decision making narrative: Patient overall is feeling much better after Ativan. She has history of anxiety this seems like it was anxiety. Recommend she worm picker her prescription for clonazepam Discharge Plan Departure Patient Disposition: Home Clinical Impression: [id number] Discharge Date/Time: 06/12/19 16:17 Instructions: DI for Anxiety -- Adult Activity Restrictions/Additional Instructions: *You have been diagnosed with anxiety *What to do: Recommend to worm picker her prescription at the pharmacy. You may require further medication for anxiety please discuss this with your PCP *Continue to take medications as directed *Follow up with your primary care provider in 2-3 days *Return to ER if you should have increasing chest pain shortness of or any new, worsening or concerning symptoms Prescriptions: No Action carbidopa-levodopa 25-100 mg tablet 1 - 1.5 tab PO Q3H RF: 0 levothyroxine [Synthroid] 75 mcg tablet 75 mcg PO DAILY Qty: 90 RF: 3 sertraline 50 mg tablet 100 mg PO DAILY Qty: 60 RF: 1 clonazepam 1 mg tablet 0.5 - 1 mg PO BEDTIME Qty: 30 RF: 0 estradiol [Vagifem] 10 mcg tablet 10 mcg VAG DAILY 14 Days Qty: 30 RF: 6 amantadine HCl 100 mg capsule 100 mg PO BID RF: 0 ropinirole 2 mg Tablet Extended Release 24 Hr 6 mg PO BEDTIME RF: 0 multivitamin Tablet 1 tab PO DAILY RF: 0 vitamin B complex Tablet 1 tab PO DAILY RF: 0 Vitamin B-12 1 tab PO DAILY RF: 0 Vitamin D3 1 tab PO DAILY RF: 0 buspirone 5 mg tablet 5 mg PO BID RF: 0 ibuprofen 200 mg tablet 400 - 600 mg PO Q6H PRN (Reason: Pain (Scale Score 1-3)) RF: 0 Referrals: Jeannie Ta DO [Primary Care Provider] -
[2019-06-12 15:08] VITALS: BP 151/83; PULSE 66; RESP 19; O2SAT 96
[2019-06-12 15:29] VITALS: BP 140/73; PULSE 63; RESP 19
[2019-06-12 16:16] VITALS: BP 133/80; PULSE 62; RESP 20
== END 2019-06-12 16:17 | disposition home or self-care (01) ==
PROVIDERS: Emergency Provider Emergency Medicine; PCP Family Medicine
DX: F41.9 Anxiety disorder, unspecified (principal); R06.02 Shortness of breath
CPT/HCPCS: 71045; 81003; 93005; 99283; 99284

== ENCOUNTER → 2019-11-26 11:20 | Outpatient (CLI) | payer OTHER, SELFPAY ==
[2019-11-26 13:12] LABS: Add Manual Diff / Slide Review NO; Basophils Absolute Auto 0 /uL (0-100); Basophils Percent Auto 0.7 % (0-2); Eosinophils Absolute Auto 100 /uL (0-450); Eosinophils Percent Auto 1.8 % (2-4); Hematocrit 38.6 % (36-46); Hemoglobin 13.1 g/dL (12.0-16.0); Lymphocytes Absolute Auto 2300 /uL (1100-4500); Lymphocytes Percent Auto 38.1 % (25-40); Mean Corpuscular Hemoglobin 29.4 PG (26-34); Mean Corpuscular Volume 86.4 fL (80-100); Monocytes Absolute Auto 400 /uL (0-900); Monocytes Percent Auto 6.3 % (3-14); Neutrophils Absolute Auto 3200 /uL (1500-7000); Neutrophils Percent Auto 53.1 % (50-75); Platelet Count 331 X10^3/uL (150-400); Red Blood Cell Count 4.47 X10^6/uL (4.0-5.2); Red Cell Distribution Width 13.1 % (11.6-14.8)
[2019-11-26 13:23] LABS: Albumin 3.8 g/dL (3.5-5.0); Albumin Globulin Ratio 1.3 (1.0-2.8); Alkaline Phosphatase 126 U/L (38-126); Aspartate Aminotransferase 23 IU/L (14-36); BUN Creatinine Ratio 23.5 (6-22); Bilirubin Total 0.4 mg/dL (0.2-1.3); Blood Urea Nitrogen 16 mg/dL (7-17); Calcium 9.1 mg/dL (8.4-10.2); Carbon Dioxide 30 mmol/L (22-32); Chloride 97 mmol/L (98-107); Estimated Glomerular Filt Rate > 60.0 mL/min (>60); Glucose 102 mg/dL (70-100); HEMOLYSIS < 15 (0-50); Potassium 4.1 mmol/L (3.4-5.1); Sodium 132 mmol/L (137-145); Total Protein 6.8 g/dL (6.3-8.2)
[2019-11-26 13:26] LABS: Alanine Aminotransferase < 4 IU/L (<35); C-Reactive Protein Quant < 0.5 mg/dL (<1.0); Rheumatoid Factor < 8.6 IU/mL (<12.0)
[2019-11-26 14:06] LABS: Free T3, Triiodothyronine Free 2.86 pg/mL (2.77-5.27); Free T4, Direct Thyroxine 1.21 ng/dL (0.78-2.19)
[2019-11-26 14:19] LABS: Thyroid Stimulating Hormone 1.98 uIU/mL (0.47-4.68)
[2019-11-26 14:25] LABS: Folate > 20.0 ng/mL (2.76-20.0); Vitamin B12 > 1000 pg/mL (239-931)
[2019-11-26 18:29] LABS: Erythrocyte Sedimentation Rate 13 MM/HR (0-20)
[2019-11-27 04:27] LABS: Homocysteine 8.7 umol/L (0.0-14.5)
[2019-11-27 07:44] LABS: Thyroid Peroxidase Antibodies <9 IU/mL (0-34)
[2019-11-27 19:39] LABS: ANA Screen, IFA Negative (.)
[2019-11-28 12:35] LABS: Anti Thyroglobulin Antibody <1.0 IU/mL (0.0-0.9)
[2019-11-28 18:53] LABS: Methylmalonic Acid,Serum 150 nmol/L (0-378)
[2019-11-28 21:11] LABS: Vitamin B6 11.7 ug/L (2.0-32.8)
[2019-11-29 16:07] LABS: Triiodothyronine T3 Reverse 16.9 ng/dL (9.2-24.1)
[2019-12-01 23:39] LABS: CCP Antibodies IgG/IgA 7 units (0-19)
== END ==
PROVIDERS: PCP Family Medicine; Referring Provider Family Medicine; Visit Provider Family Medicine
DX: E03.9 Hypothyroidism, unspecified (principal); G20 Parkinson's disease; I73.00 Raynaud's syndrome without gangrene; Z79.899 Other long term (current) drug therapy; Z83.2 Family history of diseases of the blood and blood-forming organs and certain disorders involving the immune mechanism
CPT/HCPCS: 36415; 80053; 82607; 82746; 83090; 83921; 84207; 84439; 84443; 84481; 84482; 85025; 85651; 86038; 86140; 86200; 86376; 86430; 86800

== ENCOUNTER 2020-03-27 19:48 | Observation (INO) | payer OTHER, SELFPAY ==
[2020-03-27] VITALS (8 sets, daily range): BP systolic 123–150; BP diastolic 68–92; PULSE 64–93; RESP 15–27; TEMP 36.3–37.3; O2SAT 84–100; BMI 22.6
--- NOTE | 2020-03-27 19:59 | DI.CT.S_ITS ---
PROCEDURE: CT STROKE INDICATIONS: R arm numbness TECHNIQUE: Noncontrast 4.5 mm thick angled axial sections acquired from the foramen magnum to the vertex, with coronal reformats. For radiation dose reduction, the following was used: automated exposure control, adjustment of mA and/or kV according to patient size. COMPARISON: None. FINDINGS: Image quality: Excellent. CSF spaces: Basal cisterns are patent. No extra-axial fluid collections. Ventricles are normal in size and shape. Brain: No midline shift. No intracranial masses or hemorrhage. Hodge-white matter interface is normal. Skull and face: Calvarium and visualized facial bones are intact, without suspicious lesions. Sinuses: Visualized sinuses and mastoids are clear. IMPRESSION: No contraindication to tPA administration. This information was called to the emergency room staff caring for the patient, at 8: 25 in the evening. This study fulfills neurological imaging criteria for inclusion or exclusion of acute stroke therapies based on available published neurological imaging guidelines. Dictated by: Umang Singh M.D. on 03/27/2020 at 20:30 Approved by: Umang Singh M.D. on 03/27/2020 at 20:30
--- NOTE | 2020-03-27 20:02 | DI.CT.S_ITS ---
PROCEDURE: CT ANGIO HEAD AND NECK INDICATIONS: R arm weakness TECHNIQUE: Pre-contrast 4.5 mm thick sections acquired from the foramen magnum to the vertex. After the administration of intravenous contrast, 1 mm thick sections acquired from the aortic arch through the [place]. Post-contrast 4.5 mm thick sections then re-acquired from the foramen magnum to the vertex. 3-dimensional [id number] (MIP) and/or volume rendering reformats were acquired of the central intracranial vasculature and neck separately. COMPARISON: None. FINDINGS: Image quality: Reduced by patient motion. BRAIN: CSF spaces: Ventricles are normal in size and shape. Basal cisterns are patent. No extra-axial fluid collections. Brain: No midline shift. No intracranial bleeds or masses. Hodge-white matter interface appears intact. Skull and face: Calvarium and facial bones appear intact, without suspicious lesions. Orbits appear normal. Sinuses: Sinuses and mastoids are clear. HEAD CT ANGIOGRAPHY: Anterior circulation: Intracranial internal carotid arteries are normal in size and flow. The flow within the paired anterior cerebral arteries is normal and symmetric. The flow within the middle cerebral arteries is normal and symmetric. The anterior communicating artery is seen. No aneurysms are seen. Posterior circulation: Visualized portions of the vertebral arteries demonstrate normal caliber, and join to form a normal appearing basilar artery. Flow within the posterior cerebral arteries is normal and symmetric. No aneurysms are seen. NECK CT ANGIOGRAPHY: Carotid system: The great vessels demonstrate a conventional anatomy as they arise from the aortic arch. The origins of the common carotid arteries appear patent. The common carotid arteries demonstrate normal caliber and courses. The bifurcation regions are both widely patent. The internal carotid arteries demonstrate normal calibers and courses. Posterior circulation: The origins of the vertebral arteries both appear widely patent. The more superior extracranial portions of both vertebral arteries also demonstrate normal courses and calibers. They join to form a normal appearing basilar artery. Soft tissues: Visualized neck soft tissues demonstrate no suspicious abnormalities. Bones: No suspicious bony lesions. Visualized cervical spine appears normally aligned. IMPRESSION: No acute disease, no area of significant atherosclerotic stenosis. A definite source of current symptomatology is not found. Any quantitative measurements of stenosis were performed using NASCET criteria. Dictated by: Umang Singh M.D. on 03/27/2020 at 21:33 Approved by: Umang Singh M.D. on 03/27/2020 at 21:35
--- NOTE | 2020-03-27 20:08 | ED.NEUROSD ---
HPI - Neuro Symptoms/Deficit <Stephanie NoriegaZOFIA - Last Filed: 03/27/20 21:02> General Chief Complaint: Neuro Symptoms/Deficit Stated Complaint: right arm pain and numbness Time Seen by Provider: 03/27/20 19:50 Source: patient Mode of arrival: Ambulatory Limitations: no limitations History of Present Illness HPI Narrative: 54yo female with a history of Parkinson's, carpal tunnel, presents to the ED for R sided numbness and weakness and R sided facial numbness that started at 1630 today. Patient states the numbness occasionally radiated to her right leg as well. Patient states initially that it was carpal tunnel but has a progressed to her face she was worried it may be something more serious. She states the weakness is slowly resolving but numbness and tingling remains. Patient denies any other symptoms such as chest pain, shortness of breath, fevers, chills, nausea, vomiting, diarrhea, abdominal pain, cough, or any other concerns. Patient denies taking any new medications, denies any trauma to the area. Patient denies taking any blood thinners, states she took a full aspirin a few hours ago. Patient states she has been taking her Parkinson's medication as prescribed, denies any missed doses or increased dosages. Related Data Home Medications Medication Instructions Recorded Confirmed Vitamin D3 1 tab PO DAILY 07/26/18 03/12/20 multivitamin 1 tab PO DAILY 07/26/18 03/12/20 ropinirole 6 mg PO BEDTIME 07/26/18 03/12/20 vitamin B complex 1 tab PO DAILY 07/26/18 03/12/20 carbidopa 25 mg-levodopa 100 mg 1 - 1.5 tab PO Q3H tab 02/06/19 03/12/20 tablet ibuprofen 200 mg tablet 400 - 600 mg PO Q6H PRN tab 02/06/19 03/12/20 amantadine HCl 100 mg capsule 100 mg PO BID 03/28/19 03/12/20 c theanine 100mg See Rx Instructions .ROUTE .COMPLEX 09/19/19 03/12/20 magnesium oxide 500 mg tablet 500 mg PO DAILY 09/19/19 03/12/20 rasagiline 1 mg tablet See Rx Instructions PO DAILY 12/10/19 03/12/20 aspirin 81 mg tablet,delayed 81 mg PO DAILY 03/12/20 03/12/20 release Previous Rx's Medication Instructions Recorded estradiol 10 mcg vaginal tablet 10 mcg VAG DAILY 14 Days #30 tab 04/11/19 clonazepam 1 mg tablet 0.5 - 1 mg PO BEDTIME #30 tab 11/21/19 levothyroxine 75 mcg tablet 75 mcg PO DAILY #90 tab 12/10/19 sertraline 50 mg tablet 100 mg PO DAILY #180 tab 03/15/20 baclofen 5 mg tablet See Rx Instructions PO BEDTIME #30 03/26/20 tab Allergies Allergy/AdvReac Type Severity Reaction Status Date / Time No Known Drug Allergies Allergy Verified 03/12/20 10:11 Review of Systems <ZOFIA Burgos - Last Filed: 03/27/20 21:02> Review of Systems Narrative: REVIEW OF SYSTEMS: GENERAL: Denies fever or chills. HENT: No head trauma, hearing loss or sore throat. EYES: No loss of vision, double vision, eye pain, or irritation. CARDIOVASCULAR: No chest pain or syncope. RESPIRATORY: No shortness of breath or cough. GASTROINTESTINAL: No nausea, vomiting, diarrhea, or constipation. MUSCULOSKELETAL: No pain, weakness, or deformities. INTEGUMENTARY: No rash, lesions, or pruritus. NEURO: Reports right arm weakness, numbness, and tingling. Reports right-sided facial tingling, see HPI. PSYCH: No behavior or mood changes. Patient History <ZOFIA Burgos - Last Filed: 03/27/20 21:02> Medical History Abnormal Pap smear of cervix (Resolved) Alcohol use disorder (Acute) Anxiety (Acute ~2010) Carpal tunnel syndrome (Chronic) Carpal tunnel syndrome on both sides (Acute ~2007) Cervical cancer (Resolved 2007) Chicken pox (Resolved 1969) Chronic insomnia (Chronic 06/12/14) Colitis (Resolved 2003) Depression (Chronic) Eczema (Chronic) Family history of autoimmune disorder (Acute) Foot pain (Chronic 2014) Gastric ulcer (Resolved 1983) GERD (gastroesophageal reflux disease) (Acute) Hayfever (Chronic) Herpes (Chronic) HPV (human papilloma virus) infection (Resolved) Hyperlipidemia (Chronic) Hypertension (Chronic) Hypothyroidism (Chronic 2014) 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 Grandfather Parkinson's disease Grandmother No problems noted. Sister No problems noted. Sister No problems noted. 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 Answers questions promptly and appropriately. Vital signs noted. HENT: Normocephalic. Ear canals patent. Oral mucosa is pink and moist. EYES: PERRLA, EOMIs, conjunctiva pink, sclera white, no periorbital swelling. NECK: Full ROM, no midline or spinal tenderness. CARDIOVASCULAR: S1 and S2 sounds normal. Regular rate and rhythm, no murmurs, clicks, or bruits. RESPIRATORY: Normal respiratory rate, trachea midline, airway patent. No stridor, nasal flaring or accessory muscle use. Lungs are clear in all egan without wheeze, rhonchi, or crackles. MUSCULOSKELETAL: Normal gait and coordination. Equal strength bilaterally to upper and lower extremities. EXTREMITIES: CMS intact. Moves all extremities. SKIN: Warm, dry, soft, appropriate color for ethnicity. No lesions, rashes, or wounds to visualized areas. NEURO: Alert and Oriented X 3. GCS: 15. Good coordination. No ataxia, or sensory deficits, or cognitive issues. Cranial Nerves: II: Visual egan grossly intact. III & IV & : EOMIs V: Able to open and close jaw. VII: Facial movements symetrical. Able to close eyelids tightly. VIII: Hearing grossly intact, adequate balance. X: Uvula pronation intact. XI: Patient is able to shrug shoulders. XII: Patient is able to stick out tongue and move it side to side. NIH score of 0. PSYCH: Appropriate affect and mood. <Gilson Donahue DO - Last Filed: 03/28/20 02:05> Initial Vital Signs Initial Vital Signs: Vital Signs Temperature 98.2 F 03/27/20 19:55 Pulse Rate 78 03/27/20 19:55 Respiratory Rate 15 03/27/20 19:55 Blood Pressure 135/68 03/27/20 19:55 Pulse Oximetry 100 03/27/20 19:55 Scores <ZOFIA Burgos - Last Filed: 03/27/20 21:02> NIH Stroke Scale Level of Conciousness: Alert, keenly responsive Ask month/age: Answers both questions correctly. Open/close eyes, close hand: Performs both tasks correctly Best gaze horizontal: Normal Visual egan: No visual loss Facial palsy: Normal symetrical movement Left arm drift: No drift for full 10 sec Right arm drift: No drift for full 10 sec Left leg drift: No drift for full 10 sec Right leg drift: No drift for full 10 sec Limb ataxia: Absent Sensory on face/arms/legs: Normal, no sensory loss Best language: No aphasia, normal Dysarthria: Normal Extinction or inattention: No abnormality Total NIH Stroke scale score: 0 Course <ZOFIA Burgos - Last Filed: 03/27/20 21:02> Orders Ordered: ED Orders 03/27/20 19:59 CT Stroke Stat Urine Drug Screen, Rapid Stat EKG-12 Lead Stat 03/27/20 20:02 CT angio head and neck Stat 03/27/20 20:05 Basic Metabolic Panel Stat Complete Blood Count AUTO DIFF Stat Partial Thromboplastin Time Stat Prothrombin Time INR Stat 03/27/20 20:54 Troponin & CK Cardiac Panel Stat 03/27/20 22:05 COVID19 -ED/INPAT/OR/L&D Stat Acetaminophen (Tylenol) 650 mg PO Q6HR PRN PRN Reason: Fever/Mild Pain (1-3) Amantadine HCl (Symmetrel) 100 mg PO BID [facility] Aspirin (Aspirin Ec) 81 mg PO DAILY [facility] Aspirin (Aspirin Ec) 81 mg PO DAILY [facility] Atorvastatin Calcium (Lipitor) 40 mg PO BEDTIME [facility] Last Admin: 03/28/20 00:32 Dose: 40 mg Documented by: JORDAN Carbidopa/Levodopa (Sinemet 25-100 Tab) 1 each PO Q3H [facility] Last Admin: 03/28/20 01:50 Dose: Not Given Documented by: JORDAN Clonazepam (Klonopin) 1.5 mg PO BEDTIME [facility] Last Admin: 03/28/20 01:40 Dose: 1.5 mg Documented by: JORDAN Clopidogrel Bisulfate (Plavix) 75 mg PO DAILY [facility] Enoxaparin Sodium (Lovenox) 40 mg SUBCUT DAILY [facility] Sodium Chloride (Normal Saline 0.9%) 1,000 mls @ 150 mls/hr IV CONT [facility] Last Infusion: 03/27/20 22:33 Dose: 0 mls/hr Documented by: Admin: 03/27/20 20:26 Dose: 150 mls/hr Documented by: TIN Sodium Chloride (Normal Saline 0.9%) 1,000 mls @ 100 mls/hr IV CONT [facility] Last Admin: 03/28/20 00:32 Dose: 100 mls/hr Documented by: JORDAN Levothyroxine Sodium (Synthroid) 75 mcg PO QACBREAK [facility] Naloxone HCl (Narcan) 0.2 mg IV Q2MIN PRN PRN Reason: Opiate Reversal Non-Formulary Medication (Rasagiline) 0.5 mg PO DAILY [facility] Ondansetron HCl (Zofran) 4 mg IV Q6HR PRN PRN Reason: Nausea And Vomiting Ropinirole HCl (Requip) 6 mg PO BEDTIME [facility] Sertraline HCl (Zoloft) 100 mg PO DAILY [facility] Discontinued Medications Sodium Chloride (Normal Saline 0.45%) 1,000 mls @ 100 mls/hr IV CONT [facility] Last Admin: 03/28/20 01:51 Dose: Not Given Documented by: JORDAN Non-Formulary Medication (Ropinirole) 3 tab PO BEDTIME [facility] Consultations Consultation #1: Patient initially staffed with Dr. Donahue, code stroke called. 2029: Patient's symptoms resolving upon re-evaluation which excludes the for tPA at this time. Discussed this with Dr. Donahue as well. 2053: Talked with possible of ZOFIA Alaniz discussed patient's test, test results, and plan of care. Still pending troponin and CTA, discussed concern for TIA. Dr. Donahue will call back with CTA results. Vital Signs Vital signs: Vital Signs - 8 hr 03/27/20 19:55 03/27/20 20:21 03/27/20 20:30 Temperature 98.2 F Pulse Rate 78 64 74 Respiratory Rate 15 21 Blood Pressure 135/68 Pulse Oximetry 100 84 L 99 03/27/20 21:30 Temperature Pulse Rate 91 H Respiratory Rate 21 Blood Pressure Pulse Oximetry 100 <Gilson Donahue, DO - Last Filed: 03/28/20 02:05> Orders Ordered: ED Orders 03/27/20 19:59 CT Stroke Stat Urine Drug Screen, Rapid Stat EKG-12 Lead Stat 03/27/20 20:02 CT angio head and neck Stat 03/27/20 20:05 Basic Metabolic Panel Stat Complete Blood Count AUTO DIFF Stat Partial Thromboplastin Time Stat Prothrombin Time INR Stat 03/27/20 20:54 Troponin & CK Cardiac Panel Stat 03/27/20 22:05 COVID19 -ED/INPAT/OR/L&D Stat Acetaminophen (Tylenol) 650 mg PO Q6HR PRN PRN Reason: Fever/Mild Pain (1-3) Amantadine HCl (Symmetrel) 100 mg PO BID [facility] Aspirin (Aspirin Ec) 81 mg PO DAILY [facility] Aspirin (Aspirin Ec) 81 mg PO DAILY [facility] Atorvastatin Calcium (Lipitor) 40 mg PO BEDTIME [facility] Last Admin: 03/28/20 00:32 Dose: 40 mg Documented by: JORDAN Carbidopa/Levodopa (Sinemet 25-100 Tab) 1 each PO Q3H [facility] Last Admin: 03/28/20 01:50 Dose: Not Given Documented by: JORDAN Clonazepam (Klonopin) 1.5 mg PO BEDTIME [facility] Last Admin: 03/28/20 01:40 Dose: 1.5 mg Documented by: JORDAN Clopidogrel Bisulfate (Plavix) 75 mg PO DAILY [facility] Enoxaparin Sodium (Lovenox) 40 mg SUBCUT DAILY [facility] Sodium Chloride (Normal Saline 0.9%) 1,000 mls @ 150 mls/hr IV CONT [facility] Last Infusion: 03/27/20 22:33 Dose: 0 mls/hr Documented by: Admin: 03/27/20 20:26 Dose: 150 mls/hr Documented by: TIN Sodium Chloride (Normal Saline 0.9%) 1,000 mls @ 100 mls/hr IV CONT [facility] Last Admin: 03/28/20 00:32 Dose: 100 mls/hr Documented by: JORDAN Levothyroxine Sodium (Synthroid) 75 mcg PO QACBREAK [facility] Naloxone HCl (Narcan) 0.2 mg IV Q2MIN PRN PRN Reason: Opiate Reversal Non-Formulary Medication (Rasagiline) 0.5 mg PO DAILY [facility] Ondansetron HCl (Zofran) 4 mg IV Q6HR PRN PRN Reason: Nausea And Vomiting Ropinirole HCl (Requip) 6 mg PO BEDTIME [facility] Sertraline HCl (Zoloft) 100 mg PO DAILY [facility] Discontinued Medications Sodium Chloride (Normal Saline 0.45%) 1,000 mls @ 100 mls/hr IV CONT [facility] Last Admin: 03/28/20 01:51 Dose: Not Given Documented by: JORDAN Non-Formulary Medication (Ropinirole) 3 tab PO BEDTIME [facility] Vital Signs Vital signs: Vital Signs - 8 hr 03/27/20 19:55 03/27/20 20:21 03/27/20 20:30 Temperature 98.2 F Pulse Rate 78 64 74 Respiratory Rate 15 21 Blood Pressure 135/68 Pulse Oximetry 100 84 L 99 03/27/20 21:30 Temperature Pulse Rate 91 H Respiratory Rate 21 Blood Pressure Pulse Oximetry 100 MDM - Neuro Symptoms/Deficit <ZOFIA Burgos - Last Filed: 03/27/20 21:02> Medical Records Attestation: I reviewed the patient's medical records. Lab Data Attestation: I reviewed the patient's lab results. Result diagrams: 03/27/20 20:05 03/27/20 20:05 Labs: Lab Results 03/27/20 03/27/20 03/27/20 Range/Units 20:05 20:05 20:05 WBC 9.2 (4.5-11.0) X10^3/uL RBC 4.62 (4.0-5.2) X10^6/uL Hgb 13.1 (12.0-16.0) g/dL Hct 39.5 (36-46) % MCV 85.5 (80-100) fL MCH 28.3 (26-34) PG MCHC 33.1 (30-36) % RDW 12.7 (11.6-14.8) % Plt Count 346 (150-400) X10^3/uL Neut % (Auto) 59.9 (50-75) % Lymph % (Auto) 31.6 (25-40) % [place] % (Auto) 6.1 (3-14) % Eos % (Auto) 1.4 L (2-4) % Baso % (Auto) 1.0 (0-2) % Neut # (Auto) 5500 (3370-0901) /uL Lymph # (Auto) 2900 (8594-1363) /uL [place] # (Auto) 600 (0-900) /uL Eos # (Auto) 100 (0-450) /uL Baso # (Auto) 100 (0-100) /uL PT 10.9 (10.1-12.7) SECONDS INR 1.0 (0.9-1.3) APTT 35 (26.4-36.2) SECONDS Sodium 131 L (137-145) mmol/L Potassium 3.6 (3.4-5.1) mmol/L Chloride 99 (98-107) mmol/L Carbon Dioxide 31 (22-32) mmol/L BUN 13 (7-17) mg/dL Creatinine 0.69 (0.52-1.04) mg/dL Estimated GFR > 60.0 (>60) mL/min BUN/Creatinine Ratio 18.8 (6-22) Glucose 104 H (70-100) mg/dL Hemoglobin A1c (4.0-6.0) % Calcium 8.9 (8.4-10.2) mg/dL Total Creatine Kinase (30-135) U/L CK-MB (CK-2) CK-MB (CK-2) Rel Index Troponin I (0.01-0.034) ng/mL 03/27/20 03/27/20 Range/Units 20:05 20:54 WBC (4.5-11.0) X10^3/uL RBC (4.0-5.2) X10^6/uL Hgb (12.0-16.0) g/dL Hct (36-46) % MCV (80-100) fL MCH (26-34) PG MCHC (30-36) % RDW (11.6-14.8) % Plt Count (150-400) X10^3/uL Neut % (Auto) (50-75) % Lymph % (Auto) (25-40) % [place] % (Auto) (3-14) % Eos % (Auto) (2-4) % Baso % (Auto) (0-2) % Neut # (Auto) (5072-3248) /uL Lymph # (Auto) (7368-3697) /uL [place] # (Auto) (0-900) /uL Eos # (Auto) (0-450) /uL Baso # (Auto) (0-100) /uL PT (10.1-12.7) SECONDS INR (0.9-1.3) APTT (26.4-36.2) SECONDS Sodium (137-145) mmol/L Potassium (3.4-5.1) mmol/L Chloride (98-107) mmol/L Carbon Dioxide (22-32) mmol/L BUN (7-17) mg/dL Creatinine (0.52-1.04) mg/dL Estimated GFR (>60) mL/min BUN/Creatinine Ratio (6-22) Glucose (70-100) mg/dL Hemoglobin A1c 5.5 (4.0-6.0) % Calcium (8.4-10.2) mg/dL Total Creatine Kinase 70 (30-135) U/L CK-MB (CK-2) TNP CK-MB (CK-2) Rel Index TNP Troponin I < 0.012 (0.01-0.034) ng/mL Imaging Data CT scan - head: Radiologist's Impression: [address] [address] [address] Scan Report Signed Patient: Katie Ariza GMR#: [id number] : 1965Acct:[id number] Age/Sex: 54 / FDate of Service: 03/27/20 Loc: ED Accession Number: [id number] Procedure: CT Stroke Ordering Provider: Stephanie Noriega PROCEDURE: CT STROKE INDICATIONS: R arm numbness TECHNIQUE: Noncontrast 4.5 mm thick angled axial sections acquired from the foramen magnum to the vertex, with coronal reformats. For radiation dose reduction, the following was used: automated exposure control, adjustment of mA and/or kV according to patient size. COMPARISON: None. FINDINGS: Image quality: Excellent. CSF spaces: Basal cisterns are patent. No extra-axial fluid collections. Ventricles are normal in size and shape. Brain: No midline shift. No intracranial masses or hemorrhage. Hodge-white matter interface is normal. Skull and face: Calvarium and visualized facial bones are intact, without suspicious lesions. Sinuses: Visualized sinuses and mastoids are clear. IMPRESSION: No contraindication to tPA administration. This information was called to the emergency room staff caring for the patient, at 8: 25 in the evening. This study fulfills neurological imaging criteria for inclusion or exclusion of acute stroke therapies based on available published neurological imaging guidelines. Dictated by: Umang Singh M.D. on 03/27/2020 at 20:30 Approved by: Umang Singh M.D. on 03/27/2020 at 20:30 ECG Data Interpretation: 2022: Sinus rhythm, rate 73, IL interval 162, QTC 420. No ST elevation or ST depression. T-wave inversion noted in V4. EKG also viewed by Dr. Donahue per protocol. MDM Narrative Medical decision making narrative: 54-year-old female presents emergency department with numbness and tingling and right arm weakness that started at 1630. Code stroke initially called. CT a negative for any bleeding. Patient's symptoms started to resolve, NIH score of 0. Concern for TIA due to transient symptoms, numbness and tingling to arm, face, and leg with right arm weakness. However, other differential may include Parkinson's disease. However, pattern of numbness and tingling and numbness is concerning intake cannot be ruled out without further workup. Discussed findings with hospitalist. CTA not resulted at this time, patient was signed out to Dr. Donahue for further evaluation. <Gilson Donahue, DO - Last Filed: 03/28/20 02:05> Lab Data Labs: Lab Results 03/27/20 03/27/20 03/27/20 Range/Units 20:05 20:05 20:05 WBC 9.2 (4.5-11.0) X10^3/uL RBC 4.62 (4.0-5.2) X10^6/uL Hgb 13.1 (12.0-16.0) g/dL Hct 39.5 (36-46) % MCV 85.5 (80-100) fL MCH 28.3 (26-34) PG MCHC 33.1 (30-36) % RDW 12.7 (11.6-14.8) % Plt Count 346 (150-400) X10^3/uL Neut % (Auto) 59.9 (50-75) % Lymph % (Auto) 31.6 (25-40) % [place] % (Auto) 6.1 (3-14) % Eos % (Auto) 1.4 L (2-4) % Baso % (Auto) 1.0 (0-2) % Neut # (Auto) 5500 (0737-9057) /uL Lymph # (Auto) 2900 (3583-9220) /uL [place] # (Auto) 600 (0-900) /uL Eos # (Auto) 100 (0-450) /uL Baso # (Auto) 100 (0-100) /uL PT 10.9 (10.1-12.7) SECONDS INR 1.0 (0.9-1.3) APTT 35 (26.4-36.2) SECONDS Sodium 131 L (137-145) mmol/L Potassium 3.6 (3.4-5.1) mmol/L Chloride 99 (98-107) mmol/L Carbon Dioxide 31 (22-32) mmol/L BUN 13 (7-17) mg/dL Creatinine 0.69 (0.52-1.04) mg/dL Estimated GFR > 60.0 (>60) mL/min BUN/Creatinine Ratio 18.8 (6-22) Glucose 104 H (70-100) mg/dL Hemoglobin A1c (4.0-6.0) % Calcium 8.9 (8.4-10.2) mg/dL Total Creatine Kinase (30-135) U/L CK-MB (CK-2) CK-MB (CK-2) Rel Index Troponin I (0.01-0.034) ng/mL 03/27/20 03/27/20 Range/Units 20:05 20:54 WBC (4.5-11.0) X10^3/uL RBC (4.0-5.2) X10^6/uL Hgb (12.0-16.0) g/dL Hct (36-46) % MCV (80-100) fL MCH (26-34) PG MCHC (30-36) % RDW (11.6-14.8) % Plt Count (150-400) X10^3/uL Neut % (Auto) (50-75) % Lymph % (Auto) (25-40) % [place] % (Auto) (3-14) % Eos % (Auto) (2-4) % Baso % (Auto) (0-2) % Neut # (Auto) (0985-4229) /uL Lymph # (Auto) (5400-9833) /uL [place] # (Auto) (0-900) /uL Eos # (Auto) (0-450) /uL Baso # (Auto) (0-100) /uL PT (10.1-12.7) SECONDS INR (0.9-1.3) APTT (26.4-36.2) SECONDS Sodium (137-145) mmol/L Potassium (3.4-5.1) mmol/L Chloride (98-107) mmol/L Carbon Dioxide (22-32) mmol/L BUN (7-17) mg/dL Creatinine (0.52-1.04) mg/dL Estimated GFR (>60) mL/min BUN/Creatinine Ratio (6-22) Glucose (70-100) mg/dL Hemoglobin A1c 5.5 (4.0-6.0) % Calcium (8.4-10.2) mg/dL Total Creatine Kinase 70 (30-135) U/L CK-MB (CK-2) TNP CK-MB (CK-2) Rel Index TNP Troponin I < 0.012 (0.01-0.034) ng/mL Imaging Data CT scan - head: Radiologist's Impression: 8 Gilson Donahue, DO Find Patient Imaging - Katie Ariza 54 F 1965 ACTIVITY DATE EXAM STATUS AUTHOR 03/27/20 20:02 Signed FranciscoUmang 03/27/20 19:[address] [address] [address] Scan Report Signed Patient: Katie Ariza GMR#: [id number] : 1965Acct:[id number] Age/Sex: 54 / FDate of Service: 03/27/20 Loc: ED Accession Number: [id number] Procedure: CT angio head and neck Ordering Provider: Stephanie Noriega PROCEDURE: CT ANGIO HEAD AND NECK INDICATIONS: R arm weakness TECHNIQUE: Pre-contrast 4.5 mm thick sections acquired from the foramen magnum to the vertex. After the administration of intravenous contrast, 1 mm thick sections acquired from the aortic arch through the [place] of [place]. Post-contrast 4.5 mm thick sections then re-acquired from the foramen magnum to the vertex. 3-dimensional rpmkfka-mjxrdoinl-mtfwswfotl (MIP) and/or volume rendering reformats were acquired of the central intracranial vasculature and neck separately. COMPARISON: None. FINDINGS: Image quality: Reduced by patient motion. BRAIN: CSF spaces: Ventricles are normal in size and shape. Basal cisterns are patent. No extra-axial fluid collections. Brain: No midline shift. No intracranial bleeds or masses. Hodge-white matter interface appears intact. Skull and face: Calvarium and facial bones appear intact, without suspicious lesions. Orbits appear normal. Sinuses: Sinuses and mastoids are clear. HEAD CT ANGIOGRAPHY: Anterior circulation: Intracranial internal carotid arteries are normal in size and flow. The flow within the paired anterior cerebral arteries is normal and symmetric. The flow within the middle cerebral arteries is normal and symmetric. The anterior communicating artery is seen. No aneurysms are seen. Posterior circulation: Visualized portions of the vertebral arteries demonstrate normal caliber, and join to form a normal appearing basilar artery. Flow within the posterior cerebral arteries is normal and symmetric. No aneurysms are seen. NECK CT ANGIOGRAPHY: Carotid system: The great vessels demonstrate a conventional anatomy as they arise from the aortic arch. The origins of the common carotid arteries appear patent. The common carotid arteries demonstrate normal caliber and courses. The bifurcation regions are both widely patent. The internal carotid arteries demonstrate normal calibers and courses. Posterior circulation: The origins of the vertebral arteries both appear widely patent. The more superior extracranial portions of both vertebral arteries also demonstrate normal courses and calibers. They join to form a normal appearing basilar artery. Soft tissues: Visualized neck soft tissues demonstrate no suspicious abnormalities. Bones: No suspicious bony lesions. Visualized cervical spine appears normally aligned. IMPRESSION: No acute disease, no area of significant atherosclerotic stenosis. A definite source of current symptomatology is not found. Any quantitative measurements of stenosis were performed using NASCET criteria. Dictated by: Umang Singh M.D. on 03/27/2020 at 21:33 Approved by: Umang Singh M.D. on 03/27/2020 at 21:35 CTA Head/Neck: Radiologist's Impression: Katie Ariza 54 F [address] [address] [address] Scan Report Signed Patient: Katie Ariza GMR#: [id number] : 1965Acct:[id number] Age/Sex: 54 / FDate of Service: 03/27/20 Loc: ED Accession Number: [id number] Procedure: CT angio head and neck Ordering Provider: Stephanie Noriega PROCEDURE: CT ANGIO HEAD AND NECK INDICATIONS: R arm weakness TECHNIQUE: Pre-contrast 4.5 mm thick sections acquired from the foramen magnum to the vertex. After the administration of intravenous contrast, 1 mm thick sections acquired from the aortic arch through the [place] of [place]. Post-contrast 4.5 mm thick sections then re-acquired from the foramen magnum to the vertex. 3-dimensional fcjhsff-vhcpmizjg-gngfzrvdnl (MIP) and/or volume rendering reformats were acquired of the central intracranial vasculature and neck separately. COMPARISON: None. FINDINGS: Image quality: Reduced by patient motion. BRAIN: CSF spaces: Ventricles are normal in size and shape. Basal cisterns are patent. No extra-axial fluid collections. Brain: No midline shift. No intracranial bleeds or masses. Hodge-white matter interface appears intact. Skull and face: Calvarium and facial bones appear intact, without suspicious lesions. Orbits appear normal. Sinuses: Sinuses and mastoids are clear. HEAD CT ANGIOGRAPHY: Anterior circulation: Intracranial internal carotid arteries are normal in size and flow. The flow within the paired anterior cerebral arteries is normal and symmetric. The flow within the middle cerebral arteries is normal and symmetric. The anterior communicating artery is seen. No aneurysms are seen. Posterior circulation: Visualized portions of the vertebral arteries demonstrate normal caliber, and join to form a normal appearing basilar artery. Flow within the posterior cerebral arteries is normal and symmetric. No aneurysms are seen. NECK CT ANGIOGRAPHY: Carotid system: The great vessels demonstrate a conventional anatomy as they arise from the aortic arch. The origins of the common carotid arteries appear patent. The common carotid arteries demonstrate normal caliber and courses. The bifurcation regions are both widely patent. The internal carotid arteries demonstrate normal calibers and courses. Posterior circulation: The origins of the vertebral arteries both appear widely patent. The more superior extracranial portions of both vertebral arteries also demonstrate normal courses and calibers. They join to form a normal appearing basilar artery. Soft tissues: Visualized neck soft tissues demonstrate no suspicious abnormalities. Bones: No suspicious bony lesions. Visualized cervical spine appears normally aligned. IMPRESSION: No acute disease, no area of significant atherosclerotic stenosis. A definite source of current symptomatology is not found. Any quantitative measurements of stenosis were performed using NASCET criteria. Dictated by: Umang Singh M.D. on 03/27/2020 at 21:33 Approved by: Umang Singh M.D. on 03/27/2020 at 21:35 Discharge Plan Departure Patient Disposition: Admitted as Observation Clinical Impression: Brain TIA Discharge Date/Time: 03/27/20 22:36 Admit Date/Time: 03/27/20 21:49 Admit Provider: Natalee Claros
[2020-03-27 20:21] LABS: Add Manual Diff / Slide Review NO; Basophils Absolute Auto 100 /uL (0-100); Eosinophils Absolute Auto 100 /uL (0-450); Eosinophils Percent Auto 1.4 % (2-4); Hematocrit 39.5 % (36-46); Hemoglobin 13.1 g/dL (12.0-16.0); Lymphocytes Absolute Auto 2900 /uL (1100-4500); Lymphocytes Percent Auto 31.6 % (25-40); Mean Corpuscular HGB Conc 33.1 % (30-36); Mean Corpuscular Hemoglobin 28.3 PG (26-34); Mean Corpuscular Volume 85.5 fL (80-100); Monocytes Absolute Auto 600 /uL (0-900); Monocytes Percent Auto 6.1 % (3-14); Neutrophils Absolute Auto 5500 /uL (1500-7000); Neutrophils Percent Auto 59.9 % (50-75); Platelet Count 346 X10^3/uL (150-400); Red Blood Cell Count 4.62 X10^6/uL (4.0-5.2); Red Cell Distribution Width 12.7 % (11.6-14.8); White Blood Cell Count 9.2 X10^3/uL (4.5-11.0)
[2020-03-27] MEDS: SODIUM CHLORIDE 0.9% 1,000 ML 150 ML IV (20:26)
[2020-03-27 20:38] LABS: Prothrombin Time 10.9 SECONDS (10.1-12.7)
[2020-03-27 20:40] LABS: PTT Partial Thromboplastin Tim 35 SECONDS (26.4-36.2)
[2020-03-27 20:45] LABS: BUN Creatinine Ratio 18.8 (6-22); Blood Urea Nitrogen 13 mg/dL (7-17); Calcium 8.9 mg/dL (8.4-10.2); Carbon Dioxide 31 mmol/L (22-32); Chloride 99 mmol/L (98-107); Estimated Glomerular Filt Rate > 60.0 mL/min (>60); Glucose 104 mg/dL (70-100); HEMOLYSIS < 15 (0-50); Potassium 3.6 mmol/L (3.4-5.1); Sodium 131 mmol/L (137-145)
[2020-03-27 21:22] LABS: Creatine Kinase 70 U/L (30-135)
[2020-03-27 21:35] LABS: Troponin I < 0.012 ng/mL (0.01-0.034)
[2020-03-27 22:25] LABS: COVID19 -Nasal RAPID Negative (Negative)
--- NOTE | 2020-03-27 22:33 | PC.NURSE ---
Pt requesting to talk to someone, offered amusement or recreation card checker, pt accepted. Called onccharlotte gomez and states will be here in about next 20 minutes.
--- NOTE | 2020-03-27 23:08 | PC.ADMIT ---
[email or web address] Admission Note: The patient,Katie Ariza,54 y/o, was given written information regarding hospital policies, unit procedures and contact persons. Patient's smoking status: Never smoker. Pt arrived from ED via stretcher. A/O. Oriented to room and call system. Team Assembly Line Machine Operator called in per pt request. Hospitalist in for rounding. Pt verbalized she will call for needs. Vital Signs - 8 hr 03/27/20 19:55 03/27/20 20:21 03/27/20 20:30 Temperature 98.2 F Pulse Rate 78 64 74 Respiratory Rate 15 21 Blood Pressure 135/68 Pulse Oximetry 100 84 L 99 03/27/20 21:30 03/27/20 22:00 03/27/20 22:25 Temperature 99.2 F Pulse Rate 91 H 93 H 91 H Respiratory Rate 21 27 H 17 Blood Pressure 150/92 H Pulse Oximetry 100 99 99 03/27/20 22:49 Temperature 99.2 F Pulse Rate 91 H Respiratory Rate 17 Blood Pressure 150/92 H Pulse Oximetry 99
--- NOTE | 2020-03-27 23:39 | P.HP_ITS ---
History of Present Illness History of Present Illness Date Patient Seen: 03/27/20 Time Patient Seen: 21:45 Chief complaint: right arm pain and numbness Narrative: Katie Ariza is a pleasant 54-year-old female with a history of having Parkinson's disease diagnosed in 2010 with a strong family history, presented to the emergency department with ?weird and progressive neurological symptoms mainly numbing of the carpal aspect of her right wrist extending up into her arm and shoulder and then feeling numbness on her skin and face followed by weakness in her right leg. She states the weakness is slowly resolving but numbness and tingling remains. With her Parkinson's she does state that she has a crampy sensation in her chest as well as her feet where she feels like her toes are bending down words and has been having tremoring problems with the right leg. She also states that she has dark spots on her legs that she was diagnosed with a dermatitis. She states that sometimes hard to speak that she does have a stutter, and occasional word-finding problems. She states that she has a lot of anxiety and depression and there been a lot a tensions between her and her . The last time she was in the emergency room she actually had ask for nursing to request that her leave the premises because she was having a panic attack and and that he was making it worse for her. She denies any issues with physical abuse but does state that her is either happy or angry but nothing in between and seems to not have a lot of patients with her symptomology. Patient denies any other symptoms such as chest pain, shortness of breath, fevers, chills, nausea, vomiting, diarrhea, abdominal pain, cough, or any other concerns. Patient denies taking any new medications, denies any trauma to the area. Patient denies taking any blood thinners, states she took a full aspirin a few hours ago. Patient sees Dr. Rachna Pederson at [facility] who is a neurologist that specializes in movement disorders. She was seen recently for similar neurological symptoms and was attributed to missing a dose of her Parkinson's disease medications the night before. Today she states she has been taking her Parkinson's medication as prescribed, denies any missed doses or increased dosages. CT of the head and CTA of the head and neck were both negative. NIH score was 0. The patient is more minimally febrile at 99.2, blood pressure 150/92, heart rate 91, respiratory rate 17, oxygen saturation 99% on room air, she weighs 63.5 kg with a BMI of 22.6. CBC is largely within normal limits, sodium is 131 and glucose is 104 however her hemoglobin A1c is 5.5. Troponin was negative at approximately 2100 and will not be trended. She is COVID-19 negative. Patient History Medical History Abnormal Pap smear of cervix (Resolved) Alcohol use disorder (Acute) Anxiety (Acute ~2010) Carpal tunnel syndrome (Chronic) Carpal tunnel syndrome on both sides (Acute ~2007) Cervical cancer (Resolved 2007) Chicken pox (Resolved 1969) Chronic insomnia (Chronic 06/12/14) Colitis (Resolved 2003) Depression (Chronic) Eczema (Chronic) Family history of autoimmune disorder (Acute) Foot pain (Chronic 2014) Gastric ulcer (Resolved 1983) GERD (gastroesophageal reflux disease) (Acute) Hayfever (Chronic) Herpes (Chronic) HPV (human papilloma virus) infection (Resolved) Hyperlipidemia (Chronic) Hypertension (Chronic) Hypothyroidism (Chronic 2014) 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 Grandfather Parkinson's disease Grandmother No problems noted. Sister No problems noted. Sister No problems noted. Social History: household members spouse Prior Living Arrangements House lives independently Yes caregiver/support person No Safety & Behavioral: Feels Safe in Current Yes Environment Been Physically Hurt or No Threatened By a Person Suicidal Ideation Description None Tobacco & Substance use: Smoking Status Never smoker alcohol intake former alcohol intake frequency other Substance Use Type does not use Meds Home Medications and Allergies Home Medications Medication Instructions Recorded Confirmed Type Vitamin D3 1 tab PO DAILY 07/26/18 03/12/20 History multivitamin 1 tab PO DAILY 07/26/18 03/12/20 History ropinirole 6 mg PO BEDTIME 07/26/18 03/12/20 History vitamin B complex 1 tab PO DAILY 07/26/18 03/12/20 History carbidopa 25 mg-levodopa 100 mg 1 - 1.5 tab PO Q3H tab 02/06/19 03/12/20 History tablet ibuprofen 200 mg tablet 400 - 600 mg PO Q6H PRN tab 02/06/19 03/12/20 History amantadine HCl 100 mg capsule 100 mg PO BID 03/28/19 03/12/20 History estradiol 10 mcg vaginal tablet 10 mcg VAG DAILY 14 Days #30 tab 04/11/19 03/12/20 Rx c theanine 100mg See Rx Instructions .ROUTE .COMPLEX 09/19/19 03/12/20 History magnesium oxide 500 mg tablet 500 mg PO DAILY 09/19/19 03/12/20 History clonazepam 1 mg tablet 0.5 - 1 mg PO BEDTIME #30 tab 11/21/19 03/12/20 Rx levothyroxine 75 mcg tablet 75 mcg PO DAILY #90 tab 12/10/19 03/12/20 Rx rasagiline 1 mg tablet See Rx Instructions PO DAILY 12/10/19 03/12/20 History aspirin 81 mg tablet,delayed 81 mg PO DAILY 03/12/20 03/12/20 History release sertraline 50 mg tablet 100 mg PO DAILY #180 tab 03/15/20 Rx baclofen 5 mg tablet See Rx Instructions PO BEDTIME #30 03/26/20 Rx tab Allergies Allergy/AdvReac Type Severity Reaction Status Date / Time No Known Drug Allergies Allergy Verified 03/12/20 10:11 Review of Systems Review of Systems ROS: Yes All systems reviewed with the patient and are negative except as otherwise documented Exam Vital Signs (past 8 hours): - 03/27/20 19:55 03/27/20 20:21 03/27/20 20:30 Temperature 98.2 F Pulse Rate 78 64 74 Respiratory Rate 15 21 Blood Pressure 135/68 Pulse Oximetry 100 84 L 99 03/27/20 21:30 03/27/20 22:00 03/27/20 22:25 Temperature 99.2 F Pulse Rate 91 H 93 H 91 H Respiratory Rate 21 27 H 17 Blood Pressure 150/92 H Pulse Oximetry 100 99 99 03/27/20 22:49 Temperature 99.2 F Pulse Rate 91 H Respiratory Rate 17 Blood Pressure 150/92 H Pulse Oximetry 99 Oxygen Delivery Method Room Air Narrative Exam Narrative: Alert, oriented, well-developed and healthy appearing 54 y.o. female, mildly anxious and labile HEENT: normocephalic, atraumatic, conjunctiva clear, sclera non-icteric, oral mucosa pink and moist Neck: supple, full ROM, no JVD, trachea is midline Resp: Lungs CTA, non-labored breathing CV: RRR, no murmur or rubs Abd: soft, non-tender, normoactive BTs Skin: no lesions or rashes, dry and intact Neuro: CN 2 through 11 are intact and bilateral. Alert and oriented X 4 w/no focal deficits. Speech clear and coherent. Extremities: moves all 4 extremities, is ambulatory, negative Nahomy?s sign Psyche: Pleasant, normal mood and affect. Objective Labs Result Diagrams: 03/27/20 20:05 03/27/20 20:05 Labs: Laboratory Results - last 24 hr 03/27/20 03/27/20 03/27/20 20:05 20:05 20:05 WBC 9.2 RBC 4.62 Hgb 13.1 Hct 39.5 MCV 85.5 MCH 28.3 MCHC 33.1 RDW 12.7 Plt Count 346 Neut % (Auto) 59.9 Lymph % (Auto) 31.6 [place] % (Auto) 6.1 Eos % (Auto) 1.4 L Baso % (Auto) 1.0 Neut # (Auto) 5500 Lymph # (Auto) 2900 [place] # (Auto) 600 Eos # (Auto) 100 Baso # (Auto) 100 PT 10.9 INR 1.0 APTT 35 Sodium 131 L Potassium 3.6 Chloride 99 Carbon Dioxide 31 BUN 13 Creatinine 0.69 Estimated GFR > 60.0 BUN/Creatinine Ratio 18.8 Glucose 104 H Calcium 8.9 Total Creatine Kinase CK-MB (CK-2) CK-MB (CK-2) Rel Index Troponin I COVID-19 PCR 03/27/20 03/27/20 20:54 22:05 WBC RBC Hgb Hct MCV MCH MCHC RDW Plt Count Neut % (Auto) Lymph % (Auto) [place] % (Auto) Eos % (Auto) Baso % (Auto) Neut # (Auto) Lymph # (Auto) [place] # (Auto) Eos # (Auto) Baso # (Auto) PT INR APTT Sodium Potassium Chloride Carbon Dioxide BUN Creatinine Estimated GFR BUN/Creatinine Ratio Glucose Calcium Total Creatine Kinase 70 CK-MB (CK-2) TNP CK-MB (CK-2) Rel Index TNP Troponin I < 0.012 COVID-19 PCR Negative Assessment & Plan Assessment & Plan narrative: Katie Ariza will be placed into observation overnight for further evaluation of a TIA versus CVA which I believe is a low probability. Suspected TIA versus stroke, acute, present on admission --initiate clopidogrel 75 mg p.o. daily and aspirin 81 mg p.o. daily -MR stroke -Complete Echo Hypertension, acute with a blood pressure of 150/92 and heart rate of 91, present on admission -Allow for permissive hypertension of 220/110 HR 60 to allow for brain perfusion HLD -Lipid panel pending -Atorvastatin 40 mg po at bedtime Risk stratification -Fasting lipid panel -A1c was 5.5% Parkinson's disease, chronic -continue home dose of carbidopa levodopa 25-100 mg 1 tab every 3 hours. This is taken as needed outpatient but we will schedule this dose. -continue home dose of rasagiline 0.5 mg p.o. at bedtime -Continue home dose of amantadine 100 mg p.o. b.i.d. Restless leg syndrome, chronic -continue home dose of ropinirole 2 mg, 3 tabs totaling 6 mg at bedtime VTE prophylaxis: Caprini risk score: 1 Enoxaparin 40 mg subQ daily Consults: none Patient is observation status as her stay is not likely to exceed 2 midnights. FEN: NS at 100 ml/hour, heart healthy diet, BMP and magnesium in the am. Dispo: Probable discharge home and suggest follow-up with her neurologist, Dr. Pederson. Code Status: Full code as discussed with patient COVID-19 COVID-19 status: Negative Result date/Date tested (Pos, Neg/Pending): 03/27/20
[2020-03-27 23:41] LABS: Hemoglobin A1C% w Est Avg Glu 5.5 % (4.0-6.0)
--- NOTE | 2020-03-28 | DI.MRI.S_ITS ---
PROCEDURE: MR STROKE Pre- and post-contrast brain MRI, non-contrast brain MR angiogram, pre- and postcontrast neck MR angiogram INDICATIONS: RIGHT SIDED NUMBNESS TECHNIQUE: Brain: Noncontrast axial T1 spin echo, axial T2 fast spin echo, sagittal and axial FLAIR, coronal T2 fast spin echo, axial gradient echo, axial diffusion and ADC through the brain. After the administration of contrast, axial 3D VIBE of the cranial vasculature and brain. Brain MRA: Non-contrast 3-D time of flight MR angiogram, with multiple nvstmpr-qlvynjvjh-koymevqoaj (MIP) reformats performed. Neck MRA: Axial and sagittal TruFISP through the neck. Coronal dynamic MR angiogram during administration of contrast in the arterial and venous phases, with 3-dimenstional pqhvfac-zioznirkk-twcspffzzm (MIP) reformats constructed from subtraction images. COMPARISON: [facility], CT, CT ANGIO HEAD AND NECK, 03/27/2020, 20:10. [facility], CT, CT STROKE, 03/27/2020, 20:00. FINDINGS: Image quality: Excellent. BRAIN: CSF spaces: Ventricles are normal in size and shape. Basal cisterns are patent. No extra-axial fluid collections. Brain: No intracranial bleeds or mass effects. Hodge-white matter interface is normal. Diffusion weighted images show no acute ischemic insults. Brain parenchymal volume loss is seen. Brainstem appears normal. Normal intravascular flow voids are present. No abnormal intracranial enhancement. Skull and face: Calvarial marrow signal is normal. Orbits appear normal. Sinuses: Sinuses and mastoids are clear. BRAIN MR ANGIOGRAM: Anterior circulation: Intracranial internal carotid arteries are normal in size and enhancement. The flow within the paired anterior cerebral arteries is normal and symmetric. The flow within the middle cerebral arteries is normal and symmetric. The anterior communicating artery is seen. No stenoses, occlusions, or aneurysms. Posterior circulation: There is signal dropout seen within the right V4 segment. However, this area appears normal on the accompanying contrast enhanced angiogram of the neck. There is a normal appearing basilar artery. There is a prominent left posterior communicating artery seen, with an accompanying diminutive left P1 segment. This is attributed to a type origin of the left posterior cerebral artery, which is considered to be a normal developmental variant of typically no clinical consequence. The flow within the posterior cerebral arteries is normal and symmetric. No definite stenoses, occlusions, or aneurysms. NECK MR ANGIOGRAM: Carotids: Great vessels demonstrate a conventional anatomy as they arise from the aortic arch. The origins of the common carotid arteries appear patent. The calibers and courses of both common carotid arteries are normal. The bifurcation regions appear normal bilaterally. The internal carotid arteries demonstrate normal caliber. There is prominent tortuosity seen of the right internal carotid artery. Posterior circulation: The origins of the vertebral arteries appear patent. More superior portions of both vertebral arteries demonstrate normal course and caliber, and join to form a normal appearing basilar artery. Miscellaneous: Subclavian arteries appear patent. Pre-contrast images through the neck show no soft tissue abnormalities. IMPRESSION: BRAIN MRI: No findings of acute or subacute infarction can be seen. Brain parenchymal volume loss is seen, which is more prominent than would be expected for a patient of this age. Please correlate with patient history for potential causes, including toxic exposures, including ethanol. No masses or abnormal enhancement can be seen. BRAIN MR ANGIOGRAM: No significant intracranial arterial abnormality is seen. NECK MR ANGIOGRAM: Within the arteries of the neck, no hemodynamically significant stenosis can be seen. Prominent tortuosity is noted of the right internal carotid artery. Dictated by: Armando Castillo M.D. on 03/28/2020 at 12:09 Approved by: Armando Castillo M.D. on 03/28/2020 at 12:13
[2020-03-28] MEDS: SODIUM CHLORIDE 0.9% 1,000 ML 100 ML IV (00:32)
[2020-03-28] MEDS: ATORVASTATIN 20 MG TABLET 40 MG PO (00:32)
[2020-03-28] MEDS: clonazePAM 0.5 MG TABLET 1.5 MG PO (01:40)
[2020-03-28] MEDS: ROPINIROLE 1 MG TABLET 6 MG PO (02:32)
[2020-03-28] MEDS: CARBIDOPA-LEVODOPA 25/100 TABLET 1 EACH PO ×4 (02:35→13:41)
[2020-03-28 04:37] VITALS: BP 101/63; PULSE 74; RESP 16; TEMP 36.1; O2SAT 100
--- NOTE | 2020-03-28 05:44 | PC.NURSE ---
Assumed care of patient at 0300, patient is resting in bed. Up to restroom, SBA. Voiding without difficulty. Patient denies numbness in extremities, no difficulty with speech. A/Ox4. Denies SOB, chest pain or dizziness. IV patent, intact, NS @100cc/hr. Calf SCD's on bilaterally. Patient back to bed, alarm on. Denies further needs at this time.
[2020-03-28 06:06] LABS: Add Manual Diff / Slide Review NO; Basophils Absolute Auto 0 /uL (0-100); Basophils Percent Auto 0.5 % (0-2); Eosinophils Absolute Auto 100 /uL (0-450); Eosinophils Percent Auto 1.2 % (2-4); Hematocrit 35.2 % (36-46); Hemoglobin 11.8 g/dL (12.0-16.0); Lymphocytes Absolute Auto 1900 /uL (1100-4500); Lymphocytes Percent Auto 28.1 % (25-40); Mean Corpuscular HGB Conc 33.5 % (30-36); Mean Corpuscular Hemoglobin 28.6 PG (26-34); Mean Corpuscular Volume 85.4 fL (80-100); Monocytes Absolute Auto 400 /uL (0-900); Monocytes Percent Auto 6.5 % (3-14); Neutrophils Absolute Auto 4300 /uL (1500-7000); Neutrophils Percent Auto 63.7 % (50-75); Platelet Count 276 X10^3/uL (150-400); Red Blood Cell Count 4.12 X10^6/uL (4.0-5.2); Red Cell Distribution Width 12.7 % (11.6-14.8); White Blood Cell Count 6.8 X10^3/uL (4.5-11.0)
[2020-03-28 06:10] LABS: BUN Creatinine Ratio 14.5 (6-22); Blood Urea Nitrogen 9 mg/dL (7-17); Calcium 8.3 mg/dL (8.4-10.2); Carbon Dioxide 29 mmol/L (22-32); Chloride 103 mmol/L (98-107); Estimated Glomerular Filt Rate > 60.0 mL/min (>60); Glucose 95 mg/dL (70-100); HEMOLYSIS < 15 (0-50); Magnesium 2.1 mg/dL (1.6-2.3); Potassium 3.8 mmol/L (3.4-5.1); Sodium 132 mmol/L (137-145)
[2020-03-28 06:21] LABS: Troponin I < 0.012 ng/mL (0.01-0.034)
[2020-03-28] MEDS: LEVOTHYROXINE 75 MCG TABLET PO (06:23)
[2020-03-28 06:40] LABS: Thyroid Stimulating Hormone 1.53 uIU/mL (0.47-4.68)
[2020-03-28 07:41] VITALS: BP 109/69; PULSE 69; RESP 16; TEMP 36.3; O2SAT 100
[2020-03-28 08:27] LABS: UR Morphine/Opiate cutoff 300 Negative (Negative); Ur Creatinine Normal (Normal); Ur Specific Gravity Normal (Normal); Urine Amphetamines Negative (Negative); Urine Barbiturates Negative (Negative); Urine Benzodiazepines Negative (Negative); Urine Cocaine Negative (Negative); Urine MDMA Negative (Negative); Urine Methadone Negative (Negative); Urine Methamphetamines Negative (Negative); Urine Oxycodone Negative (Negative); Urine Phencyclidine Negative (Negative); Urine Tetrahydrocannabinol Negative (Negative); Urine Tricyclic Antidepressant Negative (Negative); Urine pH Normal (Normal)
[2020-03-28] MEDS: ASPIRIN EC 81 MG TABLET PO ×2 (09:45→09:57)
[2020-03-28] MEDS: ENOXAPARIN 40 MG/0.4 ML SYRINGE SUBCUT (09:56)
[2020-03-28] MEDS: AMANTADINE 100 MG CAPSULE PO (09:57)
[2020-03-28] MEDS: CLOPIDOGREL 75 MG TABLET PO (09:57)
[2020-03-28] MEDS: SERTRALINE 50 MG TABLET 100 MG PO (09:58)
--- NOTE | 2020-03-28 11:00 | PT.IIE ---
Surgical History (Last Reviewed 03/27/20 @ 23:48 by ZOFIA Lizama) Anesthesia (Resolved) History of carpal tunnel release (Acute) Status post vaginal hysterectomy (Resolved 04/05/09) Medical History (Last Reviewed 03/27/20 @ 23:48 by ZOFIA Lizama) Abnormal Pap smear of cervix (Resolved) Alcohol use disorder (Acute) Anxiety (Acute ~2010) Carpal tunnel syndrome (Chronic) Carpal tunnel syndrome on both sides (Acute ~2007) Cervical cancer (Resolved 2007) Chicken pox (Resolved 1969) Chronic insomnia (Chronic 06/12/14) Colitis (Resolved 2003) Depression (Chronic) Eczema (Chronic) Family history of autoimmune disorder (Acute) Foot pain (Chronic 2014) Gastric ulcer (Resolved 1983) GERD (gastroesophageal reflux disease) (Acute) Hayfever (Chronic) Herpes (Chronic) HPV (human papilloma virus) infection (Resolved) Hyperlipidemia (Chronic) Hypertension (Chronic) Hypothyroidism (Chronic 2014) 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 Mobility and Gait Pt reports independent but cautious mobility. She has early onset Parkinson's disease (diagnosed in 2010) and deals with dystonia of bilateral feet and ankles which cause her feet to excessively supinate during ambulation. She has been through one round of BIG physical therapy at this hospital but she found it discouraging because she felt it brought new impairments into focus. Activities of Daily Living and IADL's Pt remains independent with ADL's except for use of shower stool. She notes increased difficulty depending on effectiveness of carbidopa/ levodopa. Prior Functional Level (Other details) Pt reports falls at a rate of <once/year. Last fall she can remember occured when she attempted to sit on a stool but misjudged the distance. She denies injurious falls. Social History Household Members spouse Living Arrangements House Number of Floors (Floors) One Floor Number of Stairs To Enter/Railing? 2 LUKE with B rails Home Environment Standard Height Toilet,Walk in Shower Home Equipment Shower Seat without Backrest, Hand Held Shower Employment Status Self-Employed Additional Social History Comment Pt lives with her in [place]. 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 M2 PT-IP Current Condition Start: 03/28/20 09:12 Freq: NEEDED Status: Active Protocol: Document 03/28/20 10:35 AW (Rec: 03/28/20 11:00 AW [id number]) Physical Therapy Current Condition Current Condition Evaluation Date 03/28/20 Treatment Diagnosis possible TIA; PD; difficulty in walking Onset Date 03/27/20 M3 PT-IP Subjective Start: 03/28/20 09:12 Freq: NEEDED Status: Active Protocol: Document 03/28/20 10:35 AW (Rec: 03/28/20 11:00 AW [id number]) Subjective Physical Therapy Visit Type Type Initial Evaluation Visit Start Time 09:59 Visit Stop Time 10:26 Total Visit Minutes 27 Physical Therapy Visit Comments Patient Comments Pt is willing to participate with PT Patient Goals To improve functional mobility Therapy Pain Assessment Pain When Pain Assessed During Mobility Pain Present Pain Present Denied Pain M4 PT-IP Mobility and Gait Start: 03/28/20 09:12 Freq: NEEDED Status: Active Protocol: Document 03/28/20 10:35 AW (Rec: 03/28/20 11:00 AW [id number]) PT-Transfer Assessment Sit to and From Stand Sit to and from Stand Independent Equipment Transfer Assistive Device Gait Belt Transfers Transfer Destination Chair,Toilet Transfer Technique pt ambulated IND Transfer Ability Level of Assist Independent Comments Mobility Comments Pt was in the chair as PT arrived and nursing was finishing assessment. Pt stood from the chair, participated in static balance assessment, and then ambulated in the halls without any need for assist. On return to the room, pt requested to use the toilet. She transferred to and from without assist and then transferred back to the chair. PT inquired about assessing bed mobility but pt declined. Pt was positioned on the chair with call light and all needs in reach. Gait Assessment Gait Gait Assistance Required: Standby Assistance Distance (Feet) 250 Assistive Devices Assistive Device Gait Belt Orthotic/Prosthetic Devices or Brace: No Gait Deviations General Gait Pattern Decreased Stride Length, Decreased Feet Clearance, Flexed Trunk,Narrow Based Gait Factors Limiting Gait Function Factors Limiting Gait Function Abnormal Tonal Influences, Limited Range of Motion,Poor Balance Comments Gait Comments Pt ambulated in the halls with SBA for IV pole management. With increased distance, pt reported increased supination of bilateral feet due to dystonia. Pt was able to counteract the tone with intentional heelstrike at initial contact. Pt completed 4-item Dynamic Gait Index with score of 11/12 (single point deducted for sluggish response to cues for increased speed). Stair Climbing Assessment Evaluation Level of Assist On Stairs Independent Devices Stair Climbing Assistive Devices Left Railing,Right Railing Technique/Endurance Stair Climbing Direction Ascend and Descend Stair Climbing Technique Step Over Step Number of Steps Climbed 3 Query Text: Stair Climbing Set # Repetitions (reps) 1 Comments Stair Climbing Comments Pt used bilateral rails as she would at home PT-Balance Assessment Sitting Balance and Reactions Static Sitting Balance Ability Normal Dynamic Sitting Balance Ability Normal Standing Balance and Reactions Static Standing Balance Ability Good Dynamic Standing Balance Ability Good Device Used no AD Balance Tests Romberg WNL Tandem Standing WNL Functional Assessments Functional Tests Dynamic Gait Index 4-item DGI: 11/12 M5 PT-IP Objective Assessments Start: 03/28/20 09:12 Freq: NEEDED Status: Active Protocol: Document 03/28/20 10:35 AW (Rec: 03/28/20 11:00 AW [id number]) Orientation Orientation/Cognition Level of Alertness Alert Orientation Name,Day of Week,Place, Situation Language Function Ability No Deficits Noted Safety Awareness Understands Safety Issues Memory Description No Deficits Noted Comments Pt was able to recall 3/3 words after 5 minutes of conversational distraction. Gross Range of Motion Upper Extremity ROM Assessment Within Functional Limits Lower Extremity ROM Assessment Within Functional Limits Strength Upper Extremity Strength Assessment Within Functional Limits Lower Extremity Strength Assessment Within Functional Limits Comments Strength Comments No unilateral deficit noted. Coordination Assessment Gross Coordination Gross Coordination WNL Assessment Finger to Nose Test Normal Performance Pronation/Supination Test Normal Performance Sensation Assessment Sensation Gross Sensation Right UE Impaired Light Touch Impaired Sensation Description Numbness,Tingling Comments Sensation Comments Pt reports chronic CTS in the RUE. Symptoms on exam were consistent with chronic symptoms with no evidence of impaired sensation outside of the distal median nerve distribution. Muscle Tone Muscle Tone WNL No Muscle Tone Location Bilateral Lower Extremity Type of Tone Hypertonicity Severity of Tone Moderate Comments Muscle Tone Comments Chronic dystonia of bilateral ankle inversion and plantar flexion causing excessive supination in gait. Other Assessments Other Other Assessments Occulomotor exam is grossly normal. No resting or gaze- evoked nystagmus was observed. M6 PT-IP Treatment Start: 03/28/20 09:12 Freq: NEEDED Status: Active Protocol: Document 03/28/20 10:35 AW (Rec: 03/28/20 11:00 AW [id number]) Physical Therapy Treatment Education Education Provided Safety Other Treatments Other Treatment Performed Pt was educated on signs and symptoms of CVA. She was able to teach back and verbalized understanding of need for immediate treatment. M7 PT-IP Assessment and Plan Start: 03/28/20 09:12 Freq: NEEDED Status: Active Protocol: Document 03/28/20 10:35 AW (Rec: 03/28/20 11:00 AW [id number]) PT Summary Assessment and Plan Summary Impairments Balance,Sensation,Gait Assessment Summary Katie is a 54 yo woman seen for PT evaluation after being admitted with TIA-like symptoms of RUE numbness and facial assymetry. She has history of Parkinson's disease . Pt is independent in all regards at baseline. On evaluation, she required SBA for gait only to manage the IV pole. TIA-like symptoms have resolved. She scored 11/12 on 4-item DGI indicating low risk of falls which is consistent with her history. Pt is safe to discharge to home environment when medically cleared. No acute PT needs are identified. Frequency of Treatment Frequency Of Treatment Discharge Recommendations To Nursing Amount of Assist Needed Independent Discharge Recommendations PT Discharge Recommendations Home Transportation Needs at Discharge Private Vehicle
[2020-03-28 11:29] VITALS: BP 126/76; PULSE 74; RESP 16; TEMP 36.9; O2SAT 100
--- NOTE | 2020-03-28 12:03 | DI.ECHO.S_ITS ---
Echocardiogram Report + + :Name: SUSAN AYALA Study Date: 03/28/2020 Height: 66 in : :[facility] Weight: 140 lb : : Gender: Female BSA: 1.7 m2 : :: 1965 Age: 54 yrs BP: 150/92 mmHg: :Reason For Study: TIA : :Ordering Physician: : :DMITRIY AVALOS Performed By: Guerda Rodriguez : :Referring: SARITHA ARREOLA : + + Interpretation Summary The left ventricle is normal in size and wall thickness. The ejection fraction is estimated to be 55-60%. There is no obvious LV thrombus. The right ventricle is normal in size and function. Injection of contrast documented no interatrial shunt. There is no Doppler evidence for an interatrial shunt. There is mild mitral regurgitation. The patient was in sinus rhythm with heart rates between 62-70 bpm during the exam. Procedure: The study quality was technically good. There is no prior echocardiogram noted for this patient. A two-dimensional transthoracic echocardiogram with color flow and Doppler was performed. The injection was performed through an intravenous line in the left arm. A saline contrast injection was performed to assess for cardiac shunting. The patient was in sinus rhythm with heart rates between 62-70 bpm during the exam. Left Ventricle: The left ventricle is normal in size and wall thickness. There is no thrombus. The ejection fraction is estimated to be 55-60%. There are no focal wall motion abnormalities. MV E/A: 1.1 Med Peak E' Deep: 9.6 cm/sec E/E' med: 10.1. Right Ventricle: The right ventricle is normal in size and function. Atria: Both atria are normal in size. There is no Doppler evidence for an interatrial shunt. Injection of contrast documented no interatrial shunt. Mitral Valve: The mitral valve is normal. Redundant elongated chordae are noted. There is mild mitral regurgitation. Aortic Valve: The aortic valve is trileaflet. The aortic valve opens well. There is no aortic valve stenosis. There is trace aortic regurgitation. Tricuspid Valve: The tricuspid valve is normal in structure and function. Pulmonary artery pressures cannot be estimated because of the lack of a measurable TR jet velocity but the IVC suggests a CVP of around 3 mmHg. There is trace tricuspid regurgitation. Pulmonic Valve: The pulmonic valve leaflets are thin and pliable; valve motion is normal. There is no pulmonic valvular regurgitation. Great Vessels: The aortic root is normal size. The dimensions of the ascending aorta are normal. The IVC is of normal diameter and collapses greater than 50% with a sniff. This suggests a low right atrial pressure of 3 mm Hg. Pericardium/ Pleura There is no pericardial effusion. There is no pleural effusion. MMode/2D Measurements & Calculations LVIDd: 5.1 cm LVOT diam: 2.0 cm LVIDs: 3.6 cm Ao root diam: 2.8 cm FS: 28.2 % asc Aorta Diam: 3.2 cm EPSS: 0.75 cm IVSd: 0.69 cm LVPWd: 0.77 cm LV stewart. diameter/BSA (cm/m^2): 3.0 LV sys. diameter/BSA (cm/m^2): 2.1 LA A2 area: 15.9 cm2 RA long axis: 4.6 cm LA A4 area: 15.2 cm2 RA area: 12.1 cm2 LA length (vol): 4.6 cm RA vol: 26.9 ml LA vol: 44.7 ml RA : 15.7 ml/m2 LA vol index: 26.0 ml/m2 IVC diam: 1.4 cm RVD1 (basal): 2.7 cm TAPSE: 2.3 cm Doppler Measurements & Calculations Ao V2 max: 126.1 cm/sec LVOT Max Deep: 86.4 cm/sec Ao V2 mean: 82.8 cm/sec LV V1 max P.0 mmHg Ao max P.4 mmHg LV V1 VTI: 20.9 cm Ao mean P.2 mmHg MADISON(I,D): 2.4 cm2 Ao V2 VTI: 27.9 cm MADISON(V,D): 2.2 cm2 sev ratio: 0.75 MADISON indexed to BSA (cm^2/m^2): 1.4 MV E max deep: 96.9 cm/sec PA pr(Accel): 13.9 mmHg MV A max deep: 91.9 cm/sec MV E/A: 1.1 Med Peak E' Deep: 9.6 cm/sec E/E' med: 10.1 Lat Peak E' Deep: 11.7 cm/sec E/E' lat: 8.3 E/e' average: 9.2 MV dec time: 0.20 sec SV(LVOT): 66.6 ml Reading Physician:02:06 PM
[2020-03-28 16:28] VITALS: BP 119/67; PULSE 71; RESP 17; TEMP 36.2; O2SAT 99
--- NOTE | 2020-03-28 16:48 | CM.DANOTE ---
Discharge Planning/Care Management DCP: assessment: case received and met with pt during Team Bedside Rounds. Dr. Marquez explained that pt may have had a CVA and workup was in process. A d/c order was in place with thought that pt would be fine for home after all tests were completed. PT Latonya did work with pt and cleared her form a mobility standpoint. A check in now shows pt is still here and waiting to hear about test results from Dr. Marquez. PCP: Tuan Ta Payer: Juan Whyte Admitted to hospitalist service last night. CM Discharge Assessment Start: 03/28/20 16:47 Freq: Status: Active Protocol: Document 03/28/20 16:47 ITV (Rec: 03/28/20 16:48 ITV [id number]) Discharge Planning Assessment Advance Directives? Yes History Provided By Patient Prior Living Arrangements House Household Members spouse Independent with ADL's Yes Is patient alert and oriented? Yes Review Status In Process
[2020-03-28 17:31] LABS: Cholesterol 220 mg/dL (140-199); HDL Cholesterol 66 mg/dL (40-60); LDL Cholesterol Calculated 141 mg/dL (<100); Triglycerides 66 mg/dL (35-150)
--- NOTE | 2020-03-28 17:35 | PC.NURSE ---
Pt awaiting discharge this afternoon. HL & tele D/C'd Home instructions given w/apparent understanding. Escorted to waiting vehicle by staff. D/C'd in stable condition.
--- NOTE | 2020-03-28 17:43 | P.DS_ITS ---
History of Present Illness History of Present Illness Date Patient Seen: 03/27/20 Chief complaint: right arm pain and numbness Narrative: Written by Natalee ARMIJO: Katie Ariza is a pleasant 54-year-old female with a history of having Parkinson's disease diagnosed in 2010 with a strong family history, presented to the emergency department with ?weird and progressive neurological symptoms mainly numbing of the carpal aspect of her right wrist extending up into her arm and shoulder and then feeling numbness on her skin and face followed by weakness in her right leg. She states the weakness is slowly resolving but numbness and tingling remains. With her Parkinson's she does state that she has a crampy sensation in her chest as well as her feet where she feels like her toes are bending down words and has been having tremoring problems with the right leg. She also states that she has dark spots on her legs that she was diagnosed with a dermatitis. She states that sometimes hard to speak that she does have a stutter, and occasional word-finding problems. She states that she has a lot of anxiety and depression and there been a lot a tensions between her and her . The last time she was in the emergency room she actually had ask for nursing to request that her leave the premises because she was having a panic attack and and that he was making it worse for her. She denies any issues with physical abuse but does state that her is either happy or angry but nothing in between and seems to not have a lot of patients with her symptomology. Patient denies any other symptoms such as chest pain, shortness of breath, fevers, chills, nausea, vomiting, diarrhea, abdominal pain, cough, or any other concerns. Patient denies taking any new medications, denies any trauma to the area. Patient denies taking any blood thinners, states she took a full aspirin a few hours ago. Patient sees Dr. Rachna Pederson at [facility] who is a neurologist that specializes in movement disorders. She was seen recently for similar neurological symptoms and was attributed to missing a dose of her Parkinson's disease medications the night before. Today she states she has been taking her Parkinson's medication as prescribed, denies any missed doses or increased dosages. CT of the head and CTA of the head and neck were both negative. NIH score was 0. The patient is more minimally febrile at 99.2, blood pressure 150/92, heart rate 91, respiratory rate 17, oxygen saturation 99% on room air, she weighs 63.5 kg with a BMI of 22.6. CBC is largely within normal limits, sodium is 131 and glucose is 104 however her hemoglobin A1c is 5.5. Troponin was negative at approximately 2100 and will not be trended. She is COVID-19 negative. Discharge Providers Provider Date of admission: 03/27/20 21:49 Discharge Date: 03/28/20 Primary care physician: Jeannie Ta DO Consults: 03/27/20 23:20 Consult to Occupational Therapy Evaluate & Treat Comment: Physician Instructions: Evaluate and treat Consult to Physical Therapy Evaluate & Treat Comment: Physician Instructions: Evaluate and Treat Discharge provider: Dayana Marquez DO Summary Hospital Course Discharge Diagnosis: 1. Acute TIA, present on admission. Resolved. 2. Hypertension, chronic, present on admission. Stable. 3. Hyperlipidemia, chronic, present on admission. Stable. 4. Parkinson's disease, chronic, present on admission. Stable. 5. Restless leg syndrome, chronic, present on admission. Stable. 6. Depression, chronic, present on admission. Stable. Hospital Course: Katie Ariza is a 54-year-old female with a past medical history significant for hypertension, hyperlipidemia, parkinson's disease diagnosed in 2010 with a strong family history who presented to the ED with progressive neurological symptoms of paresthesias in form of numbmess and tingling starting in right arm extending up into her shoulder, face then right leg with associated weakness. 1. Acute TIA, present on admission. Resolved. -Patient presented with progressive neurological symptoms of paresthesias in for m of numbmess and tingling starting in right arm extending up into her shoulder, face then right leg with associated weakness. Right leg weakness resolved prior to admission and right-sided paresthias slowly resolved. Differential: Parkinsons neurological sequalae. -NIH score 0. Continued frequent neurological checks. -CT brain without contras and CTA head and neck did not demonstrate any acute i ntracranial abnormalities. -MR stroke protocol did not demonstrate any findings of acute or subacute infarction. Brain parenchymal volume loss is seen, which is more prominent than would be expected for a patient of this age. No masses or abnormal enhancement can be seen. No significant intracranial or neck arterial abnormalities or hemodynamically significant stenosis present. Prominent tortuosity is noted of the right internal carotid artery. -EKG demonstrated normal sinus rhythm without acute ischemic changes. Continued to monitor on telemetry. -Echocardiogram did not demonstrate embolic source or intra-atrial shunt. LV is normal size, wall thickness and function with EF 55-60%, no obvious LV thrombus, no focal wall motion abnormalities, RV is normal size and function, no interatrial shunt, mild mitral regurgitation and no other significant valvular disease. -Continued home aspirin 81 mg daily and restarted and continued atorvastatin 40 mg daily at bedtime for stroke prophylaxis. -Risk stratified with hemoglobin A1C normal at 5.5% of and lipid panel which demonstrated poor lipid control with: Total cholesterol 220, Triglycerides 66, LDL 141 (goal < 100) and HDL 66. -Continued physical therapy evaluation and treatment. Patient discharged home without needs. 2. Hypertension, chronic, present on admission. Stable. -Patient is not medically treated but has history of hypertension in EMR. -Initial blood pressure 150/92. Allowed for permissive hypertension x 24 hours as above. BP slowly improved and remained normotensive throughout hospitalization. 3. Hyperlipidemia, chronic, present on admission. Stable. -Fasting lipid panel demonstrated poor lipid control as above. -Restarted atorvastatin 40 mg daily at bedtime (patient previously taking this medication but had been discontinued remotely due to controlled lipid levels). 4. Parkinson's disease, chronic, present on admission. Stable. -Continued home carbidopa-levodopa 25-100 mg 1 tab every 3 hours taken as needed outpatient but scheduled during hospitalization, rasagiline 0.5 mg daily at bedtime, and amantadine 100 mg twice daily. 5. Restless leg syndrome, chronic, present on admission. Stable. -Continued home dose of ropinirole 6 mg at bedtime. 6. Depression, chronic, present on admission. Stable. -Continued home sertraline 100 mg daily. Exam Vital Signs (past 8 hours): - 03/28/20 11:29 03/28/20 16:28 Temperature 98.5 F 97.2 F L Pulse Rate 74 71 Respiratory Rate 16 17 Blood Pressure 126/76 119/67 Pulse Oximetry 100 99 Oxygen Delivery Method Room Air Oxygen Flow Rate 0 Narrative Exam Narrative: General: Older female sitting in bedside chair and in no acute distress, well- developed, well-nourished, appropriately interactive. HEENT: Normocephalic, atraumatic. External ears without defect. Pupils equal, round, and reactive to light. Anicteric sclerae, moist conjunctivae, and no lid lag. Oropharynx free of erythema and cobble stoning with moist mucosa. Neck: Supple with full range of motion. No jugular venous distension. No bruits. No lymphadenopathy or thyromegaly. Cardiovascular: Regular rate and rhythm without murmurs, rubs, or gallops appreciated Pulmonary: Clear to auscultation bilaterally without crackles, wheezes, or rhonchi. Normal respiratory effort with no use of accessory muscles. Abdomen: Soft, bowel tones present, nontender, nondistended. No hepatosplenomegaly or masses appreciated. Extremities: No clubbing, cyanosis, or edema. Skin: Normal temperature, turgor, and texture; no rash, ulcers, or subcutaneous nodules appreciated. Neurological: Cranial nerves grossly intact. Subtle parkinsonian tremor. Mild cog wheel rigidity. Normal muscle strength, tone, and bulk. Reflexes, coordination, and sensory function within normal limits. Psychiatric: Normal mood and affect. Alert and oriented to person, place, and time. Objective Labs Result Diagrams: 03/28/20 05:25 03/28/20 05:25 Labs: Laboratory Results - last 24 hr 03/27/20 03/27/20 03/27/20 20:05 20:05 20:05 WBC 9.2 RBC 4.62 Hgb 13.1 Hct 39.5 MCV 85.5 MCH 28.3 MCHC 33.1 RDW 12.7 Plt Count 346 Neut % (Auto) 59.9 Lymph % (Auto) 31.6 [place] % (Auto) 6.1 Eos % (Auto) 1.4 L Baso % (Auto) 1.0 Neut # (Auto) 5500 Lymph # (Auto) 2900 [place] # (Auto) 600 Eos # (Auto) 100 Baso # (Auto) 100 PT 10.9 INR 1.0 APTT 35 Sodium 131 L Potassium 3.6 Chloride 99 Carbon Dioxide 31 BUN 13 Creatinine 0.69 Estimated GFR > 60.0 BUN/Creatinine Ratio 18.8 Glucose 104 H Hemoglobin A1c Calcium 8.9 Magnesium Total Creatine Kinase CK-MB (CK-2) CK-MB (CK-2) Rel Index Troponin I Triglycerides Cholesterol LDL Cholesterol, Calc HDL Cholesterol TSH U Opiates 300ng/mL cut Ur Oxycodone Screen Urine Methadone Screen Ur Barbiturates Screen U Tricyclic Antidepress Ur Phencyclidine Scrn Ur Amphetamines Screen U Methamphetamines Scrn Ur MDMA Scrn (Ecstasy) U Benzodiazepines Scrn Urine Cocaine Screen U Marijuana (THC) Screen COVID-19 PCR 03/27/20 03/27/20 03/27/20 20:05 20:54 22:05 WBC RBC Hgb Hct MCV MCH MCHC RDW Plt Count Neut % (Auto) Lymph % (Auto) [place] % (Auto) Eos % (Auto) Baso % (Auto) Neut # (Auto) Lymph # (Auto) [place] # (Auto) Eos # (Auto) Baso # (Auto) PT INR APTT Sodium Potassium Chloride Carbon Dioxide BUN Creatinine Estimated GFR BUN/Creatinine Ratio Glucose Hemoglobin A1c 5.5 Calcium Magnesium Total Creatine Kinase 70 CK-MB (CK-2) TNP CK-MB (CK-2) Rel Index TNP Troponin I < 0.012 Triglycerides Cholesterol LDL Cholesterol, Calc HDL Cholesterol TSH U Opiates 300ng/mL cut Ur Oxycodone Screen Urine Methadone Screen Ur Barbiturates Screen U Tricyclic Antidepress Ur Phencyclidine Scrn Ur Amphetamines Screen U Methamphetamines Scrn Ur MDMA Scrn (Ecstasy) U Benzodiazepines Scrn Urine Cocaine Screen U Marijuana (THC) Screen COVID-19 PCR Negative 03/28/20 03/28/20 03/28/20 05:25 05:25 05:25 WBC 6.8 RBC 4.12 Hgb 11.8 L Hct 35.2 L MCV 85.4 MCH 28.6 MCHC 33.5 RDW 12.7 Plt Count 276 Neut % (Auto) 63.7 Lymph % (Auto) 28.1 [place] % (Auto) 6.5 Eos % (Auto) 1.2 L Baso % (Auto) 0.5 Neut # (Auto) 4300 Lymph # (Auto) 1900 [place] # (Auto) 400 Eos # (Auto) 100 Baso # (Auto) 0 PT INR APTT Sodium 132 L Potassium 3.8 Chloride 103 Carbon Dioxide 29 BUN 9 Creatinine 0.62 Estimated GFR > 60.0 BUN/Creatinine Ratio 14.5 Glucose 95 Hemoglobin A1c Calcium 8.3 L Magnesium 2.1 Total Creatine Kinase CK-MB (CK-2) CK-MB (CK-2) Rel Index Troponin I < 0.012 Triglycerides Cholesterol LDL Cholesterol, Calc HDL Cholesterol TSH U Opiates 300ng/mL cut Ur Oxycodone Screen Urine Methadone Screen Ur Barbiturates Screen U Tricyclic Antidepress Ur Phencyclidine Scrn Ur Amphetamines Screen U Methamphetamines Scrn Ur MDMA Scrn (Ecstasy) U Benzodiazepines Scrn Urine Cocaine Screen U Marijuana (THC) Screen COVID-19 PCR 03/28/20 03/28/20 03/28/20 05:25 05:25 07:39 WBC RBC Hgb Hct MCV MCH MCHC RDW Plt Count Neut % (Auto) Lymph % (Auto) [place] % (Auto) Eos % (Auto) Baso % (Auto) Neut # (Auto) Lymph # (Auto) [place] # (Auto) Eos # (Auto) Baso # (Auto) PT INR APTT Sodium Potassium Chloride Carbon Dioxide BUN Creatinine Estimated GFR BUN/Creatinine Ratio Glucose Hemoglobin A1c Calcium Magnesium Total Creatine Kinase CK-MB (CK-2) CK-MB (CK-2) Rel Index Troponin I Triglycerides 66 Cholesterol 220 H LDL Cholesterol, Calc 141 H HDL Cholesterol 66 H TSH 1.53 U Opiates 300ng/mL cut Negative Ur Oxycodone Screen Negative Urine Methadone Screen Negative Ur Barbiturates Screen Negative U Tricyclic Antidepress Negative Ur Phencyclidine Scrn Negative Ur Amphetamines Screen Negative U Methamphetamines Scrn Negative Ur MDMA Scrn (Ecstasy) Negative U Benzodiazepines Scrn Negative Urine Cocaine Screen Negative U Marijuana (THC) Screen Negative COVID-19 PCR Discharge Plan Discharge Plan Patient Disposition: Home Discharge comment: You are being discharged home. You did not have a stroke. You likely had a TIA or mini stroke or neurological sequelae of your Parkinson's. Your blood pressure is well controlled. Your cholesterol levels are elevated. Please implement lifestyle modification including: Low-fat, low- carbohydrate diet and exercise including cardiovascular and weightlifting. Please continue your aspirin 81 mg daily and added atorvastatin 40 mg daily at bedtime to help prevent future stroke. Please follow-up with your primary care provider, Dr. Ta, in the next week regarding your hospitalization. Discharge orders & Medications Prescriptions: New atorvastatin 40 mg tablet 40 mg PO BEDTIME Qty: 30 RF: 0 Continued carbidopa-levodopa 25-100 mg tablet 1 - 1.5 tab PO Q3H RF: 0 clonazepam 1 mg tablet 0.5 - 1 mg PO BEDTIME Qty: 30 RF: 3 levothyroxine [Synthroid] 75 mcg tablet 75 mcg PO DAILY Qty: 90 RF: 3 sertraline 50 mg tablet 100 mg PO DAILY Qty: 180 RF: 0 baclofen 5 mg tablet See Rx Instructions PO BEDTIME Qty: 30 RF: 2 estradiol [Vagifem] 10 mcg tablet 10 mcg VAG DAILY 14 Days Qty: 30 RF: 6 c theanine 100mg See Rx Instructions .ROUTE .COMPLEX RF: 0 magnesium oxide 500 mg tablet 500 mg PO DAILY RF: 0 rasagiline 1 mg tablet See Rx Instructions PO DAILY RF: 0 aspirin [Adult Low Dose Aspirin] 81 mg tablet,delayed release (DR/EC) 81 mg PO DAILY RF: 0 amantadine HCl 100 mg capsule 100 mg PO BID RF: 0 ropinirole 2 mg Tablet Extended Release 24 Hr 6 mg PO BEDTIME RF: 0 multivitamin Tablet 1 tab PO DAILY RF: 0 vitamin B complex Tablet 1 tab PO DAILY RF: 0 Vitamin D3 1 tab PO DAILY RF: 0 ibuprofen 200 mg tablet 400 - 600 mg PO Q6H PRN (Reason: Pain (Scale Score 1-3)) RF: 0 Follow up/Referrals: Jeannie Ta DO [Primary Care Provider] - 1 Week Diet/Activity/Treatments Diet: Low-fat, Low-sodium and Low-cholesterol Activity: Activity as tolerated Visit Report/Discharge Packet Instructions: The Mediterranean Diet and Good Health, DI for Transient Ischemic Attack, Atorvastatin, Mediterranean Diet May Reduce the Risk of Stroke in People with High Risk o Visit Report Forms: Patient Portal/API, Stroke Signs & Symptoms Discharge Data Primary Care Provider: Jeannie Ta Attending Provider: Natalee Claros Admit Date/Time: 03/27/20 21:49 Discharges patient from system. Discharge Date/Time: 03/28/20 17:40
== END 2020-03-28 17:40 | disposition home or self-care (01) ==
LOC: ED 19:58 → AC 21:50
PROVIDERS: Internal Medicine; Admitting Provider Nurse Practitioner Family; Emergency Provider Nurse Practitioner; PCP Family Medicine; Referring Provider Emergency Medicine; Visit Provider Nurse Practitioner Family
DX: M79.631 Pain in right forearm (principal); R20.0 Anesthesia of skin; G20 Parkinson's disease; I10 Essential (primary) hypertension; E78.5 Hyperlipidemia, unspecified; G25.81 Restless legs syndrome; Z11.59 Encounter for screening for other viral diseases
CPT/HCPCS: 36415; 70450; 70496; 70498; 70548; 70553; 80048; 80061; 80305; 81003; 82550; 82962; 83036; 83735; 84443; 84484; 85025; 85610; 85730; 87635; 93005; 93306; 96360; 96361; 96372; 97162; 99285; G0378; J1650; Q9967

== ENCOUNTER → 2020-05-11 11:11 | Outpatient (CLI) | payer OTHER, SELFPAY ==
[2020-03-27 22:31] VITALS: BMI 22.6
[2020-05-11 14:47] LABS: Albumin 3.2 g/dL (3.5-5.0); Albumin Globulin Ratio 1.2 (1.0-2.8); Alkaline Phosphatase 103 U/L (38-126); Aspartate Aminotransferase 26 IU/L (14-36); Bilirubin Total 0.3 mg/dL (0.2-1.3); Blood Urea Nitrogen 16 mg/dL (7-17); Calcium 8.8 mg/dL (8.4-10.2); Carbon Dioxide 35 mmol/L (22-32); Chloride 99 mmol/L (98-107); Cholesterol 177 mg/dL (140-199); Estimated Glomerular Filt Rate > 60.0 mL/min (>60); Globulin 2.7 g/dL (1.7-4.1); Glucose 88 mg/dL (70-100); HDL Cholesterol 86 mg/dL (40-60); HEMOLYSIS < 15 (0-50); LDL Cholesterol Calculated 82 mg/dL (<100); Potassium 4.6 mmol/L (3.4-5.1); Sodium 133 mmol/L (137-145); Total Protein 5.9 g/dL (6.3-8.2); Triglycerides 47 mg/dL (35-150)
[2020-05-11 14:58] LABS: Alanine Aminotransferase < 4 IU/L (<35)
== END ==
PROVIDERS: PCP Family Medicine; Referring Provider Family Medicine; Visit Provider Family Medicine
DX: E78.00 Pure hypercholesterolemia, unspecified (principal)
CPT/HCPCS: 36415; 80053; 80061

== ENCOUNTER 2020-08-28 19:43 | Emergency (ER) | payer OTHER, SELFPAY ==
[2020-03-27 22:31] VITALS: BMI 22.6
[2020-08-28 20:01] VITALS: BP 155/86; PULSE 90; RESP 14; TEMP 36.7; O2SAT 100; BMI 24.2
--- NOTE | 2020-08-28 20:11 | ED.EXTPRO ---
HPI - Extremity Problem General Chief complaint: Extremity Problem,Nontraumatic Stated complaint: Parkinson's Getting Worse, Bad Circulation In Legs Time Seen by Provider: 08/28/20 19:57 Source: patient Mode of arrival: Ambulatory Limitations: no limitations History of Present Illness HPI Narrative: 55-year-old female nonsmoker with a history of Parkinson's and hyperlipidemia presents with a chief complaint of increasing anxiety regarding the possibility of circulation problems in her legs. She states that she has been having difficulties for many months, if not a year. She states that started with some discolored rash on her lower extremities which she has shown to both her primary care provider as well as a regional project manager. There was no significant recommendation from those providers but patient's own research suggests that this is likely due to peripheral vascular disease. She denies any numbness, tingling or weakness. She does admit that after a car ride earlier today she had some twitching in her right leg. She denies any back pain nor loss of control of bowel or bladder. She denies any history of blood clot. She states that she has been largely pretty good at taking her medications but does admittedly forget months in a while. MD Complaint: other Onset (ago): month(s) Location: left, right and lower extremity Quality: other Radiation: none Relieving factors: nothing Exacerbating factors: nothing Associated symptoms: denies other symptoms Related Data Home Medications Medication Instructions Recorded Confirmed Vitamin D3 1 tab PO DAILY 07/26/18 04/05/20 multivitamin 1 tab PO DAILY 07/26/18 04/05/20 ropinirole 6 mg PO BEDTIME 07/26/18 04/05/20 vitamin B complex 1 tab PO DAILY 07/26/18 04/05/20 carbidopa 25 mg-levodopa 100 mg 1 - 1.5 tab PO Q3H tab 02/06/19 04/05/20 tablet ibuprofen 200 mg tablet 400 - 600 mg PO Q6H PRN tab 02/06/19 04/05/20 amantadine HCl 100 mg capsule 100 mg PO BID 03/28/19 04/05/20 c theanine 100mg See Rx Instructions .ROUTE .COMPLEX 09/19/19 04/05/20 magnesium oxide 500 mg tablet 500 mg PO DAILY 09/19/19 04/05/20 rasagiline 1 mg tablet See Rx Instructions PO DAILY 12/10/19 04/05/20 aspirin 81 mg tablet,delayed 81 mg PO DAILY 03/12/20 04/05/20 release Previous Rx's Medication Instructions Recorded levothyroxine 75 mcg tablet 75 mcg PO DAILY #90 tab 12/10/19 atorvastatin 40 mg PO BEDTIME #30 tab 03/28/20 clonazepam 1 mg tablet 0.5 - 1 mg PO BEDTIME #30 tab 04/27/20 estradiol 10 mcg vaginal tablet 10 mcg VAG DAILY #30 tab 04/27/20 sertraline 50 mg tablet 100 mg PO DAILY #180 tab 06/07/20 baclofen 10 mg tablet 10 mg PO BEDTIME #30 tab 08/03/20 Allergies Allergy/AdvReac Type Severity Reaction Status Date / Time No Known Drug Allergies Allergy Verified 08/28/20 20:01 Review of Systems Constitutional Constitutional: Denies chills, Denies fatigue, Denies fever(s), Denies frequent falls, Denies lethargy and Denies weakness Eyes Eyes: Denies change in vision, Denies eye discharge, Denies irritation and Denies loss of vision ENT Ears, Nose, Mouth, and Throat: Denies change in voice, Denies dizziness, Denies neck pain, Denies sore throat and Denies throat swelling Cardiovascular Cardiovascular: Denies chest pain, Denies irregular heart rhythm, Denies lightheadedness, Denies palpitations, Denies dyspnea, Denies dyspnea on exertion and Denies orthopnea Respiratory Respiratory: Denies cough, Denies dyspnea, Denies dyspnea on exertion and Denies wheezing Gastrointestinal Gastrointestinal: Denies abdominal pain, Denies change in bowel habits, Denies diarrhea, Denies nausea and Denies vomiting Musculoskeletal Musculoskeletal: Denies neck pain and Denies numbness Comments: leg twitching Integumentary/Breasts Skin/Breast: Denies pruritus, Denies erythema, Denies rash and Denies wounds Neurologic Neurologic: Denies behavioral changes, Denies confusion, Denies dizziness, Denies frequent falls, Denies loss of vision, Denies numbness and Denies weakness Psychiatric Psychiatric: Reports anxiety, Denies behavioral changes, Denies confusion, Denies depression, Denies homicidal ideation and Denies suicidal ideation Endocrine Endocrine: Denies fatigue, Denies flushing and Denies palpitations Hematologic/Lymphatic Hematologic/Lymphatic: Denies easy bruising Allergic/Immunologic Allergic/Immunologic: Denies urticaria, Denies throat swelling and Denies wheezing Patient History Medical History Abnormal mammogram (08/27/15) Abnormal Pap smear of cervix Alcohol use disorder Anxiety (~2010) Carpal tunnel syndrome on both sides (~2007) Cervical cancer (2007) Chicken pox (1970) Chronic insomnia (06/12/14) Colitis (2004) Depression Eczema Family history of autoimmune disorder Foot pain (2014) Gastric ulcer (1983) GERD (gastroesophageal reflux disease) Hayfever Herpes HPV (human papilloma virus) infection Hyperlipidemia Hypertension Hypothyroidism (2014) 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 Grandfather Parkinson's disease Grandmother No problems noted. Sister No problems noted. Sister No problems noted. 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 Well-nourished, well-developed patient, in mild distress. Anxious, GCS 15. Slight fidgeting at rest, normal for her HEAD: Atraumatic. Normocephalic. EYES: Pupils equal round and reactive. Extraocular motions intact. ENT: NO nasal drainage. NO pharyngeal erythema NECK: Trachea midline. Non tender CARDIOVASCULAR: Regular rate and rhythm without murmurs, gallops, or rubs. RESPIRATORY: Clear to auscultation. Breath sounds equal bilaterally. No wheezes, rales, or rhonchi. GASTROINTESTINAL: Abdomen soft, non-tender, nondistended. EXTREMITIES: No edema or joint tenderness. Bilateral lower extremities warm, pink and dry. No rash, pain or swelling. No discoloration or altered temperature. No decreased sensation, cap refill less than 2 seconds bilaterally with palpable dorsalis pedis pulse BACK: Nontender without deformity or crepitance. No flank tenderness. NEURO: AOx3. No saddle anesthesia. B/L patellar reflexes 2+. SKIN: No rash or erythema of visible areas NIH Stroke Scale 1a. LOC: Patient is alert and keenly responsive (0) 1b. LOC Questions: Patient answers both LOC questions accurately (0) 1c. LOC Commands: Patient performs both tasks correctly (0) 2. Best Gaze: Normal (0) 3. Visual: No visual loss (0) 4. Facial palsy: Normal symmetrical movements (0) 5. Motor arm: No drift (0) 6. Motor leg: No drift (0) 7. Limb ataxia: Absent (0) 8. Sensory: Normal (0) 9. Best language: No aphasia; normal (0) 10. Dysarthria: Normal (0) 11. Extinction and inattention: No abnormality (0) NIHSS: 0 Initial Vital Signs Initial Vital Signs: Vital Signs Temperature 98.1 F 08/28/20 20:01 Pulse Rate 90 08/28/20 20:01 Respiratory Rate 14 08/28/20 20:01 Blood Pressure 155/86 H 08/28/20 20:01 Pulse Oximetry 100 08/28/20 20:01 Course Course Course Narrative: Patient states she is largely anxious about the possibility of vascular disease in her lower extremities. Explained to her that her exam is not consistent with DVT or arterial occlusion. She states that she has had repeated conversations with various providers and feels like mobility or get her the evaluation she hopes for. I discussed with her the abilities and limitations in the ED and she states she understands that we would typically focus on a disease process which would require a specific and/or immediate intervention. She states she feels much better after our discussion and will follow up with her PCP. Orders Ordered: ED Orders 08/28/20 21:45 Basic Metabolic Panel Stat Complete Blood Count AUTO DIFF Stat Vital Signs Vital signs: Vital Signs - 8 hr 08/28/20 20:01 Temperature 98.1 F Pulse Rate 90 Respiratory Rate 14 Blood Pressure 155/86 H Pulse Oximetry 100 MDM - Extremity (Nontraumatic) Lab Data Result diagrams: 08/28/20 21:45 08/28/20 21:45 Labs: Lab Results 08/28/20 08/28/20 Range/Units 21:45 21:45 WBC 7.3 (4.5-11.0) X10^3/uL RBC 4.46 (4.0-5.2) X10^6/uL Hgb 12.7 (12.0-16.0) g/dL Hct 37.8 (36-46) % MCV 84.7 (80-100) fL MCH 28.3 (26-34) PG MCHC 33.5 (30-36) % RDW 12.8 (11.6-14.8) % Plt Count 338 (150-400) X10^3/uL Neut % (Auto) 69.0 (50-75) % Lymph % (Auto) 23.4 L (25-40) % [place] % (Auto) 5.9 (3-14) % Eos % (Auto) 1.1 L (2-4) % Baso % (Auto) 0.6 (0-2) % Neut # (Auto) 5100 (5215-5299) /uL Lymph # (Auto) 1700 (0430-7513) /uL [place] # (Auto) 400 (0-900) /uL Eos # (Auto) 100 (0-450) /uL Baso # (Auto) 0 (0-100) /uL Sodium 132 L (137-145) mmol/L Potassium 3.9 (3.4-5.1) mmol/L Chloride 101 (98-107) mmol/L Carbon Dioxide 31 (22-32) mmol/L BUN 14 (7-17) mg/dL Creatinine 0.66 (0.52-1.04) mg/dL Estimated GFR > 60.0 (>60) mL/min BUN/Creatinine Ratio 21.2 (6-22) Glucose 98 (70-100) mg/dL Calcium 8.9 (8.4-10.2) mg/dL Discharge Plan Departure Patient Disposition: Home Clinical Impression: Cramps of lower extremity Instructions: DI for Peripheral Vascular (Arterial) Disease Activity Restrictions/Additional Instructions: *You have been diagnosed with [lower extremity twitching. Your story annual exam are very reassuring. Labs demonstrated no electrolyte abnormalities or other concerning findings.] *What to do: * continue to take medications as directed *Follow up with your primary care provider in 2-3 days, call for an appointment. Let them know you were seen in the Emergency Department and that we ask that you be seen in follow up. You can discuss the possibility of cardiology referral with your PCP at this follow up visit. *Return to ER if you should have any new, worsening or concerning symptoms Prescriptions: No Action carbidopa-levodopa 25-100 mg tablet 1 - 1.5 tab PO Q3H RF: 0 levothyroxine [Synthroid] 75 mcg tablet 75 mcg PO DAILY Qty: 90 RF: 3 clonazepam 1 mg tablet 0.5 - 1 mg PO BEDTIME Qty: 30 RF: 3 estradiol [Vagifem] 10 mcg tablet 10 mcg VAG DAILY Qty: 30 RF: 1 sertraline 50 mg tablet 100 mg PO DAILY Qty: 180 RF: 0 baclofen 10 mg tablet 10 mg PO BEDTIME Qty: 30 RF: 2 c theanine 100mg See Rx Instructions .ROUTE .COMPLEX RF: 0 magnesium oxide 500 mg tablet 500 mg PO DAILY RF: 0 rasagiline 1 mg tablet See Rx Instructions PO DAILY RF: 0 aspirin [Adult Low Dose Aspirin] 81 mg tablet,delayed release (DR/EC) 81 mg PO DAILY RF: 0 amantadine HCl 100 mg capsule 100 mg PO BID RF: 0 ropinirole 2 mg Tablet Extended Release 24 Hr 6 mg PO BEDTIME RF: 0 multivitamin Tablet 1 tab PO DAILY RF: 0 vitamin B complex Tablet 1 tab PO DAILY RF: 0 Vitamin D3 1 tab PO DAILY RF: 0 atorvastatin 40 mg tablet 40 mg PO BEDTIME Qty: 30 RF: 0 ibuprofen 200 mg tablet 400 - 600 mg PO Q6H PRN (Reason: Pain (Scale Score 1-3)) RF: 0 Referrals: Jeannie Ta DO [Primary Care Provider] -
[2020-08-28 21:58] LABS: Add Manual Diff / Slide Review NO; Basophils Absolute Auto 0 /uL (0-100); Basophils Percent Auto 0.6 % (0-2); Eosinophils Absolute Auto 100 /uL (0-450); Eosinophils Percent Auto 1.1 % (2-4); Hematocrit 37.8 % (36-46); Hemoglobin 12.7 g/dL (12.0-16.0); Lymphocytes Absolute Auto 1700 /uL (1100-4500); Lymphocytes Percent Auto 23.4 % (25-40); Mean Corpuscular HGB Conc 33.5 % (30-36); Mean Corpuscular Hemoglobin 28.3 PG (26-34); Mean Corpuscular Volume 84.7 fL (80-100); Monocytes Absolute Auto 400 /uL (0-900); Monocytes Percent Auto 5.9 % (3-14); Neutrophils Absolute Auto 5100 /uL (1500-7000); Platelet Count 338 X10^3/uL (150-400); Red Blood Cell Count 4.46 X10^6/uL (4.0-5.2); Red Cell Distribution Width 12.8 % (11.6-14.8); White Blood Cell Count 7.3 X10^3/uL (4.5-11.0)
[2020-08-28 22:07] LABS: BUN Creatinine Ratio 21.2 (6-22); Blood Urea Nitrogen 14 mg/dL (7-17); Calcium 8.9 mg/dL (8.4-10.2); Carbon Dioxide 31 mmol/L (22-32); Chloride 101 mmol/L (98-107); Estimated Glomerular Filt Rate > 60.0 mL/min (>60); Glucose 98 mg/dL (70-100); HEMOLYSIS < 15 (0-50); Potassium 3.9 mmol/L (3.4-5.1); Sodium 132 mmol/L (137-145)
== END 2020-08-28 22:24 | disposition home or self-care (01) ==
PROVIDERS: Emergency Provider Emergency Medicine; PCP Family Medicine
DX: R25.2 Cramp and spasm (principal); G20 Parkinson's disease; E78.5 Hyperlipidemia, unspecified; R21 Rash and other nonspecific skin eruption
CPT/HCPCS: 80048; 85025; 99281; 99283

== ENCOUNTER 2020-09-09 15:58 | Emergency (ER) | payer OTHER, SELFPAY ==
[2020-03-27 22:31] VITALS: BMI 22.6
[2020-09-09 16:05] VITALS: BP 154/77; PULSE 94; RESP 15; TEMP 36.9; O2SAT 99; BMI 24.2
[2020-09-09 18:22] VITALS: BP 142/77; PULSE 87; RESP 17; O2SAT 99
[2020-09-09 18:22] LABS: Add Manual Diff / Slide Review NO; Basophils Absolute Auto 100 /uL (0-100); Basophils Percent Auto 0.8 % (0-2); Eosinophils Absolute Auto 100 /uL (0-450); Hematocrit 40.3 % (36-46); Hemoglobin 13.7 g/dL (12.0-16.0); Lymphocytes Absolute Auto 1500 /uL (1100-4500); Lymphocytes Percent Auto 19.4 % (25-40); Mean Corpuscular HGB Conc 34.1 % (30-36); Mean Corpuscular Hemoglobin 28.7 PG (26-34); Mean Corpuscular Volume 84.2 fL (80-100); Monocytes Absolute Auto 400 /uL (0-900); Neutrophils Absolute Auto 5500 /uL (1500-7000); Neutrophils Percent Auto 72.8 % (50-75); Platelet Count 339 X10^3/uL (150-400); Red Blood Cell Count 4.78 X10^6/uL (4.0-5.2); Red Cell Distribution Width 12.9 % (11.6-14.8); White Blood Cell Count 7.5 X10^3/uL (4.5-11.0)
--- NOTE | 2020-09-09 18:23 | PC.NURSE ---
Patient reports feeling anxious and I haven't gotten enough sleep lately. States she felt weird earlier and took her BP and it was 140 systolic.
[2020-09-09 18:36] LABS: Alanine Aminotransferase 4 IU/L (<35); Albumin 3.9 g/dL (3.5-5.0); Albumin Globulin Ratio 1.3 (1.0-2.8); Alkaline Phosphatase 129 U/L (38-126); Aspartate Aminotransferase 31 IU/L (14-36); BUN Creatinine Ratio 15.8 (6-22); Bilirubin Total 0.3 mg/dL (0.2-1.3); Blood Urea Nitrogen 12 mg/dL (7-17); Calcium 9.3 mg/dL (8.4-10.2); Carbon Dioxide 30 mmol/L (22-32); Chloride 98 mmol/L (98-107); Creatine Kinase 72 U/L (30-135); Estimated Glomerular Filt Rate > 60.0 mL/min (>60); Glucose 103 mg/dL (70-100); HEMOLYSIS < 15 (0-50); Lipase 118 U/L (23-300); Potassium 3.8 mmol/L (3.4-5.1); Sodium 130 mmol/L (137-145); Total Protein 6.9 g/dL (6.3-8.2)
[2020-09-09 18:47] LABS: Troponin I < 0.012 ng/mL (0.01-0.034)
--- NOTE | 2020-09-09 18:50 | ED.GENADULT ---
HPI - General Adult General Chief complaint: Hypertension Stated complaint: states high blood pressure, dont feel good Time Seen by Provider: 09/09/20 16:56 Source: patient Mode of arrival: Wheelchair Limitations: no limitations History of Present Illness HPI narrative: Patient is a 55-year-old female here for evaluation of which she states is elevated blood pressure and generally not feeling very well. No chest pain. No shortness of breath. She took her blood pressure at home and stated that the systolic blood pressure was in the 150s. Because she was not feeling very well in her living blood pressure came into the emergency department for evaluation. Related Data Home Medications Medication Instructions Recorded Confirmed Vitamin D3 1 tab PO DAILY 07/26/18 04/05/20 multivitamin 1 tab PO DAILY 07/26/18 04/05/20 ropinirole 6 mg PO BEDTIME 07/26/18 04/05/20 vitamin B complex 1 tab PO DAILY 07/26/18 04/05/20 carbidopa 25 mg-levodopa 100 mg 1 - 1.5 tab PO Q3H tab 02/06/19 04/05/20 tablet ibuprofen 200 mg tablet 400 - 600 mg PO Q6H PRN tab 02/06/19 04/05/20 amantadine HCl 100 mg capsule 100 mg PO BID 03/28/19 04/05/20 c theanine 100mg See Rx Instructions .ROUTE .COMPLEX 09/19/19 04/05/20 magnesium oxide 500 mg tablet 500 mg PO DAILY 09/19/19 04/05/20 rasagiline 1 mg tablet See Rx Instructions PO DAILY 12/10/19 04/05/20 aspirin 81 mg tablet,delayed 81 mg PO DAILY 03/12/20 04/05/20 release Previous Rx's Medication Instructions Recorded levothyroxine 75 mcg tablet 75 mcg PO DAILY #90 tab 12/10/19 clonazepam 1 mg tablet 0.5 - 1 mg PO BEDTIME #30 tab 04/27/20 estradiol 10 mcg vaginal tablet 10 mcg VAG DAILY #30 tab 04/27/20 baclofen 10 mg tablet 10 mg PO BEDTIME #30 tab 08/03/20 sertraline 50 mg tablet 100 mg PO DAILY #180 tab 09/04/20 atorvastatin 20 mg tablet 20 mg PO BEDTIME #90 tab 09/08/20 Allergies Allergy/AdvReac Type Severity Reaction Status Date / Time No Known Drug Allergies Allergy Verified 09/09/20 16:11 Review of Systems Constitutional Constitutional: Reports fatigue, Denies fever(s), Denies headache(s) and Reports malaise ENT Ears, Nose, Mouth, and Throat: Denies headache(s) Cardiovascular Cardiovascular: Denies chest pain and Denies dyspnea Respiratory Respiratory: Denies cough and Denies dyspnea Musculoskeletal Musculoskeletal: Denies arthralgias and Denies myalgias Integumentary/Breasts Skin/Breast: Denies rash Neurologic Neurologic: Denies behavioral changes and Denies headache(s) Psychiatric Psychiatric: Denies behavioral changes Endocrine Endocrine: Reports fatigue Hematologic/Lymphatic On Anticoagulants: No Allergic/Immunologic Allergic/Immunologic: Denies urticaria Patient History Medical History Abnormal mammogram (08/27/15) Abnormal Pap smear of cervix Alcohol use disorder Anxiety (~2010) Carpal tunnel syndrome on both sides (~2007) Cervical cancer (2007) Chicken pox (1969) Chronic insomnia (06/12/14) Colitis (2003) Depression Eczema Family history of autoimmune disorder Foot pain (2014) Gastric ulcer (1983) GERD (gastroesophageal reflux disease) Hayfever Herpes HPV (human papilloma virus) infection Hyperlipidemia Hypertension Hypothyroidism (2014) 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 Grandfather Parkinson's disease Grandmother No problems noted. Sister No problems noted. Sister No problems noted. 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 Smoking Status: Never smoker alcohol intake: former substance use type: does not use Smoking Status: Never smoker alcohol intake frequency: holidays/special occasions only Substance Use Type: does not use Exam Initial Vital Signs Initial Vital Signs: Vital Signs Temperature 98.5 F 09/09/20 16:05 Pulse Rate 94 H 09/09/20 16:05 Respiratory Rate 15 09/09/20 16:05 Blood Pressure 154/77 H 09/09/20 16:05 Pulse Oximetry 99 09/09/20 16:05 Const General: cooperative, comfortable and well developed Limitations: mental status not altered [facility] Head: normal to inspection and normocephalic Resp Effort & Inspection: normal respiratory effort Auscultation: clear to auscultation bilaterally Cardio Rate: regular rate Rhythm: regular rhythm Skin Lesions: no lesions Rashes: no rashes Neuro General: patient alert and patient awake Cognition: normal cognition Speech: speech normal Extrem General: capillary refill normal Psych Appearance: grossly normal and well kempt Course Orders Ordered: ED Orders 09/09/20 18:15 Complete Blood Count AUTO DIFF Stat Comprehensive Metabolic Panel Stat Lipase Stat Troponin & CK Cardiac Panel Stat Vital Signs Vital signs: Vital Signs - 8 hr 09/09/20 16:05 09/09/20 18:22 Temperature 98.5 F Pulse Rate 94 H 87 Respiratory Rate 15 17 Blood Pressure 154/77 H 142/77 H Pulse Oximetry 99 99 Medical Decision Making Lab Data Lab results reviewed: Yes I reviewed the patient's lab results. Result diagrams: 09/09/20 18:15 09/09/20 18:15 Labs: Lab Results 09/09/20 09/09/20 Range/Units 18:15 18:15 WBC 7.5 (4.5-11.0) X10^3/uL RBC 4.78 (4.0-5.2) X10^6/uL Hgb 13.7 (12.0-16.0) g/dL Hct 40.3 (36-46) % MCV 84.2 (80-100) fL MCH 28.7 (26-34) PG MCHC 34.1 (30-36) % RDW 12.9 (11.6-14.8) % Plt Count 339 (150-400) X10^3/uL Neut % (Auto) 72.8 (50-75) % Lymph % (Auto) 19.4 L (25-40) % [place] % (Auto) 6.0 (3-14) % Eos % (Auto) 1.0 L (2-4) % Baso % (Auto) 0.8 (0-2) % Neut # (Auto) 5500 (7907-4401) /uL Lymph # (Auto) 1500 (8357-6675) /uL [place] # (Auto) 400 (0-900) /uL Eos # (Auto) 100 (0-450) /uL Baso # (Auto) 100 (0-100) /uL Sodium 130 L (137-145) mmol/L Potassium 3.8 (3.4-5.1) mmol/L Chloride 98 (98-107) mmol/L Carbon Dioxide 30 (22-32) mmol/L BUN 12 (7-17) mg/dL Creatinine 0.76 (0.52-1.04) mg/dL Estimated GFR > 60.0 (>60) mL/min BUN/Creatinine Ratio 15.8 (6-22) Glucose 103 H (70-100) mg/dL Calcium 9.3 (8.4-10.2) mg/dL Total Bilirubin 0.3 (0.2-1.3) mg/dL AST 31 (14-36) IU/L ALT 4 (<35) IU/L Alkaline Phosphatase 129 H (38-126) U/L Total Creatine Kinase 72 (30-135) U/L CK-MB (CK-2) TNP CK-MB (CK-2) Rel Index TNP Troponin I < 0.012 (0.01-0.034) ng/mL Total Protein 6.9 (6.3-8.2) g/dL Albumin 3.9 (3.5-5.0) g/dL Globulin 3.0 (1.7-4.1) g/dL Albumin/Globulin Ratio 1.3 (1.0-2.8) Lipase 118 (23-300) U/L ECG Data Attestation: I personally reviewed and interpreted this ECG as follows: Prior ECG tracings: not available for review Interpretation: Sinus rhythm Ventricular rate 87 Normal axis Normal QRS Nonspecific ST T wave changes MDM Narrative Medical decision making narrative: EKG is unremarkable. Labs unremarkable, blood pressure improved without specific intervention here in the ER. No specific for ACS. No other signs of end-organ dysfunction secondary to hypertension. I feel we can hold on further workup for now. Patient was given return precautions and follow-up instructions. She expressed understanding and agreement. Discharge Plan Departure Patient Disposition: Home Clinical Impression: Hypertension Instructions: DI for High Blood Pressure Activity Restrictions/Additional Instructions: Continue all of your medications as directed. I do recommend you take your blood pressure at home would like we discussed and keep your already scheduled doctor's appointment for tomorrow. Return to the emergency department for any new or worsening symptoms Prescriptions: No Action carbidopa-levodopa 25-100 mg tablet 1 - 1.5 tab PO Q3H RF: 0 levothyroxine [Synthroid] 75 mcg tablet 75 mcg PO DAILY Qty: 90 RF: 3 clonazepam 1 mg tablet 0.5 - 1 mg PO BEDTIME Qty: 30 RF: 3 estradiol [Vagifem] 10 mcg tablet 10 mcg VAG DAILY Qty: 30 RF: 1 baclofen 10 mg tablet 10 mg PO BEDTIME Qty: 30 RF: 2 sertraline 50 mg tablet 100 mg PO DAILY Qty: 180 RF: 3 atorvastatin 20 mg tablet 20 mg PO BEDTIME Qty: 90 RF: 0 c theanine 100mg See Rx Instructions .ROUTE .COMPLEX RF: 0 magnesium oxide 500 mg tablet 500 mg PO DAILY RF: 0 rasagiline 1 mg tablet See Rx Instructions PO DAILY RF: 0 aspirin [Adult Low Dose Aspirin] 81 mg tablet,delayed release (DR/EC) 81 mg PO DAILY RF: 0 amantadine HCl 100 mg capsule 100 mg PO BID RF: 0 ropinirole 2 mg Tablet Extended Release 24 Hr 6 mg PO BEDTIME RF: 0 multivitamin Tablet 1 tab PO DAILY RF: 0 vitamin B complex Tablet 1 tab PO DAILY RF: 0 Vitamin D3 1 tab PO DAILY RF: 0 ibuprofen 200 mg tablet 400 - 600 mg PO Q6H PRN (Reason: Pain (Scale Score 1-3)) RF: 0 Referrals: Jeannie Ta DO [Primary Care Provider] -
== END 2020-09-09 19:16 | disposition home or self-care (01) ==
PROVIDERS: Emergency Medicine; Emergency Provider Emergency Medicine; PCP Family Medicine
DX: I10 Essential (primary) hypertension (principal)
CPT/HCPCS: 36415; 80053; 82550; 83690; 84484; 85025; 93005; 93010; 99281; 99284

== ENCOUNTER → 2020-10-12 12:55 | Outpatient (CLI) | payer OTHER, SELFPAY ==
[2020-03-27 22:31] VITALS: BMI 22.6
[2020-10-12] MEDS: COVID-19 VACC #1, MRNA(MOD) 100 MCG/0.5 ML VIAL IM (13:03)
== END ==
PROVIDERS: PCP Family Medicine; Visit Provider Internal Medicine
DX: Z23 Encounter for immunization (principal)
CPT/HCPCS: 0011A; 91301

== ENCOUNTER → 2020-11-10 13:02 | Outpatient (CLI) | payer OTHER, SELFPAY ==
[2020-03-27 22:31] VITALS: BMI 22.6
[2020-11-10] MEDS: COVID-19 VACC #2, MRNA(MOD) 100 MCG/0.5 ML VIAL IM (13:15)
== END ==
PROVIDERS: PCP Family Medicine; Visit Provider Internal Medicine
DX: Z23 Encounter for immunization (principal)
CPT/HCPCS: 0012A; 91301

== ENCOUNTER → 2021-03-21 12:11 | Outpatient (CLI) | payer OTHER, SELFPAY ==
[2020-03-27 22:31] VITALS: BMI 22.6
[2021-03-21 13:23] LABS: BUN Creatinine Ratio 13.8 (6-22); Blood Urea Nitrogen 9 mg/dL (7-17); Calcium 9.3 mg/dL (8.4-10.2); Carbon Dioxide 31 mmol/L (22-32); Chloride 100 mmol/L (98-107); Estimated Glomerular Filt Rate > 60.0 mL/min (>60); Glucose 95 mg/dL (70-100); HEMOLYSIS < 15 (0-50); Sodium 135 mmol/L (137-145)
[2021-03-21 13:57] LABS: TSH w/ Reflex to FT4 1.64 uIU/mL (0.47-4.68)
== END ==
PROVIDERS: PCP Family Medicine; Referring Provider Family Medicine; Visit Provider Family Medicine
DX: R25.2 Cramp and spasm (principal); E03.9 Hypothyroidism, unspecified
CPT/HCPCS: 36415; 80048; 84443

== ENCOUNTER → 2021-05-05 15:34 | Outpatient (CLI) | payer OTHER, SELFPAY ==
[2020-03-27 22:31] VITALS: BMI 22.6
[2021-05-08 13:52] LABS: Interpretation Negative (Negative)
== END ==
PROVIDERS: PCP Family Medicine; Referring Provider Family Medicine; Visit Provider Family Medicine
DX: K21.9 Gastro-esophageal reflux disease without esophagitis (principal)
CPT/HCPCS: 83013

== ENCOUNTER 2021-08-29 15:41 | Emergency (ER) | payer OTHER, SELFPAY ==
[2020-03-27 22:31] VITALS: BMI 22.6
[2021-08-29 15:43] VITALS: BP 140/83; PULSE 93; RESP 24; TEMP 36.8; O2SAT 100
--- NOTE | 2021-08-29 15:47 | DI.RAD.S_ITS ---
PROCEDURE: XR CHEST 1V INDICATIONS: chest pain TECHNIQUE: One view of the chest was acquired. COMPARISON: [facility], CR, XR CHEST 1V, 06/12/2019, 14:51. [facility], CR, XR CHEST 1V, 04/26/2019, 19:04. FINDINGS: Surgical changes and devices: None. Lungs and pleura: Lungs are clear. No pleural effusions or pneumothorax. Mediastinum: Mediastinal contours appear unchanged. Heart size is normal. Bones and chest wall: No suspicious bony lesions. Scoliosis. Overlying soft tissues appear unremarkable. IMPRESSION: No acute cardiopulmonary abnormality. Dictated by: Valerio Traylor M.D. on 08/29/2021 at 16:48 Approved by: Valerio Traylor M.D. on 08/29/2021 at 16:49
[2021-08-29 16:09] LABS: Add Manual Diff / Slide Review NO; Basophils Absolute Auto 100 /uL (0-100); Basophils Percent Auto 0.8 % (0-2); Eosinophils Absolute Auto 100 /uL (0-450); Eosinophils Percent Auto 1.2 % (2-4); Hematocrit 40.2 % (36-46); Hemoglobin 13.5 g/dL (12.0-16.0); Lymphocytes Absolute Auto 2200 /uL (1100-4500); Mean Corpuscular HGB Conc 33.6 % (30-36); Mean Corpuscular Volume 86.4 fL (80-100); Monocytes Absolute Auto 600 /uL (0-900); Monocytes Percent Auto 6.1 % (3-14); Neutrophils Absolute Auto 6500 /uL (1500-7000); Neutrophils Percent Auto 68.9 % (50-75); Platelet Count 358 X10^3/uL (150-400); Red Blood Cell Count 4.65 X10^6/uL (4.0-5.2); Red Cell Distribution Width 13.3 % (11.6-14.8); White Blood Cell Count 9.5 X10^3/uL (4.5-11.0)
[2021-08-29 16:16] LABS: Alanine Aminotransferase 6 IU/L (<35); Albumin 3.9 g/dL (3.5-5.0); Albumin Globulin Ratio 1.3 (1.0-2.8); Alkaline Phosphatase 138 U/L (38-126); Aspartate Aminotransferase 30 IU/L (14-36); BUN Creatinine Ratio 11.9 (6-22); Bilirubin Total 0.5 mg/dL (0.2-1.3); Blood Urea Nitrogen 8 mg/dL (7-17); Calcium 9.4 mg/dL (8.4-10.2); Carbon Dioxide 29 mmol/L (22-32); Chloride 104 mmol/L (98-107); Creatine Kinase 70 U/L (30-135); Estimated Glomerular Filt Rate > 60.0 mL/min (>60); Glucose 102 mg/dL (70-100); HEMOLYSIS 20 (0-50); Lipase 57 U/L (23-300); Magnesium 2.3 mg/dL (1.6-2.3); Potassium 3.4 mmol/L (3.4-5.1); Sodium 139 mmol/L (137-145); Total Protein 6.9 g/dL (6.3-8.2)
[2021-08-29] MEDS: LORazepam 2 MG/ML INJ (16:22)
[2021-08-29 16:27] LABS: Troponin I < 0.012 ng/mL (0.01-0.034)
--- NOTE | 2021-08-29 17:36 | ED.CHESTPAIN ---
HPI - Chest Pain <Brandon Ding PA-C - Last Filed: 09/05/21 12:15> General Chief Complaint: Chest Pain Stated Complaint: CHEST PAIN Time Seen by Provider: 08/29/21 16:28 Source: patient and family Mode of arrival: Wheelchair History of Present Illness HPI narrative: 56-year-old female with past medical history Parkinson's disease, anxiety, TIA, hyperlipidemia, depression, hypothyroidism presents to the ED with 1 day of chest pain. Patient complains of bilateral chest pain which she describes as tightening. Patient denies fever, chills, shortness of breath, cough, nausea, vomiting, abdominal pain, flank pain, dysuria, lightheadedness, dizziness, syncope. Patient states that she has a history of panic attacks for which she takes clonazepam, however she ran out of her meds. Pain does not radiate. No alleviating or exacerbating factors. Patient endorses a history of acid reflux. Related Data Home Medications Medication Instructions Recorded Confirmed Vitamin D3 1 tab PO DAILY 07/26/18 05/04/21 multivitamin 1 tab PO DAILY 07/26/18 05/04/21 ropinirole 2 mg tablet,extended 6 mg PO BEDTIME 07/26/18 05/04/21 release 24 hr vitamin B complex 1 tab PO DAILY 07/26/18 05/04/21 carbidopa 25 mg-levodopa 100 mg 1 - 1.5 tab PO Q3H tab 02/06/19 05/04/21 tablet ibuprofen 200 mg tablet 400 - 600 mg PO Q6H PRN tab 02/06/19 05/04/21 amantadine HCl 100 mg capsule 100 mg PO BID 03/28/19 05/04/21 c theanine 100mg See Rx Instructions .ROUTE .COMPLEX 09/19/19 05/04/21 magnesium oxide 500 mg tablet 500 mg PO DAILY 09/19/19 05/04/21 aspirin 81 mg tablet,delayed 81 mg PO DAILY 03/12/20 05/04/21 release (Adult Low Dose Aspirin) sertraline 50 mg tablet See Rx Instructions PO DAILY 09/14/20 05/04/21 baclofen 10 mg tablet 10 mg PO BEDTIME PRN tab 05/04/21 05/14/21 Previous Rx's Medication Instructions Recorded estradiol 10 mcg vaginal tablet 10 mcg VAG DAILY #30 tab 04/27/20 (Vagifem) levothyroxine 75 mcg tablet See Rx Instructions .ROUTE 12/09/20 .COMPLEX #90 tab atorvastatin 20 mg tablet 40 mg PO BEDTIME #180 tab 06/15/21 clonazepam 1 mg tablet See Rx Instructions .ROUTE 08/29/21 .COMPLEX #30 tab Allergies Allergy/AdvReac Type Severity Reaction Status Date / Time No Known Drug Allergies Allergy Verified 05/04/21 14:25 Review of Systems <Brandon Ding PA-C - Last Filed: 09/05/21 12:15> Review of Systems ROS Unobtainable: All systems reviewed & are unremarkable except as noted in HPI and below Constitutional Constitutional: Denies chills, Denies fatigue, Denies fever(s), Denies frequent falls, Denies lethargy and Denies weakness Eyes Eyes: Denies change in vision, Denies eye discharge, Denies irritation and Denies loss of vision ENT Ears, Nose, Mouth, and Throat: Denies change in voice, Denies dizziness, Denies neck pain, Denies sore throat and Denies throat swelling Cardiovascular Cardiovascular: Reports chest pain, Denies irregular heart rhythm, Denies lightheadedness, Denies palpitations, Denies dyspnea, Denies dyspnea on exertion and Denies orthopnea Respiratory Respiratory: Denies cough, Denies dyspnea, Denies dyspnea on exertion and Denies wheezing Gastrointestinal Gastrointestinal: Denies abdominal pain, Denies change in bowel habits, Denies diarrhea, Denies nausea and Denies vomiting Genitourinary Genitourinary: Denies hematuria, Denies flank pain, Denies urinary incontinence and Denies urinary urgency Musculoskeletal Musculoskeletal: Denies back pain, Denies muscle weakness, Denies neck pain, Denies numbness and Denies tingling Integumentary/Breasts Skin/Breast: Denies pruritus, Denies erythema, Denies rash and Denies wounds Neurologic Neurologic: Denies behavioral changes, Denies confusion, Denies dizziness, Denies frequent falls, Denies loss of vision, Denies numbness, Denies tingling and Denies weakness Psychiatric Psychiatric: Denies anxiety, Denies behavioral changes, Denies confusion, Denies depression, Denies homicidal ideation and Denies suicidal ideation Endocrine Endocrine: Denies fatigue, Denies flushing and Denies palpitations Hematologic/Lymphatic Hematologic/Lymphatic: Denies easy bruising Allergic/Immunologic Allergic/Immunologic: Denies urticaria, Denies throat swelling and Denies wheezing Patient History <Brandon Ding PA-C - Last Filed: 09/05/21 12:15> Medical History Abnormal mammogram (08/27/15) Abnormal Pap smear of cervix Alcohol use disorder Anxiety (~2010) Carpal tunnel syndrome on both sides (~2007) Cervical cancer (2007) Chicken pox (1969) Chronic insomnia (06/12/14) Colitis (2003) Depression Eczema Family history of autoimmune disorder Foot pain (2014) Gastric ulcer (1983) GERD (gastroesophageal reflux disease) Hayfever Herpes HPV (human papilloma virus) infection Hyperlipidemia Hypertension Hypothyroidism (2014) 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 Grandfather Parkinson's disease Grandmother No problems noted. Sister No problems noted. Sister No problems noted. 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 Smoking Status: Never smoker alcohol intake: former substance use type: does not use Smoking Status: Never smoker alcohol intake frequency: holidays/special occasions only Substance Use Type: does not use Exam <Brandon Ding PA-C - Last Filed: 09/05/21 12:15> Initial Vital Signs Initial Vital Signs: Vital Signs Temperature 98.3 F 08/29/21 15:43 Pulse Rate 93 H 08/29/21 15:43 Respiratory Rate 24 08/29/21 15:43 Blood Pressure 140/83 08/29/21 15:43 Pulse Oximetry 100 08/29/21 15:43 Const General: cooperative, healthy appearing and comfortable [facility] Head: normal to inspection Eyes General: appearance normal, both eyes and all related structures Neck Neck: normal visual inspection Chest Chest: normal inspection of the chest Resp Effort & Inspection: normal respiratory effort Auscultation: clear to auscultation bilaterally Cardio Rate: regular rate Rhythm: regular rhythm GI Other: abdomen is soft, nondistended, nontender to palpation. No CVA tenderness. General: No CVA tenderness Skin General: no rashes or lesions noted Neuro General: patient alert, patient awake and patient oriented x3 Extrem General: normal to inspection Psych Appearance: grossly normal Mental Status: mental status grossly normal <DO Antonieta Cardozo Last Filed: 09/07/21 05:06> Initial Vital Signs Initial Vital Signs: Vital Signs Temperature 98.3 F 08/29/21 15:43 Pulse Rate 93 H 08/29/21 15:43 Respiratory Rate 24 08/29/21 15:43 Blood Pressure 140/83 08/29/21 15:43 Pulse Oximetry 100 08/29/21 15:43 Course <TAMRA Glass Last Filed: 09/05/21 12:15> Orders Ordered: ED Orders 08/29/21 15:47 XR chest 1V Stat 08/29/21 16:00 Complete Blood Count AUTO DIFF Stat Comprehensive Metabolic Panel Stat Lipase Stat Magnesium Stat Troponin & CK Cardiac Panel Stat 08/29/21 17:18 EKG-12 Lead Stat Vital Signs Vital signs: Vital Signs - 8 hr 08/29/21 15:43 Temperature 98.3 F Pulse Rate 93 H Respiratory Rate 24 Blood Pressure 140/83 Pulse Oximetry 100 <DO Antonieta Cardozo Last Filed: 09/07/21 05:06> Orders Ordered: ED Orders 08/29/21 15:47 XR chest 1V Stat 08/29/21 16:00 Complete Blood Count AUTO DIFF Stat Comprehensive Metabolic Panel Stat Lipase Stat Magnesium Stat Troponin & CK Cardiac Panel Stat 08/29/21 17:18 EKG-12 Lead Stat Vital Signs Vital signs: Vital Signs - 8 hr 08/29/21 15:43 Temperature 98.3 F Pulse Rate 93 H Respiratory Rate 24 Blood Pressure 140/83 Pulse Oximetry 100 MDM - Chest Pain <TAMRA Glass Last Filed: 09/05/21 12:15> Medical Records Data Attestation: I reviewed the patient's medical records. Lab Data Attestation: I reviewed the patient's lab results. Lab results narrative: Labs within normal limits. Result diagrams: 08/29/21 16:00 08/29/21 16:00 Labs: Lab Results 08/29/21 08/29/21 Range/Units 16:00 16:00 WBC 9.5 (4.5-11.0) X10^3/uL RBC 4.65 (4.0-5.2) X10^6/uL Hgb 13.5 (12.0-16.0) g/dL Hct 40.2 (36-46) % MCV 86.4 (80-100) fL MCH 29.0 (26-34) PG MCHC 33.6 (30-36) % RDW 13.3 (11.6-14.8) % Plt Count 358 (150-400) X10^3/uL Neut % (Auto) 68.9 (50-75) % Lymph % (Auto) 23.0 L (25-40) % [place] % (Auto) 6.1 (3-14) % Eos % (Auto) 1.2 L (2-4) % Baso % (Auto) 0.8 (0-2) % Neut # (Auto) 6500 (9682-4098) /uL Lymph # (Auto) 2200 (9800-3534) /uL [place] # (Auto) 600 (0-900) /uL Eos # (Auto) 100 (0-450) /uL Baso # (Auto) 100 (0-100) /uL Sodium 139 (137-145) mmol/L Potassium 3.4 (3.4-5.1) mmol/L Chloride 104 (98-107) mmol/L Carbon Dioxide 29 (22-32) mmol/L BUN 8 (7-17) mg/dL Creatinine 0.67 (0.52-1.04) mg/dL Estimated GFR > 60.0 (>60) mL/min BUN/Creatinine Ratio 11.9 (6-22) Glucose 102 H (70-100) mg/dL Calcium 9.4 (8.4-10.2) mg/dL Magnesium 2.3 (1.6-2.3) mg/dL Total Bilirubin 0.5 (0.2-1.3) mg/dL AST 30 (14-36) IU/L ALT 6 (<35) IU/L Alkaline Phosphatase 138 H (38-126) U/L Total Creatine Kinase 70 (30-135) U/L CK-MB (CK-2) TNP CK-MB (CK-2) Rel Index TNP Troponin I < 0.012 (0.01-0.034) ng/mL Total Protein 6.9 (6.3-8.2) g/dL Albumin 3.9 (3.5-5.0) g/dL Globulin 3.0 (1.7-4.1) g/dL Albumin/Globulin Ratio 1.3 (1.0-2.8) Lipase 57 (23-300) U/L Imaging Data Chest x-ray: Radiologist's Impression: PROCEDURE:? XR CHEST 1V ? INDICATIONS:? chest pain ? TECHNIQUE:? One view of the chest was acquired.? ? COMPARISON:? [facility], CR, XR CHEST 1V, 06/12/2019, 14:51.? [facility], CR, XR CHEST 1V, 04/26/2019, 19:04. ? FINDINGS:? ? Surgical changes and devices:? None.? ? Lungs and pleura:? Lungs are clear.? No pleural effusions or pneumothorax.? ? Mediastinum:? Mediastinal contours appear unchanged.? Heart size is normal.? ? Bones and chest wall:? No suspicious bony lesions.? Scoliosis.? Overlying soft tissues appear unremarkable.? ? IMPRESSION:? No acute cardiopulmonary abnormality. ? ? ? Dictated by: Valerio Traylor M.D. on 08/29/2021 at 16:48 ? ? Approved by: Valerio Traylor M.D. on 08/29/2021 at 16:49 ? ECG Data Interpretation: No acute ST-T changes. MDM Narrative Medical decision making narrative: 56-year-old female with past medical history Parkinson's disease, anxiety, TIA, hyperlipidemia, depression, hypothyroidism presents to the ED with 1 day of chest pain. Concern for ACS versus panic attack. Will obtain chest x-ray, EKG, labs, troponin. Will give Ativan for anxiety. Will reassess. Workup negative. Patient's symptoms resolved with Ativan. Discharged patient home with ED return precautions. Patient verbalized understanding. <Estella C Mank, DO - Last Filed: 09/07/21 05:06> Lab Data Labs: Lab Results 08/29/21 08/29/21 Range/Units 16:00 16:00 WBC 9.5 (4.5-11.0) X10^3/uL RBC 4.65 (4.0-5.2) X10^6/uL Hgb 13.5 (12.0-16.0) g/dL Hct 40.2 (36-46) % MCV 86.4 (80-100) fL MCH 29.0 (26-34) PG MCHC 33.6 (30-36) % RDW 13.3 (11.6-14.8) % Plt Count 358 (150-400) X10^3/uL Neut % (Auto) 68.9 (50-75) % Lymph % (Auto) 23.0 L (25-40) % [place] % (Auto) 6.1 (3-14) % Eos % (Auto) 1.2 L (2-4) % Baso % (Auto) 0.8 (0-2) % Neut # (Auto) 6500 (7801-7375) /uL Lymph # (Auto) 2200 (7417-9606) /uL [place] # (Auto) 600 (0-900) /uL Eos # (Auto) 100 (0-450) /uL Baso # (Auto) 100 (0-100) /uL Sodium 139 (137-145) mmol/L Potassium 3.4 (3.4-5.1) mmol/L Chloride 104 (98-107) mmol/L Carbon Dioxide 29 (22-32) mmol/L BUN 8 (7-17) mg/dL Creatinine 0.67 (0.52-1.04) mg/dL Estimated GFR > 60.0 (>60) mL/min BUN/Creatinine Ratio 11.9 (6-22) Glucose 102 H (70-100) mg/dL Calcium 9.4 (8.4-10.2) mg/dL Magnesium 2.3 (1.6-2.3) mg/dL Total Bilirubin 0.5 (0.2-1.3) mg/dL AST 30 (14-36) IU/L ALT 6 (<35) IU/L Alkaline Phosphatase 138 H (38-126) U/L Total Creatine Kinase 70 (30-135) U/L CK-MB (CK-2) TNP CK-MB (CK-2) Rel Index TNP Troponin I < 0.012 (0.01-0.034) ng/mL Total Protein 6.9 (6.3-8.2) g/dL Albumin 3.9 (3.5-5.0) g/dL Globulin 3.0 (1.7-4.1) g/dL Albumin/Globulin Ratio 1.3 (1.0-2.8) Lipase 57 (23-300) U/L Discharge Plan Departure Patient Disposition: Home Clinical Impression: Chest pain Instructions: DI for Chest Pain Activity Restrictions/Additional Instructions: You were evaluated in the ED today for chest pain. Your labs, EKG, chest x-ray were normal. Your symptoms are likely due to either your panic attack or acid reflux. You may take Pepcid AC for your acid reflux symptoms twice a day for 2 weeks. Please return to the ED if you have worsening symptoms, chest pain, shortness of breath. Prescriptions: No Action carbidopa-levodopa 25-100 mg tablet 1 - 1.5 tab PO Q3H 0RF Label Comments: patient states taking every 2.5 hours now. estradiol [Vagifem] 10 mcg tablet 10 mcg VAG DAILY Qty: 30 1RF levothyroxine 75 mcg tablet See Rx Instructions .ROUTE .COMPLEX Qty: 90 3RF Dose Instruction: Take 1 tablet (0.075 mg) by mouth daily at least 30 minutes before breakfast Rx Instructions: Take 1 tablet (0.075 mg) by mouth daily at least 30 minutes before breakfast atorvastatin 20 mg tablet 40 mg PO BEDTIME Qty: 180 0RF clonazepam 1 mg tablet See Rx Instructions .ROUTE .COMPLEX Qty: 30 3RF Dose Instruction: Take 0.5-1 tablets (0.5-1 mg) by mouth at bedtime Rx Instructions: Take 0.5-1 tablets (0.5-1 mg) by mouth at bedtime c theanine 100mg See Rx Instructions .ROUTE .COMPLEX 0RF Rx Instructions: Take 1 - 2 per day ; magnesium oxide 500 mg tablet 500 mg PO DAILY 0RF aspirin [Adult Low Dose Aspirin] 81 mg tablet,delayed release (DR/EC) 81 mg PO DAILY 0RF sertraline 50 mg tablet See Rx Instructions PO DAILY 0RF Rx Instructions: 75 mg for one week then 50 mg PO daily; Placeholder for taper. amantadine HCl 100 mg capsule 100 mg PO BID 0RF baclofen 10 mg tablet 10 mg PO BEDTIME PRN0RF ropinirole 2 mg Tablet Extended Release 24 Hr 6 mg PO BEDTIME 0RF multivitamin Tablet 1 tab PO DAILY 0RF vitamin B complex Tablet 1 tab PO DAILY 0RF Vitamin D3 1 tab PO DAILY 0RF ibuprofen 200 mg tablet 400 - 600 mg PO Q6H PRN (Reason: Pain (Scale Score 1-3)) 0RF Referrals: Jeannie Ta DO [Primary Care Provider] - <Estella Seo DO - Last Filed: 09/07/21 05:06> Cosign ED Attending Aishwaryaature Attestation: I was immediately available in the department for consultation. Documentation has been reviewed.
[2021-08-29 20:31] VITALS: BP 104/59; PULSE 64; RESP 18; O2SAT 99
== END 2021-08-29 20:31 | disposition home or self-care (01) ==
PROVIDERS: Emergency Medicine; Emergency Provider Student in an Organized Health Care Education/Training Program; PCP Family Medicine
DX: R07.9 Chest pain, unspecified (principal)
CPT/HCPCS: 71045; 80053; 82550; 83690; 83735; 84484; 85025; 93005; 93010; 99283; J2060

== ENCOUNTER 2021-12-23 05:08 | Emergency (ER) | payer OTHER, SELFPAY ==
[2020-03-27 22:31] VITALS: BMI 22.6
[2021-12-23 05:15] VITALS: BP 121/76; PULSE 78; RESP 22; TEMP 36.6; O2SAT 99; BMI 24.7
[2021-12-23] MEDS: MORPHINE 2 MG/ML INJ IV (05:32)
--- NOTE | 2021-12-23 06:33 | ED_ITS ---
HPI - Extremity Problem General Chief complaint: Extremity Problem,Nontraumatic Stated complaint: arm pain Time Seen by Provider: 12/23/21 05:15 Source: patient and EMS Mode of arrival: Ambulatory History of Present Illness HPI Narrative: Patient is a 56-year-old female with history of Parkinson's disease who presents with right hand pain. She has a history of carpal tunnel as well. She has severe pain in her her 2nd and 3rd finger hand is cramping. It hurts to move. She was probably sleeping on it. She denies any chest pain or shortness of breath. This seems to be very musculoskeletal in nature. She has sharp stabbing pain. It is definitely worse whenever she moves her shoulder. She has had this before but never this bad. Related Data Home Medications Medication Instructions Recorded Confirmed Vitamin D3 1 tab PO DAILY 07/26/18 09/21/21 multivitamin 1 tab PO DAILY 07/26/18 09/21/21 ropinirole 2 mg tablet,extended 6 mg PO BEDTIME 07/26/18 09/21/21 release 24 hr vitamin B complex 1 tab PO DAILY 07/26/18 09/21/21 carbidopa 25 mg-levodopa 100 mg 1 - 1.5 tab PO Q3H tab 02/06/19 09/21/21 tablet ibuprofen 200 mg tablet 400 - 600 mg PO Q6H PRN tab 02/06/19 09/21/21 amantadine HCl 100 mg capsule 100 mg PO BID 03/28/19 09/21/21 magnesium oxide 500 mg tablet 500 mg PO DAILY 09/19/19 09/21/21 aspirin 81 mg tablet,delayed 81 mg PO DAILY 03/12/20 09/21/21 release (Adult Low Dose Aspirin) sertraline 50 mg tablet See Rx Instructions PO DAILY 09/14/20 09/21/21 baclofen 10 mg tablet 10 mg PO BEDTIME PRN tab 05/04/21 09/21/21 quetiapine 50 mg tablet,extended 50 mg PO tab 09/21/21 09/21/21 release 24 hr Previous Rx's Medication Instructions Recorded clonazepam 1 mg tablet See Rx Instructions .ROUTE 08/29/21 .COMPLEX #30 tab atorvastatin 20 mg tablet 20 mg PO BEDTIME #90 tab 12/01/21 levothyroxine 75 mcg tablet 75 mcg PO DAILY #90 tab 12/01/21 hydrocodone 5 mg-acetaminophen 325 1 tab PO Q6H PRN #10 tab 12/23/21 mg tablet Allergies Allergy/AdvReac Type Severity Reaction Status Date / Time No Known Drug Allergies Allergy Verified 05/04/21 14:25 Review of Systems Review of Systems Narrative: GENERAL: Denies chills,fever HEENT: Denies throat pain RESPIRATORY: Denies dyspnea, cough, wheezing CARDIOVASCULAR: Denies chest pain, palpitations GASTROINTESTINAL: Denies nausea, vomiting MUSCULOSKELETAL: See HPI SKIN: No rash, no laceration, no pruritus NEUROLOGIC: Denies weakness, dizziness, headache, numbness 8 point review of systems is negative except for those stated above and HPI Patient History Medical History Abnormal mammogram (08/27/15) Abnormal Pap smear of cervix Alcohol use disorder Anxiety (~2010) Carpal tunnel syndrome on both sides (~2007) Cervical cancer (2007) Chicken pox (1969) Chronic insomnia (06/12/14) Colitis (2003) Depression Eczema Family history of autoimmune disorder Foot pain (2014) Gastric ulcer (1983) GERD (gastroesophageal reflux disease) Hayfever Herpes HPV (human papilloma virus) infection Hyperlipidemia Hypertension Hypothyroidism (2014) 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 Grandfather Parkinson's disease Grandmother No problems noted. Sister No problems noted. Sister No problems noted. 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 Smoking Status: Never smoker alcohol intake: former substance use type: does not use Smoking Status: Never smoker alcohol intake frequency: holidays/special occasions only Substance Use Type: does not use Exam Initial Vital Signs Initial Vital Signs: Vital Signs Temperature 97.8 F 12/23/21 05:15 Pulse Rate 78 12/23/21 05:15 Respiratory Rate 22 12/23/21 05:15 Blood Pressure 121/76 12/23/21 05:15 Pulse Oximetry 99 12/23/21 05:15 GENERAL: 56-year-old female appears in severe pain CARDIOVASCULAR: peripheral pulses in tact, cap refill <2 sec RESPIRATORY: No respiratory distress, speaks in full sentences without difficulty EXTREMITIES: Normal range of motion, no clubbing or edema. Neurovascularly intact Right hand cramping. Pain with palpation over flexor side. NEUROLOGICAL: Cranial nerves II through XII grossly intact. Normal gait and speech. SKIN: Warm, dry, no petechiae, no rashes or lesions. Course Orders Ordered: Discontinued Medications Morphine Sulfate (Morphine 2 Mg/Ml Inj) 2 mg IV NOW ONE Stop: 12/23/21 05:16 Last Admin: 12/23/21 05:32 Dose: 2 mg Documented by: ALBER Vital Signs Vital signs: Vital Signs - 8 hr 12/23/21 05:15 Temperature 97.8 F Pulse Rate 78 Respiratory Rate 22 Blood Pressure 121/76 Pulse Oximetry 99 MDM - Extremity (Nontraumatic) MDM Narrative Medical decision making narrative: The patient is feeling significantly better after morphine. This seems to be a musculoskeletal issue. Pain is consistent with carpal tunnel however severe spasm. Once pain is better she is able to move and use her hand. At this time I see no need for any further workup. Discharge Plan Departure Patient Disposition: Home Clinical Impression: Carpal tunnel syndrome Instructions: Carpal Tunnel Syndrome Activity Restrictions/Additional Instructions: *You have been diagnosed with carpal tunnel *What to do: At this time seems that you had a severe spasm. *Continue to take medications as directed [place] 1 tablet every 6 hours if needed for severe pain--> SENT TO [facility] *Follow up with your primary care provider in 2-3 days or call [phone] *Return to ER if you should have increased pain weakness or any new, worsening or concerning symptoms CONTROLLED SUBSTANCE DISCHARGE (Narcotoic/benzodiazepine/Flexeril/Phenergan) 1. You have been prescribed narcotic medications, it does have acetaminophen/Tylenol/paracetamol in it, DO NOT TAKE MORE THAN 4,00mg in 24 hours of Tylenol. TRAMADOL DOES NOT CONTAIN TYLENOL 2. Please understand that we cannot provide further refills of narcotics, benzodiazepines or controlled substances through the ED and her pain management will need to be through your provider. 3. While on these medications you cannot drive or operate heavy machinery. 4. You cannot sign legal documents or perform any duties such as this. 5. As long as you're taking opiate pain medications he should also be taking a stool softener such as Colace, Dulcolax, MiraLAX or prune juice, to help avoid constipation. Prescriptions: New hydrocodone-acetaminophen 5-325 mg tablet 1 tab PO Q6H PRN (Reason: pain) Qty: 10 0RF No Action carbidopa-levodopa 25-100 mg tablet 1 - 1.5 tab PO Q3H 0RF Label Comments: patient states taking every 2.5 hours now. clonazepam 1 mg tablet See Rx Instructions .ROUTE .COMPLEX Qty: 30 3RF Dose Instruction: Take 0.5-1 tablets (0.5-1 mg) by mouth at bedtime Rx Instructions: Take 0.5-1 tablets (0.5-1 mg) by mouth at bedtime levothyroxine 75 mcg tablet 75 mcg PO DAILY Qty: 90 1RF Rx Instructions: at least 30 minutes before breakfast atorvastatin 20 mg tablet 20 mg PO BEDTIME Qty: 90 1RF magnesium oxide 500 mg tablet 500 mg PO DAILY 0RF aspirin [Adult Low Dose Aspirin] 81 mg tablet,delayed release (DR/EC) 81 mg PO DAILY 0RF sertraline 50 mg tablet See Rx Instructions PO DAILY 0RF Rx Instructions: 75 mg for one week then 50 mg PO daily; Placeholder for taper. quetiapine 50 mg tablet extended release 24 hr 50 mg PO 0RF amantadine HCl 100 mg capsule 100 mg PO BID 0RF baclofen 10 mg tablet 10 mg PO BEDTIME PRN0RF ropinirole 2 mg Tablet Extended Release 24 Hr 6 mg PO BEDTIME 0RF multivitamin Tablet 1 tab PO DAILY 0RF vitamin B complex Tablet 1 tab PO DAILY 0RF Vitamin D3 1 tab PO DAILY 0RF ibuprofen 200 mg tablet 400 - 600 mg PO Q6H PRN (Reason: Pain (Scale Score 1-3)) 0RF Referrals: Rea Mcnulty MD [Primary Care Provider] - Visit Report Forms: Patient Portal/API
[2021-12-23 08:15] VITALS: BP 111/70; PULSE 82; RESP 18; O2SAT 98
== END 2021-12-23 08:17 | disposition home or self-care (01) ==
PROVIDERS: Emergency Provider Emergency Medicine; PCP Family Medicine
DX: G56.01 Carpal tunnel syndrome, right upper limb (principal)
CPT/HCPCS: 96374; 99283; J2270

== ENCOUNTER 2022-02-14 10:53 | Emergency (ER) | payer OTHER, SELFPAY ==
[2020-03-27 22:31] VITALS: BMI 22.6
[2022-02-14] VITALS (14 sets, daily range): BP systolic 119–147; BP diastolic 58–80; PULSE 73–90; RESP 15–24; TEMP 36.9; O2SAT 97–99; BMI 21.7
--- NOTE | 2022-02-14 11:03 | DI.RAD.S_ITS ---
PROCEDURE: XR CHEST 1V INDICATIONS: chest pain TECHNIQUE: One view of the chest was acquired. COMPARISON: [facility], CR, XR CHEST 1V, 08/29/2021, 16:10. FINDINGS: Surgical changes and devices: None. Lungs and pleura: Lungs are clear. No pleural effusions or pneumothorax. Mediastinum: Mediastinal contours appear normal. Heart size is normal. Bones and chest wall: No suspicious bony lesions. Overlying soft tissues appear unremarkable. Stable dextroscoliosis of the midthoracic spine. IMPRESSION: Stable radiographic evaluation of the chest without acute cardiopulmonary abnormalities or focal airspace disease. Dictated by: Keron Flores M.D. on 02/14/2022 at 12:26 Approved by: Keron Flores M.D. on 02/14/2022 at 12:26
[2022-02-14 11:13] LABS: Add Manual Diff / Slide Review NO; Basophils Absolute Auto 0 /uL (0-100); Basophils Percent Auto 0.7 % (0-2); Eosinophils Absolute Auto 100 /uL (0-450); Eosinophils Percent Auto 1.5 % (2-4); Hemoglobin 14.1 g/dL (12.0-16.0); Lymphocytes Absolute Auto 2000 /uL (1100-4500); Lymphocytes Percent Auto 28.7 % (25-40); Mean Corpuscular HGB Conc 33.6 % (30-36); Mean Corpuscular Volume 86.3 fL (80-100); Monocytes Absolute Auto 500 /uL (0-900); Monocytes Percent Auto 6.9 % (3-14); Neutrophils Absolute Auto 4300 /uL (1500-7000); Neutrophils Percent Auto 62.2 % (50-75); Platelet Count 359 X10^3/uL (150-400); Red Blood Cell Count 4.87 X10^6/uL (4.0-5.2); Red Cell Distribution Width 13.7 % (11.6-14.8); White Blood Cell Count 6.9 X10^3/uL (4.5-11.0)
[2022-02-14 11:15] LABS: INR 0.9 (0.9-1.3); Prothrombin Time 10.4 SECONDS (10.1-12.7)
[2022-02-14 11:17] LABS: PTT Partial Thromboplastin Tim 37 SECONDS (26.4-36.2)
[2022-02-14 11:19] LABS: Alanine Aminotransferase 6 IU/L (<35); Albumin Globulin Ratio 1.4 (1.0-2.8); Alkaline Phosphatase 131 U/L (38-126); Aspartate Aminotransferase 32 IU/L (14-36); BUN Creatinine Ratio 8.3 (6-22); Bilirubin Total 0.5 mg/dL (0.2-1.3); Blood Urea Nitrogen 6 mg/dL (7-17); Calcium 9.1 mg/dL (8.4-10.2); Carbon Dioxide 26 mmol/L (22-32); Chloride 101 mmol/L (98-107); Creatine Kinase 50 U/L (30-135); Estimated Glomerular Filt Rate > 60 mL/min (>60); Globulin 2.9 g/dL (1.7-4.1); Glucose 117 mg/dL (70-100); HEMOLYSIS 30 (0-50); Lipase 85 U/L (23-300); Magnesium 2.2 mg/dL (1.6-2.3); Sodium 136 mmol/L (137-145); Total Protein 6.9 g/dL (6.3-8.2)
[2022-02-14 11:31] LABS: Troponin I < 0.012 ng/mL (0.01-0.034)
--- NOTE | 2022-02-14 12:42 | PC.NURSE ---
Pt reports chest squeezing that radiates to her neck and back. Notified provider Timur. EKG being performed now. Second trop ordered for 1310.
--- NOTE | 2022-02-14 13:06 | ED.CHESTPAIN ---
HPI - Chest Pain <Brandon Ding PA-C - Last Filed: 02/14/22 20:53> General Chief Complaint: Chest Pain Stated Complaint: Dyskinesia, chest pain, Has Parkinsons Time Seen by Provider: 02/14/22 12:12 Source: patient Mode of arrival: EMS Limitations: no limitations History of Present Illness HPI narrative: 56-year-old female with past medical history Parkinson's disease, anxiety, depression, hyperlipidemia, TIA, GERD, hypothyroidism presents to the ED with 2 weeks of chest tightness, trouble breathing, anxiety. Patient states that for the last 2 weeks, she has been feeling some chest tightness, harder to breathe, anxiety, nausea, anorexia, increased generalized weakness. Patient denies fever, chills, vomiting, abdominal pain, dysuria, urinary frequency, urinary urgency, lightheadedness, dizziness, syncope. Patient states that she sees a psychiatrist, who increased her dosage of sertraline from 100-150 mg 1 month ago. Patient states that she has been having watery diarrhea for the last week, which her psychiatrist said could be due to the increase in the sertraline dosage. Patient states that her diarrhea has since then stopped, she had a normal bowel movement this morning. Patient denies hematochezia, melena. Patient states that she only took half her dose of carbidopa levodopa this morning, since she was afraid that it might be contributing to her worsening anxiety. Patient is also endorsing increased leg tremors, which she attributes to only taking half her carbidopa levodopa dosage. Patient denies rhinorrhea, sore throat, cough. Patient states that she also takes clonazepam for anxiety, which she only took a half dose this morning. Related Data Home Medications Medication Instructions Recorded Confirmed Vitamin D3 1 tab PO DAILY 07/26/18 09/21/21 multivitamin 1 tab PO DAILY 07/26/18 09/21/21 ropinirole 2 mg tablet,extended 6 mg PO BEDTIME 07/26/18 09/21/21 release 24 hr vitamin B complex 1 tab PO DAILY 07/26/18 09/21/21 carbidopa 25 mg-levodopa 100 mg 1 - 1.5 tab PO Q3H 02/06/19 09/21/21 tablet ibuprofen 200 mg tablet 400 - 600 mg PO Q6H PRN Pain 02/06/19 09/21/21 (Scale Score 1-3) amantadine HCl 100 mg capsule 100 mg PO BID 03/28/19 09/21/21 magnesium oxide 500 mg tablet 500 mg PO DAILY 09/19/19 09/21/21 aspirin 81 mg tablet,delayed 81 mg PO DAILY 03/12/20 09/21/21 release (Adult Low Dose Aspirin) baclofen 10 mg tablet 10 mg PO BEDTIME PRN 05/04/21 09/21/21 sertraline 50 mg tablet See Rx Instructions PO DAILY 01/09/22 01/09/22 Previous Rx's Medication Instructions Recorded atorvastatin 20 mg tablet 20 mg PO BEDTIME #90 tabs 12/01/21 levothyroxine 75 mcg tablet 75 mcg PO DAILY #90 tabs 12/01/21 clonazepam 1 mg tablet See Rx Instructions .Route 01/02/22 .COMPLEX #30 tabs Allergies Allergy/AdvReac Type Severity Reaction Status Date / Time No Known Drug Allergies Allergy Verified 02/14/22 11:04 Review of Systems <Brandon Ding PA-C - Last Filed: 02/14/22 20:53> Review of Systems ROS Unobtainable: All systems reviewed & are unremarkable except as noted in HPI and below Constitutional Constitutional: Denies chills, Denies fatigue, Denies fever(s), Denies frequent falls, Denies lethargy and Reports weakness Eyes Eyes: Denies change in vision, Denies eye discharge, Denies irritation and Denies loss of vision ENT Ears, Nose, Mouth, and Throat: Denies change in voice, Denies dizziness, Denies neck pain, Denies sore throat and Denies throat swelling Cardiovascular Cardiovascular: Denies chest pain, Denies irregular heart rhythm, Denies lightheadedness, Denies palpitations, Reports dyspnea, Denies dyspnea on exertion and Denies orthopnea Comments: Chest tightness Respiratory Respiratory: Denies cough, Reports dyspnea, Denies dyspnea on exertion and Denies wheezing Gastrointestinal Gastrointestinal: Denies abdominal pain, Denies change in bowel habits, Denies diarrhea, Reports nausea and Denies vomiting Genitourinary Genitourinary: Denies hematuria, Denies flank pain, Denies urinary incontinence and Denies urinary urgency Musculoskeletal Musculoskeletal: Denies back pain, Denies muscle weakness, Denies neck pain, Denies numbness and Denies tingling Integumentary/Breasts Skin/Breast: Denies pruritus, Denies erythema, Denies rash and Denies wounds Neurologic Neurologic: Denies behavioral changes, Denies confusion, Denies dizziness, Denies frequent falls, Denies loss of vision, Denies numbness, Denies tingling and Reports weakness Psychiatric Psychiatric: Reports anxiety, Denies behavioral changes, Denies confusion, Denies depression, Denies homicidal ideation and Denies suicidal ideation Endocrine Endocrine: Denies fatigue, Denies flushing and Denies palpitations Hematologic/Lymphatic Hematologic/Lymphatic: Denies easy bruising Allergic/Immunologic Allergic/Immunologic: Denies urticaria, Denies throat swelling and Denies wheezing Patient History <Brandon Ding PA-C - Last Filed: 02/14/22 20:53> Medical History Abnormal mammogram (08/27/15) Abnormal Pap smear of cervix Alcohol use disorder Anxiety (~2010) Carpal tunnel syndrome on both sides (~2007) Cervical cancer (2007) Chicken pox (1969) Chronic insomnia (06/12/14) Colitis (2003) Depression Eczema Family history of autoimmune disorder Foot pain (2014) Gastric ulcer (1983) GERD (gastroesophageal reflux disease) Hayfever Herpes HPV (human papilloma virus) infection Hyperlipidemia Hypertension Hypothyroidism (2014) 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 Grandfather Parkinson's disease Grandmother No problems noted. Sister No problems noted. Sister No problems noted. 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 Smoking Status: Never smoker alcohol intake: former substance use type: does not use Smoking Status: Never smoker alcohol intake frequency: holidays/special occasions only Substance Use Type: does not use Exam <Brandon Ding PA-C - Last Filed: 02/14/22 20:53> Initial Vital Signs Initial Vital Signs: Vital Signs Pulse Rate 82 02/14/22 10:56 Pulse Oximetry 98 02/14/22 10:56 Const General:?cooperative, appears anxious HENMT Head:?normal to inspection Ears:?hearing grossly normal bilaterally Nose:?external nose normal Face and sinus:?normal facial exam and sinuses nontender Mouth:?oral mucosae normal Throat:?posterior oropharynx normal Eyes General:?appearance normal, both eyes and all related structures Neck Neck:?normal visual inspection and no lymphadenopathy noted Resp Effort & Inspection:?normal respiratory effort Auscultation:?clear to auscultation bilaterally Cardio Rate:?regular rate Rhythm:?regular rhythm Neuro General:?patient alert, patient awake and patient oriented x3; visible leg tremors from Parkinson's <Tea Rodriguez DO - Last Filed: 02/15/22 09:35> Initial Vital Signs Initial Vital Signs: Vital Signs Pulse Rate 82 02/14/22 10:56 Pulse Oximetry 98 02/14/22 10:56 Course <Brandon Ding PA-C - Last Filed: 02/14/22 20:53> Orders Ordered: Discontinued Medications Clonazepam (Clonazepam 0.5 Mg Tablet) 0.5 mg PO NOW ONE Stop: 02/14/22 13:04 Last Admin: 02/14/22 13:09 Dose: 0.5 mg Documented By: JUDD Sodium Chloride (Normal Saline 0.9%) 1,000 mls @ 1,000 mls/hr IV BOLUS ONE Stop: 02/14/22 14:00 Last Infusion: 02/14/22 15:05 Dose: 0 mls/hr Documented By: Admin: 02/14/22 13:08 Dose: 1,000 mls/hr Documented By: JUDD Vital Signs Vital signs: Vital Signs - 8 hr 02/14/22 13:00 02/14/22 13:00 02/14/22 13:32 Pulse Rate 90 Respiratory Rate 24 Blood Pressure 139/68 133/71 Pulse Oximetry 97 Oxygen Delivery Method 02/14/22 13:32 02/14/22 14:00 02/14/22 15:13 Pulse Rate 83 75 80 Respiratory Rate 19 20 18 Blood Pressure 124/80 119/58 L Pulse Oximetry 99 97 97 Oxygen Delivery Method Room Air 02/14/22 14:30 02/14/22 15:00 02/14/22 15:04 Pulse Rate 73 83 Respiratory Rate Blood Pressure 119/58 L Pulse Oximetry 98 Oxygen Delivery Method 02/14/22 15:04 Pulse Rate 75 Respiratory Rate 21 Blood Pressure Pulse Oximetry 99 Oxygen Delivery Method <Tea Rodriguez DO - Last Filed: 02/15/22 09:35> Orders Ordered: Discontinued Medications Clonazepam (Clonazepam 0.5 Mg Tablet) 0.5 mg PO NOW ONE Stop: 02/14/22 13:04 Last Admin: 02/14/22 13:09 Dose: 0.5 mg Documented By: JUDD Sodium Chloride (Normal Saline 0.9%) 1,000 mls @ 1,000 mls/hr IV BOLUS ONE Stop: 02/14/22 14:00 Last Infusion: 02/14/22 15:05 Dose: 0 mls/hr Documented By: Admin: 02/14/22 13:08 Dose: 1,000 mls/hr Documented By: JUDD Vital Signs Vital signs: Vital Signs - 8 hr 02/14/22 13:00 02/14/22 13:00 02/14/22 13:32 Pulse Rate 90 Respiratory Rate 24 Blood Pressure 139/68 133/71 Pulse Oximetry 97 Oxygen Delivery Method 02/14/22 13:32 02/14/22 14:00 02/14/22 15:13 Pulse Rate 83 75 80 Respiratory Rate 19 20 18 Blood Pressure 124/80 119/58 L Pulse Oximetry 99 97 97 Oxygen Delivery Method Room Air 02/14/22 14:30 02/14/22 15:00 02/14/22 15:04 Pulse Rate 73 83 Respiratory Rate Blood Pressure 119/58 L Pulse Oximetry 98 Oxygen Delivery Method 02/14/22 15:04 Pulse Rate 75 Respiratory Rate 21 Blood Pressure Pulse Oximetry 99 Oxygen Delivery Method MDM - Chest Pain <Brandon Ding PA-C - Last Filed: 02/14/22 20:53> Medical Records Data Attestation: I reviewed the patient's medical records. Lab Data Attestation: I reviewed the patient's lab results. Lab results narrative: Labs within normal limits. UA negative for UTI Result diagrams: 02/14/22 11:10 02/14/22 11:10 Labs: Lab Results 02/14/22 02/14/22 02/14/22 Range/Units 11:10 11:10 11:10 WBC 6.9 (4.5-11.0) X10^3/uL RBC 4.87 (4.0-5.2) X10^6/uL Hgb 14.1 (12.0-16.0) g/dL Hct 42.0 (36-46) % MCV 86.3 (80-100) fL MCH 29.0 (26-34) PG MCHC 33.6 (30-36) % RDW 13.7 (11.6-14.8) % Plt Count 359 (150-400) X10^3/uL Neut % (Auto) 62.2 (50-75) % Lymph % (Auto) 28.7 (25-40) % [place] % (Auto) 6.9 (3-14) % Eos % (Auto) 1.5 L (2-4) % Baso % (Auto) 0.7 (0-2) % Neut # (Auto) 4300 (3424-7084) /uL Lymph # (Auto) 2000 (8923-7842) /uL [place] # (Auto) 500 (0-900) /uL Eos # (Auto) 100 (0-450) /uL Baso # (Auto) 0 (0-100) /uL PT 10.4 (10.1-12.7) SECONDS INR 0.9 (0.9-1.3) APTT 37 H (26.4-36.2) SECONDS Sodium 136 L (137-145) mmol/L Potassium 4.0 (3.4-5.1) mmol/L Chloride 101 (98-107) mmol/L Carbon Dioxide 26 (22-32) mmol/L BUN 6 L (7-17) mg/dL Creatinine 0.72 (0.52-1.04) mg/dL Estimated GFR > 60 (>60) mL/min BUN/Creatinine Ratio 8.3 (6-22) Glucose 117 H (70-100) mg/dL Calcium 9.1 (8.4-10.2) mg/dL Magnesium 2.2 (1.6-2.3) mg/dL Total Bilirubin 0.5 (0.2-1.3) mg/dL AST 32 (14-36) IU/L ALT 6 (<35) IU/L Alkaline Phosphatase 131 H (38-126) U/L Total Creatine Kinase 50 (30-135) U/L CK-MB (CK-2) TNP CK-MB (CK-2) Rel Index TNP Troponin I < 0.012 (0.01-0.034) ng/mL Total Protein 6.9 (6.3-8.2) g/dL Albumin 4.0 (3.5-5.0) g/dL Globulin 2.9 (1.7-4.1) g/dL Albumin/Globulin Ratio 1.4 (1.0-2.8) Lipase 85 (23-300) U/L Urine RBC (0-5/HPF) Urine WBC (0-5/HPF) Ur Squamous Epith Cells (0-5/HPF) Amorphous Sediment Urine Bacteria (None) Ur Culture Indicated? 02/14/22 02/14/22 Range/Units 13:10 14:20 WBC (4.5-11.0) X10^3/uL RBC (4.0-5.2) X10^6/uL Hgb (12.0-16.0) g/dL Hct (36-46) % MCV (80-100) fL MCH (26-34) PG MCHC (30-36) % RDW (11.6-14.8) % Plt Count (150-400) X10^3/uL Neut % (Auto) (50-75) % Lymph % (Auto) (25-40) % [place] % (Auto) (3-14) % Eos % (Auto) (2-4) % Baso % (Auto) (0-2) % Neut # (Auto) (2784-9077) /uL Lymph # (Auto) (3303-3510) /uL [place] # (Auto) (0-900) /uL Eos # (Auto) (0-450) /uL Baso # (Auto) (0-100) /uL PT (10.1-12.7) SECONDS INR (0.9-1.3) APTT (26.4-36.2) SECONDS Sodium (137-145) mmol/L Potassium (3.4-5.1) mmol/L Chloride (98-107) mmol/L Carbon Dioxide (22-32) mmol/L BUN (7-17) mg/dL Creatinine (0.52-1.04) mg/dL Estimated GFR (>60) mL/min BUN/Creatinine Ratio (6-22) Glucose (70-100) mg/dL Calcium (8.4-10.2) mg/dL Magnesium (1.6-2.3) mg/dL Total Bilirubin (0.2-1.3) mg/dL AST (14-36) IU/L ALT (<35) IU/L Alkaline Phosphatase (38-126) U/L Total Creatine Kinase (30-135) U/L CK-MB (CK-2) CK-MB (CK-2) Rel Index Troponin I < 0.012 (0.01-0.034) ng/mL Total Protein (6.3-8.2) g/dL Albumin (3.5-5.0) g/dL Globulin (1.7-4.1) g/dL Albumin/Globulin Ratio (1.0-2.8) Lipase (23-300) U/L Urine RBC None seen (0-5/HPF) Urine WBC 0-1/hpf (0-5/HPF) Ur Squamous Epith Cells None seen D (0-5/HPF) Amorphous Sediment 1+ Urine Bacteria None seen (None) Ur Culture Indicated? Cult not indicated Urine Dip Bedside Urine Glucose Negative Bedside Urine Bilirubin - Negative Bedside Urine Ketone - Negative Urine Specific [place] 1.010 Bedside Urine Occult Blood - Negative Bedside Urine pH 8.0 Bedside Urine Protein - Negative Bedside Urine Urobilinogen - Negative Bedside Urine Nitrite - Negative Bedside Urine Leukocytes +/- 15 Esterase Imaging Data Chest x-ray: Radiologist's Impression: PROCEDURE:? XR CHEST 1V ? INDICATIONS:? chest pain ? TECHNIQUE:? One view of the chest was acquired.? ? COMPARISON:? [facility], , XR CHEST 1V, 08/29/2021, 16:10. ? FINDINGS:? ? Surgical changes and devices:? None.? ? Lungs and pleura:? Lungs are clear.? No pleural effusions or pneumothorax.? ? Mediastinum:? Mediastinal contours appear normal.? Heart size is normal.? ? Bones and chest wall:? No suspicious bony lesions.? Overlying soft tissues appear unremarkable.? Stable dextroscoliosis of the midthoracic spine. ? IMPRESSION:? Stable radiographic evaluation of the chest without acute cardiopulmonary abnormalities or focal airspace disease. ? ? ? Dictated by: Keron Flores M.D. on 02/14/2022 at 12:26 ? ? Approved by: Keron Flores M.D. on 02/14/2022 at 12:26 ? MDM Narrative Medical decision making narrative: 56-year-old female with past medical history Parkinson's disease, anxiety, depression, hyperlipidemia, TIA, GERD, hypothyroidism presents to the ED with 2 weeks of chest tightness, trouble breathing, anxiety. Concern for ACS versus pneumonia versus anxiety versus metabolic derangement versus dehydration versus UTI versus other. Will obtain labs, EKG, chest x-ray, troponin, UA. Will give IV fluids. Will give 0.5 mg clonazepam for anxiety. Will reassess. Workup was unremarkable. Patient's symptoms improved with clonazepam, IV fluids. Symptoms likely due to dehydration from diarrhea, anxiety. ED return precautions discussed with patient. Patient verbalized understanding. <Tea Rodriguez, - Last Filed: 02/15/22 09:35> Lab Data Labs: Lab Results 02/14/22 02/14/22 02/14/22 Range/Units 11:10 11:10 11:10 WBC 6.9 (4.5-11.0) X10^3/uL RBC 4.87 (4.0-5.2) X10^6/uL Hgb 14.1 (12.0-16.0) g/dL Hct 42.0 (36-46) % MCV 86.3 (80-100) fL MCH 29.0 (26-34) PG MCHC 33.6 (30-36) % RDW 13.7 (11.6-14.8) % Plt Count 359 (150-400) X10^3/uL Neut % (Auto) 62.2 (50-75) % Lymph % (Auto) 28.7 (25-40) % [place] % (Auto) 6.9 (3-14) % Eos % (Auto) 1.5 L (2-4) % Baso % (Auto) 0.7 (0-2) % Neut # (Auto) 4300 (2166-3874) /uL Lymph # (Auto) 2000 (5223-2756) /uL [place] # (Auto) 500 (0-900) /uL Eos # (Auto) 100 (0-450) /uL Baso # (Auto) 0 (0-100) /uL PT 10.4 (10.1-12.7) SECONDS INR 0.9 (0.9-1.3) APTT 37 H (26.4-36.2) SECONDS Sodium 136 L (137-145) mmol/L Potassium 4.0 (3.4-5.1) mmol/L Chloride 101 (98-107) mmol/L Carbon Dioxide 26 (22-32) mmol/L BUN 6 L (7-17) mg/dL Creatinine 0.72 (0.52-1.04) mg/dL Estimated GFR > 60 (>60) mL/min BUN/Creatinine Ratio 8.3 (6-22) Glucose 117 H (70-100) mg/dL Calcium 9.1 (8.4-10.2) mg/dL Magnesium 2.2 (1.6-2.3) mg/dL Total Bilirubin 0.5 (0.2-1.3) mg/dL AST 32 (14-36) IU/L ALT 6 (<35) IU/L Alkaline Phosphatase 131 H (38-126) U/L Total Creatine Kinase 50 (30-135) U/L CK-MB (CK-2) TNP CK-MB (CK-2) Rel Index TNP Troponin I < 0.012 (0.01-0.034) ng/mL Total Protein 6.9 (6.3-8.2) g/dL Albumin 4.0 (3.5-5.0) g/dL Globulin 2.9 (1.7-4.1) g/dL Albumin/Globulin Ratio 1.4 (1.0-2.8) Lipase 85 (23-300) U/L Urine RBC (0-5/HPF) Urine WBC (0-5/HPF) Ur Squamous Epith Cells (0-5/HPF) Amorphous Sediment Urine Bacteria (None) Ur Culture Indicated? 02/14/22 02/14/22 Range/Units 13:10 14:20 WBC (4.5-11.0) X10^3/uL RBC (4.0-5.2) X10^6/uL Hgb (12.0-16.0) g/dL Hct (36-46) % MCV (80-100) fL MCH (26-34) PG MCHC (30-36) % RDW (11.6-14.8) % Plt Count (150-400) X10^3/uL Neut % (Auto) (50-75) % Lymph % (Auto) (25-40) % [place] % (Auto) (3-14) % Eos % (Auto) (2-4) % Baso % (Auto) (0-2) % Neut # (Auto) (2069-8379) /uL Lymph # (Auto) (9075-6108) /uL [place] # (Auto) (0-900) /uL Eos # (Auto) (0-450) /uL Baso # (Auto) (0-100) /uL PT (10.1-12.7) SECONDS INR (0.9-1.3) APTT (26.4-36.2) SECONDS Sodium (137-145) mmol/L Potassium (3.4-5.1) mmol/L Chloride (98-107) mmol/L Carbon Dioxide (22-32) mmol/L BUN (7-17) mg/dL Creatinine (0.52-1.04) mg/dL Estimated GFR (>60) mL/min BUN/Creatinine Ratio (6-22) Glucose (70-100) mg/dL Calcium (8.4-10.2) mg/dL Magnesium (1.6-2.3) mg/dL Total Bilirubin (0.2-1.3) mg/dL AST (14-36) IU/L ALT (<35) IU/L Alkaline Phosphatase (38-126) U/L Total Creatine Kinase (30-135) U/L CK-MB (CK-2) CK-MB (CK-2) Rel Index Troponin I < 0.012 (0.01-0.034) ng/mL Total Protein (6.3-8.2) g/dL Albumin (3.5-5.0) g/dL Globulin (1.7-4.1) g/dL Albumin/Globulin Ratio (1.0-2.8) Lipase (23-300) U/L Urine RBC None seen (0-5/HPF) Urine WBC 0-1/hpf (0-5/HPF) Ur Squamous Epith Cells None seen D (0-5/HPF) Amorphous Sediment 1+ Urine Bacteria None seen (None) Ur Culture Indicated? Cult not indicated Urine Dip Bedside Urine Glucose Negative Bedside Urine Bilirubin - Negative Bedside Urine Ketone - Negative Urine Specific [place] 1.010 Bedside Urine Occult Blood - Negative Bedside Urine pH 8.0 Bedside Urine Protein - Negative Bedside Urine Urobilinogen - Negative Bedside Urine Nitrite - Negative Bedside Urine Leukocytes +/- 15 Esterase ECG Data Interpretation: Sinus rhythm rate 90 no significant artifact Discharge Plan Departure Patient Disposition: Home Clinical Impression: Chest tightness Activity Restrictions/Additional Instructions: You were evaluated in the ED today for chest tightness, trouble breathing. Your EKG, chest x-ray, labs, troponin were normal. Your urine did not test positive for a UTI either. Your symptoms are likely due to weakness from the diarrhea that you have been having over the last week, combined with some anxiety. Your symptoms largely improved with a dose of clonazepam and some IV fluids. Please continue to stay well hydrated and take your medications as prescribed. Please follow-up with your PCP as soon as possible. Return to the ED if you experience chest pain, shortness of breath, uncontrollable vomiting/diarrhea. Prescriptions: No Action carbidopa-levodopa 25-100 mg tablet 1 - 1.5 tab PO Q3H Label Comments: patient states taking every 2.5 hours now. levothyroxine 75 mcg tablet 75 mcg PO DAILY Qty: 90 1RF Rx Instructions: at least 30 minutes before breakfast atorvastatin 20 mg tablet 20 mg PO BEDTIME Qty: 90 1RF clonazepam 1 mg tablet See Rx Instructions .ROUTE .COMPLEX Qty: 30 3RF Dose Instruction: Take 0.5-1 tablets (0.5-1 mg) by mouth at bedtime Rx Instructions: Take 0.5-1 tablets (0.5-1 mg) by mouth at bedtime magnesium oxide 500 mg tablet 500 mg PO DAILY aspirin [Adult Low Dose Aspirin] 81 mg tablet,delayed release (DR/EC) 81 mg PO DAILY amantadine HCl 100 mg capsule 100 mg PO BID baclofen 10 mg tablet 10 mg PO BEDTIME PRN sertraline 50 mg tablet See Rx Instructions PO DAILY Rx Instructions: Take 3 tabs (150mg) daily per psychiatry ropinirole 2 mg Tablet Extended Release 24 Hr 6 mg PO BEDTIME multivitamin Tablet 1 tab PO DAILY vitamin B complex Tablet 1 tab PO DAILY Vitamin D3 1 tab PO DAILY ibuprofen 200 mg tablet 400 - 600 mg PO Q6H PRN (Reason: Pain (Scale Score 1-3)) Referrals: Henrik Trujillo MD [Primary Care Provider] - Visit Report Forms: Patient Portal/API <Tea Rodriguez DO - Last Filed: 02/15/22 09:35> Cosign ED Attending Rosa Maria Attestation: I was immediately available in the department for consultation. Documentation has been reviewed. I agree with assessment and plan.
[2022-02-14] MEDS: SODIUM CHLORIDE 0.9% 1,000 ML 1000 ML IV (13:08)
[2022-02-14] MEDS: clonazePAM 0.5 MG TABLET PO (13:09)
[2022-02-14 13:47] LABS: Troponin I < 0.012 ng/mL (0.01-0.034)
[2022-02-14 14:38] LABS: Amorphous Sediment Urine 1+; Bacteria Urine None Seen; Culture Indicated Urine Cult Not Indicated; RBC Urine None Seen (0-5/HPF); Squamous Epithelial Cell Urine None Seen (0-5/HPF); WBC Urine 0-1/HPF (0-5/HPF)
== END 2022-02-14 15:11 | disposition home or self-care (01) ==
PROVIDERS: Emergency Medicine; Emergency Provider Student in an Organized Health Care Education/Training Program; PCP Pediatrics
DX: R07.9 Chest pain, unspecified (principal); F41.9 Anxiety disorder, unspecified; G20 Parkinson's disease
CPT/HCPCS: 36415; 71045; 80053; 81003; 81015; 82550; 83690; 83735; 84484; 85025; 85610; 85730; 93005; 96360; 96361; 99284

== ENCOUNTER 2022-03-30 12:51 | Observation (INO) | payer OTHER, SELFPAY ==
[2020-03-27 22:31] VITALS: BMI 22.6
[2022-03-30] VITALS (32 sets, daily range): BP systolic 113–159; BP diastolic 49–106; PULSE 72–172; RESP 17–60; TEMP 36.8–36.9; O2SAT 98–100; BMI 20.9; BMI 21.5
--- NOTE | 2022-03-30 13:28 | DI.RAD.S_ITS ---
PROCEDURE: XR CHEST 1V INDICATIONS: chest pain TECHNIQUE: One view of the chest was acquired. COMPARISON: [facility], CR, XR CHEST 1V, 02/14/2022, 11:10. FINDINGS: Surgical changes and devices: None. Lungs and pleura: Lungs are clear. No pleural effusions or pneumothorax. Mediastinum: Mediastinal contours appear normal. Heart size is normal. Bones and chest wall: No suspicious bony lesions. Overlying soft tissues appear unremarkable. IMPRESSION: No acute process. Dictated by: Levon Cartagena M.D. on 03/30/2022 at 13:46 Approved by: Levon Cartagena M.D. on 03/30/2022 at 13:47
[2022-03-30 13:44] LABS: Add Manual Diff / Slide Review NO; Basophils Absolute Auto 100 /uL (0-100); Basophils Percent Auto 0.9 % (0-2); Eosinophils Absolute Auto 100 /uL (0-450); Eosinophils Percent Auto 2.1 % (2-4); Hematocrit 39.5 % (36-46); Hemoglobin 13.1 g/dL (12.0-16.0); Lymphocytes Absolute Auto 2100 /uL (1100-4500); Lymphocytes Percent Auto 30.1 % (25-40); Mean Corpuscular HGB Conc 33.3 % (30-36); Mean Corpuscular Hemoglobin 28.7 PG (26-34); Mean Corpuscular Volume 86.2 fL (80-100); Monocytes Absolute Auto 500 /uL (0-900); Monocytes Percent Auto 7.7 % (3-14); Neutrophils Absolute Auto 4200 /uL (1500-7000); Neutrophils Percent Auto 59.2 % (50-75); Platelet Count 368 X10^3/uL (150-400); Red Blood Cell Count 4.58 X10^6/uL (4.0-5.2); Red Cell Distribution Width 13.2 % (11.6-14.8); White Blood Cell Count 7.1 X10^3/uL (4.5-11.0)
[2022-03-30 13:52] LABS: Alanine Aminotransferase 6 IU/L (<35); Albumin 3.8 g/dL (3.5-5.0); Albumin Globulin Ratio 1.2 (1.0-2.8); Alkaline Phosphatase 138 U/L (38-126); Aspartate Aminotransferase 23 IU/L (14-36); BUN Creatinine Ratio 19.7 (6-22); Bilirubin Total 0.4 mg/dL (0.2-1.3); Blood Urea Nitrogen 12 mg/dL (7-17); Calcium 8.7 mg/dL (8.4-10.2); Carbon Dioxide 30 mmol/L (22-32); Chloride 97 mmol/L (98-107); Creatine Kinase 51 U/L (30-135); Estimated Glomerular Filt Rate > 60 mL/min (>60); Globulin 3.2 g/dL (1.7-4.1); Glucose 101 mg/dL (70-100); HEMOLYSIS < 15 (0-50); Lipase 67 U/L (23-300); Potassium 3.9 mmol/L (3.4-5.1); Sodium 130 mmol/L (137-145)
[2022-03-30 14:03] LABS: Troponin I < 0.012 ng/mL (0.01-0.034)
--- NOTE | 2022-03-30 14:26 | ED_ITS ---
HPI - Chest Pain General Chief Complaint: Chest Pain Stated Complaint: Chest pain Time Seen by Provider: 03/30/22 13:50 Source: patient and EMS Mode of arrival: EMS Limitations: physical limitation History of Present Illness HPI narrative: Patient states has history anxiety with chest tightness but states this is d ifferent today. Today patient was trying to walk despite her struggles with Parkinson's. Had chest discomfort on the left side. No dyspnea no nausea no sweating. Patient states has had this chest tightness a few times in the past few weeks. Patient had echocardiogram and stress test in the past. Has family history of coronary artery disease. Patient is scheduled to see a new neurologist for her Parkinson's. She states Sinemet is not working as well to use to no recent illness. No fever chills cough cold or congestion. Did have benzodiazepine in January it did help with anxiety and movements. Related Data Home Medications Medication Instructions Recorded Confirmed Vitamin D3 1 tab PO DAILY 07/26/18 09/21/21 multivitamin 1 tab PO DAILY 07/26/18 09/21/21 ropinirole 2 mg tablet,extended 6 mg PO BEDTIME 07/26/18 09/21/21 release 24 hr vitamin B complex 1 tab PO DAILY 07/26/18 09/21/21 carbidopa 25 mg-levodopa 100 mg 1 - 1.5 tab PO Q3H 02/06/19 09/21/21 tablet ibuprofen 200 mg tablet 400 - 600 mg PO Q6H PRN Pain 02/06/19 09/21/21 (Scale Score 1-3) amantadine HCl 100 mg capsule 100 mg PO BID 03/28/19 09/21/21 magnesium oxide 500 mg tablet 500 mg PO DAILY 09/19/19 09/21/21 aspirin 81 mg tablet,delayed 81 mg PO DAILY 03/12/20 09/21/21 release (Adult Low Dose Aspirin) baclofen 10 mg tablet 10 mg PO BEDTIME PRN 05/04/21 09/21/21 sertraline 50 mg tablet See Rx Instructions PO DAILY 01/09/22 01/09/22 Previous Rx's Medication Instructions Recorded atorvastatin 20 mg tablet 20 mg PO BEDTIME #90 tabs 12/01/21 levothyroxine 75 mcg tablet 75 mcg PO DAILY #90 tabs 12/01/21 clonazepam 1 mg tablet See Rx Instructions .Route 01/02/22 .COMPLEX #30 tabs Allergies Allergy/AdvReac Type Severity Reaction Status Date / Time No Known Drug Allergies Allergy Verified 02/14/22 11:04 Review of Systems Review of Systems Narrative: GENERAL: Denies chills, fatigue, positive for generalized weakness and malaise, negative for fever, sweats. HEENT: Denies sinus pain, ear pain, sore throat RESPIRATORY: Denies dyspnea, cough CARDIOVASCULAR: Positive for chest pain, negative for palpitations GASTROINTESTINAL: Denies nausea, vomiting, abdominal pain : Denies dysuria, frequency, hematuria MUSCULOSKELETAL: denies muscle or bony pain SKIN: Denies rash, skin lesions NEUROLOGIC: Denies weakness, numbness, positive for tremors ROS Unobtainable: All systems reviewed & are unremarkable except as noted in HPI and below Patient History Medical History Abnormal mammogram (08/27/15) Abnormal Pap smear of cervix Alcohol use disorder Anxiety (~2010) Carpal tunnel syndrome on both sides (~2007) Cervical cancer (2007) Chicken pox (1969) Chronic insomnia (06/12/14) Colitis (2003) Depression Eczema Family history of autoimmune disorder Foot pain (2014) Gastric ulcer (1983) GERD (gastroesophageal reflux disease) Hayfever Herpes HPV (human papilloma virus) infection Hyperlipidemia Hypertension Hypothyroidism (2014) 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 Grandfather Parkinson's disease Grandmother No problems noted. Sister No problems noted. Sister No problems noted. 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 EYES: Pupils equal round No scleral icterus. ENT: Mucous membranes moist. NECK: Trachea midline. CARDIOVASCULAR: Regular rate and rhythm without murmurs RESPIRATORY: Clear to auscultation. Breath sounds equal bilaterally. No wheezes, rales, or rhonchi. GASTROINTESTINAL: Abdomen soft, non-tender EXTREMITIES: No gross deformities. BACK: No flank tenderness. NEURO: AOx4. Continuous bilateral extremity tremors and movements SKIN: Warm and dry PSYCH: Patient is very anxious, is cooperative Initial Vital Signs Initial Vital Signs: Vital Signs Pulse Rate 90 03/30/22 13:01 Respiratory Rate 20 03/30/22 13:01 Pulse Oximetry 99 03/30/22 13:01 Course Course Course Narrative: No new issues during course of stay Orders Ordered: ED Orders 03/30/22 13:28 XR chest 1V Stat 03/30/22 13:34 Complete Blood Count AUTO DIFF Stat Comprehensive Metabolic Panel Stat Lipase Stat Magnesium Stat Troponin & CK Cardiac Panel Stat 03/30/22 13:35 EKG-12 Lead Stat 03/30/22 15:39 Trop I [Troponin I] Stat 03/30/22 18:05 COVID19 -Nasal RAPID/Pre-Proc Stat Discontinued Medications Amantadine HCl (Amantadine 100 Mg Capsule) 100 mg PO NOW ONE Stop: 03/30/22 17:03 Last Admin: 03/30/22 17:36 Dose: 100 mg Documented By: HAYLEY Aspirin (Aspirin 81 Mg Chew Tab) 324 mg PO NOW ONE Stop: 03/30/22 14:25 Last Admin: 03/30/22 14:34 Dose: Not Given Documented By: PANCHITO Carbidopa/Levodopa (Carbidopa-Levodopa 25/100 Tablet) 1 each PO NOW ONE Stop: 03/30/22 14:39 Last Admin: 03/30/22 14:59 Dose: 1 each Documented By: PANCHITO(2) Diazepam (Diazepam 10 Mg/2 Ml Syringe) 2 mg IV NOW ONE Stop: 03/30/22 14:25 Last Admin: 03/30/22 14:44 Dose: 2 mg Documented By: PANCHITO(2) Reevaluation(s) Reevaluation #1: Spoke with patient regarding results. She states the Valium may have helped her chest discomfort but is not certain. She does feel more relaxed than she was before. She states it has been over 10 years since last stress test and echocardiogram. She does agree for admission if recommended by Cardiology Time: 17:45 Consultations Consultation #1: Spoke with Dr. Crawford, information security, recommends patient being admitted since chest pain is different from previous anxiety attacks and it is reproducible with exertion. Recommends chemical stress test and echocardiogram. Time: 17:55 Consultation #2: Spoke with hospitalist, Dr. Fatima, will admit Time: 18:15 Vital Signs Vital signs: Vital Signs - 8 hr 03/30/22 13:12 03/30/22 13:22 03/30/22 13:01 Temperature 98.5 F Pulse Rate 93 H 92 H 90 Respiratory Rate 19 18 20 Blood Pressure 149/68 H 149/68 H Pulse Oximetry 99 99 99 Oxygen Delivery Method Room Air Room Air 03/30/22 13:02 03/30/22 13:02 03/30/22 13:22 Temperature Pulse Rate 113 H 90 Respiratory Rate 18 Blood Pressure 149/68 H Pulse Oximetry 99 98 Oxygen Delivery Method 03/30/22 13:30 03/30/22 13:30 03/30/22 14:00 Temperature Pulse Rate 81 Respiratory Rate 25 H Blood Pressure 125/65 134/73 Pulse Oximetry 100 Oxygen Delivery Method 03/30/22 14:00 03/30/22 14:30 03/30/22 14:30 Temperature Pulse Rate 103 H 147 H Respiratory Rate Blood Pressure 127/79 Pulse Oximetry 100 100 Oxygen Delivery Method 03/30/22 14:49 03/30/22 14:49 03/30/22 15:00 Temperature Pulse Rate 138 H Respiratory Rate 23 Blood Pressure 159/81 H 148/76 H Pulse Oximetry 99 Oxygen Delivery Method 03/30/22 15:00 03/30/22 15:15 03/30/22 15:15 Temperature Pulse Rate 97 H 91 H Respiratory Rate Blood Pressure 147/86 H Pulse Oximetry 100 99 Oxygen Delivery Method 03/30/22 15:30 03/30/22 15:30 03/30/22 15:46 Temperature Pulse Rate 92 H 91 H Respiratory Rate 29 H Blood Pressure 152/88 H Pulse Oximetry 99 99 Oxygen Delivery Method 03/30/22 15:46 03/30/22 16:00 03/30/22 16:00 Temperature Pulse Rate 100 H Respiratory Rate 36 H Blood Pressure 148/106 H 148/82 H Pulse Oximetry 99 Oxygen Delivery Method 03/30/22 16:15 03/30/22 16:15 03/30/22 16:30 Temperature Pulse Rate 84 94 H Respiratory Rate 36 H 28 H Blood Pressure 136/68 Pulse Oximetry 99 99 Oxygen Delivery Method 03/30/22 16:45 03/30/22 16:45 03/30/22 17:00 Temperature Pulse Rate 101 H Respiratory Rate 60 H Blood Pressure 158/80 H 133/66 Pulse Oximetry 99 Oxygen Delivery Method 03/30/22 17:00 03/30/22 17:15 03/30/22 17:15 Temperature Pulse Rate 96 H 95 H Respiratory Rate 37 H 31 H Blood Pressure 139/72 Pulse Oximetry 99 99 Oxygen Delivery Method 03/30/22 17:30 03/30/22 17:30 03/30/22 17:45 Temperature Pulse Rate 151 H 93 H Respiratory Rate 29 H 37 H Blood Pressure 141/72 H Pulse Oximetry 99 99 Oxygen Delivery Method 03/30/22 17:45 03/30/22 18:00 03/30/22 18:00 Temperature Pulse Rate 172 H Respiratory Rate 33 H Blood Pressure 130/72 137/72 Pulse Oximetry 99 Oxygen Delivery Method MDM - Chest Pain Differential Diagnosis Differential diagnosis: Likely stable angina, unstable angina pectoris, atypical chest pain, st elevation myocardial infarction, costochondritis and chest pain Lab Data Result diagrams: 03/30/22 13:34 03/30/22 13:34 Labs: Lab Results 03/30/22 03/30/22 03/30/22 Range/Units 13:34 13:34 15:39 WBC 7.1 (4.5-11.0) X10^3/uL RBC 4.58 (4.0-5.2) X10^6/uL Hgb 13.1 (12.0-16.0) g/dL Hct 39.5 (36-46) % MCV 86.2 (80-100) fL MCH 28.7 (26-34) PG MCHC 33.3 (30-36) % RDW 13.2 (11.6-14.8) % Plt Count 368 (150-400) X10^3/uL Neut % (Auto) 59.2 (50-75) % Lymph % (Auto) 30.1 (25-40) % [place] % (Auto) 7.7 (3-14) % Eos % (Auto) 2.1 (2-4) % Baso % (Auto) 0.9 (0-2) % Neut # (Auto) 4200 (0562-5740) /uL Lymph # (Auto) 2100 (9900-1189) /uL [place] # (Auto) 500 (0-900) /uL Eos # (Auto) 100 (0-450) /uL Baso # (Auto) 100 (0-100) /uL Sodium 130 L (137-145) mmol/L Potassium 3.9 (3.4-5.1) mmol/L Chloride 97 L (98-107) mmol/L Carbon Dioxide 30 (22-32) mmol/L BUN 12 (7-17) mg/dL Creatinine 0.61 (0.52-1.04) mg/dL Estimated GFR > 60 (>60) mL/min BUN/Creatinine Ratio 19.7 (6-22) Glucose 101 H (70-100) mg/dL Calcium 8.7 (8.4-10.2) mg/dL Magnesium 2.0 (1.6-2.3) mg/dL Total Bilirubin 0.4 (0.2-1.3) mg/dL AST 23 (14-36) IU/L ALT 6 (<35) IU/L Alkaline Phosphatase 138 H (38-126) U/L Total Creatine Kinase 51 (30-135) U/L CK-MB (CK-2) TNP CK-MB (CK-2) Rel Index TNP Troponin I < 0.012 < 0.012 (0.01-0.034) ng/mL Total Protein 7.0 (6.3-8.2) g/dL Albumin 3.8 (3.5-5.0) g/dL Globulin 3.2 (1.7-4.1) g/dL Albumin/Globulin Ratio 1.2 (1.0-2.8) Lipase 67 (23-300) U/L SARS-CoV-2 (PCR) (Negative) 03/30/22 Range/Units 18:05 WBC (4.5-11.0) X10^3/uL RBC (4.0-5.2) X10^6/uL Hgb (12.0-16.0) g/dL Hct (36-46) % MCV (80-100) fL MCH (26-34) PG MCHC (30-36) % RDW (11.6-14.8) % Plt Count (150-400) X10^3/uL Neut % (Auto) (50-75) % Lymph % (Auto) (25-40) % [place] % (Auto) (3-14) % Eos % (Auto) (2-4) % Baso % (Auto) (0-2) % Neut # (Auto) (7348-7187) /uL Lymph # (Auto) (6820-7071) /uL [place] # (Auto) (0-900) /uL Eos # (Auto) (0-450) /uL Baso # (Auto) (0-100) /uL Sodium (137-145) mmol/L Potassium (3.4-5.1) mmol/L Chloride (98-107) mmol/L Carbon Dioxide (22-32) mmol/L BUN (7-17) mg/dL Creatinine (0.52-1.04) mg/dL Estimated GFR (>60) mL/min BUN/Creatinine Ratio (6-22) Glucose (70-100) mg/dL Calcium (8.4-10.2) mg/dL Magnesium (1.6-2.3) mg/dL Total Bilirubin (0.2-1.3) mg/dL AST (14-36) IU/L ALT (<35) IU/L Alkaline Phosphatase (38-126) U/L Total Creatine Kinase (30-135) U/L CK-MB (CK-2) CK-MB (CK-2) Rel Index Troponin I (0.01-0.034) ng/mL Total Protein (6.3-8.2) g/dL Albumin (3.5-5.0) g/dL Globulin (1.7-4.1) g/dL Albumin/Globulin Ratio (1.0-2.8) Lipase (23-300) U/L SARS-CoV-2 (PCR) Negative (Negative) Imaging Data Chest x-ray: Radiologist's Impression: [facility] [address] [place] [address] XRay Report Signed Patient: Katie Ariza MR#: [id number] : 1965 Acct:[id number] Age/Sex: 56 / F Date of Service: 03/30/22 Loc: ED Accession Number: [id number] ?? Procedure: XR chest 1V Ordering Provider: Quinten Rutledge MD PROCEDURE:? XR CHEST 1V ? INDICATIONS:? chest pain ? TECHNIQUE:? One view of the chest was acquired.? ? COMPARISON:? [facility], CR, XR CHEST 1V, 02/14/2022, 11:10. ? FINDINGS:? ? Surgical changes and devices:? None.? ? Lungs and pleura:? Lungs are clear.? No pleural effusions or pneumothorax.? ? Mediastinum:? Mediastinal contours appear normal.? Heart size is normal.? ? Bones and chest wall:? No suspicious bony lesions.? Overlying soft tissues appear unremarkable.? ? IMPRESSION:? No acute process. ? ? Dictated by: Levon Cartagena M.D. on 03/30/2022 at 13:46 ? ? Approved by: Levon Cartagena M.D. on 03/30/2022 at 13:47 ? ECG Data Interpretation: Sinus rhythm, no ST elevation, there is artifact. Rate 84 MDM Narrative Medical decision making narrative: Appropriate for admission. Patient will need chemical stress test and echocardiogram. Chest pain is different from her previous anxiety attacks I did review with information security, recommends admission for stress test and echocardiogram. Reviewed with hospitalist and agrees for admit. Discharge Plan Departure Patient Disposition: Admitted as Observation Clinical Impression: Chest pain Admit Date/Time: 03/30/22 18:14 Admit Provider: Jewel Fatima
[2022-03-30] MEDS: diazePAM 10 MG/2 ML SYRINGE 2 MG IV (14:44)
[2022-03-30] MEDS: CARBIDOPA-LEVODOPA 25/100 TABLET 1 EACH PO ×2 (14:59→21:12)
[2022-03-30 16:21] LABS: Troponin I < 0.012 ng/mL (0.01-0.034)
[2022-03-30] MEDS: AMANTADINE 100 MG CAPSULE PO (17:36)
[2022-03-30 18:31] LABS: COVID19 -Nasal RAPID Negative (Negative)
--- NOTE | 2022-03-30 20:12 | PM.HP.1 ---
History of Present Illness History of Present Illness Date Patient Seen: 03/30/22 Date of Onset of Symptoms: 03/29/22 Chief complaint: Chest pain Narrative: 56-year-old female with a significant history of Parkinson's disease and also family history of cardiac disease comes to the ER with intermittent chest pain going on for couple of days but happened in the past maybe for past couple of weeks. Patient describes the pain as an intermittent, brief, not associated with exertion, left-sided, nonradiating, no specific relieving factors. She denies any specific other associated symptoms at this time including shortness of breath, cough, fever, chills. Patient denies any waking up from the sleep, pedal edema. Patient had stress test several years ago, negative. Patient seems to be extremely anxious, denies any recent stressors but feels uncomfortable because of worsening Parkinson disease? At the time of my interview patient denies any active chest pain. We are admitting the patient for further evaluation of the chest pain. 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 Grandfather Parkinson's disease Grandmother No problems noted. Sister No problems noted. Sister No problems noted. Social History: household members spouse lives independently Yes caregiver/support person No Safety & Behavioral: Feels Safe in Current Yes Environment Been Physically Hurt or No Threatened By a Person Tobacco & Substance use: Smoking Status Never smoker alcohol intake former alcohol intake frequency holiday/special occasion Substance Use Type does not use Meds Home Medications and Allergies Home Medications Medication Instructions Recorded Confirmed Type Vitamin D3 1 tab PO DAILY 07/26/18 09/21/21 History multivitamin 1 tab PO DAILY 07/26/18 09/21/21 History ropinirole 2 mg tablet,extended 6 mg PO BEDTIME 07/26/18 09/21/21 History release 24 hr vitamin B complex 1 tab PO DAILY 07/26/18 09/21/21 History carbidopa 25 mg-levodopa 100 mg 1 - 1.5 tab PO Q3H 02/06/19 09/21/21 History tablet ibuprofen 200 mg tablet 400 - 600 mg PO Q6H PRN Pain 02/06/19 09/21/21 History (Scale Score 1-3) amantadine HCl 100 mg capsule 100 mg PO BID 03/28/19 09/21/21 History magnesium oxide 500 mg tablet 500 mg PO DAILY 09/19/19 09/21/21 History aspirin 81 mg tablet,delayed 81 mg PO DAILY 03/12/20 09/21/21 History release (Adult Low Dose Aspirin) baclofen 10 mg tablet 10 mg PO BEDTIME PRN 05/04/21 09/21/21 History atorvastatin 20 mg tablet 20 mg PO BEDTIME #90 tabs 12/01/21 Rx levothyroxine 75 mcg tablet 75 mcg PO DAILY #90 tabs 12/01/21 Rx clonazepam 1 mg tablet See Rx Instructions .Route 01/02/22 Rx .COMPLEX #30 tabs sertraline 50 mg tablet See Rx Instructions PO DAILY 01/09/22 01/09/22 History Allergies Allergy/AdvReac Type Severity Reaction Status Date / Time No Known Drug Allergies Allergy Verified 02/14/22 11:04 Review of Systems Review of Systems Narrative: All other systems reviewed, negative other than as mentioned above in history of present illness Exam Vital Signs (past 8 hours): - 03/30/22 13:12 03/30/22 13:22 03/30/22 13:01 Temperature 98.5 F Pulse Rate 93 H 92 H 90 Respiratory Rate 19 18 20 Blood Pressure 149/68 H 149/68 H Pulse Oximetry 99 99 99 Oxygen Delivery Method Room Air Room Air 03/30/22 13:02 03/30/22 13:02 03/30/22 13:22 Temperature Pulse Rate 113 H 90 Respiratory Rate 18 Blood Pressure 149/68 H Pulse Oximetry 99 98 Oxygen Delivery Method 03/30/22 13:30 03/30/22 13:30 03/30/22 14:00 Temperature Pulse Rate 81 Respiratory Rate 25 H Blood Pressure 125/65 134/73 Pulse Oximetry 100 Oxygen Delivery Method 03/30/22 14:00 03/30/22 14:30 03/30/22 14:30 Temperature Pulse Rate 103 H 147 H Respiratory Rate Blood Pressure 127/79 Pulse Oximetry 100 100 Oxygen Delivery Method 03/30/22 14:49 03/30/22 14:49 03/30/22 15:00 Temperature Pulse Rate 138 H Respiratory Rate 23 Blood Pressure 159/81 H 148/76 H Pulse Oximetry 99 Oxygen Delivery Method 03/30/22 15:00 03/30/22 15:15 03/30/22 15:15 Temperature Pulse Rate 97 H 91 H Respiratory Rate Blood Pressure 147/86 H Pulse Oximetry 100 99 Oxygen Delivery Method 03/30/22 15:30 03/30/22 15:30 03/30/22 15:46 Temperature Pulse Rate 92 H 91 H Respiratory Rate 29 H Blood Pressure 152/88 H Pulse Oximetry 99 99 Oxygen Delivery Method 03/30/22 15:46 03/30/22 16:00 03/30/22 16:00 Temperature Pulse Rate 100 H Respiratory Rate 36 H Blood Pressure 148/106 H 148/82 H Pulse Oximetry 99 Oxygen Delivery Method 03/30/22 16:15 03/30/22 16:15 03/30/22 16:30 Temperature Pulse Rate 84 94 H Respiratory Rate 36 H 28 H Blood Pressure 136/68 Pulse Oximetry 99 99 Oxygen Delivery Method 03/30/22 16:45 03/30/22 16:45 03/30/22 17:00 Temperature Pulse Rate 101 H Respiratory Rate 60 H Blood Pressure 158/80 H 133/66 Pulse Oximetry 99 Oxygen Delivery Method 03/30/22 17:00 03/30/22 17:15 03/30/22 17:15 Temperature Pulse Rate 96 H 95 H Respiratory Rate 37 H 31 H Blood Pressure 139/72 Pulse Oximetry 99 99 Oxygen Delivery Method 03/30/22 17:30 03/30/22 17:30 03/30/22 17:45 Temperature Pulse Rate 151 H 93 H Respiratory Rate 29 H 37 H Blood Pressure 141/72 H Pulse Oximetry 99 99 Oxygen Delivery Method 03/30/22 17:45 03/30/22 18:00 03/30/22 18:00 Temperature Pulse Rate 172 H Respiratory Rate 33 H Blood Pressure 130/72 137/72 Pulse Oximetry 99 Oxygen Delivery Method Oxygen Delivery Method Room Air Narrative Exam Narrative: Patient does seem to have restlessness, tremors probably related to Parkinson disease. Patient does look anxious. Able to follow commands, able to make a reasonable conversation. Constitutional, HEENT, eyes, chest, cardiovascular, respiratory, GI, skin, psych, neuro exam done, negative other than as mentioned above pertinent to Parkinson disease findings. Objective Labs Result Diagrams: 03/30/22 13:34 03/30/22 13:34 Labs: Laboratory Results - last 24 hr 03/30/22 03/30/22 03/30/22 13:34 13:34 15:39 WBC 7.1 RBC 4.58 Hgb 13.1 Hct 39.5 MCV 86.2 MCH 28.7 MCHC 33.3 RDW 13.2 Plt Count 368 Neut % (Auto) 59.2 Lymph % (Auto) 30.1 [place] % (Auto) 7.7 Eos % (Auto) 2.1 Baso % (Auto) 0.9 Neut # (Auto) 4200 Lymph # (Auto) 2100 [place] # (Auto) 500 Eos # (Auto) 100 Baso # (Auto) 100 Sodium 130 L Potassium 3.9 Chloride 97 L Carbon Dioxide 30 BUN 12 Creatinine 0.61 Estimated GFR > 60 BUN/Creatinine Ratio 19.7 Glucose 101 H Calcium 8.7 Magnesium 2.0 Total Bilirubin 0.4 AST 23 ALT 6 Alkaline Phosphatase 138 H Total Creatine Kinase 51 CK-MB (CK-2) TNP CK-MB (CK-2) Rel Index TNP Troponin I < 0.012 < 0.012 Total Protein 7.0 Albumin 3.8 Globulin 3.2 Albumin/Globulin Ratio 1.2 Lipase 67 SARS-CoV-2 (PCR) 03/30/22 18:05 WBC RBC Hgb Hct MCV MCH MCHC RDW Plt Count Neut % (Auto) Lymph % (Auto) [place] % (Auto) Eos % (Auto) Baso % (Auto) Neut # (Auto) Lymph # (Auto) [place] # (Auto) Eos # (Auto) Baso # (Auto) Sodium Potassium Chloride Carbon Dioxide BUN Creatinine Estimated GFR BUN/Creatinine Ratio Glucose Calcium Magnesium Total Bilirubin AST ALT Alkaline Phosphatase Total Creatine Kinase CK-MB (CK-2) CK-MB (CK-2) Rel Index Troponin I Total Protein Albumin Globulin Albumin/Globulin Ratio Lipase SARS-CoV-2 (PCR) Negative Assessment & Plan Assessment and plan (1) Chest pain: Status: Acute (2) Hyponatremia: Status: Acute (3) Hyperlipidemia: Qualifiers: Hyperlipidemia type: pure hypercholesterolemia Qualified Code(s): E78.00 - Pure hypercholesterolemia, unspecified Status: Acute (4) GERD (gastroesophageal reflux disease): Qualifiers: Esophagitis presence: without esophagitis Qualified Code(s): K21.9 - Gastro-esophageal reflux disease without esophagitis Status: Acute (5) Parkinsons disease: Problem details: diagnosed 2010 Status: Acute Assessment & Plan narrative: Patient does have risk factors for cardiac disease given strong family history, admitted for further workup, telemetry, troponin 3 sets, stress test in the morning Hyponatremia seems to be chronic, patient looks euvolemic, unclear etiology, continue to monitor, urine electrolytes pending Other chronic medical conditions -Parkinson's disease, continue home medication Patient's primary contact acid plant operator helper is Carmita her friend, at bedside. Patient is full code, DVT and GI prophylaxis discussed. Answered all questions regarding the care plan, observation status, potential discharge in the morning depending on the stress test and follow up BMP results for sodium Time Spent With Patient Critical Care time: I spent a total of [] minutes of critical care time on this patient's care today; this time is exclusive of procedural time.
[2022-03-30 20:16] LABS: Troponin I < 0.012 ng/mL (0.01-0.034)
[2022-03-30] MEDS: ATORVASTATIN 20 MG TABLET PO (21:11)
[2022-03-30] MEDS: clonazePAM 0.5 MG TABLET 1 MG PO (21:12)
--- NOTE | 2022-03-30 21:45 | PC.NURSE ---
Patient admitted to [facility] for f/u cardiac procedures d/t increased chest pain. Patient visibly unable to get comfortable, c/o a headache and neck/back pain. Ibuprofen given. Additional doses of carbidopa/levodopa given per patient request.
[2022-03-30] MEDS: IBUPROFEN 600 MG TABLET PO (21:58)
[2022-03-30 22:08] LABS: Appearance Urine UA CLEAR; Bilirubin Urine UA NEGATIVE (NEGATIVE); Color Urine UA YELLOW; Glucose Urine UA TRACE g/dL (Negative); Ketones Urine UA TRACE (NEGATIVE); Leukocyte Esterase Urine UA 2+ (NEGATIVE); Nitrite Urine UA NEGATIVE (Negative); Occult Blood Urine UA NEGATIVE (Negative); Protein Urine UA TRACE (Negative); Specific Gravity Urine UA 1.015 (1.000-1.035); Urobilinogen Urine UA 0.2 E.U./dL (0.2)
[2022-03-30 22:17] LABS: pH Urine UA 7.5 (4.5-8.0)
[2022-03-30 22:22] LABS: Sodium Urine Random 146 mmol/L (30-90)
[2022-03-30 22:31] LABS: RBC Urine None Seen (0-5/HPF); Squamous Epithelial Cell Urine 5-10 /HPF (0-5/HPF); WBC Urine 5-10/HPF (0-5/HPF)
[2022-03-30 22:32] LABS: Bacteria Urine None Seen; Culture Indicated Urine Cult Not Indicated; Renal Epithelial Cells Urine 1-5/HPF (0-1/HPF)
[2022-03-31] VITALS: BP 116/70; PULSE 76; RESP 16; TEMP 36.8; O2SAT 100
[2022-03-31] MEDS: CARBIDOPA-LEVODOPA 25/100 TABLET 1 EACH PO ×4 (00:29→09:53)
[2022-03-31 00:30] LABS: Troponin I < 0.012 ng/mL (0.01-0.034)
[2022-03-31 04:00] VITALS: BP 134/75; PULSE 75; RESP 17; TEMP 36.6; O2SAT 100
[2022-03-31 06:50] VITALS: BMI 21.5
[2022-03-31 08:00] VITALS: BP 136/85; PULSE 80; RESP 16; TEMP 37; O2SAT 96
[2022-03-31 08:25] LABS: BUN Creatinine Ratio 11.7 (6-22); Blood Urea Nitrogen 7 mg/dL (7-17); Calcium 8.8 mg/dL (8.4-10.2); Carbon Dioxide 30 mmol/L (22-32); Chloride 96 mmol/L (98-107); Estimated Glomerular Filt Rate > 60 mL/min (>60); Glucose 95 mg/dL (70-100); HEMOLYSIS < 15 (0-50); Potassium 3.8 mmol/L (3.4-5.1); Sodium 129 mmol/L (137-145)
[2022-03-31] MEDS: LEVOTHYROXINE 75 MCG TABLET PO (08:29)
[2022-03-31] MEDS: ASPIRIN EC 81 MG TABLET PO (08:29)
--- NOTE | 2022-03-31 08:35 | DI.ECHO.S_ITS ---
[facility]---------+ [facility] +---------+ : : [address] : : : : [id number] : : : : Phone: [phone]---------+ Echocardiogram Report + + :Name: SUSAN AYALA Study Date: 03/31/2022 Height: 66 in : :[facility] ReadingLocation: Weight: 132 lb : : Gender: Female BSA: 1.7 m2 : :: 1965 Age: 56 yrs BP: 136/85 mmHg: :Reason For Study: Chest pain : :Ordering Physician: Kushal, : :Jewel Performed By: Akash Reyes : :Referring: Jewel Fatima : + + Interpretation Summary Indeterminate rhythm based on electrocardiogram tracings during study. The left ventricle is normal in size and wall thickness. The ejection fraction is estimated to be 55-60%. There are no focal wall motion abnormalities. Indeterminate diastolic function. No significant valvular disease Compared to 03/28/2022, mitral valve insuffiency was not redemonstrated. Procedure: A two-dimensional transthoracic echocardiogram with color flow and Doppler was performed. The study quality was technically adequate. Comparison is made with the echocardiogram of 03/28/2020. Indeterminate rhythm based on electrocardiogram tracings during study. Left Ventricle: The left ventricle is normal in size and wall thickness. Left ventricular systolic function is normal. The ejection fraction is estimated to be 55-60%. There are no focal wall motion abnormalities. Indeterminate diastolic function. Right Ventricle: The right ventricle is normal in size and function. Atria: Both atria are normal in size. The interatrial septum grossly appears intact with no obvious evidence for an atrial septal defect. Mitral Valve: The mitral valve is normal in structure and function. There is no mitral regurgitation noted. Aortic Valve: The aortic valve is grossly normal. No aortic regurgitation is present. Tricuspid Valve: The tricuspid valve is normal in structure and function. No tricuspid regurgitation. Pulmonary artery pressures cannot be estimated because of the lack of a measurable TR jet velocity. Pulmonic Valve: The pulmonic valve is not well visualized. Great Vessels: The aortic root is normal size. The ascending aorta could not be visualized. The IVC is of normal diameter and collapses greater than 50% with a sniff. This suggests a low right atrial pressure of 3 mm Hg. Pericardium/ Pleura There is no pericardial effusion. There is no pleural effusion. MMode/2D Measurements & Calculations LVIDd: 4.5 cm LVOT diam: 2.0 cm LVIDs: 3.1 cm Ao root diam: 2.8 cm FS: 31.1 % IVSd: 0.70 cm LVPWd: 0.90 cm LV stewart. diameter/BSA (cm/m^2): 2.7 LV sys. diameter/BSA (cm/m^2): 1.8 LA dimension: 2.5 cm RA long axis: 4.3 cm LA A2 area: 11.3 cm2 LA A4 area: 11.2 cm2 LA length (vol): 4.0 cm LA vol: 26.5 ml LA vol index: 15.8 ml/m2 TAPSE_phl: 2.9 cm Doppler Measurements & Calculations Ao V2 max: 138.0 cm/sec LVOT Max Deep: 104.0 cm/sec Ao V2 mean: 91.1 cm/sec LV V1 max P.3 mmHg Ao max P.0 mmHg LV V1 VTI: 20.4 cm Ao mean P.0 mmHg MADISON(I,D): 2.6 cm2 Ao V2 VTI: 24.6 cm MADISON(V,D): 2.4 cm2 sev ratio: 0.83 MADISON indexed to BSA (cm^2/m^2): 1.6 MV E max deep: 86.5 cm/sec SV(LVOT): 64.1 ml MV A max deep: 76.7 cm/sec MV E/A: 1.1 Med Peak E' Deep: 6.5 cm/sec E/E' med: 13.3 Lat Peak E' Deep: 13.2 cm/sec E/E' lat: 6.6 E/e' average: 10.0 MV dec time: 0.19 sec AV VR_phl: 0.75 MV P1/2t-pr_phl: 57.0 msec MADISON(VTI)/BSA_phl: 1.6 Reading Physician:JONATHAN
[2022-03-31] MEDS: clonazePAM 0.5 MG TABLET 1 MG PO (11:08)
[2022-03-31 12:00] VITALS: BP 108/42; PULSE 80; RESP 18; TEMP 36.4; O2SAT 98
[2022-03-31 12:34] LABS: Cholesterol 193 mg/dL (140-199); HDL Cholesterol 85 mg/dL (40-60); LDL Cholesterol Calculated 97 mg/dL (<100); Triglycerides 56 mg/dL (35-150)
--- NOTE | 2022-03-31 13:33 | CM.DANOTE ---
Patient is a 56 yo female who was admitted on 03/30/22 for Chest Pain r/o. Pt has [employer] for insurance and her PCP is Dr Henrik Trujillo. EMR was reviewed. Per MD, pt with hx of Parkinsons and admitted for high risk of cardiac issues and hyponatremia. Per MD, pt recommended for stress test but not available until tomorrow and therefore Echo ordered and since returned normal pt can d/c home today with outpt follow up. SW met briefly bedside with pt and explained role and pt confirms she lives in [place] with her spouse and is mostly independent at baseline and spouse assists as needed but pt states when her Parkinsons meds are not working she needs increased assist. 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 Plan: Patient to d/c home via spouse POV by lunch time with outpt follow up and no further SW needs at this time. DAVID Tavares Discharge Planning/Care Management CM Discharge Assessment Start: 03/31/22 13:31 Freq: Status: Active Protocol: Document 03/31/22 13:31 BF (Rec: 03/31/22 13:33 BF [id number]) Discharge Planning Assessment Assigned Painter Plate DAVID Worley DPOA/Assigned Designee Name spouse Lizandro Contact Information [phone] Advance Directives? Yes Advance Directives on File No History Provided By Patient,Medical Record Has Patient been admitted in last 30 No days? Prior Living Arrangements House Household Members spouse Type of transporation used prior to Drives own vehicle admit Independent with ADL's Yes: mostly Is patient alert and oriented? Yes Needs Assistance With Home Chores / Shopping Caregiver for Another No DME Already Rented / Owned FWW / Walker Barriers to Discharge No Discharge Plan Home Transportation Arrangement Spouse to provide transport Referrals Initiated None needed Whiteboard Updated in Patient Room with Yes name and ext. # of Painter Plate Review Status In Process Please Provide Date Initial DC 03/31/22 Assessment Was Performed Next Review Type Continued Stay Review
--- NOTE | 2022-04-01 09:07 | P.DS_ITS ---
History of Present Illness History of Present Illness Date Patient Seen: 03/31/22 Time Patient Seen: 10:00 Chief complaint: Chest pain Narrative: 56-year-old female with a significant history of Parkinson's disease and also family history of cardiac disease comes to the ER with intermittent chest pain going on for couple of days but happened in the past maybe for past couple of weeks.? Patient describes the pain as an intermittent, brief, not associated with exertion, left-sided, nonradiating, no specific relieving factors.? She denies any specific other associated symptoms at this time including shortness of breath, cough, fever, chills.? Patient denies any waking up from the sleep, pedal edema.? Patient had stress test several years ago, negative.? Patient seems to be extremely anxious, denies any recent stressors but feels uncomfortable because of worsening Parkinson disease?? At the time of my interview patient denies any active chest pain.? We are admitting the patient for further evaluation of the chest pain. Discharge Providers Provider Date of admission: 03/30/22 18:14 Discharge Date: 03/31/22 Primary care physician: Henrik Trujillo MD Discharge provider: Jewel Fatima DO Summary Hospital Course Discharge Diagnosis: 1. Chest pain 2. Hyponatremia 3. GERD 4. Anxiety 5. Parkinson's Hospital Course: Admitted for atypical chest pain. Unable to complete stress test given only one opening for the day and another patient needing it more. I elected to only do an echo which returned completely normal, and therefore felt patient safe to return home given low probability of cardiac cause of her chest pain. Patient agreed and said she did not want to do a stress test anyways and wanted to go home. Time Spent with Patient Time spent: Greater than 30 minutes Exam Vital Signs (past 8 hours): Oxygen Delivery Method Room Air Oxygen Flow Rate 0 Narrative Exam Narrative: Patient does seem to have restlessness, tremors probably related to Parkinson disease. Patient does look anxious. Able to follow commands, able to make a reasonable conversation. Constitutional, HEENT, eyes, chest, cardiovascular, respiratory, GI, skin, psych, neuro exam done, negative other than as mentioned above pertinent to Parkinson disease findings. Objective Labs Result Diagrams: 03/30/22 13:34 03/31/22 07:25 Labs: Laboratory Results - last 24 hr 09/09/22 07:25 Triglycerides 56 Cholesterol 193 LDL Cholesterol, Calc 97 HDL Cholesterol 85 H PFSH Medical History Abnormal mammogram (08/27/15) Abnormal Pap smear of cervix Alcohol use disorder Anxiety (~2010) Carpal tunnel syndrome on both sides (~2007) Cervical cancer (2007) Chicken pox (1970) Chronic insomnia (06/12/14) Colitis (2003) Depression Eczema Family history of autoimmune disorder Foot pain (2014) Gastric ulcer (1983) GERD (gastroesophageal reflux disease) Hayfever Herpes HPV (human papilloma virus) infection Hyperlipidemia Hypertension Hypothyroidism (2014) 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 Grandfather Parkinson's disease Grandmother No problems noted. Sister No problems noted. Sister No problems noted. 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 Discharge orders & Medications Prescriptions: Continued carbidopa-levodopa 25-100 mg tablet 1 - 1.5 tab PO Q3H Label Comments: patient states taking every 2.5 hours now. levothyroxine 75 mcg tablet 75 mcg PO DAILY Qty: 90 1RF Rx Instructions: at least 30 minutes before breakfast atorvastatin 20 mg tablet 20 mg PO BEDTIME Qty: 90 1RF clonazepam 1 mg tablet See Rx Instructions .ROUTE .COMPLEX Qty: 30 3RF Dose Instruction: Take 0.5-1 tablets (0.5-1 mg) by mouth at bedtime Rx Instructions: Take 0.5-1 tablets (0.5-1 mg) by mouth at bedtime magnesium oxide 500 mg tablet 500 mg PO DAILY aspirin [Adult Low Dose Aspirin] 81 mg tablet,delayed release (DR/EC) 81 mg PO DAILY sertraline 50 mg tablet See Rx Instructions PO DAILY Rx Instructions: Take 3 tabs (150mg) daily per psychiatry ropinirole 2 mg Tablet Extended Release 24 Hr 6 mg PO BEDTIME multivitamin Tablet 1 tab PO DAILY vitamin B complex Tablet 1 tab PO DAILY Vitamin D3 1 tab PO DAILY amantadine HCl 100 mg capsule 100 mg PO BID 90 Days Qty: 180 0RF ibuprofen 200 mg tablet 400 - 600 mg PO Q6H PRN (Reason: Pain (Scale Score 1-3)) Follow up/Referrals: Henrik Trujillo MD [Primary Care Provider] - Discharge Data Primary Care Provider: Henrik Trujillo Attending Provider: Jewel Fatima VTE Deep Vein Thrombosis/Pulmonary Embolism Present on Admission: No
== END 2022-03-31 12:43 | disposition home or self-care (01) ==
LOC: ED 17:56 → AC 18:15
PROVIDERS: Family Medicine; Admitting Provider Student in an Organized Health Care Education/Training Program; Emergency Provider Emergency Medicine; PCP Pediatrics; Referring Provider Emergency Medicine; Visit Provider Student in an Organized Health Care Education/Training Program
DX: R07.9 Chest pain, unspecified (principal); E87.1 Hypo-osmolality and hyponatremia; E78.00 Pure hypercholesterolemia, unspecified; F41.9 Anxiety disorder, unspecified; G20 Parkinson's disease; K21.9 Gastro-esophageal reflux disease without esophagitis; Z20.822 Contact with and (suspected) exposure to COVID-19
CPT/HCPCS: 36415; 71045; 80048; 80053; 80061; 81001; 82550; 83690; 83735; 84300; 84484; 85025; 87635; 93005; 93010; 93306; 96374; 99284; C9803; G0378; J3360

== ENCOUNTER → 2022-08-08 14:04 | Outpatient (CLI) | payer OTHER, SELFPAY ==
[2022-08-08 14:55] LABS: Add Manual Diff / Slide Review NO; Basophils Absolute Auto 0 /uL (0-100); Basophils Percent Auto 0.5 % (0-2); Eosinophils Absolute Auto 200 /uL (0-450); Eosinophils Percent Auto 2.6 % (2-4); Hematocrit 37.6 % (36-46); Hemoglobin 12.4 g/dL (12.0-16.0); Lymphocytes Absolute Auto 1900 /uL (1100-4500); Lymphocytes Percent Auto 30.7 % (25-40); Mean Corpuscular HGB Conc 32.9 % (30-36); Mean Corpuscular Hemoglobin 28.6 PG (26-34); Monocytes Absolute Auto 400 /uL (0-900); Monocytes Percent Auto 6.9 % (3-14); Neutrophils Absolute Auto 3600 /uL (1500-7000); Neutrophils Percent Auto 59.3 % (50-75); Platelet Count 359 X10^3/uL (150-400); Red Blood Cell Count 4.32 X10^6/uL (4.0-5.2); Red Cell Distribution Width 13.2 % (11.6-14.8); White Blood Cell Count 6.1 X10^3/uL (4.5-11.0)
[2022-08-08 16:01] LABS: Alanine Aminotransferase 7 IU/L (<35); Alkaline Phosphatase 122 U/L (38-126); Aspartate Aminotransferase 19 IU/L (14-36); BUN Creatinine Ratio 18.6 (6-22); Bilirubin Total 0.4 mg/dL (0.2-1.3); Blood Urea Nitrogen 11 mg/dL (7-17); Calcium 8.6 mg/dL (8.4-10.2); Carbon Dioxide 29 mmol/L (22-32); Chloride 99 mmol/L (98-107); Cholesterol 264 mg/dL (140-199); Estimated Glomerular Filt Rate > 60 mL/min (>60); Glucose 87 mg/dL (70-100); HDL Cholesterol 84 mg/dL (40-60); HEMOLYSIS < 15 (0-50); LDL Cholesterol Calculated 151 mg/dL (<100); Potassium 4.2 mmol/L (3.4-5.1); Sodium 132 mmol/L (137-145); Total Protein 5.9 g/dL (6.3-8.2); Triglycerides 144 mg/dL (35-150)
[2022-08-08 16:30] LABS: TSH w/ Reflex to FT4 0.89 uIU/mL (0.47-4.68)
[2022-08-11 16:13] LABS: Albumin 3.3 g/dL (3.5-5.0); Albumin Globulin Ratio 1.3 (1.0-2.8); Globulin 2.6 g/dL (1.7-4.1)
== END ==
PROVIDERS: PCP Family Medicine; Referring Provider Family Medicine; Visit Provider Family Medicine
DX: E78.00 Pure hypercholesterolemia, unspecified (principal); G45.9 Transient cerebral ischemic attack, unspecified; Z82.49 Family history of ischemic heart disease and other diseases of the circulatory system
CPT/HCPCS: 36415; 80053; 80061; 84443; 85025

== ENCOUNTER 2023-01-11 21:44 | Emergency (ER) | payer SELFPAY ==
[2023-01-11 21:57] VITALS: BP 159/90; PULSE 76; RESP 20; TEMP 36.5; O2SAT 100; BMI 20.1
[2023-01-11 22:03] VITALS: PULSE 74; RESP 24; O2SAT 100
[2023-01-11 23:00] VITALS: PULSE 66; RESP 19; O2SAT 100
--- NOTE | 2023-01-11 23:38 | ED_ITS ---
HPI - Anxiety General Chief Complaint: Anxiety Stated Complaint: anxiety Time Seen by Provider: 01/11/23 23:38 Source: patient and EMS Mode of arrival: EMS History of Present Illness HPI narrative: Patient be year old female history of Parkinson's anxiety presenting today with anxiety reaction. She is been on clonazepam 0.5 mg twice a day for years recently she has been needing more of it she actually used her month supply 10 days early her psychiatrist cut her off and put her on gabapentin. Her last dose was 2 days ago. Today she had a typical anxiety reaction having hand spasms and pain. Now after the in emergency department 2 hours feeling significantly better. She would no chest pain or shortness of breath. Related Data Home Medications Medication Instructions Recorded Confirmed Vitamin D3 1 tab PO DAILY 07/26/18 03/30/22 multivitamin 1 tab PO DAILY 07/26/18 03/30/22 ropinirole 2 mg tablet,extended 6 mg PO BEDTIME 07/26/18 03/30/22 release 24 hr vitamin B complex 1 tab PO DAILY 07/26/18 03/30/22 carbidopa 25 mg-levodopa 100 mg 1 - 1.5 tab PO Q3H 02/06/19 03/30/22 tablet ibuprofen 200 mg tablet 400 - 600 mg PO Q6H PRN Pain 02/06/19 03/30/22 (Scale Score 1-3) magnesium oxide 500 mg tablet 500 mg PO DAILY 09/19/19 03/30/22 aspirin 81 mg tablet,delayed 81 mg PO DAILY 03/12/20 03/30/22 release (Adult Low Dose Aspirin) sertraline 50 mg tablet See Rx Instructions PO DAILY 01/09/22 03/30/22 Previous Rx's Medication Instructions Recorded atorvastatin 20 mg tablet 20 mg PO BEDTIME #90 tabs 12/01/21 clonazepam 1 mg tablet See Rx Instructions .Route 01/02/22 .COMPLEX #30 tabs amantadine HCl 100 mg capsule 100 mg PO BID 90 days #180 caps 03/31/22 levothyroxine 75 mcg tablet See Rx Instructions .Route 01/04/23 .COMPLEX #90 tabs clonazepam 0.5 mg tablet 0.25 mg PO BID #5 tabs 01/12/23 clonazepam 0.5 mg tablet 0.25 mg PO BID #5 tabs 01/12/23 Allergies Allergy/AdvReac Type Severity Reaction Status Date / Time No Known Drug Allergies Allergy Verified 02/14/22 11:04 Review of Systems Review of Systems ROS Unobtainable: All systems reviewed & are unremarkable except as noted in HPI and below Patient History Medical History Abnormal mammogram (08/27/15) Abnormal Pap smear of cervix Alcohol use disorder Anxiety (~2010) Carpal tunnel syndrome on both sides (~2007) Cervical cancer (2007) Chicken pox (1969) Chronic insomnia (06/12/14) Colitis (2003) Depression Eczema Family history of autoimmune disorder Foot pain (2014) Gastric ulcer (1983) GERD (gastroesophageal reflux disease) Hayfever Herpes HPV (human papilloma virus) infection Hyperlipidemia Hypertension Hypothyroidism (2014) 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 Grandfather Parkinson's disease Grandmother No problems noted. Sister No problems noted. Sister No problems noted. 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 HEENT: Head atraumatic,EOMI, pupils reactive, face symmetric, moist mucous membranes CARDIOVASCULAR: Regular rate and rhythm without murmurs, rubs or gallops. RESPIRATORY: Breath sounds equal bilaterally, no wheezes rales or rhonchi. EXTREMITIES: Normal range of motion, no clubbing or edema. Neurovascularly intact NEUROLOGICAL: Alert and oriented x4.Normal gait and speech. Cranial nerves II through XII grossly intact. SKIN: Warm, dry, no laceration, no petechiae, no rashes or lesions. Course Orders Ordered: Discontinued Medications Clonazepam (Clonazepam 0.5 Mg Tablet) 0.5 mg PO NOW ONE Stop: 01/11/23 23:52 Last Admin: 01/11/23 23:57 Dose: 0.5 mg Documented By: OW Vital Signs Vital signs: Vital Signs - 8 hr 01/11/23 21:57 01/11/23 22:03 01/11/23 23:00 Temperature 97.7 F Pulse Rate 76 74 66 Respiratory Rate 20 24 19 Blood Pressure 159/90 H Pulse Oximetry 100 100 100 Oxygen Delivery Method Room Air 01/12/23 00:00 Temperature Pulse Rate 74 Respiratory Rate 20 Blood Pressure 123/69 Pulse Oximetry 100 Oxygen Delivery Method Room Air MDM - Anxiety MDM Narrative Medical decision making narrative: Patient 49-year-old female history of anxiety had an typical anxiety reaction today. She is recently cut off benzodiazepine 2 days ago she not have any seizure activity today. She is not actually started on her new anxiety medication which she reports his gabapentin. She had carpal spasms with her anxiety reaction today. Overall feeling much better after just resting in the ED she never had any chest pain. I think reasonable to taper her off her benzodiazepine that she is chronically been on rather than abruptly stop. I discussed this with her she agrees with this plan she understands that she will stop it. She is given small prescription. No need for further workup. Discharge Plan Departure Patient Disposition: Home Clinical Impression: Anxiety Instructions: DI for Anxiety -- Adult Activity Restrictions/Additional Instructions: *You have been diagnosed with anxiety *What to do: At this time taper off your anxiety medication *Continue to take medications as directed Clonazepam 0.25 mg twice a day for 3 days had than 0.25 mg once daily for 3 days then--> ARIELLE *Follow up with your primary care provider in 2-3 days or call [phone] *Return to ER if you should have increasing chest pain palpitations shortness of breath or any new, worsening or concerning symptoms Prescriptions: New clonazepam 0.5 mg tablet 0.25 mg PO BID Qty: 5 0RF clonazepam 0.5 mg tablet 0.25 mg PO BID Qty: 5 0RF Rx Instructions: 0.25 mg twice a day for 3 days, then 0.25 mg once daily for 3 days No Action carbidopa-levodopa 25-100 mg tablet 1 - 1.5 tab PO Q3H Patient Comments: patient states taking every 2.5 hours now. atorvastatin 20 mg tablet 20 mg PO BEDTIME Qty: 90 1RF clonazepam 1 mg tablet See Rx Instructions .ROUTE .COMPLEX Qty: 30 3RF Dose Instruction: Take 0.5-1 tablets (0.5-1 mg) by mouth at bedtime Rx Instructions: Take 0.5-1 tablets (0.5-1 mg) by mouth at bedtime levothyroxine 75 mcg tablet See Rx Instructions .ROUTE .COMPLEX Qty: 90 1RF Dose Instruction: Take 1 tablet (0.075 mg) by mouth daily 30 minutes before breakfast Rx Instructions: Take 1 tablet (0.075 mg) by mouth daily 30 minutes before breakfast magnesium oxide 500 mg tablet 500 mg PO DAILY aspirin [Adult Low Dose Aspirin] 81 mg tablet,delayed release (DR/EC) 81 mg PO DAILY sertraline 50 mg tablet See Rx Instructions PO DAILY Rx Instructions: Take 3 tabs (150mg) daily per psychiatry ropinirole 2 mg Tablet Extended Release 24 Hr 6 mg PO BEDTIME multivitamin Tablet 1 tab PO DAILY vitamin B complex Tablet 1 tab PO DAILY Vitamin D3 1 tab PO DAILY amantadine HCl 100 mg capsule 100 mg PO BID 90 Days Qty: 180 0RF ibuprofen 200 mg tablet 400 - 600 mg PO Q6H PRN (Reason: Pain (Scale Score 1-3)) Referrals: Anahi Mckenzie DO [Primary Care Provider] - Stand Alone Forms: Patient Portal/API
[2023-01-11] MEDS: clonazePAM 0.5 MG TABLET PO (23:57)
[2023-01-12] VITALS: BP 123/69; PULSE 74; RESP 20; O2SAT 100
== END 2023-01-12 00:11 | disposition home or self-care (01) ==
PROVIDERS: Emergency Provider Emergency Medicine; PCP Family Medicine
DX: F41.9 Anxiety disorder, unspecified (principal)
CPT/HCPCS: 99283

== ENCOUNTER 2023-03-26 07:29 | Emergency (ER) | payer SELFPAY ==
[2023-03-26 07:35] VITALS: BP 151/80; PULSE 88; O2SAT 99
[2023-03-26 07:38] VITALS: BP 151/80; PULSE 90; RESP 22; TEMP 36.5; O2SAT 99; BMI 20.7
--- NOTE | 2023-03-26 07:47 | ED_ITS ---
HPI - General Adult General Chief complaint: Urogenital-Female Stated complaint: Weakness Time Seen by Provider: 03/26/23 07:32 Source: patient and EMS Mode of arrival: EMS History of Present Illness HPI narrative: 57-year-old female with history of Parkinson's disease presents by EMS for generalized weakness and possible UTI. Three days ago patient was seen at an outside ER for dysuria and diagnosed with a UTI. She was discharged on Bactrim. Patient states that 2 days ago she went to visit her friend's house and did not bring enough of her antibiotics. She is been so last 3 doses of her antibiotics. This morning patient woke up and found that she had urinated in the bed. She states that she felt somewhat weaker than usual and had to lay on the floor. While waiting for EMS to arrive she urinated on herself while on the floor. Related Data Home Medications Medication Instructions Recorded Confirmed Vitamin D3 1 tab PO DAILY 07/26/18 03/30/22 multivitamin 1 tab PO DAILY 07/26/18 03/30/22 ropinirole 2 mg tablet,extended 6 mg PO BEDTIME 07/26/18 03/30/22 release 24 hr vitamin B complex 1 tab PO DAILY 07/26/18 03/30/22 carbidopa 25 mg-levodopa 100 mg 1 - 1.5 tab PO Q3H 02/06/19 03/30/22 tablet ibuprofen 200 mg tablet 400 - 600 mg PO Q6H PRN Pain 02/06/19 03/30/22 (Scale Score 1-3) magnesium oxide 500 mg tablet 500 mg PO DAILY 09/19/19 03/30/22 aspirin 81 mg tablet,delayed 81 mg PO DAILY 03/12/20 03/30/22 release (Adult Low Dose Aspirin) sertraline 50 mg tablet See Rx Instructions PO DAILY 01/09/22 03/30/22 Previous Rx's Medication Instructions Recorded atorvastatin 20 mg tablet 20 mg PO BEDTIME #90 tabs 12/01/21 clonazepam 1 mg tablet See Rx Instructions .Route 01/02/22 .COMPLEX #30 tabs amantadine HCl 100 mg capsule 100 mg PO BID 90 days #180 caps 03/31/22 levothyroxine 75 mcg tablet See Rx Instructions .Route 01/04/23 .COMPLEX #90 tabs clonazepam 0.5 mg tablet 0.25 mg PO BID #5 tabs 01/12/23 clonazepam 0.5 mg tablet 0.25 mg PO BID #5 tabs 01/12/23 Allergies Allergy/AdvReac Type Severity Reaction Status Date / Time No Known Drug Allergies Allergy Verified 02/14/22 11:04 Review of Systems Review of Systems Narrative: CONSTITUTIONAL-reports: Generalized weakness Denies: fever, chills, fatigue HEENT- Denies: sore throat, nosebleed, vision changes RESPIRATORY- Denies: shortness of breath, cough, wheezing CARDIAC- Denies: chest pain, edema, orthopnea GI- Denies: abdominal pain, nausea, vomiting, constipation, diarrhea - Denies: frequency, dysuria, hematuria, flank pain MSK- Denies: extremity pain, extremity swelling, joint pain, joint swelling SKIN- Denies: rash, itching, burn, swelling NEUROLOGICAL- Denies: headache, numbness, dizziness PSYCHIATRIC- Denies: anxiety, depression, suicidal ideation, homicidal ideation Patient History Medical History Abnormal mammogram (08/27/15) Abnormal Pap smear of cervix Alcohol use disorder Anxiety (~2010) Carpal tunnel syndrome on both sides (~2007) Cervical cancer (2007) Chicken pox (1969) Chronic insomnia (06/12/14) Colitis (2003) Depression Eczema Family history of autoimmune disorder Foot pain (2014) Gastric ulcer (1983) GERD (gastroesophageal reflux disease) Hayfever Herpes HPV (human papilloma virus) infection Hyperlipidemia Hypertension Hypothyroidism (2014) 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 Grandfather Parkinson's disease Grandmother No problems noted. Sister No problems noted. Sister No problems noted. 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 Smoking Status: Never smoker alcohol intake: former substance use type: does not use Smoking Status: Never smoker alcohol intake frequency: holidays/special occasions only Substance Use Type: does not use Exam Initial Vital Signs Initial Vital Signs: Vital Signs Pulse Rate 88 03/26/23 07:35 Blood Pressure 151/80 H 03/26/23 07:35 Pulse Oximetry 99 03/26/23 07:35 Const: Well-nourished, Well-developed, appears older than stated age Eyes: PERRL, EOMI, conjunctiva normal ENT: Atraumatic, dentition normal, mucous membranes moist Cardiac: regular rate, regular rhythm RESP: unlabored, clear bilaterally, no wheezing GI: Atraumatic, soft, nontender, nondistended, no rebound, no guarding MSK: Atraumatic, full range of motion, pulses equal Skin: Warm, Dry, intact, no rashes Neuro: AO x3, CN II-XII grossly intact, moves all extremities, Parkinson's tremor Psych: affect normal, mood normal, not suicidal, not homicidal Course Course Course Narrative: Generalized weakness in setting of UTI and missed antibiotics. Patient is concerned that her urinary tract infection may have gotten worse since she has missed several doses. Patient currently has significant tremors, she states that she only just took her Parkinson's medication before EMS arrival and she is waiting for them to take effect. Orders Ordered: Discontinued Medications Trimethoprim/Sulfamethoxazole (Trimeth/Sulfa 160/800 (Ds) Tablet) 1 tab PO NOW ONE Stop: 03/26/23 09:05 Last Admin: 03/26/23 09:14 Dose: 1 tab Documented By: MPO Reevaluation(s) Reevaluation #1: Trace leukocyte esterase seen on urinalysis. Laboratory work is otherwise within normal limits. Patient has tremors have calmed significantly, she states she feels back to normal after taking her Parkinson's medications. Patient counseled on all lab and imaging findings, she stated that she was planning on going home this afternoon and will resume her antibiotics. She states that she was feeling much better on the antibiotics before she started missing doses. Morning dose of Bactrim given, patient will resume her regimen soon as she gets home this afternoon. Patient already has scheduled follow up with primary care physician next week. ED return precautions discussed at bedside. Patient e xpressed understanding of the plan and is in agreement at this time. All questions answered at the time of discharge. Vital Signs Vital signs: Vital Signs - 8 hr 03/26/23 07:38 03/26/23 07:35 03/26/23 07:35 Temperature 97.7 F Pulse Rate 90 88 Respiratory Rate 22 Blood Pressure 151/80 H 151/80 H Pulse Oximetry 99 99 Oxygen Delivery Method Room Air Medical Decision Making Lab Data 03/26/23 08:11 03/26/23 08:11 Labs: Lab Results 03/26/23 03/26/23 03/26/23 Range/Units 08:11 08:11 08:14 WBC 6.8 (4.5-11.0) X10^3/uL RBC 4.67 (4.0-5.2) X10^6/uL Hgb 13.5 (12.0-16.0) g/dL Hct 40.1 (36-46) % MCV 85.7 (80-100) fL MCH 28.9 (26-34) PG MCHC 33.7 (30-36) % RDW 14.9 H (11.6-14.8) % Plt Count 420 H (150-400) X10^3/uL Neut % (Auto) 60.5 (50-75) % Lymph % (Auto) 27.0 (25-40) % [place] % (Auto) 8.8 (3-14) % Eos % (Auto) 2.9 (2-4) % Baso % (Auto) 0.8 (0-2) % Neut # (Auto) 4100 (2834-7340) /uL Lymph # (Auto) 1800 (7753-2629) /uL [place] # (Auto) 600 (0-900) /uL Eos # (Auto) 200 (0-450) /uL Baso # (Auto) 100 (0-100) /uL Sodium 134 L (137-145) mmol/L Potassium 3.9 (3.4-5.1) mmol/L Chloride 103 (98-107) mmol/L Carbon Dioxide 29 (22-32) mmol/L BUN 12 (7-17) mg/dL Creatinine 0.54 (0.52-1.04) mg/dL Estimated GFR > 60 (>60) mL/min BUN/Creatinine Ratio 22.2 H (6-22) Glucose 101 H (70-100) mg/dL Calcium 9.2 (8.4-10.2) mg/dL Total Bilirubin 0.5 (0.2-1.3) mg/dL AST 34 (14-36) IU/L ALT 11 (<35) IU/L Alkaline Phosphatase 135 H (38-126) U/L Total Protein 6.4 (6.3-8.2) g/dL Albumin 3.6 (3.5-5.0) g/dL Globulin 2.8 (1.7-4.1) g/dL Albumin/Globulin Ratio 1.3 (1.0-2.8) Urine Color Yellow Urine Appearance Clear Urine pH 5.5 (4.5-8.0) Ur Specific [place] <=1.005 (1.000-1.035) Urine Protein Negative (Negative) Urine Glucose (UA) Negative (Negative) g/dL Urine Ketones Negative (NEGATIVE) Urine Occult Blood Negative (Negative) Urine Nitrate Negative (Negative) Urine Bilirubin Negative (NEGATIVE) Urine Urobilinogen 0.2 (0.2) E.U./dL Ur Leukocyte Esterase Trace H (NEGATIVE) Urine RBC None seen (0-5/HPF) Urine WBC 0-1/hpf (0-5/HPF) Ur Squamous Epith Cells None seen (0-5/HPF) Urine Bacteria None seen (None) Ur Culture Indicated? Cult not indicated Discharge Plan Departure Patient Disposition: Home Clinical Impression: Urinary tract infection, Parkinson's disease, Noncompliance w/medication treatment due to intermit use of medication Instructions: DI for Urinary Tract Infection (UTI) Activity Restrictions/Additional Instructions: FINISH YOUR ANTIBIOTICS AT HOME. FOLLOW UP WITH YOUR PRIMARY CARE DOCTOR. Prescriptions: No Action carbidopa-levodopa 25-100 mg tablet 1 - 1.5 tab PO Q3H Patient Comments: patient states taking every 2.5 hours now. atorvastatin 20 mg tablet 20 mg PO BEDTIME Qty: 90 1RF clonazepam 1 mg tablet See Rx Instructions .ROUTE .COMPLEX Qty: 30 3RF Dose Instruction: Take 0.5-1 tablets (0.5-1 mg) by mouth at bedtime Rx Instructions: Take 0.5-1 tablets (0.5-1 mg) by mouth at bedtime levothyroxine 75 mcg tablet See Rx Instructions .ROUTE .COMPLEX Qty: 90 1RF Dose Instruction: Take 1 tablet (0.075 mg) by mouth daily 30 minutes before breakfast Rx Instructions: Take 1 tablet (0.075 mg) by mouth daily 30 minutes before breakfast magnesium oxide 500 mg tablet 500 mg PO DAILY aspirin [Adult Low Dose Aspirin] 81 mg tablet,delayed release (DR/EC) 81 mg PO DAILY sertraline 50 mg tablet See Rx Instructions PO DAILY Rx Instructions: Take 3 tabs (150mg) daily per psychiatry ropinirole 2 mg Tablet Extended Release 24 Hr 6 mg PO BEDTIME multivitamin Tablet 1 tab PO DAILY vitamin B complex Tablet 1 tab PO DAILY Vitamin D3 1 tab PO DAILY clonazepam 0.5 mg tablet 0.25 mg PO BID Qty: 5 0RF clonazepam 0.5 mg tablet 0.25 mg PO BID Qty: 5 0RF Rx Instructions: 0.25 mg twice a day for 3 days, then 0.25 mg once daily for 3 days amantadine HCl 100 mg capsule 100 mg PO BID 90 Days Qty: 180 0RF ibuprofen 200 mg tablet 400 - 600 mg PO Q6H PRN (Reason: Pain (Scale Score 1-3)) Referrals: Anahi Mckenzie DO [Primary Care Provider] - Stand Alone Forms: Patient Portal/API
[2023-03-26 08:00] VITALS: O2SAT 98
--- NOTE | 2023-03-26 08:15 | PC.NURSE ---
pt ambulated to bathroom with stand by assist
[2023-03-26 08:20] LABS: Appearance Urine UA CLEAR; Bilirubin Urine UA NEGATIVE (NEGATIVE); Color Urine UA YELLOW; Glucose Urine UA NEGATIVE (Negative); Ketones Urine UA NEGATIVE (NEGATIVE); Leukocyte Esterase Urine UA TRACE (NEGATIVE); Nitrite Urine UA NEGATIVE (Negative); Occult Blood Urine UA NEGATIVE (Negative); Protein Urine UA NEGATIVE (Negative); Specific Gravity Urine UA <=1.005 (1.000-1.035); Urobilinogen Urine UA 0.2 E.U./dL (0.2)
[2023-03-26 08:22] LABS: Add Manual Diff / Slide Review NO; Basophils Absolute Auto 100 /uL (0-100); Basophils Percent Auto 0.8 % (0-2); Eosinophils Absolute Auto 200 /uL (0-450); Eosinophils Percent Auto 2.9 % (2-4); Hematocrit 40.1 % (36-46); Hemoglobin 13.5 g/dL (12.0-16.0); Lymphocytes Absolute Auto 1800 /uL (1100-4500); Mean Corpuscular HGB Conc 33.7 % (30-36); Mean Corpuscular Hemoglobin 28.9 PG (26-34); Mean Corpuscular Volume 85.7 fL (80-100); Monocytes Absolute Auto 600 /uL (0-900); Monocytes Percent Auto 8.8 % (3-14); Neutrophils Absolute Auto 4100 /uL (1500-7000); Neutrophils Percent Auto 60.5 % (50-75); Platelet Count 420 X10^3/uL (150-400); Red Blood Cell Count 4.67 X10^6/uL (4.0-5.2); Red Cell Distribution Width 14.9 % (11.6-14.8); White Blood Cell Count 6.8 X10^3/uL (4.5-11.0)
[2023-03-26 08:24] LABS: pH Urine UA 5.5 (4.5-8.0)
[2023-03-26 08:29] LABS: Bacteria Urine None Seen; Culture Indicated Urine Cult Not Indicated; RBC Urine None Seen (0-5/HPF); Squamous Epithelial Cell Urine None Seen (0-5/HPF); WBC Urine 0-1/HPF (0-5/HPF)
[2023-03-26 08:32] VITALS: PULSE 78; O2SAT 97
[2023-03-26 08:33] VITALS: BP 102/56; PULSE 79; O2SAT 99
[2023-03-26 08:33] LABS: Alanine Aminotransferase 11 IU/L (<35); Albumin 3.6 g/dL (3.5-5.0); Albumin Globulin Ratio 1.3 (1.0-2.8); Alkaline Phosphatase 135 U/L (38-126); Aspartate Aminotransferase 34 IU/L (14-36); BUN Creatinine Ratio 22.2 (6-22); Bilirubin Total 0.5 mg/dL (0.2-1.3); Blood Urea Nitrogen 12 mg/dL (7-17); Calcium 9.2 mg/dL (8.4-10.2); Carbon Dioxide 29 mmol/L (22-32); Chloride 103 mmol/L (98-107); Estimated Glomerular Filt Rate > 60 mL/min (>60); Globulin 2.8 g/dL (1.7-4.1); Glucose 101 mg/dL (70-100); HEMOLYSIS < 15 (0-50); Potassium 3.9 mmol/L (3.4-5.1); Sodium 134 mmol/L (137-145); Total Protein 6.4 g/dL (6.3-8.2)
[2023-03-26 09:00] VITALS: BP 105/61; PULSE 70; O2SAT 100
[2023-03-26] MEDS: TRIMETH/SULFA 160/800 (DS) TABLET 1 TAB PO (09:14)
== END 2023-03-26 10:30 | disposition home or self-care (01) ==
PROVIDERS: Emergency Provider Emergency Medicine; PCP Family Medicine
DX: N39.0 Urinary tract infection, site not specified (principal); G20 Parkinson's disease; Z91.148 Patient's other noncompliance with medication regimen for other reason
CPT/HCPCS: 36415; 80053; 81001; 85025; 99283